=== PATIENT | male | born 1970 ===

== ENCOUNTER 2020-06-25 17:07 | Outpatient (REF) | payer MEDICAID, SELFPAY | END 2020-06-25 17:08 | disposition home or self-care (01) | LOC: HO.LAB 17:07 | PROVIDERS: Visit Provider Internal Medicine | DX: Z20.828 Contact with and (suspected) exposure to other viral communicable diseases (principal) | CPT/HCPCS: C9803; U0003 ==

== ENCOUNTER 2020-08-11 10:29 | Outpatient (REF) | payer MEDICAID, SELFPAY ==
--- NOTE | ~2020-08-11 | XR_ITS ---
EXAMINATION: XR HIP, RIGHT XR KNEE, RIGHT XR FOOT, RIGHT CLINICAL INFORMATION: Chronic right hip, knee, and foot pain. COMPARISON: None TECHNIQUE: AP and frog-leg lateral views of the right hip. AP, tunnel, lateral, and sunrise views of the right knee. AP, oblique, and lateral views of the right foot. FINDINGS: Right hip: No acute fracture or dislocation. Mild joint space narrowing with small marginal osteophytes. No osseous erosion. No abnormal soft tissue calcification. Right knee: Mild medial compartment joint space narrowing. No significant marginal osteophytes. No osseous erosion. No abnormal soft tissue calcification. No significant joint effusion. No fracture or dislocation. Right foot: No acute fracture or dislocation. Tiny marginal osteophytes at the 1st metatarsophalangeal joint. Small plantar and dorsal calcaneal enthesophytes. XR/XR foot RT min 3V IMPRESSION: Right hip: Mild degenerative arthritis. Right knee: Minimal medial compartment degenerative arthritis. Right foot: Mild degenerative arthritis at the 1st metatarsophalangeal joint. Small plantar and dorsal calcaneal spurs.
--- NOTE | ~2020-08-11 | XR_ITS ---
EXAMINATION: XR HIP, RIGHT XR KNEE, RIGHT XR FOOT, RIGHT CLINICAL INFORMATION: Chronic right hip, knee, and foot pain. COMPARISON: None TECHNIQUE: AP and frog-leg lateral views of the right hip. AP, tunnel, lateral, and sunrise views of the right knee. AP, oblique, and lateral views of the right foot. FINDINGS: Right hip: No acute fracture or dislocation. Mild joint space narrowing with small marginal osteophytes. No osseous erosion. No abnormal soft tissue calcification. Right knee: Mild medial compartment joint space narrowing. No significant marginal osteophytes. No osseous erosion. No abnormal soft tissue calcification. No significant joint effusion. No fracture or dislocation. Right foot: No acute fracture or dislocation. Tiny marginal osteophytes at the 1st metatarsophalangeal joint. Small plantar and dorsal calcaneal enthesophytes. XR/XR knee RT 4V IMPRESSION: Right hip: Mild degenerative arthritis. Right knee: Minimal medial compartment degenerative arthritis. Right foot: Mild degenerative arthritis at the 1st metatarsophalangeal joint. Small plantar and dorsal calcaneal spurs.
--- NOTE | ~2020-08-11 | XR_ITS ---
EXAMINATION: XR HIP, RIGHT XR KNEE, RIGHT XR FOOT, RIGHT CLINICAL INFORMATION: Chronic right hip, knee, and foot pain. COMPARISON: None TECHNIQUE: AP and frog-leg lateral views of the right hip. AP, tunnel, lateral, and sunrise views of the right knee. AP, oblique, and lateral views of the right foot. FINDINGS: Right hip: No acute fracture or dislocation. Mild joint space narrowing with small marginal osteophytes. No osseous erosion. No abnormal soft tissue calcification. Right knee: Mild medial compartment joint space narrowing. No significant marginal osteophytes. No osseous erosion. No abnormal soft tissue calcification. No significant joint effusion. No fracture or dislocation. Right foot: No acute fracture or dislocation. Tiny marginal osteophytes at the 1st metatarsophalangeal joint. Small plantar and dorsal calcaneal enthesophytes. XR/XR hip RT min 2V IMPRESSION: Right hip: Mild degenerative arthritis. Right knee: Minimal medial compartment degenerative arthritis. Right foot: Mild degenerative arthritis at the 1st metatarsophalangeal joint. Small plantar and dorsal calcaneal spurs.
== END 2020-08-11 10:30 | disposition home or self-care (01) ==
LOC: HO.XRAY 10:29
PROVIDERS: PCP Internal Medicine; Visit Provider Family Medicine
DX: G89.29 Other chronic pain (principal); M25.551 Pain in right hip; M79.671 Pain in right foot
CPT/HCPCS: 73502; 73564; 73630

== ENCOUNTER 2020-08-25 10:00 | Outpatient (RCR) | payer MEDICAID, SELFPAY | END 2021-01-01 01:00 | disposition home or self-care (01) | LOC: HO.PT 10:00 | PROVIDERS: PCP Family Medicine; Visit Provider Family Medicine | DX: M25.561 Pain in right knee (principal) | CPT/HCPCS: 97110; 97116; 97140; 97162; 97530 ==

== ENCOUNTER 2020-10-14 14:20 | Outpatient (REF) | payer MEDICAID, SELFPAY ==
--- NOTE | ~2020-10-14 | MR_ITS ---
EXAMINATION: MR KNEE WITHOUT CONTRAST, RIGHT CLINICAL INFORMATION: Chronic pain instability COMPARISON: X-ray the right knee August 2020 TECHNIQUE: MRI of the knee without contrast was performed using routine sequences on a high-field scanner. FINDINGS: MENISCI: Medial Meniscus: There is an avulsive type tear the posterior root insertion. There is mild outward extrusion of the meniscus likely related to this tear. Lateral Meniscus: Intact LIGAMENTS: Cruciate: Intact Collateral: Intact EXTENSOR MECHANISM: Intact ARTICULAR CARTILAGE/BONE: Patellofemoral Compartment: Minimal cartilage heterogeneity in the median ridge and lateral facet of the patella. Trochlear cartilage normal. Overall minimal patellofemoral arthrosis. Medial Compartment: Normal Lateral Compartment: Normal JOINT FLUID AND BURSAE: Normal MR/MR knee RT wo con IMPRESSION: Avulsive-type tear of the posterior root of the medial meniscus. Minimal patellofemoral arthrosis.
== END 2020-10-14 14:21 | disposition home or self-care (01) ==
LOC: HO.MRI 14:20
PROVIDERS: Visit Provider Internal Medicine
DX: M25.561 Pain in right knee (principal)
CPT/HCPCS: 73721

== ENCOUNTER → 2021-04-01 09:53 | Outpatient (BNVA) | payer MEDICAID, SELFPAY | PROVIDERS: PCP Internal Medicine; Referring Provider Internal Medicine; Visit Provider Nurse Practitioner Family ==

== ENCOUNTER 2021-05-04 09:03 | Day surgery (SDC) | payer MEDICAID, SELFPAY ==
--- NOTE | 2021-05-01 08:28 | P.CONAN_ITS ---
Documented by User: Jackie Oneal NP 05/01/21 08:29 HPI - Anesthesia Eval Consult details Narrative: 50yo M for Upper Endoscopy and Colonoscopy ?ETOH abuse [facility] Past Medical History Medical History (Updated 04/28/21 @ 10:21 by Trish Brito RN) Allergic rhinitis Anxiety and depression History of alcohol abuse History of MRSA infection History of snoring HTN (hypertension) Urinary (tract) obstruction Family History Family History (Updated 04/01/21 @ 10:11 by Ashley Estrada CMA) Mother Cancer Surgical History Surgical History (Updated 04/28/21 @ 10:21 by Trish Brito RN) History of cystoscopy Hx of cholecystectomy Social History Social History (Updated 04/01/21 @ 10:12 by Ashley Estrada CMA) Alcohol intake: current Patient Tobacco Use Status: Never used Tobacco Advance Directives: No Advance Directives Information Provided: Yes Meds Allergies Allergy/AdvReac Type Severity Reaction Status Date / Time No Known Allergies Allergy Verified 04/28/21 10:21 [No Known Allergies*] Home Medications Medication Instructions Recorded Confirmed Last Taken Type cetirizine 10 mg tablet 10 mg PO DAILY 04/01/21 04/28/21 Unknown History lisinopril 10 mg tablet 10 mg PO DAILY 04/01/21 04/28/21 Unknown History tamsulosin 0.4 mg capsule 0.4 mg PO DAILY 04/01/21 04/28/21 Unknown History fluticasone propionate 50 2 spray INTRANASAL DAILY 04/28/21 04/28/21 Unknown History mcg/actuation nasal spray,suspension Exam Exam Date and Time: May 01, 202128 Assessment and Plan Assessment Anesthesia Assessment: Chart Reviewed Documented by User: Fior Conley MD 05/04/21 09:33 [facility] Past Medical History Medical History (Updated 04/28/21 @ 10:21 by Trish Brito RN) Allergic rhinitis Anxiety and depression History of alcohol abuse History of MRSA infection History of snoring HTN (hypertension) Urinary (tract) obstruction Family History Family History (Updated 04/01/21 @ 10:11 by Ashley Estrada CMA) Mother Cancer Surgical History Surgical History (Updated 04/28/21 @ 10:21 by Trish Brito RN) History of cystoscopy Hx of cholecystectomy Social History Social History (Updated 04/01/21 @ 10:12 by Ashley Estrada CMA) Alcohol intake: current Patient Tobacco Use Status: Never used Tobacco Advance Directives: No Advance Directives Information Provided: Yes Meds Allergies Allergy/AdvReac Type Severity Reaction Status Date / Time No Known Allergies Allergy Verified 04/28/21 10:21 [No Known Allergies*] Home Medications Medication Instructions Recorded Confirmed Last Taken Type cetirizine 10 mg tablet 10 mg PO DAILY 04/01/21 04/28/21 Unknown History lisinopril 10 mg tablet 10 mg PO DAILY 04/01/21 04/28/21 Unknown History tamsulosin 0.4 mg capsule 0.4 mg PO DAILY 04/01/21 04/28/21 Unknown History fluticasone propionate 50 2 spray INTRANASAL DAILY 04/28/21 04/28/21 Unknown History mcg/actuation nasal spray,suspension Exam Airway Mallampati Class: III TM Dist: >3cm Neck ROM: Full
--- NOTE | 2021-05-04 09:36 | MHC.SHP ---
Pre-Procedural Eval Section A Date of Service: 05/04/21 Section B Chief Complaint: Screening, dysphagia Details of Present Illness: unknown FH as adopted Relevant Family History (Specify if Yes): No Relevant Social History: Alcohol Use Medical History: Significant History (Allergic rhinitis Anxiety and depression History of alcohol abuse History of MRSA infection History of snoring HTN (hypertension) Urinary (tract) obstruction) History of Previous Operations: Relevant previous surgery/procedure and date(s) (cholecystectomy) Allergies: Allergies Allergy/AdvReac Type Severity Reaction Status Date / Time No Known Allergies Allergy Verified 04/28/21 10:21 [No Known Allergies*] Review of Systems Sugical H&P ROS: Negative: Constitution, Cardiovascular, Respiratory, Neurological, Psychiatric, Hem-Onc, Allergic/Immunologic, Gastrointestinal, Genitourinary, Musculoskeletal, Integumentary, Endocrine and Eyes/Ears/Nose/Throat Exam Surgical H&P Exam: Normal: HEENT, Normal: Heart, Normal: Lungs, Normal: Extremities, Normal: Abdomen, Normal: Skin and Normal: Neurological Plan Diagnosis/Plan: Unchanged I have reviewed the history and physical and performed a pertinent physical examination on my patient. No changes have occurred unless specified.
[2021-05-04 09:42] VITALS: BMI 47.0
[2021-05-04 09:44] VITALS: BP 141/78; PULSE 63; RESP 20; TEMP 36.2; O2SAT 97
[2021-05-04] MEDS: Lactated Ringers 1,000 ML 100 ML IVCONT (10:10)
--- NOTE | 2021-05-04 10:28 | PM.OP ---
Brief Operative Note Date of Service: 05/04/21 Pre-op diagnosis: dysphagia, screening colonoscopy Post-op diagnosis: same Procedure: see op note Surgeon: Jass Crenshaw MD Anesthesia: MAC Was an [employer] Engineering Division used for this Procedure?: No Estimated blood loss (mL): 0 Condition: stable Disposition: PACU
--- NOTE | 2021-05-04 10:28 | W.PM.OPN ---
Operative Note Operative Note Date of Service: 05/04/21 Narrative: Operative Information Procedure Description: EGD, Colonoscopy FLEXIBLE TRANSORAL UPPER GASTROINTESTINAL ENDOSCOPY AND COLONOSCOPY PROCEDURE NOTE UPPER ENDOSCOPY Consent: Indications for the procedure and potential complications of bleeding, perforation, reaction to medications and missed diagnosis were discussed with the patient and informed consent was obtained. Instrument: Olympus GIF H 190 J mid size upper endoscope Monitoring: Vital signs and clinical assessment, continuous EKG monitoring, Pulse oximetry, Carbon Dioxide monitoring and blood pressure monitoring were done throughout the procedure. Procedure: The patient was placed in the left lateral decubitis position and pre-procedure medications were administered and a bite block was placed. The endoscope was inserted into the mouth and advanced under direct vision to the third part of duodenum. A careful inspection was made as the upper endoscope was withdrawn including a retroflexed examination of the proximal stomach; Findings and interventions are described below. Findings: Larynx:normal Esophagus: GE junction at 40 cm, diaphragm hiatus at 40 cm, erosive esophagitis LA grade b noted, bx taken from random esophagus and GEJ, balloon dilation to 19 mm distally and proximally-- no tears seen. Stomach: Patchy erythematous mucosa. Biopsies were obtained. Grade 2 flap valve on retroflexed examination of the cardia. Duodenum: bulbar duodenitis and peptic appearing injury, bx taken Intervention: Biopsies as noted above, balloon dilation COLONOSCOPY Instrument: Olympus variable stiffness pediatric scope 190L Colonoscopy Monitoring: Vital signs and clinical assessment, continuous EKG monitoring, Pulse oximetry, Carbon Dioxide monitoring and blood pressure monitoring were done throughout the procedure. Colon withdrawal time was 17 minutes. Procedure: The patient was placed in the left lateral decubitis position and pre-procedure medications were administered. After a digital rectal examination of the ano-rectum, the video colonoscope was inserted into the rectum and advanced through the colon to the cecum/TI. The colonoscope was slowly withdrawn in a retrograde panoramic fashion and the colon mucosa was carefully examined including a retroflexed view of the rectum. Findings and interventions are described below. Procedure Difficulty: easy Findings: Terminal Ileum-normal Cecum: x1 sessile polyp 8-9 mm removed with cold snare and another flat polyp lesion 6-8 mm over orifice removed with forceps Ascending Colon: normal Transverse Colon -normal Descending Colon:normal Sigmoid Colon: 10-12 mm semi pedunculated polyp removed with cold snare with x 1 clip applied for hemostasis Rectum: Retroflexion with moderate sized inflammed internal hemorrhoids, grade I Anorectum - normal Colon preparation: [place] Bowel Preparation Scale Right colon; 2 Transverse colon: 3 Left colon; 3 (0 = Unprepared colon segment with mucosa not seen due to solid stool that cannot be cleared. 1 = Portion of mucosa of the colon segment seen, but other areas of the colon segment not well seen due to staining, residual stool and/or opaque liquid. 2 = Minor amount of residual staining, small fragments of stool and/or opaque liquid, but mucosa of colon segment seen well. 3 = Entire mucosa of colon segment seen well with no residual staining, small fragments of stool or opaque liquid) Impression and Post Procedure Diagnosis: Endoscopy Findings: duodenitis gastritis erosive esophagitis Colonoscopy Findings: internal hemorrhoids polyps Plan: Await Pathology results Repeat Colonoscopy in 3-4 years due to polyps or earlier if clinically indicated High fiber diet leaflet avoid straining at stool, epsom salts and sitz bath, anusol supps or cream if not taking PPi would benefit from trial and see if helps sx Above findings were reviewed with the patient and relevant handouts were provided if indicated.
[2021-05-04 10:57] VITALS: BP 130/84; PULSE 70; RESP 16; TEMP 36.4; O2SAT 98
[2021-05-04 11:12] VITALS: BP 141/93; PULSE 62; RESP 18; TEMP 36.2; O2SAT 96
== END 2021-05-04 12:49 | disposition home or self-care (01) ==
PROVIDERS: PCP Internal Medicine; Visit Provider Internal Medicine Gastroenterology
PROC: (CPT 45385; principal; 2021-05-04 11:10)
DX: Z12.11 Encounter for screening for malignant neoplasm of colon (principal); D12.0 Benign neoplasm of cecum; D12.5 Benign neoplasm of sigmoid colon; K64.0 First degree hemorrhoids; K59.00 Constipation, unspecified; R13.19 Other dysphagia; K20.80 Other esophagitis without bleeding; K29.70 Gastritis, unspecified, without bleeding; K29.80 Duodenitis without bleeding; K44.9 Diaphragmatic hernia without obstruction or gangrene; I10 Essential (primary) hypertension; R06.83 Snoring; J30.9 Allergic rhinitis, unspecified; F32.9 Major depressive disorder, single episode, unspecified
CPT/HCPCS: 45385; 45380; 43249; 43239; 88305; 88342; C1726

== ENCOUNTER → 2021-05-20 11:14 | Outpatient (BNVA) | payer MEDICAID, SELFPAY | PROVIDERS: PCP Internal Medicine; Referring Provider Internal Medicine; Visit Provider Nurse Practitioner Family | DX: K59.04 Chronic idiopathic constipation (principal); K21.9 Gastro-esophageal reflux disease without esophagitis; D12.0 Benign neoplasm of cecum; D12.6 Benign neoplasm of colon, unspecified; K29.80 Duodenitis without bleeding; K29.70 Gastritis, unspecified, without bleeding; K22.10 Ulcer of esophagus without bleeding; I10 Essential (primary) hypertension; Z90.49 Acquired absence of other specified parts of digestive tract; Z98.890 Other specified postprocedural states; Z79.899 Other long term (current) drug therapy | CPT/HCPCS: 99212 ==

== ENCOUNTER → 2021-08-31 12:01 | Outpatient (BNVA) | payer MEDICAID, SELFPAY | PROVIDERS: PCP Internal Medicine; Visit Provider Nurse Practitioner Family | DX: K59.04 Chronic idiopathic constipation (principal); K21.9 Gastro-esophageal reflux disease without esophagitis; E55.9 Vitamin D deficiency, unspecified | CPT/HCPCS: 99212 ==

== ENCOUNTER 2021-09-07 09:38 | Outpatient (REF) | payer MEDICAID, SELFPAY ==
[2021-09-07 10:57] LABS: Alanine Aminotransferase 32 U/L (0-40); Albumin Level 4.3 g/dL (3.5-5.0); Alkaline Phosphatase 67 U/L (39-117); Aspartate Amino Transferase 21 U/L (5-37); Bilirubin Direct 0.2 mg/dL (0.0-0.5); Bilirubin Total 0.5 mg/dL (0.0-1.0)
[2021-09-07 11:53] LABS: Folate 14.7 ng/mL (> or = 4.0); Vitamin B12 394 pg/mL (200-900)
[2021-09-11 01:17] LABS: Vitamin D 25-OH, D2 <4 ng/mL; Vitamin D 25-OH, D3 27 ng/mL; Vitamin D 25-OH, Total 27 ng/mL (30-100)
== END 2021-09-07 09:39 | disposition home or self-care (01) ==
LOC: HO.LAB 09:38
PROVIDERS: PCP Internal Medicine; Visit Provider Nurse Practitioner Family
DX: Z00.00 Encounter for general adult medical examination without abnormal findings (principal); Z12.11 Encounter for screening for malignant neoplasm of colon; R19.7 Diarrhea, unspecified; E55.9 Vitamin D deficiency, unspecified
CPT/HCPCS: 36415; 80076; 82306; 82607; 82746

== ENCOUNTER → 2021-09-30 19:51 | Outpatient (REF) | payer MEDICAID, SELFPAY | LOC: HO.SL 19:51 | PROVIDERS: PCP Internal Medicine; Visit Provider Internal Medicine | DX: G47.33 Obstructive sleep apnea (adult) (pediatric) (principal); R06.83 Snoring | CPT/HCPCS: 95811 ==

== ENCOUNTER → 2021-12-07 09:53 | Outpatient (BNVA) | payer MEDICAID, SELFPAY | PROVIDERS: PCP Internal Medicine; Visit Provider Nurse Practitioner Family | DX: K59.04 Chronic idiopathic constipation (principal); K21.9 Gastro-esophageal reflux disease without esophagitis; K58.1 Irritable bowel syndrome with constipation; Z79.899 Other long term (current) drug therapy | CPT/HCPCS: 99212 ==

== ENCOUNTER 2023-04-04 16:16 | Outpatient (REF) | payer MEDICAID, SELFPAY ==
--- NOTE | ~2023-04-04 | XR_ITS ---
EXAMINATION: XR CHEST CLINICAL INFORMATION: Shortness of breath and cough COMPARISON: None available. TECHNIQUE: 2 views of the chest were obtained. FINDINGS: No significant abnormality is noted involving the heart, lungs, mediastinum, bony thorax or soft tissues. XR/XR chest 2V IMPRESSION: Unremarkable examination.
== END 2023-04-04 16:17 | disposition home or self-care (01) ==
LOC: HO.HHCX 16:16
PROVIDERS: Visit Provider Student in an Organized Health Care Education/Training Program
DX: R06.02 Shortness of breath (principal)
CPT/HCPCS: 71046

== ENCOUNTER 2023-05-06 13:47 | Outpatient (REF) | payer OTHER, SELFPAY ==
[2023-05-09 05:41] LABS: ~HepC Num1 0.04 S/CO (0.00-0.79); ~Hepatitis B Surface Antibody NONREACTIVE (Nonreactive); ~Hepatitis C Antibody Nonreactive (Nonreactive)
== END 2023-05-06 13:48 | disposition home or self-care (01) ==
LOC: HO.HHCL 13:47
PROVIDERS: Visit Provider Nurse Practitioner Family
DX: E78.00 Pure hypercholesterolemia, unspecified (principal); F10.10 Alcohol abuse, uncomplicated
CPT/HCPCS: 36415; 86706; 86803

== ENCOUNTER 2023-07-29 10:59 | Outpatient (AMB) | payer OTHER, SELFPAY ==
--- NOTE | 2023-07-29 11:04 | A.OFFVIS_ITS ---
Intake Vital Signs 07/29/23 11:05 Height 5 ft 7 in Weight 235 lb 14.314 oz BMI 36.9 BP 110/74 Blood Pressure Location Lt brachial Position Sitting Pulse 63 Intake Visit Reasons: STATISTICAL TYPIST/Dr. 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 He has a pleasant 52-year-old male who says he has had flip-flops for many years usually when he is resting at nighttime and trying to go to sleep after he wakes up. Symptoms are not very bothersome. However recently had an episode where he felt rapid heart rate that lasted for about 5 hours more often accentuated flip-flopping in his chest. He then eventually ended up going to [facility] but by the time he reached to the emergency room his symptoms had subsided and his EKGs not show any abnormalities. He has longstanding history of hypertension. 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 He has no exertional symptoms of chest pain or shortness of breath. In the last year or so he is lost about 60 lb with dietary modification. He is taking all his medications. He denies any exertional chest pain, shortness of breath, orthopnea, PND, leg edema. No lightheadedness, syncope. [facility] Medical History (Updated 07/29/23 @ 11:37 by Ronnie Tucker MD) Tubular adenoma History of snoring History of alcohol abuse Allergic rhinitis History of MRSA infection Anxiety and depression Urinary (tract) obstruction HTN (hypertension) Surgical History Hx of esophagogastroduodenoscopy Hx of colonoscopy History of cystoscopy Hx of cholecystectomy Family History Mother Cancer Social History Alcohol intake: current Patient Tobacco Use Status: Never used Tobacco Review of Systems Const Denies chills, Denies daytime sleepiness, Denies fatigue, Denies fever(s), Denies frequent falls, Denies poor appetite, Denies snoring, Denies stops breathing during sleep, Denies weakness, Denies weight gain and Denies weight loss Eyes Denies loss of vision ENT Denies dizziness and Denies hearing loss Card Denies chest pain, Denies claudication, Denies leg edema, Denies lightheadedness, Denies palpitations, Denies dyspnea, Denies dyspnea on exertion and Denies orthopnea Resp Denies cough, Denies excessive phlegm production, Denies dyspnea, Denies dyspnea on exertion, Denies snoring and Denies wheezing GI Denies abdominal pain, Denies hematochezia, Denies change in bowel habits, Denies nausea and Denies vomiting Denies dysuria and Denies urinary frequency Musc Denies arthralgias, Denies muscle weakness, Denies numbness and Denies other (frequent falls) Skin/Breast Denies nail changes and Denies rash Neuro Denies Abnormal speech present, Denies dizziness, Denies frequent falls, Denies loss of vision, Denies memory loss, Denies numbness and Denies weakness Psych Denies depression and Denies memory loss Endo Denies fatigue and Denies palpitations Fuentes/Lymph Reports easy bruising and Reports other (anemia) Aller/Immun Denies wheezing Physical Exam Vital Signs: Last Vital Signs Pulse 63 07/29/23 11:05 BP 110/74 07/29/23 11:05 BMI result Body Mass Index 36.9 Const General: cooperative, comfortable, no acute distress, alert and awake Nutritional Appearance: obese Orientation/consciousness: patient oriented x3 Limitations: no limitations HEENT Head: Yes normocephalic and Yes atraumatic Neck Neck: Yes trachea midline, Yes supple and Yes no JVD Resp Effort & Inspection: normal respiratory effort Auscultation: clear to auscultation bilaterally Cardio Jugular venous distension: no JVD Palpation: normal PMI Rate: regular rate Rhythm: regular rhythm Heart sounds: S1 normal heart sound present, S2 normal heart sound present, no click, no gallops, no murmurs and no rubs GI Auscultation: normal bowel sounds Skin General skin exam: no rashes or lesions noted Neuro General: patient oriented x3 and no focal motor deficits Speech: No Abnormal speech present Extrem General: Yes no clubbing, cyanosis or edema Psych Appearance: grossly normal Office Procedures EKG Details: EKG shows normal sinus rhythm with incomplete right bundle-branch block 26559-[id number], Complete Assessment & Plan Assessment & Plan (1) Palpitations: Code(s): R00.2 - Palpitations Plan: Patient with longstanding history of flip-flops which is most likely related to extra systoles such as PVCs and PACs. I discussed at length about pathophysiology of PVCs and PACs and impact on cardiovascular prognosis. Will order a 7 day Holter monitor to assess for frequency as well as presence of extra systoles that may establish diagnosis. However he had a symptom that lasted for 5 hours with fast heart rate which could represent atrial fibrillation. Will obtain a 7 day Holter monitor to see if he has any propensity for atrial fibrillation that may need to be treated differently. Overall benign nature of isolated PVCs was discussed with him especially if he has normal structure of the heart. This was discussed with him and would avoid pharmacotherapy. He understands agrees. Avoidance of stimulants such as caffeine and alcohol. Continue risk factor modification. Will obtain an echocardiogram to assess for cardiac structure and function. If no diagnosis is established I have advised him to invest in smart phone based EKG device (2) HTN (hypertension): Code(s): I10 - Essential (primary) hypertension Plan: Hypertension which is currently well optimized on lisinopril 10 mg daily. He is done very well with lifestyle modification has lost about 60 lb. Discussed with him to continue to pursue aggressive weight loss program participate in regular physical activity. Continue lisinopril therapy. Low-salt diet was discussed advised to monitor blood pressure at home maintain a log. Goal blood pressure less than 130/84. He should also have a lipid panel with target goal LDL less than at least 100 mg/dL. Will follow up in the clinic in 4-6 weeks time, sooner p.r.n.. Coding Level of Care Code New Pt Level 4 (33474) Diagnoses Palpitations R00.2 HTN (hypertension) I10 CPT Codes EKG - CPT: 92283-[id number], Complete ([id number])
[2023-07-29 11:05] VITALS: BP 110/74; PULSE 63; BMI 36.9
== END 2023-07-29 11:31 | disposition home or self-care (01) ==
PROVIDERS: PCP Student in an Organized Health Care Education/Training Program; Visit Provider Internal Medicine Cardiovascular Disease
DX: R00.2 Palpitations (principal); I10 Essential (primary) hypertension
CPT/HCPCS: 93010; 99204

== ENCOUNTER → 2023-07-29 10:59 | Outpatient (BNVA) | payer OTHER, SELFPAY | PROVIDERS: PCP Student in an Organized Health Care Education/Training Program; Visit Provider Internal Medicine Cardiovascular Disease | DX: R00.2 Palpitations (principal); I10 Essential (primary) hypertension; Z79.899 Other long term (current) drug therapy | CPT/HCPCS: 93005; 99202 ==

== ENCOUNTER → 2023-08-19 10:54 | Outpatient (REF) | payer OTHER, SELFPAY ==
--- NOTE | 2023-08-19 11:01 | HM_ITS ---
Conclusion: 1. Patient was monitored for total period of 6 days and 23 hours n 2. Baseline was normal sinus rhythm with average heart of 64 beats per minute 3. Frequent sinus bradycardia noted with 36% of time heart rate below 60 beats per minute with no significant pauses 4. Occasional PACs noted without significant tachyarrhythmias 5. No patient reported events MTDD
--- NOTE | 2023-08-19 11:01 | CA_ITS ---
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 There is mildly increased left ventricular wall thickness. The visually estimated ejection fraction is between 55-60%. - Diastolic function is normal for age. - Normal right ventricular cavity size and systolic function. - There is mild dilatation of the ascending aorta measuring 3.40 cm. Findings Left Ventricle Normal left ventricular size and systolic function. There is mildly increased left ventricular wall thickness. The visually estimated ejection fraction is between 55-60%. There is no evidence of regional wall motion abnormalities. Diastolic function is normal for age. Right Ventricle Normal right ventricular cavity size and systolic function. Atria The left atrium is normal in size. Aortic Valve Normal aortic valve structure and function. There is no aortic valve stenosis. There is no aortic valve regurgitation. Mitral Valve Normal mitral valve structure and function. There is no mitral valve regurgitation. There is no mitral valve stenosis. Pulmonic Valve The pulmonic valve is normal. There is trace pulmonic valve regurgitation. Tricuspid Valve Normal tricuspid valve structure. There is trace tricuspid valve regurgitation. Normal right atrial pressure. There is no evidence of pulmonary hypertension. Great Vessels There is mild dilatation of the ascending aorta measuring 3.40 cm. The visualized portions of the pulmonary artery and branches are normal. Venous The inferior vena cava is normal in size and collapses greater than 50% with inspiration. Pericardium/Pleural There is no evidence of pericardial effusion. Prior Study Comparison No prior study available for comparison. Measurements 2D Linear Measurements IVSd: 1.27 0.6-0.9/0.6-1.0 cm LVIDd: 4.74 3.9-5.3/4.2-5.9 cm LVIDd Index: 2.17 2.4-3.2/2.2-3.1 cm/m2 LVIDs: 2.22 2.0-3.6 cm LVPWd: 1.24 0.7-1.1 cm Ao Root: 3.70 2.1-3.5 cm LA Diam: 4.60 2.7-3.8/3.0-4.0 cm LAIDs Index: 2.11 1.5-2.3 cm/m2 LV Mass: 285.56 67-162/88-224 g LV Mass Index: 130.99 43-95/49-115 g/m2 LVOT Diam: 2.40 3.0+(-)1.3 cm 2D Systolic Function EF 4C: 66.00 >55% EF 2C: 46.70 >55% EF BiP: 59.00 >55% Mitral Valve MV Pk E: 1.13 MV PK A: 0.81 MV Decel Time: 246.00 E/A: 1.40 E'Lateral: 13.20 E'Medial: 7.83 E/E' Med: 14.40 E/E' Lat: 8.60 PHT: 72.00 MVA PHT: 3.[address] [place]: 4.57 Aortic Valve AoV Pk Chuy: 1.48 AoV Mn Chuy: 0.94 AoV VTI: 0.35 AoV Pk Grad: 9.00 Aov Mn Grad: 4.00 JAMES Cont.VTI: 3.13 LVOT LVOT Pk Chuy: 1.07 LVOT Mn Chuy: 0.61 LVOT VTI: 0.24 LVOT Pk Grad: 5.00 LVOT Mn Grad: 2.00 LVOT Diam: 2.40 LVOT Area: 4.52 Diastolic Function MV Pk E: 1.13 MV Pk A: 0.81 E/A: 1.40 E'Medial: 7.83 E/E' Med: 14.40 E' Laterial: 13.20 E/E' Lat: 8.60 Right Ventricle TAPSE (mm): 25.00 TVS' Chuy: 14.00 Tricuspid Valve TR Pk Chuy: 2.23 TR Pk Grad: 20.00 RA Press: 3.00 RVSP: 23.00 Great Vessels Aorta Ao Root-2D: 3.70 2.0-3.7 cm Ao Asc: 3.40 2.1-3.4 cm Pulmonary Valve PV Pk Chuy: 1.44 Peak PV Grad: 8.00 Updated in Other Vendor System with Status of Final Bakari Davis MD electronically signed on 08/21/2023 1:27:27 PM with status of Final
== END ==
LOC: HO.CARD 10:54
PROVIDERS: PCP Nurse Practitioner Family; Visit Provider Internal Medicine Cardiovascular Disease
DX: R00.2 Palpitations (principal)
CPT/HCPCS: 93242; 93306

== ENCOUNTER → 2023-08-19 11:01 | Outpatient (BNV) | payer OTHER, SELFPAY | PROVIDERS: PCP Nurse Practitioner Family; Visit Provider Internal Medicine Cardiovascular Disease | DX: R00.1 Bradycardia, unspecified (principal) | CPT/HCPCS: 93244; 93306 ==

== ENCOUNTER 2023-09-08 14:07 | Outpatient (AMB) | payer OTHER, SELFPAY ==
[2023-09-08 14:12] VITALS: BP 100/62; PULSE 58; BMI 37.1
--- NOTE | 2023-09-08 14:12 | MHC.OFFVIS ---
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 He recently underwent an echocardiogram and Holter monitor and now presents for follow-up. Today he reports that his palpitations have lessened some. He mostly notice this them when he is laying down. He can feel his heart doing flip-flops. He does not notice this sensation during the day. No chest discomfort at rest or with activity. No shortness of breath, presyncope, syncope, PND, orthopnea or edema. He does report issues with fatigue, lightheadedness and feeling somewhat confused at times. Believes his diet may be contributing and that he may be running a high magnesium. He has an appointment with his PCP tomorrow and will discuss further with her. [facility] Medical History Tubular adenoma History of snoring History of alcohol abuse Allergic rhinitis History of MRSA infection Anxiety and depression Urinary (tract) obstruction HTN (hypertension) Surgical History Hx of esophagogastroduodenoscopy Hx of colonoscopy History of cystoscopy Hx of cholecystectomy Family History Mother Cancer Social History Alcohol intake: current Patient Tobacco Use Status: Never used Tobacco Review of Systems Const Details: lightheaded, confused at times All systems reviewed & are unremarkable except as noted in HPI and below Reports fatigue ENT Reports dizziness Card Details: palpitations when laying down Denies chest pain, Denies chest pain at rest, Denies chest pain with activity, Denies rapid heart rate, Denies pedal edema, Denies edema, Denies leg edema, Denies lightheadedness, Denies palpitations, Denies dyspnea, Denies dyspnea on exertion and Denies orthopnea Resp Denies cough, Denies dyspnea and Denies dyspnea on exertion GI Denies hematochezia and Denies change in stool character Musc Denies abnormal gait, Denies limited range of motion, Denies muscle cramps, Denies muscle weakness, Denies numbness, Denies radiating pain into limb, Denies stiffness and Denies tingling Neuro Denies abnormal gait, Reports dizziness, Denies numbness and Denies tingling Endo Reports fatigue and Denies palpitations Physical Exam Vital Signs: Last Vital Signs Pulse 58 09/08/23 14:12 BP 100/62 09/08/23 14:12 BMI result Body Mass Index 37.1 Const General: cooperative, healthy appearing, comfortable and no acute distress Orientation/consciousness: patient oriented x3 Neck Neck: Yes normal visual inspection Resp Effort & Inspection: normal respiratory effort Auscultation: clear to auscultation bilaterally, no rales, no rhonchi and no wheezes Cardio Jugular venous distension: no JVD Rate: regular rate Rhythm: regular rhythm Heart sounds: S1 normal heart sound present, S2 normal heart sound present, no murmurs and no rubs Neuro General: patient oriented x3 Extrem General: Yes normal to inspection and No no pedal edema Psych Appearance: grossly normal Mental Status: mental status grossly normal Speech and movement: Normal speech and movement present Assessment & Plan Assessment & Plan (1) Palpitations: Code(s): R00.2 - Palpitations Plan: Report of heart palpitations like his heart is flip-flopping when he lays down in bed at times. No daytime palpitations noted. EKG done last visit showing normal sinus rhythm with incomplete right bundle branch block, rate 63. Echocardiogram done 08/19/2023 showing EF 55-60%, ascending aorta 3.4 cm. Holter monitor done 08/19/2023 for 7 days shows sinus rhythm with average heart rate 64, frequent sinus bradycardia, 36% of the time heart rate less than 60, occasional PACs. Today he reports less heart palpitations however still present when he is laying down in bed at times. His symptoms are most likely related to PACs. Diagnosis of PACs reviewed with him. No need for medical management at this time. Instructed on reduction in caffeinated beverages. Good hydration. Exercise as tolerated and weight loss as able. Cardiology follow-up as needed. (2) HTN (hypertension): Code(s): I10 - Essential (primary) hypertension Plan: History of hypertension. Blood pressure currently well controlled at 100/62. Continue lisinopril. (3) PAC (premature atrial contraction): Code(s): I49.1 - Atrial premature depolarization Plan: As above Plan Time spent on chart review, documentation, interview and assessment Coding Level of Care Code Est Pt Level 3 (87678) Diagnoses Palpitations R00.2 HTN (hypertension) I10 PAC (premature atrial contraction) I49.1 Time Spent (min) 24
== END 2023-09-08 14:39 | disposition home or self-care (01) ==
PROVIDERS: PCP Nurse Practitioner Family; Visit Provider Nurse Practitioner Family
DX: R00.2 Palpitations (principal); I10 Essential (primary) hypertension; I49.1 Atrial premature depolarization
CPT/HCPCS: 99213

== ENCOUNTER → 2023-09-08 14:07 | Outpatient (BNVA) | payer OTHER, SELFPAY | PROVIDERS: PCP Nurse Practitioner Family; Visit Provider Nurse Practitioner Family | DX: R00.2 Palpitations (principal); I10 Essential (primary) hypertension; I49.1 Atrial premature depolarization | CPT/HCPCS: 99212 ==

== ENCOUNTER 2023-09-09 11:44 | Outpatient (REF) | payer OTHER, SELFPAY ==
[2023-09-09 14:02] LABS: Anion Gap 10 (12-20); Carbon Dioxide 30 mmol/L (22-29); Chloride 107 mmol/L (96-108); Magnesium 2.3 mg/dL (1.6-2.6); Potassium 4.5 mmol/L (3.3-5.1); Sodium 142 mmol/L (135-145)
[2023-09-09 14:05] LABS: Estimated Average Glucose 97 mg/dL
== END 2023-09-09 11:45 | disposition home or self-care (01) ==
LOC: HO.HHCL 11:44
PROVIDERS: Visit Provider Nurse Practitioner Family
DX: R53.83 Other fatigue (principal)
CPT/HCPCS: 36415; 80051; 83036; 83735

== ENCOUNTER 2024-02-20 11:15 | Outpatient (AMB) | payer OTHER, SELFPAY ==
--- NOTE | 2024-02-20 11:16 | MHC.OFFVIS ---
Vital Signs 02/20/24 11:17 Height 5 ft 7 in Weight 246 lb BMI 38.5 Intake Visit Reasons: Hemorrhoids Intake Note: This patient presents for Hemorrhoids. Pt c/o; Onset December, reports pain, reports inflmmation, Accompanied by: Self / Same As Patient Allergies No Known Allergies [No Known Allergies*] Allergy (Verified 02/20/24 11:23) Medication List - Last Reconciled 02/20/24 by Abraham Yan MD cetirizine 10 mg PO BID docusate sodium 100 mg PO BID PRN famotidine 40 mg PO BEDTIME finasteride 1 mg PO DAILY fluticasone propionate 50 mcg/actuation 2 sprays intranasal DAILY hydrocortisone 2.5% (Proctozone-HC) MO BID hydrocortisone acetate 25 mg MO BID lisinopril 10 mg PO DAILY sennosides (Natural Senna Laxative) 8.6 mg PO BEDTIME tamsulosin 0.4 mg PO DAILY HPI HPI Hemorrhoids: Details: 53-year-old male referred for hemorrhoids. He says that he has had hemorrhoids for many years. He would occasionally sees some bleeding with his hemorrhoids. However for the past 3 months, he says that his bleeding has been more frequent and heavier. He says that he would bleed each time he has a bowel movement. He describes pain in his anus and feels that his hemorrhoids are swollen a lot now a days. He says he has a lot of irritation around his anus as well He denies being constipated. He admits to marijuana use. [facility] Medical History (Updated 02/20/24 @ 11:40 by Abraham Yan MD) Bleeding hemorrhoids Tubular adenoma History of snoring History of alcohol abuse Allergic rhinitis History of MRSA infection Anxiety and depression Urinary (tract) obstruction HTN (hypertension) Surgical History Hx of esophagogastroduodenoscopy Hx of colonoscopy History of cystoscopy Hx of cholecystectomy Family History Mother Cancer Social History Alcohol intake: current Patient Tobacco Use Status: Never used Tobacco Review of Systems Const Denies chills and Denies fever(s) Card Denies chest pain, Denies dyspnea and Denies dyspnea on exertion Resp Denies cough, Denies dyspnea and Denies dyspnea on exertion GI Reports hematochezia and Denies change in bowel habits Denies hematuria and Denies difficulty urinating Musc Denies back pain and Denies limited range of motion Neuro Denies focal weakness and Denies convulsions Psych Denies depression and Denies mood swings Physical Exam Vital Signs: BMI result Body Mass Index 38.5 Const General: comfortable and no acute distress Orientation/consciousness: patient oriented x3 Neck Neck: Yes no lymphadenopathy Resp Auscultation: clear to auscultation bilaterally Cardio Rhythm: regular rhythm GI Other: Rectal exam shows large external hemorrhoids on both the left and right side Palpation (GI): Soft to palpation, nontender and no guarding Neuro General: patient oriented x3 Office Procedures Anoscopy He was in kimber-knife position. The anoscope was gently inserted. A full examination of the anal canal was done. He had large mixed hemorrhoids internal external on the left and right side. There were no other lesions. There was no bleeding. There was no fissure. There was no induration on digital exam. [id number] Assessment & Plan Assessment & Plan (1) Bleeding hemorrhoids: Code(s): K64.9 - Unspecified hemorrhoids Category: Medical Plan: He understands the technique of hemorrhoidectomy for his bleeding hemorrhoids. I explained the risks including but not limited to bleeding, infections, injury to the sphincter, postop pain, as well as the benefits and alternatives. I reviewed with him what to expect postoperatively He says that he has had this problems for a long time and wants to proceed with exam under anesthesia, hemorrhoidectomy. Coding Level of Care Code New Pt Level 3 (41251) Diagnoses Bleeding hemorrhoids K64.9 CPT Codes Details - CPT: 88613-Rxcfnfda ([id number])
[2024-02-20 11:17] VITALS: BMI 38.5
== END 2024-02-20 11:42 | disposition home or self-care (01) ==
PROVIDERS: PCP Nurse Practitioner Family; Visit Provider Surgery
DX: K64.9 Unspecified hemorrhoids (principal)
CPT/HCPCS: 46600; 99203

== ENCOUNTER → 2024-02-20 11:15 | Outpatient (BNVA) | payer OTHER, SELFPAY | PROVIDERS: PCP Nurse Practitioner Family; Visit Provider Surgery | DX: K64.9 Unspecified hemorrhoids (principal) | CPT/HCPCS: 46600; 99202 ==

== ENCOUNTER 2024-03-09 06:55 | Day surgery (SDC) | payer OTHER, SELFPAY ==
[2024-03-07 11:42] VITALS: BMI 38.5
--- NOTE | 2024-03-08 10:49 | HO.ANESPROP2 ---
Documented by User: Jackie Oneal NP 03/08/24 10:51 HPI - Anesthesia Eval Consult details Narrative: 53yo M for EUA,Hemorrhoidectomy Cardiac w/u 2023 with [facility] cardiology for palps. Dx with PACs. Only PRN cardiac f/u. PMFSH Active Problems Active Problems: All Active Problems PAC (premature atrial contraction) (Acute) Palpitations (Acute) Bleeding hemorrhoids (Acute) HTN (hypertension) (Acute) Tubular adenoma (Acute) Past Medical History Medical History (Updated 03/09/24 @ 07:23 by Rocío May RN) Bradycardia Sleep apnea Bleeding hemorrhoids Tubular adenoma History of snoring History of alcohol abuse Allergic rhinitis History of MRSA infection Anxiety and depression Urinary (tract) obstruction HTN (hypertension) Family History Family History Mother Cancer Surgical History Surgical History Hx of esophagogastroduodenoscopy Hx of colonoscopy History of cystoscopy Hx of cholecystectomy Social History Social History Alcohol intake: current Patient Tobacco Use Status: Never used Tobacco Use of substances other than those prescribed or required for medical reasons: Yes Are you DNR?: No Advance Directives: No Advance Directives Information Provided: Yes Advance Directives on File: No Recently lost weight without trying: No Nutrition Risks: No Nutritional Risk Meds Allergies Allergy/AdvReac Type Severity Reaction Status Date / Time No Known Allergies Allergy Verified 02/20/24 11:23 [No Known Allergies*] Home Medications ?Medication ?Instructions ?Recorded ?Confirmed ?Last Taken ?Type lisinopril 10 mg tablet 10 mg PO DAILY 04/01/21 02/20/24 Unknown History tamsulosin 0.4 mg capsule 0.4 mg PO DAILY 04/01/21 02/20/24 Unknown History fluticasone propionate 50 2 spray intranasal DAILY 04/28/21 02/20/24 Unknown History mcg/actuation nasal spray,suspension cetirizine 10 mg tablet 10 mg PO BID 09/08/23 02/20/24 Unknown History hydrocortisone 2.5 % topical cream VT BID 09/08/23 02/20/24 Unknown History with perineal applicator (Proctozone-HC) docusate sodium 100 mg capsule 100 mg PO BID PRN constipation 02/20/24 02/20/24 Unknown History finasteride 1 mg tablet 1 mg PO DAILY 02/20/24 02/20/24 Unknown History hydrocortisone acetate 25 mg 25 mg VT BID 02/20/24 02/20/24 Unknown History rectal suppository Exam Height,Weight and Vital Signs: Height 5 ft 7 in Weight 111.584 kg Narrative Narrative: ECHO 2023 Conclusions: - Normal left ventricular size and systolic function. There is mildly increased left ventricular wall thickness. The visually estimated ejection fraction is between 55-60%. - Diastolic function is normal for age. - Normal right ventricular cavity size and systolic function. - There is mild dilatation of the ascending aorta measuring 3.40 cm. Holter 2023 1. Patient was monitored for total period of 6 days and 23 hours n 2. Baseline was normal sinus rhythm with average heart of 64 beats per minute 3. Frequent sinus bradycardia noted with 36% of time heart rate below 60 beats per minute with no significant pauses 4. Occasional PACs noted without significant tachyarrhythmias 5. No patient reported events EKG 07/2023 normal sinus rhythm with incomplete right bundle-branch block Assessment and Plan Assessment Anesthesia Assessment: Chart Reviewed Documented by User: Fior Conley MD 03/09/24 09:12 [facility] Past Medical History Medical History (Updated 03/09/24 @ 07:23 by Rocío May RN) Bradycardia Sleep apnea Bleeding hemorrhoids Tubular adenoma History of snoring History of alcohol abuse Allergic rhinitis History of MRSA infection Anxiety and depression Urinary (tract) obstruction HTN (hypertension) Family History Family History Mother Cancer Family history of problems with anesthesia: No Surgical History Surgical History Hx of esophagogastroduodenoscopy Hx of colonoscopy History of cystoscopy Hx of cholecystectomy History of Problems with Anesthesia: No Social History Social History Alcohol intake: current Patient Tobacco Use Status: Never used Tobacco Use of substances other than those prescribed or required for medical reasons: Yes Are you DNR?: No Advance Directives: No Advance Directives Information Provided: Yes Advance Directives on File: No Recently lost weight without trying: No Nutrition Risks: No Nutritional Risk Meds Allergies Allergy/AdvReac Type Severity Reaction Status Date / Time No Known Allergies Allergy Verified 02/20/24 11:23 [No Known Allergies*] Home Medications ?Medication ?Instructions ?Recorded ?Confirmed ?Last Taken ?Type lisinopril 10 mg tablet 10 mg PO DAILY 04/01/21 02/20/24 Unknown History tamsulosin 0.4 mg capsule 0.4 mg PO DAILY 04/01/21 02/20/24 Unknown History fluticasone propionate 50 2 spray intranasal DAILY 04/28/21 02/20/24 Unknown History mcg/actuation nasal spray,suspension cetirizine 10 mg tablet 10 mg PO BID 09/08/23 02/20/24 Unknown History hydrocortisone 2.5 % topical cream VT BID 09/08/23 02/20/24 Unknown History with perineal applicator (Proctozone-HC) docusate sodium 100 mg capsule 100 mg PO BID PRN constipation 02/20/24 02/20/24 Unknown History finasteride 1 mg tablet 1 mg PO DAILY 02/20/24 02/20/24 Unknown History hydrocortisone acetate 25 mg 25 mg VT BID 02/20/24 02/20/24 Unknown History rectal suppository Exam Airway Mallampati Class: III TM Dist: >3cm Neck ROM: Full Assessment and Plan Assessment Anesthesia Assessment: Anesthesia Plan Discussed Final Anesthetic Review Family History of Problems with Anesthesia: No History of Problems with Anesthesia: No NPO: Yes ASA Class: III Final Preanesthetic Review: No Changes in Pt Med Stat, Meds/Allgs Chart Reviewed, Consent Obtained/Reviewed and Anes Risks/Benef Reviewed Patient Risk: Intermediate Procedure Risk: Low Anesthetic Plan Anesthetic Plan: GA Disposition: Standard PACU
[2024-03-09] VITALS (13 sets, daily range): BP systolic 111–146; BP diastolic 60–84; PULSE 55–82; RESP 6–20; TEMP 36–36.9; O2SAT 95–100; BMI 39.3
--- NOTE | 2024-03-09 08:30 | MHC.SHP ---
Pre-Procedural Eval Section A - 24 Hr Update-Section A only Date of Service: 03/09/24 Section B - Complete if H&P > 30 days Chief Complaint: Unspecified hemorrhoids Details of Present Illness: has had bleeding hemorrhoids Relevant Family History (Specify if Yes): No Present Medications: see Short Stay Collaborative assessment Medical History: Significant History (HTN, PAC) Allergies: Allergies Allergy/AdvReac Type Severity Reaction Status Date / Time No Known Allergies Allergy Verified 02/20/24 11:23 [No Known Allergies*] Review of Systems Sugical H&P ROS: Negative: Constitution, Cardiovascular, Respiratory, Neurological, Psychiatric, Hem-Onc, Allergic/Immunologic, Genitourinary, Musculoskeletal, Integumentary, Endocrine and Eyes/Ears/Nose/Throat Exam Surgical H&P Exam: Normal: Heart, Normal: Lungs and Normal: Abdomen Exam Comment: inmternal and external hemorrhoids Plan Diagnosis/Plan: Unchanged I have reviewed the history and physical and performed a pertinent physical examination on my patient. No changes have occurred unless specified. Time Spent With Patient Time: Total time managing care of this patient today ____ minutes.
--- NOTE | 2024-03-09 09:33 | W.PM.OPN ---
Operative Note Operative Note Date of Service: 03/09/24 Narrative: Preop diagnosis: Bleeding hemorrhoids, internal external Postop diagnosis: Large internal and external hemorrhoids with bleeding Procedure: Exam under anesthesia hemorrhoidectomy x3 columns Surgeon: Abraham Yan MD The patient is a 53-year-old male was had chronic problems with bleeding hemorrhoids. He therefore wanted to proceed with hemorrhoidectomy. He understood the technique of the planned procedure as well as the risks, benefits, and alternatives. He was brought to the operating room. He was placed in prone kimber-knife position under general anesthesia via endotracheal tube. The buttocks were retracted with wide tape laterally. The perianal area was prepped and draped in the usual sterile fashion. A surgical time-out was done. The patient received Cefotan 2 g IV preoperatively Examination of the anal orifice revealed large external hemorrhoids, 2 of them on the right and 1 on the left . I infiltrated the perianal area with lidocaine 1%. I inserted the Steven Sim retractor and examined the anal canal circumferentially. Again this hemorrhoidal columns were seen and this were mix of internal external. These were large bulky hemorrhoidal columns. There were no other lesions seen in the anal canal. There was no fissure or ulceration. There was induration. I applied a Ibrahim grasper on the largest hemorrhoidal column in the right side laterally. This was retracted out into the field. I applied a kyeuex-gc-[id number] chromic 3-0 stitch at the pedicle past the dentate line. I made an incision around this hemorrhoidal column to the perianal skin with a blade 15. I excised this hemorrhoidal column above the plane of the sphincters along this incision. I closed the incision with full-thickness running 3-0 sutures. Additional hemostatic sutures were placed The same procedure was duplicated on the hemorrhoidal column on the left. Again this hemorrhoidal column was retracted out in the field with a Ibrahim grasper. I made a xuplhv-lm-viqlf stitch at the pedicle. I made an incision around this hemorrhoidal column to the perianal skin with a blade 15. I excised this hemorrhoidal column above the plane of the sphincters with scissors. I closed the incision with a running chromic 3-0 stitch with a history of hemostatic sutures placed There was another large hemorrhoidal column anteriorly a little towards the right side as well and this was excised in the same fashion. This was marked with a Ibrahim grasper and a [id number] incision was made at the pedicle. I made an incision around this hemorrhoidal column to the perianal skin with a blade 15. I excised this above the plane of the sphincters with scissors. I closed the incision with a running chromic 3-0 stitch. I observed for hemostasis. Additional [id number] sutures were placed for oozing areas and all incisions Once hemostasis was confirmed, I positioned a rolled Gelfoam into the anal canal for additional hemostasis. I infiltrated the perianal area generously with Marcaine 0.5% for postop analgesia. The procedure was then completed The patient tolerated the procedure well. There were no immediate complications. Initial and final counts of sponges and instruments were correct. Estimated blood loss was about 100 cc in view of the large hemorrhoids. The patient was extubated without difficulty and transferred to the recovery room with stable vital signs.
[2024-03-09] MEDS: fentaNYL citrate/PF 100 MCG/2 ML VIAL 50 MCG IVPUSH ×2 (10:33→10:41)
== END 2024-03-09 11:42 | disposition home or self-care (01) ==
PROVIDERS: Visit Provider Surgery
PROC: (CPT 46260; principal; 2024-03-09 08:30)
DX: K64.8 Other hemorrhoids (principal); K64.4 Residual hemorrhoidal skin tags; K62.89 Other specified diseases of anus and rectum; I10 Essential (primary) hypertension; N13.9 Obstructive and reflux uropathy, unspecified; F41.8 Other specified anxiety disorders; G47.33 Obstructive sleep apnea (adult) (pediatric); Z86.14 Personal history of Methicillin resistant Staphylococcus aureus infection; Z79.51 Long term (current) use of inhaled steroids; Z79.899 Other long term (current) drug therapy; Z98.890 Other specified postprocedural states
CPT/HCPCS: 46260; 88304; J0131; J1200; J1885; J2250; J2405; J2704; J2795; J3010

== ENCOUNTER → 2024-03-09 06:55 | Outpatient (BNV) | payer OTHER, SELFPAY | PROVIDERS: Visit Provider Surgery | DX: K64.8 Other hemorrhoids (principal) | CPT/HCPCS: 46260 ==

== ENCOUNTER 2024-03-22 09:00 | Outpatient (AMB) | payer OTHER, SELFPAY ==
--- NOTE | 2024-03-22 09:03 | MHC.OFFVIS ---
Intake Visit Reasons: S/P hemorrhoidectomy Intake Note: This patient presents for post-op assessment status post Exam under anesthesia hemorrhoidectomy x3 columns. Pt c/o; reports no complaints. Hand Inspector Required: No Accompanied by: Self / Same As Patient Allergies No Known Allergies [No Known Allergies*] Allergy (Verified 03/22/24 09:16) HPI HPI S/P hemorrhoidectomy: Details: He underwent hemorrhoidectomy 3 large columns of hemorrhoids last 03/09/2024. He tolerated the procedure well. He says he feels well. He admits to having pain for the 1st few days but now feels much better. [facility] Medical History Bradycardia Sleep apnea Bleeding hemorrhoids Tubular adenoma History of snoring History of alcohol abuse Allergic rhinitis History of MRSA infection Anxiety and depression Urinary (tract) obstruction HTN (hypertension) Surgical History History of hemorrhoidectomy (~03/09/24) Hx of esophagogastroduodenoscopy Hx of colonoscopy History of cystoscopy Hx of cholecystectomy Family History Mother Cancer Social History Alcohol intake: current Patient Tobacco Use Status: Never used Tobacco Review of Systems Const Denies chills and Denies fever(s) GI Denies hematochezia Physical Exam Const Other: Sitting down comfortably General: comfortable and no acute distress Resp Effort & Inspection: normal respiratory effort GI Other: Hemorrhoidectomy sites are well healing, not infected, some ecchymosis seen on the left, no induration Assessment & Plan Assessment & Plan (1) Bleeding hemorrhoids: Code(s): K64.9 - Unspecified hemorrhoids Category: Medical Plan: Status post hemorrhoidectomy for 3 large columns. He is doing well postoperatively. His incisions are well healing. He feels well and is happy with the outcome. His path report shows hemorrhoids. I advised him to continue doing hot Sitz baths or warm soaks to the area. He is to avoid straining and constipation. Coding Level of Care Code Global (76540) Diagnoses Bleeding hemorrhoids K64.9
== END 2024-03-22 09:31 | disposition home or self-care (01) ==
PROVIDERS: PCP Nurse Practitioner Family; Visit Provider Surgery
DX: K64.9 Unspecified hemorrhoids (principal)
CPT/HCPCS: 99024

== ENCOUNTER → 2024-03-22 09:00 | Outpatient (BNVA) | payer OTHER, SELFPAY | PROVIDERS: PCP Nurse Practitioner Family; Visit Provider Surgery | DX: K64.9 Unspecified hemorrhoids (principal) | CPT/HCPCS: 99212 ==

== ENCOUNTER 2024-04-23 09:26 | Outpatient (AMB) | payer MEDICAID, SELFPAY ==
--- NOTE | 2024-04-23 09:26 | A.OFFVIS_ITS ---
Vital Signs 04/23/24 09:35 Height 5 ft 7 in Weight 249 lb 1.957 oz BMI 39.0 BP 122/72 Blood Pressure Location Lt brachial Position Sitting Intake Visit Reasons: bleeding Intake Note: Patient is seen in office for post op assessment post, hemorrhoidectomy x3 columns. Pt c/o: admits to bleeding since one week post surgery, worse today, blood when cleaning, stop taking the senna & colace, sensation of having to go, straining, bright red blood Flame Annealing Machine Setter Required: No Accompanied by: Self / Same As Patient Allergies No Known Allergies [No Known Allergies*] Allergy (Verified 04/23/24 09:42) HPI HPI bleeding: Details: He had undergone hemorrhoidectomy of multiple columns because of bleeding hemorrhoids last 03/09/2024. I had seen him a for postop visit last month and he had been doing well However, for the past week and a half, he says he had been noticing bright red blood with bowel movements periodically. He says that this morning the seemed to be ?a lot?. He says that he has had frequent bowel movements lately which appeared to be causing him to have some bloody stools. He says he is up-to-date with his colonoscopy but he says that he may be do it in the next year. [facility] Medical History Bradycardia Sleep apnea Bleeding hemorrhoids Tubular adenoma History of snoring History of alcohol abuse Allergic rhinitis History of MRSA infection Anxiety and depression Urinary (tract) obstruction HTN (hypertension) Surgical History History of hemorrhoidectomy (~03/09/24) Hx of esophagogastroduodenoscopy Hx of colonoscopy History of cystoscopy Hx of cholecystectomy Family History Mother Cancer Social History Alcohol intake: current Patient Tobacco Use Status: Never used Tobacco Review of Systems Const Denies chills and Denies fever(s) Resp Denies cough GI Reports hematochezia Physical Exam Const General: comfortable and no acute distress Resp Effort & Inspection: normal respiratory effort GI Other: Rectal exam shows some residual swelling on the hemorrhoidectomy site on the right with some tenderness as well. Otherwise, no bleeding seen. There was no signs of any inflammation or infection Assessment & Plan Assessment & Plan (1) Bleeding hemorrhoids: Code(s): K64.9 - Unspecified hemorrhoids Category: Medical Plan: Status post hemorrhoidectomy. He had been doing well postoperatively. He h owever has been noticing some blood per rectum the last week and a half. Examination does not reveal any obvious source of bleeding but he still has some residual swelling of the hemorrhoidectomy sites. I advised him to continue to do hot Sitz baths. I advised him to avoid straining and constipation. He does state that his problem sometimes now is that he has to frequent of bowel movements so I told him to hold off on Colace if this is happening as frequent bowel movements can also irritate the hemorrhoidectomy sites He understands that he can come back to the office any time if he wants this re- evaluated. Coding Level of Care Code Global (74524) Diagnoses Bleeding hemorrhoids K64.9
[2024-04-23 09:35] VITALS: BP 122/72; BMI 39.0
== END 2024-04-23 09:51 | disposition home or self-care (01) ==
PROVIDERS: PCP Nurse Practitioner Family; Visit Provider Surgery
DX: K64.9 Unspecified hemorrhoids (principal)
CPT/HCPCS: 99024

== ENCOUNTER → 2024-04-23 09:26 | Outpatient (BNVA) | payer OTHER, SELFPAY | PROVIDERS: PCP Nurse Practitioner Family; Visit Provider Surgery | DX: N40.1 Benign prostatic hyperplasia with lower urinary tract symptoms (principal); K64.9 Unspecified hemorrhoids | CPT/HCPCS: 81003; 99202; 99212 ==

== ENCOUNTER 2024-04-23 09:53 | Outpatient (AMB) | payer MEDICAID, SELFPAY ==
--- NOTE | 2024-04-23 09:59 | MHC.OFFVIS ---
Intake Visit Reasons: BPH w/LUTS Intake Note: Patient is present for BPH/LUTS Urology Medication:TAMSULOSIN, FINASTERIDE Antibiotic Allergy:NONE Blood Thinner:NONE Electric Sign Assembler Required: No Allergies No Known Allergies [No Known Allergies*] Allergy (Verified 04/23/24 10:00) HPI Comments Details: 04/23/24--Cisco is a 53 year old male who is here for [facility] evaluation for BPH. He has been followed by urology in the past. He is on tamsulosin and proscar. He wants to follow with [facility]. He states the medication helps. He denies dysuria, denies hematuria. Recent hemrrhoidectomy. Will hold on prostate exam today. [facility] Medical History Bradycardia Sleep apnea Bleeding hemorrhoids Tubular adenoma History of snoring History of alcohol abuse Allergic rhinitis History of MRSA infection Anxiety and depression Urinary (tract) obstruction HTN (hypertension) Surgical History History of hemorrhoidectomy (~03/09/24) Hx of esophagogastroduodenoscopy Hx of colonoscopy History of cystoscopy Hx of cholecystectomy Family History Mother Cancer Social History Alcohol intake: current Patient Tobacco Use Status: Never used Tobacco Review of Systems Const All systems reviewed & are unremarkable except as noted in HPI and below Reports no additional complaints Eyes Reports no additional complaints ENT Reports no additional complaints Card Reports no additional complaints Resp Reports no additional complaints GI Reports no additional complaints Reports as per HPI Musc Reports no additional complaints Skin/Breast Reports system reviewed and no additional complaints, except as documented Neuro Reports no additional complaints Psych Reports no additional complaints Endo Reports no additional complaints Fuentes/Lymph Reports no additional complaints Aller/Immun Reports no additional complaints Physical Exam Const General: healthy appearing, no acute distress and well developed Orientation/consciousness: patient oriented x3 HEENT Head: Yes normocephalic and Yes atraumatic Eyes Conjunctivae: conjunctivae normal Neck Neck: Yes normal visual inspection Chest Chest palpation & inspection: normal inspection of the chest Resp Effort & Inspection: normal respiratory effort Cardio Rate: regular rate GI Inspection: Yes normal to inspection Neuro General: patient oriented x3 Extrem General: No pedal edema Psych Appearance: grossly normal Affect: normal affect Results AMB Urinalysis, Automated UA Leukoctes 0 Genia/uL Last Edit by CRISTI Nelson on 04/23/24 10:18 UA Nitrite Negative Last Edit by CRISTI Nelson on 04/23/24 10:18 UA Urobilinogen 0.2 mg/dL Last Edit by CRISTI Nelson on 04/23/24 10:18 UA Protein 0 mg/dL Last Edit by Rena Lopez [facility] on 04/23/24 10:18 UA pH 6.0 Last Edit by Rena Lopez [facility] on 04/23/24 10:18 UA Blood 0 Jewel/uL Last Edit by Rena Lopez [facility] on 04/23/24 10:18 UA Specific [place] 1.020 Last Edit by Rena Lopez [facility] on 04/23/24 10:18 UA Ketone Negative Last Edit by CRISTI Nelson on 04/23/24 10:18 UA Bilirubin 0 mg/dL Last Edit by Rena Lopez [facility] on 04/23/24 10:18 UA Glucose 0 mg/dL Last Edit by Rena Lopez [facility] on 04/23/24 10:18 Results Reviewed Results Reviewed: Laboratory Last Values Urine pH (Auto) 6.0 04/23/24 10:17 Specific [place] (Auto) 1.020 04/23/24 10:17 Urine Protein (Auto) 0 mg/dL 04/23/24 10:17 Glucose (UA)(Auto) 0 mg/dL 04/23/24 10:17 Urine Ketones (Auto) Negative 04/23/24 10:17 Urine Blood (Auto) 0 Jewel/uL 04/23/24 10:17 Urine Nitrite (Auto) Negative 04/23/24 10:17 Urine Bilirubin (Auto) 0 mg/dL 04/23/24 10:17 Urine Urobilinogen (Auto) 0.2 mg/dL 04/23/24 10:17 Leukocyte Esterase (Auto) 0 Genia/uL 04/23/24 10:17 Assessment & Plan Assessment & Plan (1) BPH loc w urin obs/LUTS: Code(s): N40.1 - Benign prostatic hyperplasia with lower urinary tract symptoms Category: Medical Plan Cont tamsulosin, proscar, PSA screening Orders: Orders AMB Urinalysis Automated 04/23/24 Z13.9 - Encounter for screening, unspecified Patient Instructions: The patient had an opportunity to ask questions regarding treatment plan. The patient expressed understanding and agreement with the above treatment plan. The patient is aware they should contact our office by phone for worsening of their current condition or the appearance of new symptoms. Compliance is encouraged with any medications and followup testing that is ordered. It is a privilege to be allowed the opportunity to participate in the urologic care of your patient. If you have any questions or concerns regarding treatment for the above conditions please do not hesitate to contact me. The office telephone contact is [phone]. This note is constructed in part using voice recognition software. While every effort has been made to ensure accuracy rat exterminator errors may have been included. Yours sincerely, Bong Campuzano MD Coding Level of Care Code New Pt Level 3 (34199) Diagnoses BPH loc w urin obs/LUTS N40.1
== END 2024-04-23 11:18 | disposition home or self-care (01) ==
PROVIDERS: Visit Provider Urology
DX: N40.1 Benign prostatic hyperplasia with lower urinary tract symptoms (principal)
CPT/HCPCS: 99203

== ENCOUNTER 2024-07-25 11:00 | Outpatient (REF) | payer MEDICAID, SELFPAY ==
--- OUTSIDE RECORDS SUMMARY | 2024-07-25 18:13 | XMS_ITS | Encounter Summary ---
Author Organization [employer] Address [address] [place] [address] Care Team Providers Care Lithographic Proofer Apprentice Name Role Phone Mervat Simental MD Primary Care Provider + Encounter Details Date Type Department Care Team (Latest Contact Info) Description 07/25/2024 Travel Social History Tobacco Use Types Packs/Day Years Used Date Smoking Tobacco: Never Passive Smoke Exposure: Never Smokeless Tobacco: Never Alcohol Use Standard Drinks/Week Comments Yes 15 (1 standard drink = 0.6 oz pu re alcohol) drinking beer Depression Answer Date Recorded Patient Health Questionnaire-9 Score 10 09/09/2023 Patient Health Questionnaire-9 Score 10 09/09/2023 Last PHQ-9: Questionnaire Data Not on file 0 09/09/2023 Housing Stability Answer Date Recorded What is your housing situation today? I have christen bender 05/05/[address] you li ve. Do you have problems with any of the following? None of the above 05/05/2023 Food Insecurity Answer Date Recorded Within the past 12 months, y ou worried that your food would run out before you got money to buy more: Never True 05/05/2023 Within the past 12 months,th e food you bought just didn't last and you didn't have enough money to get more: Never True 08/2022 Transportation Answer Date Recorded In the past 12 months, has l ack of transportation kept you from medical appts, meetings, work or from getting things needed for daily living? No 05/05/2023 Utilities Answer Date Recorded In the past 12 months, has t he electric, gas, oil or water company threatened to shut off services in your home? No 05/05/2023 Depression Answer Date Recorded Patient Health Questionnaire-2 Score 3 09/09/2023 Sex and Gender Information Value Date Recorded Sex Assigned at Male 05/03/2022 10:37 AM EDT Legal Sex Male 10:37 AM EDT Gender Identity Male 05/03/2022 10:37 AM EDT Sexual Orientation Straight 05/03/2022 10 :37 AM EDT documented as of this encounter Plan of Treatment Upcoming Encounters Date Type Department Care Team (Late st Contact Info) Description 07/27/2024 9:15 AM EST Office Visit [facility] MED[facility]INE [address] [place] [address] Mervat Simental MD [address] [place] [address] 07/27/2024 10:00 AM EST Office Visit [facility] ADULT DENTAL [address] [place] [address] Farhad Bernal DDS [address] [place] [address] 09/03/2024 1:00 PM EST Office Visit [facility] ADULT DENTAL [address] [place] [address] Alicia, Enriqueta [address] [place] [address] 11/05/2024 10:30 AM EDT Office Visit [facility] OPTOMETRY [address] [place] [address] Ever, Jessica, OD [address] [place] [address] documented as of this encounter Visit Diagnoses Not on filedocumented in this encounter Additional Health Concerns Assessment Noted Time PHQ-9 Depression Total Score: 10 024 11:48 AM EST documented as of this encounter Care Teams Lithographic Proofer Apprentice Relationship Specialty Start Date End Date Mervat Simental MD [address] [place] [address] PCP - General Internal Medicine 03/06/24 documented as of this encounter
--- OUTSIDE RECORDS SUMMARY | 2024-07-25 18:13 | XMS_ITS | Encounter Summary ---
Author Organization [employer] Address [address] [place] [address] Care Team Providers Care Police Service Technician Name Role Phone Mervat Simental MD Primary Care Provider + Encounter Details Date Type Department Care Team (Late st Contact Info) Description 07/25/2024 10:30 AM EST Office Visit [facility] [address] [place] [address] Chantell Aleman FNP [address] [place] [address] Acute non-recurrent frontal sinusitis (Primary Dx); Influenza A Social History Tobacco Use Types Packs/Day Years [...] AM EDT documented as of this encounter Last Filed Vital Signs Vital Sign Reading Time Taken Comments Blood Pressure 143/90 07/25/2024 11:03 AM EST Pulse 70 07/25/2024 11:03 AM EST Temperature 37.1 ??C (98.7 ??F) 07/25/2024 11:[address] Respiratory Rate 20 07/25/2024 11:03 AM EST Oxygen Saturation 95% 07/25/2024 11:03 AM EST Inhaled Oxygen Concentration - - Weight 122 kg (269 lb 8 oz) 07/25/2024 11:03 AM EST Height 170.2 cm (5' 7 ) 07/25/2024 11:03 AM EST Body Mass Index 42.21 07/25/2024 11:03 AM EST documented in this encounter Progress Notes * Chantell Aleman, [place] - 07/25/2024 10:30 AM EST Subjective: Cisco Ro is a 53 y.o. male w/ PMH BPH, palpitations, mixed anxiety and depression, who presents to the office for a sick visit. HPI He was seen for ASK visit on 07/21/24 for ongoing fatigue and URI symptoms. Rapid testing for COVID & Flu A&B was negative during the appt. Recommended supportive care. Re fatigue: Labs and upcoming sleep study pending. Today, Mr. Ro reports continued/worsening nasal congestion, sinus pressure, headaches x 2 to 3 days. Associated with fatigue and chills. One episode of vomiting, although believes may not be related. No diarrhea or nausea. 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 HENT: Positive for congestion, sinus pressure and sinus pain. Negative for sore throat. Respiratory: Negative for shortness of breath and wheezing. Cardiovascular: Negative for chest pain, palpitations and leg swelling. Gastrointestinal: Positive for vomiting. Negative for diarrhea and nausea. Neurological: Negative for dizziness. Visit Vitals BP (!) 143/90 (BP Location: Right arm, Patient Position: Sitting, BP Cuff Size: Large adult) Pulse 70 Temp 98.7 ??F (37.1 ??C) (Oral) Resp 20 Ht 5' 7 (1.702 m) Wt 269 lb 8 oz (122 kg) SpO2 95% BMI 42.21 kg/m?? Smoking Status Never BSA 2.4 m?? Physical Exam Constitutional: General: He is not in acute distress. HENT: Head: Normocephalic and atraumatic. Right Ear: Tympanic membrane, ear canal and external ear normal. Left Ear: Tympanic membrane, ear canal and external ear normal. Nose: Right Sinus: Maxillary sinus tenderness and frontal sinus tenderness present. Left Sinus: Maxillary sinus tenderness and frontal sinus tenderness present. Mouth/Throat: Comments: Mild erythema in oropharynx Eyes: Pupils: Pupils are equal, round, and reactive to light. Cardiovascular: Rate and Rhythm: Normal rate and regular rhythm. Heart sounds: Normal heart sounds. Pulmonary: Effort: Pulmonary effort is normal. Breath sounds: Normal breath sounds. Abdominal: Palpations: Abdomen is soft. Lymphadenopathy: Cervical: Cervical adenopathy (mild cervical tenderness) present. Skin: General: Skin is warm. Neurological: Mental Status: He is oriented to person, place, and time. Psychiatric: Mood and Affect: Mood normal. Behavior: Behavior normal. Problem List Items Addressed This Visit Visit Diagnoses Acute non-recurrent frontal sinusitis - Primary - Tenderness to bilateral frontal and maxillary sinuses - Start Augmentin BID x 5 days. Reviewed med use and SE - Cont symptomatic management - Follow up with any worsening or persistence of symptoms Relevant Medications amoxicillin-clavulanate (Augmentin) 875-125 MG tablet Other Relevant Orders Respiratory Viral Panel PCR POCT Rapid Covid-19 BinaxNOW (Completed) POCT Rapid Influenza A AMEZCUA ID NOW (Completed) POCT Rapid Influenza B AMEZCUA ID NOW (Completed) Influenza A - Rapid FluA POSITIVE - Rapid FluB, COVID negative in office. Resp viral panel sent to lab for further eval. - Outside of window for Tamiflu - Encouraged to continue with symptomatic management and good hydration - ED/urgent care precautions Follow up: routine care with PCP, sooner as needed documented in this encounter Plan of Treatment Upcoming Encounters Date Type Department Care Team (Late st Contact Info) Description 07/27/2024 9:15 AM EST Office Visit [facility] [address] [place] [address] Mervat Simental MD [address] [place] [address] 07/27/2024 10:00 AM EST Office Visit [facility] ADULT DENTAL [address] [place] [address] Farhad Bernal DDS [address] [place] [address] 09/03/2024 1:00 PM EST Office Visit [facility] ADULT DENTAL [address] [place] [address] Alicia, Enriqueta [address] [place] [address] 11/05/2024 10:30 AM EDT Office Visit [facility] OPTOMETRY [address] [place] [address] Jessica Curtis, OD [address] [place] [address] Scheduled Orders Name Type Priority Associated Diagnoses Orde r Schedule Respiratory Viral Panel PCR Lab Routine Acute non-recurrent frontal sinusitis Expected: 07/25/2024 (Approximate), Expires: 07/25/2025 documented as of this encounter Procedures Procedure Name Priority Date/Time Associated Diagnosis Comments POCT INFLUENZA B (ID NOW RAPID MOLECULAR) Routine 07/25/2024 11:23 AM EST Acute non-recurrent frontal sinusitis POCT INFLUENZA A (ID NOW RAPID MOLECULAR) Routine 07/25/2024 11:16 AM EST Acute non-recurrent frontal sinusitis POCT RAPID COVID ANTIGEN Routine 07/25/2024 11:13 AM EST Acute non-recurrent frontal sinusitis documented in this encounter Results * POCT Rapid Influenza B AMEZCUA ID NOW (07/25/2024 11:23 AM EST) Pathologist [facility] Influenza B Negative Negative, Indeterminate [facility] QC Media Lot # [id number] [facility] Lot# Expiration Date [facility] Swab 07/25/2024 11:2 3 AM EST Chantell Phalen PRESS OPERATOR HEAVY DUTY POINT OF CARE TEST ENTER/EDIT ORDERABLES Final Result Performing Organization Address [facility]/ZIP Co de Phone Number [facility] [address] [place] [phone] * (ABNORMAL) POCT Rapid Influenza A AMEZCUA ID NOW (07/25/2024 11:16 AM EST) [facility] Influenza A Positive( A) Negative, Indeterminate [facility] QC Media Lot # [id number] [facility] Lot# Expiration Date [facility] Swab 07/25/2024 11:1 6 AM EST us Chnatell Phalen PRESS OPERATOR HEAVY DUTY POINT OF CARE TEST ENTER/EDIT ORDERABLES Final Result Performing Organization Address City/[facility]/ZIP Co de Phone Number [facility] [address] [place] [phone] * POCT Rapid Covid-19 BinaxNOW (07/25/2024 11:13 AM EST) Pathologist [facility] Rapid COVID Ag Negative QC Media Lot # [id number] Lot# Expiration Date Swab 07/25/2024 11:1 3 AM EST Chantell Aleman PRESS OPERATOR HEAVY DUTY POINT OF CARE TEST ENTER/EDIT ORDERABLES Final Result documented in this encounter Visit Diagnoses Diagnosis Acute non-recurrent frontal sinusitis- Primary Influenza A Influenza with other respiratory manifestations documented in this encounter Additional Health Concerns Assessment Noted Time PHQ-9 Depression Total Score: 10 024 11:48 AM EST documented as of this encounter Care Teams Police Service Technician Relationship Specialty Start Date End Date Mervat Simental MD [address] [place] [address] PCP - General Internal Medicine 03/06/24 documented as of this encounter
--- OUTSIDE RECORDS SUMMARY | 2024-07-25 18:13 | XMS_ITS | Clinical Summary ---
Author Organization [employer] Address [address] [facility] [address] [place] [address] Care Team Providers Care Master In Chancery Name Role Phone Mervat Simental MD Primary Care Provider + Allergies Active Allergy Reactions Criticality Noted Date Comments Cat Dander 06/21/2022 Dog Epithelium 06/21/2022 Doxycycline Diarrhea Medium 02/24/2023 Medications Blood Pressure kit Active fluticasone (Flonase) 50 MCG/ACT nasal sprayIndications :Environmental allergies Administer 2 sprays into each nostril 2 times daily. 48 g 2 09/18/19 23 Active cetirizine (ZyrTEC) 10 MG tabletIndication s:Environmental allergies take 1 tablet by oral route twice daily 180 tablet 3 09/18/19 23 Active Additional Information Patient not taking.Reported on 09/13/2023 D3 Super Strength 50 MCG (1999 UT) capsule Take 50 mcg by mouth in the morning. 11/13/19 23 Active famotidine (Pepcid) 40 MG tablet Take 40 mg by mouth at bedtime. 11/13/19 23 Active hydrocortisone (Anusol-HC) 2.5 % rectal creamIndications :Hemorrhoids, unspecified hemorrhoid type Insert into the rectum 2 times daily. 28 g 1 09/12/19 24 Active docusate sodium (Colace) 100 MG capsule Take 1 tab po bid prn constipation 60 capsule 3 02/29/20 24 Active docusate sodium (Colace) 100 MG capsule Take 1 tab po bid prn constipation 60 capsule 3 01/26/20 24 Active finasteride (Propecia) 1 MG tablet Take 1 tablet (1 mg) by mouth Once per day. Do not crush, chew, or split. 30 tablet 2 01/26/20 24 025 Active hydrocortisone (Anusol-HC) 25 MG suppositoryIndic ations:Hemorrhoi ds, unspecified hemorrhoid type INSERT 1 SUPPOSITORY (25 MG) RECTALLY TWICE DAILY DIRECTED 12 suppository 02/01/20 24 Active senna (Senokot) 8.6 MG tabletIndication s:Constipation, unspecified TAKE 1 TABLET BY MOUTH DAILY AT BEDTIME FOR CONSTIPATION 90 tablet 3 02/24/20 24 Active lisinopril 10 MG tabletIndication s:Primary hypertension TAKE 1 TABLET BY MOUTH EVERY DAY IN THE MORNING 90 tablet 1 03/22/20 24 Active tamsulosin (Flomax) 0.4 MG 24 hr capsuleIndicatio ns:Benign prostatic hyperplasia, unspecified whether lower urinary tract symptoms present TAKE 1 CAPSULE BY MOUTH DAILY 30 MINUTES AFTER THE SAME MEAL EVERY DAY 90 capsule 1 03/22/20 24 Active hydrOXYzine pamoate (Vistaril) 50 MG capsule TAKE 1 CAPSULE BY MOUTH EVERY 8 HOURS IF NEEDED FOR ANXIETY 90 capsule 05/18/20 24 Active amoxicillin-clav ulanate (Augmentin) 875-125 MG tabletIndication s:Acute non-recurrent frontal sinusitis Take 1 tablet by mouth 2 times daily for 5 days. 10 tablet 07/25/19 25 025 Active Active Problems Problem Noted Date Diagnosed Date Decalcification, teeth 02/20/2024 Dental calculus 02/20/2024 Missing teeth, acquired 02/20/2024 Localized gingival recession 02/20/2024 Bleeding gums 02/20/2024 Dental caries 02/20/2024 Retained dental root 02/20/2024 BPH (benign prostatic hyperplasia) 01/26/2024 Assessment & Plan (01/26/2024 8:14 PM EDT): -Continue tamsulosin -start finasteride Tinea corporis 08/02/2023 Assessment & Plan (08/03/2023 12:47 PM EST): Maintain area dry and clean Fluconazole 150mg weekly for 4 weeks For skin opening neosporin BID Fatigue 04/05/2023 Assessment & Plan (01/26/2024 8:14 PM EDT): Pt w worsening chronic fatigue ,am sleepiness , eyal showing light sleep and hypoxemia for prolong periods ,also thinks in part is waking up more at night for ongoing nocturia that beside [place] for which is not currently on CPAP ,his nocturia is worsening symptoms ,as well taking benadryl at 3 am can make him feel more tired in am. 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 with mx testing per pt last year told to be normal Flu and covid neg today F w therapist for depression,denies worsening symptoms -check Cbc,chem,TSH -----call pt w results -advised pt to hold on benadryl -has apt w sleep med for 02/17/2024 per pt -advised to get nutriotnist reschedule today -refuse OBAT program offered today for alcohol abuse hx --Drinking couple times in a week up to 2 to 3 shoots of whisky Assessment & Plan (04/05/2023 8:08 PM EDT): Pt reports 1 week of likely viral symptoms w nasal congestion ,dry cough and on and off diarrhea for 2 days w normal VS Here more due to concern of fatigue Here today flu and COVID 19 test are negative -CXR today : No significant abnormality is noted involving the heart, lungs, mediastinum, bony thorax or soft tissues. Unremarkable examination. -advised hydration -supportive tx -alarm signs and symptoms -pt denies active sexual life for years -last HIV test was in 2019 neg -no suspicion for symptoms associated w any STI Palpitations 04/05/2023 Assessment & Plan (04/05/2023 8:11 PM EDT): Pt reports fatigue sensation in the setting likely of vital syndrome but also mentions on and off episodes of palpitations or extra beats -EKG today w sinus arrhythmia , normal QTC at 396, HR 56x'. ni ischemic findings Denies drug use ,except for on and off marijuana -alarm signs and symptoms discussed -referred today to cardiology need Holter,echocardiogram -pt reports that recently got his CPAP machine not using yet -advise to start Using machine Hemorrhoids 01/12/2023 Assessment & Plan (01/26/2024 8:14 PM EDT): -continue senna and start colace -GI colonscopy think planned for another 1 y -referred today to GI for worsening hematochezia Diarrhea 12/10/2022 Assessment & Plan (12/10/2022 6:19 AM EDT): Likely functional after eating/drinking to excess, but as repeat occurrence, will check CBC, lipase, CMP, TSH - bland diet when eating, fiber to bulk stool - recommend decreasing amount of alcohol to 1-2 drinks daily Alcohol abuse 02/25/2020 Allergic rhinitis 02/25/2020 Mixed anxiety and depressive disorder 02/25/2020 Retention of urine 02/25/2020 Encounters Date Type Department Care Team Description 07/25/2024 10:30 AM EST Office Visit [facility] MEDICINE [address] [place] [phone] Chantell Aleman FNP Acute non-recurrent frontal sinusitis (Primary Dx); Influenza A 07/25/2024 Travel 07/24/2024 Telephone [facility] MEDICINE [address] [place] [phone] Mervat Simental MD Nurse Triage 07/21/2024 11:00 AM EST Office Visit [facility] WALK[facility]IN [facility]ENTER [address] [place] [phone] Angelo Ley MD Other fatigue (Primary Dx); Viral URI 07/21/2024 Travel 07/17/2024 Patient Outreach [address] [phone] Mervat Simental MD Pre-visit Planning ((Unable to complete SDOH screening) 06/29/2024 10:00 AM EST Office Visit [facility] ADULT DENTAL [address] [place] [phone] Farhad Bernal DDS Retained dental root (Primary Dx) 05/16/2024 Refill [facility] MEDICINE [address] [place] [address] [phone] Mervat iSmental MD 05/15/[address] [phone] Mervat Simental MD July recall from Last 3 Months Immunizations Name Administration Dates Next Due Influenza Injectable Quadriv alant Preservative Free IIV4 MDCK 04/15/2021 Tdap 02/14/2020 Zoster, Recombinant 06/15/2021,04/15/2021 Social History Tobacco Use Types Packs/Day Years Used Date Smoking Tobacco: Never Passive Smoke Exposure: Never Smokeless Tobacco: Never Tobacco Cessation:Counseling Given: Not Answered Alcohol Use Standard Drinks/Week Comments Yes 15 [...] Orientation Straight 05/03/2022 10 :37 AM EDT Last Filed Vital Signs Vital Sign Reading [...] Mass Index 42.21 07/25/2024 11:03 AM EST Plan of Treatment Upcoming Encounters Date Type Department Care Team (Late st Contact Info) Description 07/27/2024 9:15 AM EST Office Visit [facility] MEDICINE [address] [place] [phone] Mervat Simental MD [address] [place] [address] 07/27/2024 10:00 AM EST Office Visit [facility] ADULT DENTAL [address] [place] [address] Farhad Bernal DDS [address] [place] [address] 09/03/2024 1:00 PM EST Office Visit [facility] ADULT DENTAL [address] [place] [address] Vinh Vargasaris [address] [place] [address] 11/05/2024 10:30 AM EDT Office Visit [facility] OPTOMETRY [address] [place] [address] Jessica Curtis, OD [address] [place] [address] Health Maintenance Due Date Last Done Comments CT Colonography 1970 FIT DNA/Cologuard 1970 FIT 1970 FOBT 1970 Sigmoidoscopy 1970 Alcohol/Substance Use Screening 1982 Hepatitis A Vaccines (1 of 2 - Risk 2-dose series) 1989 Hepatitis B Vaccines (1 of 3 - 19+ 3-dose series) 1989 COVID-19 Vaccine (2023-2 5 season) 2024 07/29/2021, 10/11/2020 Influenza Vaccine (#1) 2024 04/15/2021 Depression Monitoring (PHQ-9) 03/11/2024, 09/09/2023 Colonoscopy 05/20/2024 05/20/2021 Colorectal Cancer Screening 05/20/2024 Dental Oral Exam 08/23/2024 02/20/2024 Dental Prophylaxis 08/23/2024 02/20/2024 SDOH Screening 08/31/2024 09/01/2023 Depression Screening 09/08/2024 09/09/2023, 09/09/2023 Dental X-Ray: Bitewings 02/20/2025 02/20/2024 Tobacco Screening 07/25/2025 07/25/2024 Dental X-Ray: Full Mouth 02/20/2027 02/20/2024 Lipid Panel 11/20/2027 11/19/2022, 09/07/2021, 02/22/2020 DTaP/Tdap/Td Vaccines (2 - T d or Tdap) 02/13/2030 02/14/2020 RSV Patients and Patients Aged 60 years or older (1 - 1-dose 75+ series) 2045 HIV Screening Completed 02/22/2020 Zoster Vaccines Completed 06/15/2021, 04/15/2021 Hepatitis C Screening Completed 05/06/2023 , 02/22/2020 HIB Vaccines Aged Out No longer eligi ble based on patient's age to complete this topic HPV Vaccines Aged Out No longer eligi ble based on patient's age to complete this topic IPV Vaccines Aged Out No longer eligi ble based on patient's age to complete this topic Meningococcal Vaccine Aged Out No sirena ozzy eligible based on patient's age to complete this topic Pneumococcal Vaccine: Pediatrics (0 to 5 Years) and At-Risk Patients (6 to 64 Years) Aged Out No longer eligible b ased on patient's age to complete this topic RSV under 20 months Aged Out No longe r eligible based on patient's age to complete this topic Rotavirus Vaccines Aged Out No longer eligible based on patient's age to complete this topic Procedures Procedure Name Priority Date/Time Associated Diagnosis Comments POCT INFLUENZA B (ID NOW RAPID MOLECULAR) Routine 07/25/2024 11:23 AM EST Acute non-recurrent frontal sinusitis POCT INFLUENZA A (ID NOW RAPID MOLECULAR) Routine 07/25/2024 11:16 AM EST Acute non-recurrent frontal sinusitis POCT RAPID COVID ANTIGEN Routine 07/25/2024 11:13 AM EST Acute non-recurrent frontal sinusitis POCT INFLUENZA B (ID NOW RAPID MOLECULAR) Routine 07/21/2024 10:36 AM EST Viral URI POCT INFLUENZA A (ID NOW RAPID MOLECULAR) Routine 07/21/2024 10:36 AM EST Viral URI POCT RAPID COVID ANTIGEN Routine 07/21/2024 10:36 AM EST Viral URI ADJUNCTIVE GENERAL SERVICES - PROFESSIONAL VISITS - CASE PRESENTATION, SUBSEQUENT TO DETAILED AND EXTENSIVE TREATMENT PLANNING Routine 06/29/2024 10:00 AM EST 3 EXTRACTION, ERUPTED TOOTH REQUIRING REMOVAL OF BONE AND/OR SECTIONING OF TOOTH, AND INCLUDING ELEVATION OF MUCOPERIOSTEAL FLAP IF INDICATED Routine 06/29/2024 10:00 AM EST PROPHYLAXIS - ADULT Routine 02/20/2024 1 0:00 AM EDT Dental calculus Bleeding gums DIAGNOSTIC - DIAGNOSTIC IMAGING - INTRAORAL - COMPREHENSIVE SERIES OF RADIOGRAPHIC IMAGES Routine 02/20/2024 10:00 AM EDT Decalcification, teeth Dental calculus Missing teeth, acquired Localized gingival recession Bleeding gums Dental caries PERIODIC ORAL EVALUATION - ESTABLISHED PATIENT Routine 02/20/2024 10:00 AM EDT HEPATITIS C AB W/REFL TO HCV RNA, QN, PCR Routine 05/06/2023 1:52 PM EDT Elevated cholesterol Alcohol abuse LIPID PANEL, STANDARD Routine 11/19/2022 12:31 PM EDT HM COLONOSCOPY Routine 05/20/2021 1:52 PM EST HIV 1/2 ANTIGEN/ANTIBODY, FOURTH GENERATION W/RFL Routine 02/22/2020 9:11 AM EDT from Last 3 Months or Most Recently Relevant to Health Maintenance Results * POCT Rapid Influenza B AMEZCUA ID NOW (07/25/2024 11:23 AM EST) Only the most recent of2 resultswithin the time period is included. Influenza B Negative Negative, Indeterminate [facility] QC Media Lot # [id number] [facility] Lot# Expiration Date [facility] Swab 07/25/2024 11:2 3 AM EST Chantell Phalen [employer] POINT OF CARE TEST ENTER/EDIT ORDERABLES Final Result Performing Organization Address [facility] de Phone Number [facility] [address] [place] [phone] * (ABNORMAL) POCT Rapid Influenza A AMEZCUA ID NOW (07/25/2024 11:16 AM EST) Only the most recent of2 resultswithin the time period is included. Influenza A Positive( A) Negative, Indeterminate [facility] QC Media Lot # [id number] [facility] Lot# Expiration Date [facility] Swab 07/25/2024 11:1 6 AM EST us Chantell Phalen [employer] POINT OF CARE TEST ENTER/EDIT ORDERABLES Final Result Performing Organization Address [facility] Co de Phone Number [facility] [address] [place] [phone] * POCT Rapid Covid-19 BinaxNOW (07/25/2024 11:13 AM EST) Only the most recent of2 resultswithin the time period is included. Rapid COVID Ag Negative QC Media Lot # [id number] Lot# Expiration Date Swab 07/25/2024 11:1 3 AM EST Chantell Sanchezdanielle [employer] POINT OF CARE TEST ENTER/EDIT ORDERABLES Final Result * Hepatitis C Antibody with Reflex to HCV, RNA, Quantitative, Real-Time PCR (05/06/2023 1:52 PM EDT) Hepatitis C Antibody Nonreactive Nonreactive [facility] Comment:Antibodies to HCV no t detected; does not exclude early acuteHCV infection. Blood Venous blood specimen / Unknown 05/06/2023 1:52 PM EDT 05/06/2023 3:58 PM EDT Result [facility] Diane Gutierrez [facility] LAB BLOOD ORDERABLES Final Resu lt [facility] [address] [place] [address] [phone] * (ABNORMAL) Lipid Panel, Standard (11/19/2022 12:31 PM EDT) Cholesterol, Total 216(H) <200 mg/dL [facility] HDL Cholesterol 41 > OR = 40 mg/dL [facility] Triglycerides 117 <150 mg/dL [facility] LDL Cholesterol 152(H) mg/dL (calc) [facility] Comment: Reference range: <100 Desirable range <100 mg/dL for primary prevention; ?? <70 mg/dL for patients with CHD or diabetic patients with > or = 2 CHD risk factors. LDL-C is now calculated using the Meek-Barney calculation, which is a validated novel method providing better accuracy than the Friedewald equation in the estimation of LDL-C. Meek SS et al. PATRICK. 2013;310(19): 1795-9916 (http://education.[employer]/faq/IUP874) Chol/HDLC Ratio 5.3(H) <5.0 (calc) [facility] Non-HDL Cholesterol 175(H) <130 mg/dL (calc) [facility] Comment: For patients with diabetes plus 1 major ASCVD risk factor, treating to a non-HDL-C goal of <100 mg/dL (LDL-C of <70 mg/dL) is considered a therapeutic option. 11/19/2022 12:3 1 PM EDT 11/19/2022 12:32 PM EDT Narrative [facility] - 11/23/2022 12:34 PM EDT FASTING:NO FASTING: NO Diane Gutierrez [employer] LAB BLOOD ORDERABLES Final Resu lt [facility] [address] [facility], [place] [phone] [facility] [address] [place] [phone] * Hm Colonoscopy (05/20/2021 1:52 PM EST) Colonoscopy Normal Normal Narrative Lindsey Van - 05/20/2021 1:52 PM EST Recommended 3 year follow up Historical Provider HEALTH MAINTENANCE Edited Result - Final * HIV 1/2 ANTIGEN/ANTIBODY,FOURTH GENERATION W/RFL (02/22/2020 9:11 AM EDT) HIV-1/2 ANTIGEN AND ANTIBODIES, 4TH GENERATION W/ REFLEX NON-REACT CLIVE NON-REACT CLIVE [facility] Comment: HIV-1 antigen and HIV-1/HIV-2 antibodies were not detected. There is no laboratory evidence of HIV infection. ?? PLEASE NOTE: This information has been disclosed to you from records whose confidentiality may be protected by state law. ??If your state requires such protection, then the state law prohibits you from making any further disclosure of the information without the specific written consent of the person to whom it pertains, or as otherwise permitted by law. A general authorization for the release of medical or other information is NOT sufficient for this purpose. ? For additional information please refer to http://education.[employer]/faq/QIH437 (This link is being provided for informational/ educational purposes only.) ? The performance of this assay has not been clinically validated in patients less than 2 years old. ?? 02/22/2020 9:11 AM EDT Willie Parham MD LAB BLOOD ORDERABLES Final R esult [facility] [address] from Last 3 Months or Most Recently Relevant to Health Maintenance Insurance [facility] PARTIAL [facility] - HSN PARTIAL (MEDICAID) Care Teams Master In Chancery Relationship Specialty Start Date End Date Mervat Simental MD [address] [place] [phone] PCP - General Internal Medicine 03/06/24
--- OUTSIDE RECORDS SUMMARY | 2024-07-25 18:14 | XMS_ITS | Encounter Summary ---
Author Organization [employer] Address [address] [facility] 7t [place] [address] Care Team Providers Care Oracle Fusion Developer Name Role Phone Mervat Simental MD Primary Care Provider + Reason for Visit * Reason Comments Cough Encounter Details Date Type Department Care Team ([facility] Contact Info) Description 07/21/2024 11:00 AM EST Office Visit [facility] [address] [place], [place] [phone] Angelo Ley MD [address] [place] [address] [phone] Other fatigue (Primary Dx); Viral URI Social History Tobacco Use Types Packs/Day Years [...] Sign Reading Time Taken Comments Blood Pressure 138/75 07/21/2024 10:20 AM EST Pulse 62 07/21/2024 10:20 AM EST Temperature 36.3 ??C (97.4 ??F) 07/21/2024 10:[address] Respiratory Rate 16 07/21/2024 10:20 AM EST Oxygen Saturation 97% 07/21/2024 10:20 AM EST Inhaled Oxygen Concentration - - Weight 121 kg (267 lb 2 oz) 07/21/2024 10:20 AM EST Height 170.2 cm (5' 7 ) 07/21/2024 10:20 AM EST Body Mass Index 41.84 07/21/2024 10:20 AM EST documented in this encounter Progress Notes * Leah Hoskins MA - 07/21/2024 11:00 AM EST Subjective History was provided by the patient. Cisco Ro is a 53 y.o. male who presents for evaluation of ongoing fatigue and URI symptoms. Reports several days of congestion, cough, tactile fever/chills, and diarrhea. Undergoing a workup for chronic fatigue and sleep apnea symptoms. However, these symptoms have become more intensified in the past few days. No syncope. Underlying obesity (intentionally lost about 60 lbs.) and alcohol usedisorder. Quit drinking completely about 3 weeks ago. Previously evaluated for fatigue back in 01/2024. Was unaware he had pending labs from that visit. Denies F/C/N/V. Had two inconclusive PSG. Another PSG scheduled at the end of the month. 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 No known tick bites. No rash. Objective Vitals: 07/21/24 1020 BP: 138/75 BP Location: Left arm Patient Position: Sitting BP Cuff Size: Large adult Pulse: 62 Resp: 16 Temp: 97.4 ??F (36.3 ??C) TempSrc: Oral SpO2: 97% Weight: 267 lb 2 oz (121 kg) Height: 5' 7 (1.702 m) Physical Exam Vitals reviewed. Constitutional: Appearance: Normal appearance. HENT: Head: Normocephalic and atraumatic. Right Ear: Tympanic membrane, ear canal and external ear normal. Left Ear: Tympanic membrane, ear canal and external ear normal. Nose: Nose normal. Mouth/Throat: Mouth: Mucous membranes are dry. Pharynx: Oropharynx is clear. Eyes: Extraocular Movements: Extraocular movements intact. Conjunctiva/sclera: Conjunctivae normal. Pupils: Pupils are equal, round, and reactive to light. Cardiovascular: Rate and Rhythm: Normal rate and regular rhythm. Heart sounds: Normal heart sounds. Pulmonary: Effort: Pulmonary effort is normal. Breath sounds: Normal breath sounds. Musculoskeletal: Cervical back: Normal range of motion and neck supple. Skin: General: Skin is warm and dry. Neurological: Mental Status: He is alert and oriented to person, place, and time. Psychiatric: Mood and Affect: Mood normal. Behavior: Behavior normal. Thought Content: Thought content normal. Judgment: Judgment normal. Office Visit on 07/21/2024 Component Date Value Ref Range Status Rapid COVID Ag 07/21/2024 Negative Final QC Media Lot # 07/21/2024 [id number] Final Lot# Expiration Date 07/21/2024 62,226 Final Influenza A 07/21/2024 Negative Negative, Indeterminate Final QC Media Lot # 07/21/2024 [id number] Final Lot# Expiration Date 07/21/2024 8,626 Final Influenza B 07/21/2024 Negative Negative, Indeterminate Final QC Media Lot # 07/21/2024 [id number] Final Lot# Expiration Date 07/21/2024 8,626 Final Cisco was seen today for cough. Diagnoses and all orders for this visit: Other fatigue (Primary) - CBC auto differential; Future - TSH W/Reflex to FT4; Future - Comprehensive Metabolic Panel; Future - Vitamin B12/Folate, Serum Panel; Future - Vitamin D, 25-Hydroxy, Total, Immunoassay; Future - Tick-borne Disease, Acute Molecular Panel; Future Viral URI - POCT Rapid Covid-19 BinaxNOW - POCT Rapid Influenza A AMEZCUA ID NOW - POCT Rapid Influenza B AMEZCUA ID NOW Patient with a clinical presentation of viral URI and chronic fatigue with more intensified symptoms in the last few days Normal pulmonary exam and no respiratory distress O2 sat reassuring Rapid COVID-19 & Influenza A/B negative today Scheduled for PSG this month for [facility] diagnosis Check CBC, TSH, CMP, Vitamin B12/Folate, Vitamin D, and Tick-borne markers Discussed supportive care with ample hydration, sleep position and rest OTC supportive medications reviewed Droplet precautions discussed Advised to contact the clinic if no improvement of symptoms Indications for UC/ER use reviewed documented in this encounter Plan of Treatment Upcoming Encounters Date Type Department Care Team (Late st Contact Info) Description 07/27/2024 9:15 AM EST Office Visit [facility] [address] [place] [address] Mervat Simental MD [address] [place] [address] 07/27/2024 10:00 AM EST Office Visit [facility] [address] [place] [address] Farhad Bernal DDS [address] [place] [address] 09/03/2024 1:00 PM EST Office Visit [facility] [address] [place] [address] Enriqueta Vargas [address] [place] [address] 11/05/2024 10:30 AM EDT Office Visit [facility] [address] [place] [address] Jessica Curtis, OD [address] [place] [address] Scheduled Orders Name Type Priority Associated Diagnoses Orde r Schedule CBC auto differential Lab Routine Other fatigue Expected: 07/21/2024 (Approximate), Expires: 07/21/2025 TSH W/Reflex to FT4 Lab Routine Other fatigue Expected: 07/21/2024 (Approximate), Expires: 07/21/2025 Comprehensive Metabolic Panel Lab Routine Other fatigue Expected: 07/21/2024 (Approximate), Expires: 07/21/2025 Vitamin B12/Folate, Serum Panel Lab Routine Other fatigue Expected: 07/21/2024, Expires: 07/21/2025 Vitamin D, 25-Hydroxy, Total, Immunoassay Lab Routine Other fatigue Expected: 07/21/2024 (Approximate), Expires: 07/21/2025 Tick-borne Disease, Acute Molecular Panel Lab Routine Other fatigue Expected: 07/21/2024 (Approximate), Expires: 07/21/2025 documented as of this encounter Procedures Procedure Name Priority Date/Time Associated Diagnosis Comments POCT INFLUENZA B (ID NOW RAPID MOLECULAR) Routine 07/21/2024 10:36 AM EST Viral URI POCT INFLUENZA A (ID NOW RAPID MOLECULAR) Routine 07/21/2024 10:36 AM EST Viral URI POCT RAPID COVID ANTIGEN Routine 07/21/2024 10:36 AM EST Viral URI documented in this encounter Results * POCT Rapid Influenza B AMEZCUA ID NOW (07/21/2024 10:36 AM EST) Influenza B Negative Negative, Indeterminate [facility] QC Media Lot # [id number] [facility] Lot# Expiration Date 862 [facility] Swab 07/21/2024 10:3 6 AM EST Angelo Ley MD POINT OF CARE TEST ENTER/EDIT OR DERABLES Final Result [facility] [address] [place] [address] [phone] * POCT Rapid Influenza A AMEZCUA ID NOW (07/21/2024 10:36 AM EST) Influenza A Negative Negative, Indeterminate [facility] QC Media Lot # [id number] [facility] Lot# Expiration Date 8,626 [facility] Swab 07/21/2024 10:3 6 AM EST Angelo Ley MD POINT OF CARE TEST ENTER/EDIT OR DERABLES Final Result Performing Organization Address [facility] Co de Phone Number [facility] [address] [place] [address] [phone] * POCT Rapid Covid-19 BinaxNOW (07/21/2024 10:36 AM EST) Rapid COVID Ag Negative [facility] QC Media Lot # [id number] [facility] Lot# Expiration Date 62,226 [facility] Swab 07/21/2024 10:3 6 AM EST Angelo Ley MD POINT OF CARE TEST ENTER/EDIT OR DERABLES Final Result Performing Organization Address [facility] de Phone Number [facility] [address] [place] [phone] documented in this encounter Visit Diagnoses Diagnosis Other fatigue- Primary Viral URI Acute upper respiratory infections of unspecified site documented in this encounter Additional Health Concerns Assessment Noted Time PHQ-9 Depression Total Score: 10 024 11:48 AM EST documented as of this encounter Care Teams Oracle Fusion Developer Relationship Specialty Start Date End Date Mervat Simental MD [address] [place] [phone] PCP - General Internal Medicine 03/06/24 documented as of this encounter
--- OUTSIDE RECORDS SUMMARY | 2024-07-25 18:14 | XMS_ITS | Encounter Summary ---
Author Organization [employer] Address [address] [facility] 7t [place] [address] Care Team Providers Care Marketing Operations Analyst Name Role Phone Diane Gutierrez Primary Care Provider [phone] Diane Gutierrez Primary Care Provider [phone] Diane Gutierrez Primary Care Provider [phone] Diane Gutierrez Primary Care Provider [phone] Mervat Simental MD Primary Care Provider + Reason for Visit * Reason Onset Date Comments error 03/08/2023 Encounter Details Date Type Department Care Team (Late st Contact Info) Description 03/08/2023 Telephone [facility] [address] [place], [place] [phone] Diane Gutierrez FNP [address] [place], [place] [phone] error Social History Tobacco Use Types Packs/Day Years Used Date Smoking Tobacco: Never Smokeless Tobacco: Never Alcohol Use Standard Drinks/Week Comments Yes 25 (1 standard drink = 0.6 oz pure alcohol) drinks whiskey daily, now drinking beer Depression Answer Date Recorded Patient [...] Description 07/27/2024 9:15 AM EST Office Visit [facility] [address] [place] [address] Mervat Simental MD [address] [place] [address] 07/27/2024 10:00 AM EST Office Visit [facility] [address] [place] [address] Farhad Bernal DDS [address] [place] [address] 09/03/2024 1:00 PM EST Office Visit [facility] [address] [place] [address] Enriqueta Vargas [address] [place] [address] 11/05/2024 10:30 AM EDT Office Visit [facility] [address] [place] [address] Jessica Curtis, OD [address] [place] [address] documented as of this encounter Visit Diagnoses Not on filedocumented in this encounter Additional Health Concerns Assessment Noted Time PHQ-9 Depression Total Score: 7 11/20/19 23 11:08 AM EDT documented as of this encounter Care Teams Marketing Operations Analyst Relationship Specialty Start Date End Date Diane Gutierrez FNP [address] [place] [address] PCP - General Family Medicine 05/31/22 01/26/24 Diane Gutierrez FNP [address] [place] [address] PCP - General Family Medicine 01/27/24 01/29/24 Diane Gutierrez FNP [address] [place] [address] PCP - General Family Medicine 01/30/24 02/02/24 Diane Gutierrez FNP [address] [place] [address] PCP - General Family Medicine 02/03/24 03/05/24 Mervat Simental MD [address] [place] [address] PCP - General Internal Medicine 03/06/24 documented as of this encounter
--- OUTSIDE RECORDS SUMMARY | 2024-07-25 18:14 | XMS_ITS | Encounter Summary ---
Author Organization [employer] Address [address] [facility] 7t [place] [address] Care Team Providers Care Bundle Wrapper Name Role Phone Diane Gutierrez Primary Care Provider [phone] iDane Gutierrez Primary Care Provider [phone] Diane Gutierrez Primary Care Provider [phone] Diane Gutierrez Primary Care Provider [phone] Mervat Simental MD Primary Care Provider + Reason for Visit * Reason Onset Date Comments new pt visit 01/12/2024 Encounter Details Date Type Department Care Team (Late st Contact Info) Description 01/12/2024 Telephone [facility] [address] [place], [place] [phone] Saman Rodriguez, BRISSA [address] [place], [place] [phone] new pt visit Social History Tobacco Use Types Packs/Day Years [...] AM EDT documented as of this encounter Miscellaneous Notes * Telephone Encounter - Aislinn Lau - 01/12/2024 1:42 PM EDT PCP for patient here in [facility] sent an internal referral under referral tab for internal dentistry appt regular care. Patient inquiring on status of appt. Patient informed that there is a lengthy waiting list for new patients and that message would be sent to [facility] dental for follow up. Pls reach out topatient. He'd like to hear from dental office directly DR documented in this encounter Plan of Treatment Upcoming Encounters Date Type Department Care Team (Late st Contact Info) Description 07/27/2024 9:15 AM EST Office Visit [facility] [address] [place] [address] Mervat Simental MD [address] [place] [address] 07/27/2024 10:00 AM EST Office Visit [facility] [address] [place] [address] Farhad Bernal, DDS 230 [place] [address] 09/03/2024 1:00 PM EST Office Visit [facility] [address] [place] [address] Alicia, Enriqueta [address] [place] [address] 11/05/2024 10:30 AM EDT Office Visit [facility] [address] [facility] [place] [address] Ever, Jessica, OD [address] [place] [address] documented as of this encounter Visit Diagnoses Not on filedocumented in this encounter Additional Health Concerns Assessment Noted Time PHQ-9 Depression Total Score: 10 024 11:48 AM EST documented as of this encounter Care Teams Bundle Wrapper Relationship Specialty Start Date End Date Diane Gutierrez FNP [address] [place] [address] PCP - General Family Medicine 05/31/22 01/26/24 Diane Gutierrez FNP [address] [place] [address] PCP - General Family Medicine 01/27/24 01/29/24 Diane Gutierrez FNP [address] [place] [address] PCP - General Family Medicine 01/30/24 02/02/24 Diane Gutierrez FNP [address] [place] [address] PCP - General Family Medicine 02/03/24 03/05/24 Mervat Simental MD [address] [place] [address] PCP - General Internal Medicine 03/06/24 documented as of this encounter
--- OUTSIDE RECORDS SUMMARY | 2024-07-25 18:14 | XMS_ITS | Encounter Summary ---
Author Organization [employer] Address [address] [facility] 7t [place] [address] Care Team Providers Care Wire Setter Name Role Phone Diane Gutierrez Primary Care Provider [phone] Mervat Simental MD Primary Care Provider + Reason for Visit * Reason Onset Date Comments Appointment Request 02/21/2024 Encounter Details Date Type Department Care Team (Late st Contact Info) Description 02/21/2024 Telephone [facility] [address] [place] [address] Diane Gutierrez FNP [address] [place], [place] [phone] Appointment Request Social History Tobacco Use Types Packs/Day Years [...] is your housing situation today? I have christendonovan bender 05/05/[address] you [...] encounter Miscellaneous Notes * Telephone Encounter - Brian Lau RN - 02/21/2024 3:08 PM EDT T/C to [facility] general surgery on [phone] Obdulia for below message, as per Obdulia, pt's procedure date is not decided yet and will give call to [facility] to schedule Pre-op clearance. * Telephone Encounter - Yisel Aiken - 02/21/2024 10:19 AM EDT Tc from [facility] requesting a medical luis alfredo for pt for an upcoming procedure Hemmaroidectomy documented in this encounter Plan of Treatment Upcoming Encounters Date Type Department Care Team (Late st Contact Info) Description 07/27/2024 9:15 AM EST Office Visit [facility] [address] [place] [address] Mervat Simental MD [address] [place] [address] 07/27/2024 10:00 AM EST Office Visit [facility] ADULT DENT[facility] [address] [place] [address] Farhad Bernal, RYANS [address] [place] [address] 09/03/2024 1:00 PM EST Office Visit [facility] AD[facility] [address] [place] [address] Alicia, Enriqueta [address] [place] [address] 11/05/2024 10:30 AM EDT Office Visit [facility] [address] [place] [address] EverJessica faulkner, OD [address] [place] [address] documented as of this encounter Visit Diagnoses Not on filedocumented in this encounter Additional Health Concerns Assessment Noted Time PHQ-9 Depression Total Score: 10 024 11:48 AM EST documented as of this encounter Care Teams Wire Setter Relationship Specialty Start Date End Date Diane Gutierrez FNP [address] [place] [address] PCP - General Family Medicine 02/03/24 03/05/24 Mervat Simental MD [address] [place] [address] PCP - General Internal Medicine 03/06/24 documented as of this encounter
--- OUTSIDE RECORDS SUMMARY | 2024-07-25 18:14 | XMS_ITS | Encounter Summary ---
Author Organization [employer] Address [address] [facility] 7t [place] [address] Care Team Providers Care Cranberry Farm Supervisor Name Role Phone Diane Gutierrez Primary Care Provider [phone] Mervat Simental MD Primary Care Provider + Reason for Visit * Reason Comments Med Refill Encounter Details Date Type Department Care Team (Late st Contact Info) Description 03/02/2024 Refill [facility] [address] [place] [address] Diane Gutierrez FNP [address] [place] [address] Hemorrhoids, unspecified hemorrhoid type Social History Tobacco Use Types Packs/Day Years [...] Description 07/27/2024 9:15 AM EST Office Visit [facility] MED[facility]INE [address] [place] [address] Mervat Simental MD [address] [place] [address] 07/27/2024 10:00 AM EST Office Visit [facility] ADULT DENTAL [address] [place] [address] Farhad Bernal DDS [address] [place] [address] 09/03/2024 1:00 PM EST Office Visit [facility] ADULT [facility] [address] [place] [address] Alicia Enriqueta [address] [place] [address] 11/05/2024 10:30 AM EDT Office Visit [facility] OPT[facility] [address] [place] [address] Jessica Curtis, OD [address] [place] [address] documented as of this encounter Visit Diagnoses Diagnosis Hemorrhoids, unspecified hemorrhoid type documented in this encounter Additional Health Concerns Assessment Noted Time PHQ-9 Depression Total Score: 10 024 11:48 AM EST documented as of this encounter Care Teams Cranberry Farm Supervisor Relationship Specialty Start Date End Date Diane Gutierrez FNP [address] [place] [address] PCP - General Family Medicine 02/03/24 03/05/24 Mervat Simental MD [address] [place] [address] PCP - General Internal Medicine 03/06/24 documented as of this encounter
--- OUTSIDE RECORDS SUMMARY | 2024-07-25 18:14 | XMS_ITS | Encounter Summary ---
Author Organization [employer] Address [address] [facility] 7t [place] [address] Care Team Providers Care Chief Design Branch Name Role Phone Diane Gutierrez Primary Care Provider [phone] Diane Gutierrez Primary Care Provider [phone] Diane Gutierrez Primary Care Provider [phone] Diane Gutierrez Primary Care Provider [phone] Mervat Simental MD Primary Care Provider + Encounter Details Date Type Department Care Team (Late st Contact Info) Description 12/15/2022 Abstract [facility] MED[facility]INE [address] [place], [place] [phone] Diane Gutierrez FNP [address] [place], [place] [phone] Social History Tobacco Use Types Packs/Day Years Used Date Smoking Tobacco: Never Smokeless Tobacco: Never Alcohol Use Standard Drinks/Week Comments Never 0 (1 standard drink = 0.6 oz pur e alcohol) Depression Answer Date Recorded Patient Health Questionnaire-9 Score 7 11/19/2022 Depression Answer Date Recorded Patient Health Questionnaire-2 Score 2 11/19/2022 Sex and Gender Information Value Date Recorded Sex Assigned at Male 05/03/2022 10:37 AM EDT Legal Sex Male 10:37 AM EDT Gender Identity Male 05/03/2022 10:37 AM EDT Sexual Orientation Straight 05/03/2022 10 :37 AM EDT COVID-19 Exposure Response Date Recorded In the last 10 days, have yo u been in contact with someone who was confirmed or suspected to have Coronavirus/COVID-19? No / Unsure 12/08/2022 2:52 PM EDT documented as of this encounter Plan of Treatment Upcoming Encounters Date Type Department Care Team (Late st Contact Info) Description 07/27/2024 9:15 AM EST Office Visit [facility] MEDICINE [address] [place] [address] Mervat Simental MD [address] [place] [address] 07/27/2024 10:00 AM EST Office Visit [facility] ADULT DENTAL [address] [place] [address] Farhad Bernal DDS [address] [place] [address] 09/03/2024 1:00 PM EST Office Visit [facility] ADULT DENTAL [address] [place] [address] Alicia, Enriqueta [address] [place] [address] 11/05/2024 10:30 AM EDT Office Visit [facility] OPTOMETRY [address] [place] [address] EverJessica faulkner, OD [address] [place] [address] documented as of this encounter Procedures Procedure Name Priority Date/Time Associated Diagnosis Comments HM COLONOSCOPY Routine 05/20/2021 1:52 PM EST documented in this encounter Results * Hm Colonoscopy (05/20/2021 1:52 PM EST) Colonoscopy Normal Normal Narrative Lindsey Van - 05/20/2021 1:52 PM EST Recommended 3 year follow up us Historical Provider HEALTH MAINTENANCE Edited Result - Final documented in this encounter Visit Diagnoses Not on filedocumented in this encounter Additional Health Concerns Assessment Noted Time PHQ-9 Depression Total Score: 7 11/20/19 23 11:08 AM EDT documented as of this encounter Care Teams Chief Design Branch Relationship Specialty Start Date End Date Diane Gutierrez FNP [address] [place] [address] PCP - General Family Medicine 05/31/22 01/26/24 Diane Gutierrez FNP [address] [place] [address] PCP - General Family Medicine 01/27/24 01/29/24 Diane Gutierrez FNP [address] [place] [address] PCP - General Family Medicine 01/30/24 02/02/24 Diane Gutierrez FNP [address] [place] [address] PCP - General Family Medicine 02/03/24 03/05/24 Mervat Simental MD [address] [place] [address] PCP - General Internal Medicine 03/06/24 documented as of this encounter
--- OUTSIDE RECORDS SUMMARY | 2024-07-25 18:14 | XMS_ITS | Encounter Summary ---
Author Organization [employer] Address [address] [facility] 7t [place] [address] Care Team Providers Care Industrial Fabric Cutter Name Role Phone Mervat Simental MD Primary Care Provider + Reason for Visit * Reason Onset Date Comments Med Refill 03/26/2024 Encounter Details Date Type Department Care Team (Late st Contact Info) Description 03/26/[address] [facility] [address] [place] [address] Diane Gutierrez FNP [address] [place] [address] Primary hypertension; Benign prostatic hyperplasia, unspecified whether lower urinary tract symptoms present Social History Tobacco Use Types Packs/Day Years [...] Description 07/27/2024 9:15 AM EST Office Visit [facility] [address] [place] [address] Mervat Simental MD [address] [place] [address] 07/27/2024 10:00 AM EST Office Visit [facility] ADULT DENTAL [address] [place] [address] Farhad Bernal DDS [address] [place] [address] 09/03/2024 1:00 PM EST Office Visit [facility] [address] [place] [address] Alicia Enriqueta [address] [place] [address] 11/05/2024 10:30 AM EDT Office Visit [facility] [address] [place] [address] Jessica Curtis, OD [address] [place] [address] documented as of this encounter Visit Diagnoses Diagnosis Primary hypertension Unspecified essential hypertension Benign prostatic hyperplasia, unspecified whether lower urinary tract symptoms present documented in this encounter Additional Health Concerns Assessment Noted Time PHQ-9 Depression Total Score: 10 024 11:48 AM EST documented as of this encounter Care Teams Industrial Fabric Cutter Relationship Specialty Start Date End Date Mervat Simental MD [address] [place] [address] PCP - General Internal Medicine 03/06/24 documented as of this encounter
--- OUTSIDE RECORDS SUMMARY | 2024-07-25 18:14 | XMS_ITS | Encounter Summary ---
Author Organization [employer] Address [address] [facility] 7t [place] [address] Care Team Providers Care Cut Out Stitcher Name Role Phone Mervat Simental MD Primary Care Provider + Reason for Visit * Reason Comments Pre-visit Planning (Unable to complete SDOH screening Encounter Details Date Type Department Care Team ([facility] st Contact Info) Description 07/17/2024 Patient Outreach [facility] [address] [place] [address] Mervat Simental MD [address] [place] [address] Pre-visit Planning ((Unable to complete SDOH screening) Social History Tobacco Use Types Packs/Day Years [...] AM EDT documented as of this encounter Progress Notes * Edith Silver - 07/17/2024 1:23 PM EST CC Edith placed successful outbound call to patient for pre-visit planning. Patient name and confirmed. Patient confirms appt date and time, and has transportation. patient reports nothing has change with in the year with regards to SDOH screening. greeting card writer was unable to complete screening. Jean-Paul completed in office documented in this encounter Plan of Treatment Upcoming Encounters Date Type Department Care Team (Late st Contact Info) Description 07/27/2024 9:15 AM EST Office Visit [facility] [address] [place] [address] Mervat Simental MD [address] [place] [address] 07/27/2024 10:00 AM EST Office Visit [facility] ADULT DENTAL [address] [place] [address] Farhad Bernal DDS [address] [place] [address] 09/03/2024 1:00 PM EST Office Visit [facility] ADULT DENTAL [address] [place] [address] Enriqueta Vargas 230 [place] [address] 11/05/2024 10:30 AM EDT Office Visit [facility] OPTOMETRY [address] [place], [place] [phone] Jessica Curtis, OD [address] [place] [address] documented as of this encounter Visit Diagnoses Not on filedocumented in this encounter Additional Health Concerns Assessment Noted Time PHQ-9 Depression Total Score: 10 024 11:48 AM EST documented as of this encounter Care Teams Cut Out Stitcher Relationship Specialty Start Date End Date Mervat Simental MD [address] [place] [address] PCP - General Internal Medicine 03/06/24 documented as of this encounter
--- OUTSIDE RECORDS SUMMARY | 2024-07-25 18:14 | XMS_ITS | Encounter Summary ---
Author Organization [employer] Address [address] [facility] 7t [place] [address] Care Team Providers Care Steel Analyst Name Role Phone Mervat Simental MD Primary Care Provider + Reason for Visit * Reason Onset Date Comments Nurse Triage 07/24/2024 Encounter Details Date Type Department Care Team ([facility] st Contact Info) Description 07/24/2024 Telephone [facility] [address] [place], [place] [phone] Mervat Simental MD [address] [place], [place] [phone] Nurse Triage Social History Tobacco Use Types Packs/Day Years [...] encounter Miscellaneous Notes * Telephone Encounter - Samaria Dimas RN - 07/24/2024 4:49 PM EST Call returned to [facility] to triage below. Pt reports having sinus congestion, having swelling of upper cheek area bilateral. Pt reports having some nasal secretion. Pt denies any dark green color. Denies any fever. Reports having chills over weekend. Pt does have ear congestion and having some sore throat. Pt advised of disposition, agrees to sick on site tomorrow with team provider. Protocol Used: Sinus Pain or Congestion (Adult) Protocol-Based Disposition: Go to Office or Video Visit Now Override (Final) Disposition: See in Office or Video Visit Today or Tomorrow Override Reason: Other Override Notes: already seen at [facility], wants booked appt. Future Appointments Date Time Provider Department Center 07/25/2024 10:30 AM [facility] Mcdaniel MEDICINE [facility] 07/27/2024 9:15 AM Mervat Simental MD MEDICINE [facility] 07/27/2024 10:00 AM Farhad Bernal DDS [facility] 09/03/2024 1:00 PM Enriqueta Vargas [facility] 11/05/2024 10:30 AM Jessica Curtis, OD [facility] Insurance verified as active per Real Time Eligibility in [facility]. Positive Triage Question: * Redness or swelling on the cheek, forehead, or around the eye * All higher-acuity triage questions were negative Care Advice Discussed: * Nasal Washes for a Stuffy Nose * Hydration * Reasons To Call Back - Severe pain lasts over 2 hours after pain medicine - Fever lasts over 3 days - You become worse * Telephone Encounter - Enriqueta De Luna - 07/24/2024 3:41 PM EST Symptom: Sinus Symptoms Outcome: Schedule an urgent appointment (within 4 hours) or talk to a nurse or provider soon Reason: Red swelling on cheek or around eye The caller accepted this outcome. Pt was seen at [facility] on 07/21/24. Pt is requesting to speak to a nurse due to symptoms getting worse. Contact pt at [phone] documented in this encounter Plan of Treatment Upcoming Encounters Date Type Department Care Team (Late st Contact Info) Description 07/27/2024 9:15 AM EST Office Visit [facility] [address] [place] [address] Mervat Simental MD [address] [place] [address] 07/27/2024 10:00 AM EST Office Visit [facility] ADULT DENTAL [address] [place] [address] Farhad Bernal DDS [address] [place] [address] 09/03/2024 1:00 PM EST Office Visit [facility]ULT [facility]ENT[facility] [address] [place] [address] Enriqueta Vargas [address] [place] [address] 11/05/2024 10:30 AM EDT Office Visit [facility] OPTOMETRY [address] [place] [address] Jessica Curtis, OD [address] [place] [address] documented as of this encounter Visit Diagnoses Not on filedocumented in this encounter Additional Health Concerns Assessment Noted Time PHQ-9 Depression Total Score: 10 024 11:48 AM EST documented as of this encounter Care Teams Steel Analyst Relationship Specialty Start Date End Date Mervat Simental MD [address] [place] [address] PCP - General Internal Medicine 03/06/24 documented as of this encounter
--- OUTSIDE RECORDS SUMMARY | 2024-07-25 18:14 | XMS_ITS | Encounter Summary ---
Author Organization [employer] Address [address] [facility] 7t [place] [address] Care Team Providers Care Show Horse Driver Name Role Phone Diane Gutierrez Primary Care Provider +[phone] Diane Gutierrez Primary Care Provider +[phone] Diane Gutierrez Primary Care Provider +[phone] Diane Gutierrez Primary Care Provider +[phone] Mervat Simental MD Primary Care Provider + Reason for Visit * Reason Onset Date Comments Medication Question 01/12/2024 Referral 01/12/2024 Encounter Details Date Type Department Care Team ([facility] st Contact Info) Description 01/12/[address] [facility] [address] [place], [place] [phone] Diane Gutierrez FNP [address] [place], [place] [phone] Medication Question; Referral Social History Tobacco Use Types Packs/Day Years [...] Telephone Encounter - Brian Lau RN - 03/06/2024 12:12 PM EDT T/C to patient for below message, no answer. LVM to call back on [phone]. * Telephone Encounter - Brian Lau RN - 01/25/2024 3:55 PM EDT Please review below message from pt. * Telephone Encounter - Yisel Aiken - 01/25/2024 11:31 AM EDT Tc from pt requesting status on Colace and GI referral * Telephone Encounter - Abigail Shi RN - 01/12/2024 3:46 PM EDT T/C placed to pt who reports that pcp was going to rx colace and placed GI referral at last appointment. Pt reports that he is scheduled with dentist and with sleep medicine. Pt states he is willing to trial increased dose of tamsulosin if pcp would like to increase as current dose is not lasting as long as it used to. Advised request for colace rx and GI referral will be sent to pcp. * Telephone Encounter - Jamie Ware - 01/12/2024 1:48 PM EDT Tc from patient calling to request the states of the stool softener medication as well as GI referral that was discussed in last appt documented in this encounter Plan of Treatment Upcoming Encounters Date Type Department Care Team (Late st Contact Info) Description 07/27/2024 9:15 AM EST Office Visit [facility] [address] [place] [address] Mervat Simental MD 230 [place] [address] 07/27/2024 10:00 AM EST Office Visit [facility] ADULT DENTAL [address] [place] [address] Farhad Bernal DDS [address] [place] [address] 09/03/2024 1:00 PM EST Office Visit [facility] ADULT DENTAL [address] [place] [address] Enriqueta Vargas [address] [place] [address] 11/05/2024 10:30 AM EDT Office Visit [facility] OPTOMETRY [address] [place] [address] Jessica Curtis, OD 230 [place] [address] documented as of this encounter Visit Diagnoses Not on filedocumented in this encounter Additional Health Concerns Assessment Noted Time PHQ-9 Depression Total Score: 10 09/08/ 024 11:48 AM EST documented as of this encounter Care Teams Show Horse Driver Relationship Specialty Start Date End Date Diane Gutierrez FNP [address] [place] [address] PCP - General Family Medicine 05/31/22 01/26/24 Diane Gutierrez FNP [address] [place] [address] PCP - General Family Medicine 01/27/24 01/29/24 Diane Gutierrez FNP [address] [place] [address] PCP - General Family Medicine 01/30/24 02/02/24 Diane Gutierrez FNP [address] [place] [address] PCP - General Family Medicine 02/03/24 03/05/24 Mervat Simental MD [address] [place] [address] PCP - General Internal Medicine 03/06/24 documented as of this encounter
--- OUTSIDE RECORDS SUMMARY | 2024-07-25 18:14 | XMS_ITS | Encounter Summary ---
Author Organization [employer] Address [address] [facility] 7t [place] [address] Care Team Providers Care Geospatial Extractor Analysis Name Role Phone Mervat Simental MD Primary Care Provider + Reason for Visit * Reason Comments Extraction Encounter Details Date Type Department Care Team ([facility] Contact Info) Description 06/29/2024 10:00 AM EST Office Visit [facility] ADULT DENTAL [address] [place], [place] [phone] Farhad Bernal, DDS [address] [place] [address] Retained dental root (Primary Dx) Social History Tobacco Use Types Packs/Day Years [...] enough money to get more: Never True 11/ 08/2022 Transportation Answer Date Recorded In the [...] Sign Reading Time Taken Comments Blood Pressure 120/70 06/29/2024 9:56 AM EST Pulse - - Temperature - - Respiratory Rate - - Oxygen Saturation - - Inhaled Oxygen Concentration - - Weight - - Height - - Body Mass Index - - documented in this encounter Progress Notes * Farhad Bernal DDS - 06/29/2024 10:00 AM EST Patient ID: Cisco Ro is a 53 y.o. male. Time Out: Timeout Date: 06/29/24 (ext on tooth #3), Timeout Time: 09 Location: [facility] Tooth: Maxilla and #3 Procedure: Extraction Verified the above with patient, greenhouse assistant, and provider. Confirmed via patient's chart, intraorally and by radiographs. Barrow Worker Helper: not applicable Chief Complaint Patient presents with Extraction Medical Hx: Vitals: Blood pressure 120/70. Past Medical History: Diagnosis Date BPH (benign prostatic hyperplasia) Class 3 obesity Hypertension Medications: Outpatient Encounter Medications as of 06/29/2024 Medication Sig Dispense Refill Blood Pressure kit cetirizine (ZyrTEC) 10 MG tablet take 1 tablet by oral route twice daily (Patient not taking: Reported on 09/13/2023) 180 tablet 3 D3 Super Strength 50 MCG (1999 UT) capsule Take 50 mcg by mouth in the morning. docusate sodium (Colace) 100 MG capsule Take 1 tab po bid prn constipation 60 capsule 3 docusate sodium (Colace) 100 MG capsule Take 1 tab po bid prn constipation 60 capsule 3 famotidine (Pepcid) 40 MG tablet Take 40 mg by mouth at bedtime. finasteride (Propecia) 1 MG tablet Take 1 tablet (1 mg) by mouth Once per day. Do not crush, chew, or split. 30 tablet 2 fluticasone (Flonase) 50 MCG/ACT nasal spray Administer 2 sprays into each nostril 2 times daily. 48 g 2 hydrocortisone (Anusol-HC) 2.5 % rectal cream Insert into the rectum 2 times daily. 28 g 1 hydrocortisone (Anusol-HC) 25 MG suppository INSERT 1 SUPPOSITORY (25 MG) RECTALLY TWICE DAILY DIRECTED 12 suppository 0 hydrOXYzine pamoate (Vistaril) 50 MG capsule TAKE 1 CAPSULE BY MOUTH EVERY 8 HOURS IF NEEDED FOR ANXIETY 90 capsule 0 lisinopril 10 MG tablet TAKE 1 TABLET BY MOUTH EVERY DAY IN THE MORNING 90 tablet 1 senna (Senokot) 8.6 MG tablet TAKE 1 TABLET BY MOUTH DAILY AT BEDTIME FOR CONSTIPATION 90 tablet 3 tamsulosin (Flomax) 0.4 MG 24 hr capsule TAKE 1 CAPSULE BY MOUTH DAILY 30 MINUTES AFTER THE SAME MEAL EVERY DAY 90 capsule 1 No facility-administered encounter medications on file as of 06/29/2024. Consent Obtained: The risks, benefits, indications, potential complications, and alternatives were explained to the patient and informed consent was obtained with good understanding. Treatment Provided: Dental procedures in this visit D7210 - EXTRACTION, ERUPTED TOOTH REQUIRING REMOVAL OF BONE AND/OR SECTIONING OF TOOTH, AND INCLUDING ELEVATION OF MUCOPERIOSTEAL FLAP IF INDICATED 3 Diagnosis: Retained roots Topical: 20% Benzocaine Anesthesia: 2% Lidocaine (Xylocaine) w/ 1:100,000 epinephrine Number of Cartridges: 1 Injection Type: Buccal infiltration and Intrapapillary injection Confirmed profound anesthesia. Pharyngeal curtain and bite block placed. Removed tooth with elevators and forceps. Apices intact. Surgical Extraction: Yes, #3 Socket curetted & irrigated with sterile water. Compressed alveolar bone. Sutures: None Needed All adjacent teeth intact. Hemostasis achieved. Complications: None. Pt tolerated procedure well. Cisco stated having analgesics at home. Written and verbal post-op instructions given. Patient discharged in stable condition; ambulatory, alert, and oriented. NV: F/U as needed / yanet. V. Imp Entry Processor: Karolina Briggs Dentist: Farhad Bernal DDS documented in this encounter Plan of Treatment Upcoming Encounters Date Type Department Care Team (Late st Contact Info) Description 07/27/2024 9:15 AM EST Office Visit [facility] [address] [place] [address] Mervat Simental MD [address] [place] [address] 07/27/2024 10:00 AM EST Office Visit [facility] ADULT DENTAL [address] [place] [address] Farhad Bernal DDS [address] [place] [address] 09/03/2024 1:00 PM EST Office Visit [facility] ADULT DENTAL [address] [place] [address] Alicia, Enriqueta [address] [place] [address] 11/05/2024 10:30 AM EDT Office Visit [facility] OPTOMETRY [address] [place] [address] Ever, Jessica, OD [address] [place] [address] documented as of this encounter Procedures Procedure Name Priority Date/Time Associated Diagnosis Comments 3 EXTRACTION, ERUPTED TOOTH REQUIRING REMOVAL OF BONE AND/OR SECTIONING OF TOOTH, AND INCLUDING ELEVATION OF MUCOPERIOSTEAL FLAP IF INDICATED Routine 06/29/2024 10:00 AM EST [employer] - PROFESSIONAL VISITS - CASE PRESENTATION, SUBSEQUENT TO DETAILED AND EXTENSIVE TREATMENT PLANNING Routine 06/29/2024 10:00 AM EST documented in this encounter Visit Diagnoses Diagnosis Retained dental root- Primary documented in this encounter Additional Health Concerns Assessment Noted Time PHQ-9 Depression Total Score: 10 024 11:48 AM EST documented as of this encounter Care Teams Geospatial Extractor Analysis Relationship Specialty Start Date End Date Mervat Simental MD [address] [place] [address] PCP - General Internal Medicine 03/06/24 documented as of this encounter
--- OUTSIDE RECORDS SUMMARY | 2024-07-25 18:14 | XMS_ITS | Encounter Summary ---
Author Organization [employer] Address [address] [facility] [address] [facility] [address] [place] [address] Care Team Providers Care Agricultural Equipment Operator Name Role Phone Mervat Simental MD Primary Care Provider + Encounter Details Date Type Department Care Team (Latest Contact Info) Description 07/21/2024 Travel Social History Tobacco Use Types Packs/Day [...] Description 07/27/2024 9:15 AM EST Office Visit [facility] [address] [place] [address] Mervat Simental MD [address] [place] [address] 07/27/2024 10:00 AM EST Office Visit [facility] ADULT DENTAL [address] [place] [address] Farhad Bernal DDS [address] [place] [address] 09/03/2024 1:00 PM EST Office Visit [facility] ADULT DENTAL [address] [place] [address] Alicia, Enriqueta [address] [place] [address] 11/05/2024 10:30 AM EDT Office Visit [facility] OPTOMETRY [address] [place] [address] Ever, Jessica, OD [address] [place] [address] documented as of this encounter Visit Diagnoses Not on filedocumented in this encounter Additional Health Concerns Assessment Noted Time PHQ-9 Depression Total Score: 10 024 11:48 AM EST documented as of this encounter Care Teams Agricultural Equipment Operator Relationship Specialty Start Date End Date Mervat Simental MD [address] [place] [address] PCP - General Internal Medicine 03/06/24 documented as of this encounter
--- OUTSIDE RECORDS SUMMARY | 2024-07-25 18:14 | XMS_ITS | Encounter Summary ---
Author Organization [employer] Address [address] [facility] 7t [place] [address] Care Team Providers Care Journeyman Pipefitter Name Role Phone Diane Gutierrez Primary Care Provider [phone] Diane Gutierrez Primary Care Provider [phone] Diane Gutierrez Primary Care Provider +[phone] Diane Gutierrez Primary Care Provider [phone] Mervat Simental MD Primary Care Provider + Reason for Visit * Reason Onset Date Comments status on sleep apnea 11/04/2022 Encounter Details Date Type Department Care Team (Late st Contact Info) Description 11/04/2022 Telephone [facility] [address] [place] [address] Diane Gutierrez FNP [address] [place], [place] [phone] status on sleep apnea Social History Tobacco Use Types Packs/Day Years Used Date Smoking Tobacco: Never Smokeless Tobacco: Never Sex and Gender Information Value Date Recorded Sex Assigned at Male 05/03/2022 10:37 AM EDT Legal Sex Male 10:37 AM EDT Gender Identity Male 05/03/2022 10:37 AM EDT Sexual Orientation Straight 05/03/2022 10 :37 AM EDT documented as of this encounter Miscellaneous Notes * Telephone Encounter - Asha Colon - 11/05/2022 9:51 AM EDT Good morning Diane, please revise message below. A new script for CPAP has to be sent with recent notes. Patient has an appointment scheduled on 11/19 with you, if you could please address [place] on this day to fax along with script. Thank you. * Telephone Encounter - Lilly Silver - 11/04/2022 3:40 PM EDT Tc from pt requesting status on sleep apnea machine that was going to be sent couple months ago ? documented in this encounter Plan of Treatment Upcoming Encounters Date Type Department Care Team (Late st Contact Info) Description 07/27/2024 9:15 AM EST Office Visit [facility] [address] [place] [address] Mervat Simental MD [address] [place] [address] 07/27/2024 10:00 AM EST Office Visit [facility] ADULT DENTAL [address] [place] [address] Farhad Bernal DDS [address] [place] [address] 09/03/2024 1:00 PM EST Office Visit [facility] ADULT DENTAL [address] [place] [address] Enriqueta Vargas [address] [place] [address] 11/05/2024 10:30 AM EDT Office Visit [facility] OPTOMETRY [address] [place] [address] Jessica Curtis, OD [address] [place] [address] documented as of this encounter Visit Diagnoses Not on filedocumented in this encounter Care Teams Journeyman Pipefitter Relationship Specialty Start Date End Date Diane Gutierrez FNP [address] [place] [address] PCP - General Family Medicine 05/31/22 01/26/24 Diane Gutierrez FNP [address] [place] [address] PCP - General Family Medicine 01/27/24 01/29/24 Diane Gutierrez FNP [address] [place] [address] PCP - General Family Medicine 01/30/24 02/02/24 Diane Gutierrez FNP [address] [place] [address] PCP - General Family Medicine 02/03/24 03/05/24 Mervat Simental MD [address] [place] [address] PCP - General Internal Medicine 03/06/24 documented as of this encounter
--- OUTSIDE RECORDS SUMMARY | 2024-07-25 18:14 | XMS_ITS | Encounter Summary ---
Author Organization [employer] Address [address] [facility] 7t [place] [address] Care Team Providers Care Grid Trimmer Name Role Phone Diane Gutierrez Primary Care Provider [phone] Diane Gutierrez Primary Care Provider [phone] Diane Gutierrez Primary Care Provider [phone] Diane Gutierrez Primary Care Provider [phone] Mervat Simental MD Primary Care Provider + Reason for Visit * Reason Onset Date Comments Nurse Triage 09/12/2023 Encounter Details Date Type Department Care Team (Late st Contact Info) Description 09/12/2023 Telephone [facility] MEDICINE [address] [place], [place] [phone] Diane Gutierrez FNP [address] [place], [place] [phone] Nurse Triage Social History Tobacco Use Types [...] encounter Miscellaneous Notes * Telephone Encounter - Clare Prakash RN - 09/12/2023 9:48 AM EDT called pt to triage, spoke to pt. pt seen by cardiology on , and cleared from them. pt has been having episodes of palpitations for a while now and also had an echo which was normal. pt states this has caused him some anxiety and panic attacks mostly at night. pt reports feelings of claustrophobia and stomach discomfort since the onset of palpitations. pt states discussed the results from cardiology with his PCP on Tuesday but he has attributed his anxiety to the palpitations. pt states has discomfort and feelings of bloating after eating. given appt tomorrow with blue team provider for the anxiety concerns at 9:15. pt understands and agrees with plan. advised home care: rest, fluids, good sleep habits, relaxation activities, and call back if worsening or new concerns. Protocol Used: Anxiety and Panic Attack (Adult) Protocol-Based Disposition: See in Office or Video Visit within 3 Days Video visit offer not recorded Positive Triage Question: * Patient wants to be seen * All higher-acuity triage questions were negative Care Advice Discussed: * Note to Triager - Anxiety Symptoms * Reassurance and Education - Anxiety * Anxiety - Healthy Lifestyle Tips * Avoid Caffeine * Avoid Triggers of Anxiety * Stress Reduction * Reasons To Call Back - Anxiety or panic attacks continue - You feel like harming yourself - You become worse * Telephone Encounter - Clare Prakash RN - 09/12/2023 9:48 AM EDT called pt to triage, spoke to pt. pt seen by cardiology on , and cleared from them. pt has been having episodes of palpitations for a while now and also had an echo which was normal. pt states this has caused him some anxiety and panic attacks mostly at night. pt reports feelings of claustrophobia and stomach discomfort since the onset of palpitations. pt states discussed the results from cardiology with his PCP on Tuesday but he has attributed his anxiety to the palpitations. pt states has discomfort and feelings of bloating after eating. given appt tomorrow with blue team provider for the anxiety concerns at 9:15. pt understands and agrees with plan. advised home care: rest, fluids, good sleep habits, relaxation activities, and call back if worsening or new concerns. Protocol Used: Anxiety and Panic Attack (Adult) Protocol-Based Disposition: See in Office or Video Visit within 3 Days Video visit offer not recorded Positive Triage Question: * Patient wants to be seen * All higher-acuity triage questions were negative Care Advice Discussed: * Note to Triager - Anxiety Symptoms * Reassurance and Education - Anxiety * Anxiety - Healthy Lifestyle Tips * Avoid Caffeine * Avoid Triggers of Anxiety * Stress Reduction * Reasons To Call Back - Anxiety or panic attacks continue - You feel like harming yourself - You become worse * Telephone Encounter - Clare Prakash RN - 09/12/2023 9:48 AM EDT called pt to triage, spoke to pt. pt seen by cardiology on , and cleared from them. pt has been having episodes of palpitations for a while now and also had an echo which was normal. pt states this has caused him some anxiety and panic attacks mostly at night. pt reports feelings of claustrophobia and stomach discomfort since the onset of palpitations. pt states discussed the results from cardiology with his PCP on Tuesday but he has attributed his anxiety to the palpitations. pt states has discomfort and feelings of bloating after eating. given appt tomorrow with blue team provider for the anxiety concerns at 9:15. pt understands and agrees with plan. advised home care: rest, fluids, good sleep habits, relaxation activities, and call back if worsening or new concerns. Protocol Used: Anxiety and Panic Attack (Adult) Protocol-Based Disposition: See in Office or Video Visit within 3 Days Video visit offer not recorded Positive Triage Question: * Patient wants to be seen * All higher-acuity triage questions were negative Care Advice Discussed: * Note to Triager - Anxiety Symptoms * Reassurance and Education - Anxiety * Anxiety - Healthy Lifestyle Tips * Avoid Caffeine * Avoid Triggers of Anxiety * Stress Reduction * Reasons To Call Back - Anxiety or panic attacks continue - You feel like harming yourself - You become worse * Telephone Encounter - Clare Prakash RN - 09/12/2023 9:47 AM EDT called pt to triage, spoke to pt. pt seen by cardiology on , and cleared from them. pt has been having episodes of palpitations for a while now and also had an echo which was normal. pt states this has caused him some anxiety and panic attacks mostly at night. pt reports feelings of claustrophobia and stomach discomfort since the onset of palpitations. pt states discussed the results from cardiology with his PCP on Tuesday but he has attributed his anxiety to the palpitations. pt states has discomfort and feelings of bloating after eating. given appt tomorrow with blue team provider for the anxiety concerns at 9:15. pt understands and agrees with plan. advised home care: rest, fluids, good sleep habits, relaxation activities, and call back if worsening or new concerns. Protocol Used: Anxiety and Panic Attack (Adult) Protocol-Based Disposition: See in Office or Video Visit within 3 Days Video visit offer not recorded Positive Triage Question: * Patient wants to be seen * All higher-acuity triage questions were negative Care Advice Discussed: * Note to Triager - Anxiety Symptoms * Reassurance and Education - Anxiety * Anxiety - Healthy Lifestyle Tips * Avoid Caffeine * Avoid Triggers of Anxiety * Stress Reduction * Reasons To Call Back - Anxiety or panic attacks continue - You feel like harming yourself - You become worse * Telephone Encounter - Clare Prakash RN - 09/12/2023 9:47 AM EDT called pt to triage, spoke to pt. pt seen by cardiology on , and cleared from them. pt has been having episodes of palpitations for a while now and also had an echo which was normal. pt states this has caused him some anxiety and panic attacks mostly at night. pt reports feelings of claustrophobia and stomach discomfort since the onset of palpitations. pt states discussed the results from cardiology with his PCP on Tuesday but he has attributed his anxiety to the palpitations. pt states has discomfort and feelings of bloating after eating. given appt tomorrow with blue team provider for the anxiety concerns at 9:15. pt understands and agrees with plan. advised home care: rest, fluids, good sleep habits, relaxation activities, and call back if worsening or new concerns. Protocol Used: Anxiety and Panic Attack (Adult) Protocol-Based Disposition: See in Office or Video Visit within 3 Days Video visit offer not recorded Positive Triage Question: * Patient wants to be seen * All higher-acuity triage questions were negative Care Advice Discussed: * Note to Triager - Anxiety Symptoms * Reassurance and Education - Anxiety * Anxiety - Healthy Lifestyle Tips * Avoid Caffeine * Avoid Triggers of Anxiety * Stress Reduction * Reasons To Call Back - Anxiety or panic attacks continue - You feel like harming yourself - You become worse * Telephone Encounter - Clare Prakash RN - 09/12/2023 9:30 AM EDT called pt to triage, spoke to pt. pt seen by cardiology on , and cleared from them. pt has been having episodes of palpitations for a while now and also had an echo which was normal. pt states this has caused him some anxiety and panic attacks mostly at night. pt reports feelings of claustrophobia and stomach discomfort since the onset of palpitations. pt states discussed the results from cardiology with his PCP on Tuesday but he has attributed his anxiety to the palpitations. pt states has discomfort and feelings of bloating after eating. given appt tomorrow with waverly team provider for the anxiety concerns at 9:15. pt understands and agrees with plan. advised home care: rest, fluids, good sleep habits, relaxation activities, and call back if worsening or new concerns. Protocol Used: Anxiety and Panic Attack (Adult) Protocol-Based Disposition: See in Office or Video Visit within 3 Days Video visit offer not recorded Positive Triage Question: * Patient wants to be seen * All higher-acuity triage questions were negative Care Advice Discussed: * Note to Triager - Anxiety Symptoms * Reassurance and Education - Anxiety * Anxiety - Healthy Lifestyle Tips * Avoid Caffeine * Avoid Triggers of Anxiety * Stress Reduction * Reasons To Call Back - Anxiety or panic attacks continue - You feel like harming yourself - You become worse * Telephone Encounter - Barron Powers - 09/12/2023 9:01 AM EDT Tc from pt returning call. * Telephone Encounter - Barron Powers - 09/12/2023 8:18 AM EDT Symptom: Anxiety or Panic Attack Outcome: Schedule an urgent appointment (within 4 hours) or talk to a nurse or provider soon Reason: Anxiety keeps from normal daily activities (such as school or work) The caller accepted this outcome Please contact at [phone] documented in this encounter Plan of Treatment Upcoming Encounters Date Type Department Care Team ([facility] st Contact Info) Description 07/27/2024 9:15 AM EST Office Visit [facility] MEDICINE [address] [place] [phone] Mervat Simental MD [address] [facility] [place] [address] 07/27/2024 10:00 AM EST Office Visit [facility] ADULT DENTAL [address] [place] [address] Farhad Bernal, DDS [address] [place] [address] 09/03/2024 1:00 PM EST Office Visit [facility] ADULT DENTAL [address] [place] [address] Alicia, Enriqueta [address] [place] [address] 11/05/2024 10:30 AM EDT Office Visit [facility] OPTOMETRY [address] [facility] [place] [address] Jessica Curtis, OD [address] [place] [address] documented as of this encounter Visit Diagnoses Not on filedocumented in this encounter Additional Health Concerns Assessment Noted Time PHQ-9 Depression Total Score: 10 024 11:48 AM EST documented as of this encounter Care Teams Grid Trimmer Relationship Specialty Start Date End Date Diane Gutierrez FNP [address] [place] [address] PCP - General Family Medicine 05/31/22 01/26/24 Diane Gutierrez FNP [address] [place] [address] PCP - General Family Medicine 01/27/24 01/29/24 Diane Gutierrez FNP [address] [place] [address] PCP - General Family Medicine 01/30/24 02/02/24 Diane Gutierrez FNP [address] [place] [address] PCP - General Family Medicine 02/03/24 03/05/24 Mervat Simental MD [address] [place] [address] PCP - General Internal Medicine 03/06/24 documented as of this encounter
--- OUTSIDE RECORDS SUMMARY | 2024-07-25 18:14 | XMS_ITS | Encounter Summary ---
Author Organization [employer] Address [address] [facility] 7t [place] [address] Care Team Providers Care Crochet Beader Name Role Phone Diane Gutierrez Primary Care Provider [phone] Diane Gutierrez Primary Care Provider [phone] Diane Gutierrez Primary Care Provider [phone] Diane Gutierrez Primary Care Provider [phone] Mervat Simental MD Primary Care Provider + Reason for Visit * Reason Onset Date Comments triage 11/04/2022 Encounter Details Date Type Department Care Team (Late st Contact Info) Description 11/04/2022 Telephone [facility] MEDICINE [address] [place] [address] Diane Gutierrez FNP [address] [place], [place] [phone] triage Social History Tobacco Use Types Packs/Day Years Used Date Smoking Tobacco: Never Smokeless Tobacco: Never Sex and Gender Information Value Date Recorded Sex Assigned at Male 05/03/2022 10:37 AM EDT Legal Sex Male 10:37 AM EDT Gender Identity Male 05/03/2022 10:37 AM EDT Sexual Orientation Straight 05/03/2022 10 :37 AM EDT documented as of this encounter Miscellaneous Notes * Telephone Encounter - Lyla Glass RN - 11/04/2022 4:09 PM EDT Triage call Pt reports round shaped brown areas on skin that are spreading. Pt reports has had thisbefore long time ago . Pt reports several spots right arm pit that are dime sized. Now these spots are spreading up toward neck and under chin. Areas are nickel size and one is size of two half dollars which is right under chin where neck meets. Pt denies itchiness, discolored areas are smooth not bumpy. No discomfort reported. Apt with PCP Matt 11/19 @ 1115AM. Insurance is verified as active at time of booking. Protocol Used: Skin Lesion - Moles or Growths (Adult) Protocol-Based Disposition: See in Office or Video Visit within 2 Weeks Video visit not offered Positive Triage Question: * Caller is uncertain what lesion is * All higher-acuity triage questions were negative Care Advice Discussed: * Freckles * Monthly Skin Self-Exam * Skin Health * Reasons To Call Back - Fever or pain occurs - Any change in the mole or growth - You become worse * Telephone Encounter - Lilly Silver - 11/04/2022 3:36 PM EDT Symptom: Eczema , weakness and trouble sleeping - Caller Reports Outcome: Schedule an appointment to be seen within 3 days Reason: Caller denied all higher acuity questions The caller accepted this outcome documented in this encounter Plan of Treatment Upcoming Encounters Date Type Department Care Team (Late st Contact Info) Description 07/27/2024 9:15 AM EST Office Visit [facility] MEDICINE [address] [place] [address] Mervat Simental MD [address] [place] [address] 07/27/2024 10:00 AM EST Office Visit [facility] ADULT DENTAL [address] [place] [address] Farhad Bernal DDS [address] [place] [address] 09/03/2024 1:00 PM EST Office Visit [facility] ADULT DENTAL [address] [place] [address] Alicia, Enriqueta [address] [place] [address] 11/05/2024 10:30 AM EDT Office Visit [facility] OPTOMETRY [address] [place] [address] Ever, Jessica, OD [address] [place] [address] documented as of this encounter Visit Diagnoses Not on filedocumented in this encounter Care Teams Crochet Beader Relationship Specialty Start Date End Date Diane Gutierrez FNP [address] [place] [address] PCP - General Family Medicine 05/31/22 01/26/24 Diane Gutierrez FNP [address] [place] [address] PCP - General Family Medicine 01/27/24 01/29/24 Diaen Gutierrez FNP [address] [place] [address] PCP - General Family Medicine 01/30/24 02/02/24 Diane Gutierrez FNP [address] [place] [address] PCP - General Family Medicine 02/03/24 03/05/24 Mervat Simental MD [address] [place] [address] PCP - General Internal Medicine 03/06/24 documented as of this encounter
--- OUTSIDE RECORDS SUMMARY | 2024-07-25 18:14 | XMS_ITS | Encounter Summary ---
Author Organization [employer] Address [address] [facility] 7t [place] [address] Care Team Providers Care Railroad Maintenance Clerk Name Role Phone Mervat Simental MD Primary Care Provider + Reason for Visit * Reason Onset Date Comments calling back 03/14/2024 Encounter Details Date Type Department Care Team (Late st Contact Info) Description 03/14/2024 Telephone [facility] ADULT DENTAL [address] [place], [place] [phone] Alicia, Enriqueta [address] [place] [address] calling back Social History Tobacco Use Types Packs/Day Years [...] encounter Miscellaneous Notes * Telephone Encounter - Doug Floerz - 03/14/2024 12:05 PM EDT Patient is returning a call he had missed. [facility] is on a meeting break till 12;30. Please call him once again to schedule that appt. Thank you CS documented in this encounter Plan of Treatment Upcoming Encounters Date Type Department Care Team (Late st Contact Info) Description 07/27/2024 9:15 AM EST Office Visit [facility] MEDICINE [address] [place] [address] Mervat Simental MD [address] [place] [address] 07/27/2024 10:00 AM EST Office Visit [facility] ADULT DENTAL [address] [place] [address] Farhad Bernal DDS [address] [place] [address] 09/03/2024 1:00 PM EST Office Visit [facility] ADULT DENTAL [address] [place] [address] Enriqueta Vargas [address] [place] [address] 11/05/2024 10:30 AM EDT Office Visit [facility] OPTOMETRY [address] [place] [address] Jessica Curtis, OD [address] [place] [address] documented as of this encounter Visit Diagnoses Not on filedocumented in this encounter Additional Health Concerns Assessment Noted Time PHQ-9 Depression Total Score: 10 024 11:48 AM EST documented as of this encounter Care Teams Railroad Maintenance Clerk Relationship Specialty Start Date End Date Mervat Simental MD [address] [place] [address] PCP - General Internal Medicine 03/06/24 documented as of this encounter
[2024-07-26 09:53] LABS: Adenovirus PCR Not Detected (Not Detect.); Bordetella parapertussis PCR Not Detected (Not Detect.); Bordetella pertussis PCR Not Detected (Not Detect.); Chlamydia pneumoniae PCR Not Detected (Not Detect.); Coronavirus 229E PCR Not Detected (Not Detect.); Coronavirus HKU1 PCR Not Detected (Not Detect.); Coronavirus NL63 PCR Not Detected (Not Detect.); Coronavirus OC43 PCR Not Detected (Not Detect.); Human metapneumovirus PCR Not Detected (Not Detect.); Influenza B PCR Not Detected (Not Detect.); Mycoplasma pneumoniae PCR Not Detected (Not Detect.); Parainfluenza 1 PCR Not Detected (Not Detect.); Parainfluenza 2 PCR Not Detected (Not Detect.); Parainfluenza 3 PCR Not Detected (Not Detect.); Parainfluenza 4 PCR Not Detected (Not Detect.); RSV PCR Not Detected (Not Detect.); Rhino/Enterovirus PCR Not Detected (Not Detect.)
[2024-07-26 12:16] LABS: Influenza A PCR Detected (Not Detect.); SARS-CoV-2 PCR Not Detected (Not Detect.)
== END 2024-07-25 11:01 | disposition home or self-care (01) ==
LOC: HO.LNP 11:00
PROVIDERS: Visit Provider Registered Nurse
DX: J34.89 Other specified disorders of nose and nasal sinuses (principal); Z11.52 Encounter for screening for COVID-19; Z13.83 Encounter for screening for respiratory disorder NEC
CPT/HCPCS: 87633

== ENCOUNTER 2024-09-12 08:30 | Outpatient (REF) | payer MEDICAID, SELFPAY ==
--- OUTSIDE RECORDS SUMMARY | 2024-09-12 08:59 | XMS_ITS | Encounter Summary ---
Author Organization [employer] Address [address] [facility] 7t [place] [address] Care Team Providers Care Fixture Relamper Name Role Phone Diane Gutierrez Primary Care Provider [phone] Diane Gutierrez Primary Care Provider [phone] Diane Gutierrez Primary Care Provider [phone] Diane Gutierrez Primary Care Provider [phone] Mervat Simental MD Primary Care Provider + Reason for Visit * Reason Onset Date Comments triage 11/04/2022 Encounter Details Date Type Department Care Team (Late st Contact Info) Description 11/04/2022 Telephone [facility] MEDICINE [address] [place] [address] Diane Gutierrez FNP [address] [place], [place] [phone] triage Social History Tobacco Use Types Packs/Day [...] Care Team (Late st Contact Info) Description 09/17/2024 2:30 PM EDT Office Visit [facility] ADULT DENTAL [address] [place] [address] Saman Rodriguez, BRISSA [address] [place] [address] 09/24/2024 1:30 PM EDT Office Visit [facility] ADULT DENTAL [address] [place] [address] Saman Rodriguez, BRISSA [address] [place] [address] 11/02/2024 9:45 AM EDT Office Visit [facility] MEDICINE [address] [place] [address] Mervat Simental MD 230 [facility] [place] [address] 11/05/2024 10:30 AM EDT Office Visit [facility] OPTOMETRY [address] [place] [address] Ever, Jessica, OD [address] [place] [address] 03/07/2025 10:00 AM EDT Office Visit [facility] ADULT DENTAL [address] [place] [address] Larisa Antunez documented as of this encounter Visit Diagnoses Not on filedocumented in this encounter Care Teams Fixture Relamper Relationship Specialty Start Date End Date Diane Gutierrez FNP [address] [place] [address] PCP - General Family Medicine 05/31/22 01/26/24 Diane Gutierrez FNP [address] [place] [address] PCP - General Family Medicine 01/27/24 01/29/24 Diane Gutierrez FNP [address] [place] [address] PCP - General Family Medicine 01/30/24 02/02/24 Diane Gutierrez FNP [address] [place] [address] PCP - General Family Medicine 02/03/24 03/05/24 Mervat Simental MD 230 [facility] [place] [address] PCP - General Internal Medicine 03/06/24 documented as of this encounter
--- OUTSIDE RECORDS SUMMARY | 2024-09-12 08:59 | XMS_ITS | Encounter Summary ---
Author Organization [employer] Address [address] [facility] 7t [place] [address] Care Team Providers Care Passenger Car Conductor Name Role Phone Diane Gutierrez Primary Care Provider [phone] Diane Gutierrez Primary Care Provider [phone] Diane Gutierrez Primary Care Provider [phone] Diane Gutierrez Primary Care Provider [phone] Mervat Simental MD Primary Care Provider + Reason for Visit * Reason Onset Date Comments status on sleep apnea 11/04/2022 Encounter Details Date Type Department Care Team (Late st Contact Info) Description 11/04/2022 Telephone [facility] MEDICINE [address] [place] [address] Diane Gutierrez FNP [address] [place], [place] [phone] status on sleep apnea Social History Tobacco [...] Description 09/17/2024 2:30 PM EDT Office Visit [facility] ADULT DENTAL [address] [place] [address] Saman Rodriguez, DMD [address] [place] [address] 09/24/2024 1:30 PM EDT Office Visit [facility] ADULT DENTAL [address] [place] [address] Saman Rodriguez, DMD [address] [place] [address] 11/02/2024 9:45 AM EDT Office Visit [facility] MEDICINE [address] [place] [address] Mervat Simental MD [address] [place] [address] 11/05/2024 10:30 AM EDT Office Visit [facility] OPTOMETRY [address] [place] [address] Jessica Curtis OD [address] [place] [address] 03/07/2025 10:00 AM EDT Office Visit [facility] ADULT DENTAL [address] [place] [address] Larisa Antunez documented as of this encounter Visit Diagnoses Not on filedocumented in this encounter Care Teams Passenger Car Conductor Relationship Specialty Start Date End Date Diane Gutierrez FNP [address] [place] [address] PCP - General Family Medicine 05/31/22 01/26/24 Diane Gutierrez FNP [address] [place] [address] PCP - General Family Medicine 01/27/24 01/29/24 Diane Gutierrez FNP [address] [place] [address] PCP - General Family Medicine 01/30/24 02/02/24 Diane Gutierrez FNP [address] [place] [address] PCP - General Family Medicine 02/03/24 03/05/24 Mervat Simental MD [address] [place] [address] PCP - General Internal Medicine 03/06/24 documented as of this encounter
--- OUTSIDE RECORDS SUMMARY | 2024-09-12 09:00 | XMS_ITS | Clinical Summary ---
Author Organization [employer] Address [address] [facility] 7t [place] [address] Care Team Providers Care [employer] Name Role Phone Mervat Simental MD Primary Care Provider + Allergies Active Allergy Reactions Criticality Noted Date Comments Cat Dander 06/21/2022 Dog Epithelium 06/21/2022 Doxycycline Diarrhea Medium 02/24/2023 Medications Blood Pressure kit Active D3 Super Strength 50 MCG (1999 UT) capsule Take 50 mcg by mouth in the morning. 023 Active docusate sodium (Colace) 100 MG capsule Take 1 tab po bid prn constipation 60 capsule 3 024 Active Additional Information Patient not taking.Reported on 09/03/2024 hydrocortisone (Anusol-HC) 25 MG suppositoryIndi cations:Hemorrh oids, unspecified hemorrhoid type INSERT 1 SUPPOSITORY (25 MG) RECTALLY TWICE DAILY DIRECTED 12 suppository 024 Active Additional Information Patient not taking.Reported on 09/03/2024 senna (Senokot) 8.6 MG tabletIndicatio ns:Constipation , unspecified TAKE 1 TABLET BY MOUTH DAILY AT BEDTIME FOR CONSTIPATION 90 tablet 3 024 Active hydrOXYzine pamoate (Vistaril) 50 MG capsule TAKE 1 CAPSULE BY MOUTH EVERY 8 HOURS IF NEEDED FOR ANXIETY 90 capsule 024 Active albuterol 108 (90 Base) MCG/ACT inhaler Inhale 2 puffs every 6 (six) hours if needed for wheezing. 18 g 025 2025 Active famotidine (Pepcid) 40 MG tablet Take 1 tablet (40 mg) by mouth at bedtime. 30 tablet 025 Active fluticasone (Flonase) 50 MCG/ACT nasal sprayIndication s:Subacute pansinusitis Administer 2 sprays into each nostril 2 times daily. 48 g 2 025 2024 Active lisinopril 10 MG tabletIndicatio ns:Primary hypertension TAKE 1 TABLET BY MOUTH EVERY MORNING 90 tablet 1 025 Active tamsulosin (Flomax) 0.4 MG 24 hr capsuleIndicati ons:Benign prostatic hyperplasia, unspecified whether lower urinary tract symptoms present TAKE 1 CAPSULE BY MOUTH DAILY 30 MINUTES AFTER same MEAL EVERY DAY 90 capsule 1 025 Active lisinopril 10 MG tabletIndicatio ns:Primary hypertension TAKE 1 TABLET BY MOUTH EVERY DAY IN THE MORNING 90 tablet 1 024 2024 Discontinued tamsulosin (Flomax) 0.4 MG 24 hr capsuleIndicati ons:Benign prostatic hyperplasia, unspecified whether lower urinary tract symptoms present TAKE 1 CAPSULE BY MOUTH DAILY 30 MINUTES AFTER THE SAME MEAL EVERY DAY 90 capsule 1 024 2024 Discontinued Active Problems Problem Noted Date Diagnosed Date Ingrown left greater toenail 07/27/2024 Assessment & Plan (08/30/2024 3:26 PM EST): Advised pt to do epsom salt soaks at least once daily Advised softening the toenail and the skin around by applying antibiotic ointment after soaks Advised pt to avoid cutting toenail on his own d/t risk of infection Will refer to podiatry to have ingrown removal Assessment & Plan (07/27/2024 10:10 AM EST): I did toenail wedge trimming and advised pt to avoid poking on toenail. Advised to do soaks with warm water and epsom salt. Tubular adenoma of colon 07/27/2024 Assessment & Plan (07/27/2024 10:10 AM EST): In 2020, will refer to GI for follow up colonoscopy. Subacute pansinusitis 07/27/2024 Assessment & Plan (07/27/2024 10:11 AM EST): Advised to start Augmentin already prescribed. Rest (sleep at least 8 hours a night). Hydrate with plenty of water (avoid caffeine and alcohol). Use saline nose drops to loosen mucus, + Flonase. Take Acetaminophen (Tylenol??)/Ibuprofen as needed to reduce fever, headache, body aches or discomfort Gargle with salt water and use throat sprays/lozenges for throat pain. Use heated, humidified air. If you do not have a humidifier, take hot showers. Cover coughs and sneezes using the crook of your elbow. If you have a fever, stay home and away from others (self isolation) until fever-free for 72 hours (temperature should be less than 100??F without medication). Out of work until Tuesday next week, back on Tuesday. Bronchial spasm 07/27/2024 Assessment & Plan (07/27/2024 10:06 AM EST): Most likely secondary to flu, start albuterol TID x 7 days, then prn. Class 3 severe obesity due t o excess calories with serious comorbidity and body mass index (BMI) of 40.0 to 44.9 in adult 07/27/2024 Assessment & Plan (07/31/2024 12:42 PM EST): Discussed re weight reduction options including exercise, life style modifications, diet. Recommended to decrease soda and sugary beverage consumption, increase protein intake with meals (at least 1 portion of protein with each meal) to assist with satiety, increase dietary fiber Recommended at least 150 min/week of moderate intensity exercise. Decalcification, teeth 02/20/2024 Dental calculus 02/20/2024 Missing teeth, acquired 02/20/2024 Localized gingival recession 02/20/2024 Bleeding gums 02/20/2024 Dental caries 02/20/2024 Retained dental root 02/20/2024 BPH (benign prostatic hyperplasia) 01/26/2024 Assessment & Plan (07/27/2024 10:10 AM EST): Doing well on Flomax. Assessment & Plan (01/26/2024 8:14 PM EDT): [...] more tired in am. 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 Compliant w/meds Continue lisinopril. Counseled re low salt diet/increase moderate physical activity. Check home BP BIW and prn CP/BROWN/MARIE Non smoking patient. Follow up in 3 months. Resolved Problems Problem Noted Date Diagnosed Date Resolved Date Retention of urine 02/25/2020 5 Encounters Date Type Department Care Team Description 09/11/2024 Telephone [facility] [address] [place], [place] [phone] Mervat Simental MD FYI 09/11/2024 Refill [facility] [address] [place], [place] [phone] Mervat Simental MD Primary hypertension; Benign prostatic hyperplasia, unspecified whether lower urinary tract symptoms present 09/03/2024 2:00 PM EST Office Visit [facility] [address] [place], [place] [phone] Larisa Antunez Dental calculus (Primary Dx); Dental plaque 08/29/2024 3:45 PM EST Office Visit [address] [phone] Saul Kennedy CNP Ingrown left greater toenail (Primary Dx) 08/29/2024 Travel 08/28/[address] [address] Mervat Simental MD Chart Prep 08/27/[address] [address] Mervat Simental MD Nurse Triage 08/23/[address] [phone] Mervat Simental MD May recall 07/31/[address] [phone] Mervat Simental MD return to work note 07/27/2024 9:15 AM EST Office Visit [address] [address] Mervat Simental MD Primary hypertension (Primary Dx); Benign prostatic hyperplasia with urinary hesitancy; Ingrown left greater toenail; Tubular adenoma of colon; Subacute pansinusitis; Bronchial spasm; Class 3 severe obesity due to excess calories with serious comorbidity and body mass index (BMI) of 40.0 to 44.9 in adult ([facility]); Dietary counseling; Exercise counseling 07/27/[address] [address] Mervat Simental MD telephone call 07/27/2024 Travel 07/25/2024 10:30 AM EST Office Visit [address] [phone] Chantell Aleman FNP Acute non-recurrent frontal sinusitis (Primary Dx); Influenza A 07/25/2024 Orders Only [facility] [address] [place] [address] Chantell Aleman FNP 07/25/2024 Travel 07/24/[address] [phone] Mervat Simental MD Nurse Triage 07/21/2024 11:00 AM EST Office Visit [facility] [address] [place], [place] [phone] Angelo Ley MD Other fatigue (Primary Dx); Viral URI 07/21/2024 Travel 07/17/2024 Patient Outreach [facility] [address] [place], [place] [phone] Mervat Simental MD Pre-visit Planning ((Unable to complete SDOH screening) 06/29/2024 10:00 AM EST Office Visit [facility] [address] [place], [place] [phone] Farhad Bernal DDS Retained dental root (Primary Dx) from Last 3 Months Immunizations Name Administration [...] Answer Date Recorded Patient Health Questionnaire-2 Score 1 07/27/2024 Sex and Gender Information Value Date Recorded Sex Assigned at Male 05/03/2022 10:37 AM EDT Legal Sex Male 10:37 AM EDT Gender Identity Male 05/03/2022 10:37 AM EDT Sexual Orientation Straight 05/03/2022 10 :37 AM EDT Last Filed Vital Signs Vital Sign Reading Time Taken Comments Blood Pressure 142/86 09/03/2024 2:25 PM EST Pulse 58 08/29/2024 3:56 PM EST Temperature 36.8 ??C (98.2 ??F) 08/29/2024 3:56 PM ES T Respiratory Rate 18 08/29/2024 3:56 PM EST Oxygen Saturation 98% 08/29/2024 3:56 PM EST Inhaled Oxygen Concentration - - Weight 116 kg (255 lb) 08/29/2024 3:56 PM EST Height 170.2 cm (5' 7 ) 07/27/2024 9:27 AM EST Body Mass Index 39.94 07/27/2024 9:27 AM EST Plan of Treatment Upcoming Encounters Date Type Department Care Team (Late st Contact Info) Description 09/17/2024 2:30 PM EDT Office Visit [facility] [address] [place] [phone] Saman Rodriguez, BRISSA [address] [place] [address] 09/24/2024 1:30 PM EDT Office Visit [facility] [address] [place] [address] Saman Rodriguez, BRISSA [address] [place] [address] 11/02/2024 9:45 AM EDT Office Visit [facility] [address] [place] [phone] Mervat Simental MD [address] [place] [address] 11/05/2024 10:30 AM EDT Office Visit [facility] [address] [place] [address] Jessica Curtis, OD [address] [place] [address] 03/07/2025 10:00 AM EDT Office Visit [facility] [address] [place] [address] Larisa Antunez Health Maintenance Due Date Last Done Comments CT Colonography 1970 FIT DNA/Cologuard 1970 FIT 1970 FOBT 1970 Sigmoidoscopy 1970 Alcohol/Substance Use Screening 1982 Hepatitis B Vaccines (1 of 3 - 19+ 3-dose series) 1989 Pneumococcal Vaccine: 50+ Years (1 of 1 - PCV) 2020 COVID-19 Vaccine ( - 2023-2 5 season) 2024 07/29/2021, 10/11/2020 Influenza Vaccine (#1) 2024 04/15/2021 Colonoscopy 05/20/2024 05/20/2021 Colorectal Cancer Screening 05/20/2024 SDOH Screening 08/31/2024 09/01/2023 Depression Monitoring (PHQ-9) 01/24/2025, 09/09/2023 Dental X-Ray: Bitewings 02/20/2025 02/20/2024 Dental Oral Exam 03/07/2025 09/03/2024, 02/20/2024 Dental Prophylaxis 03/07/2025 09/03/2024, 02/20/2024 Depression Screening 07/27/2025 07/27/2024, 09/09/2023 Tobacco Screening 09/03/2025 09/03/2024 Dental X-Ray: Full Mouth 02/20/2027 02/20/2024 Lipid [...] on patient's age to complete this topic Hepatitis A Vaccines Aged Out No long er eligible based on patient's age to complete [...] Procedure Name Priority Date/Time Associated Diagnosis Comments CASE PRESENTATION, DETAILED AND EXTENSIVE TREATMENT PLANNING Routine 09/03/2024 2:00 PM EST PERIODIC ORAL EVALUATION - ESTABLISHED PATIENT Routine 09/03/2024 2:00 PM EST ORAL HYGIENE INSTRUCTIONS Routine 09/03/2024 2:00 PM EST Dental calculus Dental plaque PROPHYLAXIS - ADULT Routine 09/03/2024 2 :00 PM EST Dental calculus Dental plaque POCT INFLUENZA B (ID NOW RAPID MOLECULAR) Routine 07/25/2024 11:23 AM EST Acute non-recurrent frontal sinusitis POCT INFLUENZA A (ID NOW RAPID MOLECULAR) Routine 07/25/2024 11:16 AM EST Acute non-recurrent frontal sinusitis POCT RAPID COVID ANTIGEN Routine 07/25/2024 11:13 AM EST Acute non-recurrent frontal sinusitis RESPIRATORY VIRAL PANEL PCR Routine 07/25/2024 11:00 AM EST POCT INFLUENZA B (ID NOW RAPID MOLECULAR) Routine 07/21/2024 10:36 AM EST Viral URI POCT INFLUENZA A (ID NOW RAPID MOLECULAR) Routine 07/21/2024 10:36 AM EST Viral URI POCT RAPID COVID ANTIGEN Routine 07/21/2024 10:36 AM EST Viral URI CASE PRESENTATION, DETAILED AND EXTENSIVE TREATMENT PLANNING Routine 06/29/2024 10:00 AM EST 3 EXTRACTION, ERUPTED TOOTH REQ REMOVAL OF BONE AND/OR SECTIONING OF TOOTH Routine 06/29/2024 10:00 AM EST INTRAORAL - COMPLETE SERIES OF RADIOGRAPHIC IMAGES Routine 02/20/2024 10:00 AM EDT Decalcification, teeth Dental calculus Missing teeth, acquired Localized gingival recession Bleeding gums Dental caries HEPATITIS C AB W/REFL TO HCV RNA, [...] is included. Influenza B Negative Negative, Indeterminate [facility] QC Media Lot # [id number] [facility] Lot# Expiration Date [phone] [facility] Swab 07/25/2024 11:2 3 AM EST Chantell CHRISTINA POINT OF CARE TEST ENTER/EDIT ORDERABLES Final Result [facility] [address] [place] [phone] * (ABNORMAL) POCT Rapid Influenza A AMEZCUA ID NOW (07/25/2024 11:16 AM EST) Only the most recent of2 resultswithin the time period is included. [facility] Influenza A Positive( A) Negative, Indeterminate [facility] QC Media Lot # [id number] [facility] Lot# Expiration Date [facility] Swab 07/25/2024 11:1 6 AM EST Chantell Borean [employer] FORMER SUPERVISOR POINT OF CARE TEST ENTER/EDIT ORDERABLES Final Result [facility] [address] [place] [phone] * POCT Rapid Covid-19 BinaxNOW (07/25/2024 11:13 AM EST) Only the most recent of2 resultswithin the time period is included. [facility] Rapid COVID Ag Negative QC Media Lot # [id number] Lot# Expiration Date Swab 07/25/2024 11:1 3 AM EST Chantell Borean [employer]MER SUPERVISOR POINT OF CARE TEST ENTER/EDIT ORDERABLES Final Result * (ABNORMAL) Respiratory Viral Panel PCR (07/25/2024 11:00 AM EST) [facility] Adenovirus PCR Not Detected Not Detect. [facility] Bordetella pertussis PCR Not Detected Not Detect. [facility] Comment:Interpret results wi th caution. If B. pertussis isspecifically suspected, additional testing using analternate method is recommended. Bordetella parapertussis PCR Not Detected Not Detect. [facility] Chlamydia pneumoniae PCR Not Detected Not Detect. [facility] Coronavirus 229E PCR Not Detected Not Detect. [facility] Coronavirus HKU1 PCR Not Detected Not Detect. [facility] Coronavirus NL63 PCR Not Detected Not Detect. [facility] Coronavirus OC43 PCR Not Detected Not Detect. [facility] SARS-CoV-2 PCR Not Detected Not Detect. [facility] Comment:SARS-CoV-2 not detec cheryl by real-time RT-PCR.Note: If clinical suspicion for Sars-CoV-2 is high, continueto maintain precautions and consider repeat testing.Test results should be interpreted in the context ofclinical findings and other laboratory data.Rare polymorphisms exist that could lead to false-negativeor false-positive results. If results do not match theclinical findings, additional testing should be considered.Results reported to DAVID [facility]UCEDA.This test has been authorized by the FDA under the EmergencyUse Authorization (EUA) for use by authorized laboratories. Influenza A PCR Detected(A) Not Detect. [facility] Influenza B PCR Not Detected Not Detect. [facility] Human metapneumovirus PCR Not Detected Not Detect. [facility] Rhino/Enterovirus PCR Not Detected Not Detect. [facility] Mycoplasma pneumoniae PCR Not Detected Not Detect. [facility] Parainfluenza 1 PCR Not Detected Not Detect. [facility] Parainfluenza 2 PCR Not Detected Not Detect. [facility] Parainfluenza 3 PCR Not Detected Not Detect. [facility] Parainfluenza 4 PCR Not Detected Not Detect. [facility] RSV PCR Not Detected Not Detect. [facility] Resp Panel NA Note See Note H [facility] Comment:All results must be correlated with clinical findings.Negative results should not be used as the sole basis fordiagnosis, treatment, or other management decisions.A negative result does not exclude the possibility of viralor bacterial infection. Negative results may occur from thepresence of sequence variants in the region targeted by theassay, the presence of inhibitors, an infection caused by anorganism not detected by the panel, or lower respiratorytract infections that are not detected by a nasopharyngealswab specimen. Test results may also be affected byconcurrent antiviral/antibacterial therapy or levels oforganism in the specimen that are below the limit ofdetection for this test.This assay is performed by Multiplexed PCR, utilizing [employer] Film Array. 07/25/2024 11:0 0 AM EST 07/25/2024 4:12 PM EST Chantell Aleman [employer] FORMER SUPERVISOR LAB BLOOD ORDERABLES Final Res ult Performing Organization Address City/[facility]/ZIP Co de Phone Number [facility] [address] [place] [phone] * Hepatitis C Antibody with Reflex to HCV, RNA, Quantitative, Real-Time PCR (05/06/2023 1:52 PM EDT) Hepatitis C Antibody Nonreactive Nonreactive [facility] Comment:Antibodies to HCV no t detected; does not exclude early acuteHCV infection. Blood Venous blood specimen / Unknown 05/06/2023 1:52 PM EDT 05/06/2023 3:58 PM EDT Diane Gutierrez [facility] LAB BLOOD ORDERABLES Final Resu lt Performing Organization Address [facility]/ZIP Co de Phone Number [facility] [address] [place] [phone] * (ABNORMAL) Lipid Panel, Standard (11/19/2022 12:31 PM EDT) Cholesterol, Total 216(H) <200 mg/dL [facility] HDL Cholesterol 41 > OR = 40 mg/dL [facility] Triglycerides 117 <150 mg/dL [facility] LDL Cholesterol 152(H) mg/dL (calc) [facility] Comment: Reference range: <100 Desirable range <100 mg/dL for primary prevention; ?? <70 mg/dL for patients with CHD or diabetic patients with > or = 2 CHD risk factors. LDL-C is now calculated using the Meek-Barney calculation, which is a validated novel method providing better accuracy than the Friedewald equation in the estimation of LDL-C. Meek ALVARADO et al. PATRICK. 2013;310(19): 8261-4845 (http://education.[employer]/faq/IBG668) Chol/HDLC Ratio 5.3(H) <5.0 (calc) [facility] Non-HDL Cholesterol 175(H) <130 mg/dL (calc) [facility] Comment: For patients with diabetes plus 1 major ASCVD risk factor, treating to a non-HDL-C goal of <100 mg/dL (LDL-C of <70 mg/dL) is considered a therapeutic option. 11/19/2022 12:3 1 PM EDT 11/19/2022 12:32 PM EDT Narrative [facility] - 11/23/2022 12:34 PM EDT FASTING:NO FASTING: NO Diane Gutierrez [employer] FORMER SUPERVISOR LAB BLOOD ORDERABLES Final Resu lt [facility] [address], [place] [phone] [facility] [address] [place] [phone] * Hm Colonoscopy (05/20/2021 1:52 PM EST) Colonoscopy Normal Normal Narrative Lindsey Van - 05/20/2021 1:52 PM EST Recommended 3 year follow up Historical Provider HEALTH MAINTENANCE Edited Result - Final * HIV 1/2 ANTIGEN/ANTIBODY,FOURTH GENERATION W/RFL (02/22/2020 9:11 AM EDT) HIV-1/2 ANTIGEN AND ANTIBODIES, 4TH GENERATION W/ REFLEX NON-REACT CLIVE NON-REACT CLIVE [facility] Comment: HIV-1 antigen and HIV-1/HIV-2 [...] ? For additional information please refer to http://education.[employer]/faq/HMU261 (This link is being provided for informational/ educational purposes only.) ? The performance of this assay has not been clinically validated in patients less than 2 years old. ?? 02/22/2020 9:11 AM EDT us Willie Parham MD LAB BLOOD ORDERABLES Final R esult [facility] [address] from Last 3 Months or Most Recently Relevant to Health Maintenance Insurance [employer] PARTIAL [facility] [place]ICA[place] STAND [address]ULT [address] [place], [place] Care Teams [employer] Teacher Relationship Specialty Start Date End Date Mervat Simental MD [address] [place] [phone] PCP - General Internal Medicine 03/06/24
--- OUTSIDE RECORDS SUMMARY | 2024-09-12 09:00 | XMS_ITS | Encounter Summary ---
Author Organization [employer] Address [address] [facility] 7t [place] [address] Care Team Providers Care Senior Credit Officer Name Role Phone Mervat Simental MD Primary Care Provider + Reason for Visit * Reason Onset Date Comments May recall 08/23/2024 Encounter Details Date Type Department Care Team ([facility] st Contact Info) Description 08/23/2024 Telephone [facility] [address] [place], [place] [phone] Mervat Simental MD [address] [place], [place] [phone] May recall Social History Tobacco Use Types Packs/Day Years [...] encounter Miscellaneous Notes * Telephone Encounter - Leah Hoskins MA - 08/23/2024 10:54 AM EST Telephone call to patient to schedule the following recall: Visit type: Office visit Appointment notes: fu labs/ Patient agree to appointment on 11/02/24 at 9:45 AM with Hola. documented in this encounter Plan of Treatment Upcoming Encounters Date Type Department Care Team (Late st Contact Info) Description 09/17/2024 2:30 PM EDT Office Visit [facility] [address] [place] [phone] Saman Rodriguez, BRISSA [address] [place] [address] 09/24/2024 1:30 PM EDT Office Visit [facility] [address] [place] [address] Saman Rodriguez, BRISSA [address] [place], [place] 11/02/2024 9:45 AM EDT Office Visit [facility] [address] [place] [phone] Mervat Simental MD [address] [place] [address] 11/05/2024 10:30 AM EDT Office Visit [facility] [address] [place], [place] [phone] Jessica Curtis, OD [address] [place] [address] 03/07/2025 10:00 AM EDT Office Visit [facility] [address] [place] [address] Larisa Antunez documented as of this encounter Visit Diagnoses Not on filedocumented in this encounter Additional Health Concerns Assessment Noted Time PHQ-9 Depression Total Score: 10 024 11:48 AM EST documented as of this encounter Care Teams Senior Credit Officer Relationship Specialty Start Date End Date Mervat Simental MD [address] [place] [address] PCP - General Internal Medicine 03/06/24 documented as of this encounter
--- OUTSIDE RECORDS SUMMARY | 2024-09-12 09:00 | XMS_ITS | Encounter Summary ---
Author Organization [employer] Address 75 [facility] 7t [place] [address] Care Team Providers Care Mannequin Maker Name Role Phone Diane Gutierrez Primary Care Provider +[phone] Diane Gutierrez Primary Care Provider +[phone] Diane Gutierrez Primary Care Provider +[phone] Diane Gutierrez Primary Care Provider +[phone] Mervat Simental MD Primary Care Provider + Reason for Visit * Reason Onset Date Comments Medication Question 01/12/2024 Referral 01/12/2024 Encounter Details Date Type Department Care Team ([facility] st Contact Info) Description 01/12/2024 Telephone [facility] [address] [place], [place] [phone] Diane Gutierrez FNP [address] [place], [place] [phone] Medication Question; Referral Social History Tobacco Use [...] no answer. LVM to call back on [phone]. * Telephone Encounter - Brian Lau RN [...] Description 09/17/2024 2:30 PM EDT Office Visit [facility] ADULT DENTAL [address] [place] [address] Saman Rodriguez DMD [address] [place] [address] 09/24/2024 1:30 PM EDT Office Visit [facility] ADULT DENTAL [address] [place] [address] Saman Rodriguez DMD [address] [place] [address] 11/02/2024 9:45 AM EDT Office Visit [facility] [address] [place] [address] Mervat Simental MD 230 [place] [address] 11/05/2024 10:30 AM EDT Office Visit [facility] OPTOMETRY [address] [place] [address] Jessica Curtis, OD 230 [facility] [place] [address] 03/07/2025 10:00 AM EDT Office Visit [facility]ULT [facility] [place] [address] Larisa Antunez documented as of this encounter Visit Diagnoses Not on filedocumented in this encounter Additional Health Concerns Assessment Noted Time PHQ-9 Depression Total Score: 10 024 11:48 AM EST documented as of this encounter Care Teams Mannequin Maker Relationship Specialty Start Date End Date Diane Gutierrez FNP [address] [place] [address] PCP - General Family Medicine 05/31/22 01/26/24 Diane Gutierrez FNP 230 [facility] [place] [address] PCP - General Family Medicine 01/27/24 01/29/24 Diane Gutierrez FNP [address] [place] [address] PCP - General Family Medicine 01/30/24 02/02/24 Diane Gutierrez FNP 230 [facility] [place] [address] PCP - General Family Medicine 02/03/24 03/05/24 Mervat Simental MD 230 [facility] [place] [address] PCP - General Internal Medicine 03/06/24 documented as of this encounter
--- OUTSIDE RECORDS SUMMARY | 2024-09-12 09:00 | XMS_ITS | Encounter Summary ---
Author Organization [employer] Address 75 [facility] 7t [place] [address] Care Team Providers Care Protector Plate Attacher Name Role Phone Diane Gutierrez Primary Care Provider +[phone] Diane Gutierrez Primary Care Provider +[phone] Diane Gutierrez Primary Care Provider +[phone] Diane Gutierrez Primary Care Provider +[phone] Mervat Simental MD Primary Care Provider + Encounter Details Date Type Department Care Team (Late st Contact Info) Description 12/15/2022 Abstract [facility] MEDICINE [address] [place], [place] [phone] Diane Gutierrez FNP [address] [place], [place] [phone] Social History Tobacco Use Types Packs/Day Years [...] Description 09/17/2024 2:30 PM EDT Office Visit [facility] ADULT DENTAL [address] [place] [address] Saman Rodriguez, DMD [address] [place] [address] 09/24/2024 1:30 PM EDT Office Visit [facility] ADULT DENTAL [address] [place] [address] Saman Rodriguez, DMD [address] [place] [address] 11/02/2024 9:45 AM EDT Office Visit [facility] MEDICINE [address] [place] [address] Mervat Simental MD 230 [place] [address] 11/05/2024 10:30 AM EDT Office Visit [facility] OPTOMETRY [address] [place] [address] Ever, Jessica, OD [address] [place] [address] 03/07/2025 10:00 AM EDT Office Visit [facility] ADULT DENTAL [address] [place] [address] Larisa Antunez documented as of this encounter Procedures Procedure Name Priority Date/Time Associated Diagnosis Comments COLONOSCOPY Routine 05/20/2021 1:52 PM EST documented in this encounter Results * Colonoscopy (05/20/2021 1:52 PM EST) Colonoscopy Normal [...] documented as of this encounter Care Teams Protector Plate Attacher Relationship Specialty Start Date End Date Diane Gutierrez FNP [address] [place] [address] PCP - General Family Medicine 05/31/22 01/26/24 Diane Gutierrez FNP [address] [place] [address] PCP - General Family Medicine 01/27/24 01/29/24 Diane Gutierrez FNP [address] [place] [address] PCP - General Family Medicine 01/30/24 02/02/24 Diane Gutierrez FNP [address] [place] [address] PCP - General Family Medicine 02/03/24 03/05/24 Mervat Simental MD 230 [place] [address] PCP - General Internal Medicine 03/06/24 documented as of this encounter
--- OUTSIDE RECORDS SUMMARY | 2024-09-12 09:00 | XMS_ITS | Encounter Summary ---
Author Organization [employer] Address 75 [facility] 7t [place] [address] Care Team Providers Care Entry Table Operator Name Role Phone Mervat Simental MD Primary Care Provider + Reason for Visit * Reason Comments Routine Cleaning Dental Exam Encounter Details Date Type Department Care Team (Late st Contact Info) Description 09/03/2024 2:00 PM EST Office Visit [facility] ADULT DENTAL [address] [place] [address] Larisa Antunez Dental calculus (Primary Dx); Dental plaque Social History Tobacco Use Types Packs/Day Years [...] Pressure 142/86 09/03/2024 2:25 PM EST Pulse - - Temperature - - Respiratory Rate - - Oxygen Saturation - - Inhaled Oxygen Concentration - - Weight - - Height - - Body Mass Index - - documented in this encounter Progress Notes * Saman Rodriguez DMD - 09/03/2024 2:00 PM EST C/C: dental exam I.O.E: erythematous and edematous gingiva, gen plaque accumulation, missing teeth E.O.E: wnl OCS: wnl Head and neck: wnl Radiographic: gen moderate periodontal bone loss Dx: gen chronic moderate periodontitis, missing teeth Tx: prophy, recall exam, P/P Jasmyn * Larisa Antunez - 09/03/2024 2:00 PM EST Patient ID: Cisco Ro is a 53 y.o. male. Time Out: Timeout Date: 09/03/24, Timeout Time: 1421 (Dental Prophy Adult) Location: [facility] Tooth: Maxilla and Mandible Procedure: Exam, Prophy Verified the above with patient, assistant terminal manager, and provider. Confirmed via patient's chart, intraorally and by radiographs. Supervisor Files: not applicable Medical Hx: Vitals: Blood pressure (!) 142/86. Medications, Med Hx reviewed with patient and updated in chart. Treatment Provided Dental procedures in this visit D1110 - PROPHYLAXIS - ADULT (Completed) Service provider: Larisa Antunez Billing provider: Saman Rodriguez DMD D9450 - CASE PRESENTATION, DETAILED AND EXTENSIVE TREATMENT PLANNING (Completed) Service provider: Larisa Antunez Billing provider: Saman Rodriguez DMD D1330 - ORAL HYGIENE INSTRUCTIONS (Completed) Service provider: Larisa Antunez Billing provider: Saman Rodriguez DMD D0120 - PERIODIC ORAL EVALUATION - ESTABLISHED PATIENT (Completed) Service provider: Saman Rordiguez DMD Billing provider: Saman Rodriguez DMD Instruments Used: Ultrasonic Scalers, Prophy angle, and floss Fluoride: N/A Oral Cancer Screening: No lesions Head/Neck Exam: No Lesions Calculus: Moderate, Generalized, and Subgingival Plaque: Moderate and Generalized Stain: Light and Generalized Bleeding: Moderate and Generalized Gingiva: Recession- generalized OH: Poor Perio Chart: Not due Oral hygiene instructions provided to patient including brushing technique and flossing. Recommendations: Brewster two times daily, modified hilton technique, Floss daily, Electric toothbrush, Soft bristle toothbrush, Brewster Tongue, Anti-sensitivity toothpaste Recall Frequency: 6 mo NV: 6mrc Hygienist: Larisa Antunez RDH Cosigned by Saman Rodriguez DMD at 09/06/2024 8:19 AM EST * Enriqueta Vargas - 09/03/2024 1:00 PM EST Appoint at 1pm. Pt no dung. IGOR Aragon. documented in this encounter Plan of Treatment Upcoming Encounters Date Type Department Care Team (Late st Contact Info) Description 09/17/2024 2:30 PM EDT Office Visit [facility] ADULT DENTAL [address] [place] [address] Saman Rodriguez DMD [address] [place] [address] 09/24/2024 1:30 PM EDT Office Visit [facility] ADULT DENTAL [address] [place] [address] Saman Rodriguez DMD [address] [place] [address] 11/02/2024 9:45 AM EDT Office Visit [facility] MEDICINE [address] [place] [address] Mervat Simental MD 230 [place] [address] 11/05/2024 10:30 AM EDT Office Visit [facility] OPTOMETRY [address] [place] [address] Ever, Jessica, OD [address] [place] [address] 03/07/2025 10:00 AM EDT Office Visit [facility] ADULT DENTAL [address] [place] [address] Larisa Antunez Scheduled Orders Name Type Priority Associated Diagnoses Orde r Schedule PROPHYLAXIS - ADULT Dental Routine 1 Occ urrences starting 09/03/2024 documented as of this encounter Procedures Procedure Name Priority Date/Time Associated Diagnosis Comments PROPHYLAXIS - ADULT Routine 09/03/2024 2 :00 PM EST Dental calculus Dental plaque PERIODIC ORAL EVALUATION - ESTABLISHED PATIENT Routine 09/03/2024 2:00 PM EST ORAL HYGIENE INSTRUCTIONS Routine 09/03/2024 2:00 PM EST Dental calculus Dental plaque CASE PRESENTATION, DETAILED AND EXTENSIVE TREATMENT PLANNING Routine 09/03/2024 2:00 PM EST documented in this encounter Visit Diagnoses Diagnosis Dental calculus- Primary Accretions on teeth Dental plaque Accretions on teeth documented in this encounter Additional Health Concerns Assessment Noted Time PHQ-9 Depression Total Score: 10 024 11:48 AM EST documented as of this encounter Care Teams Entry Table Operator Relationship Specialty Start Date End Date Mervat Simental MD [address] [place] [address] PCP - General Internal Medicine 03/06/24 documented as of this encounter
--- OUTSIDE RECORDS SUMMARY | 2024-09-12 09:00 | XMS_ITS | Encounter Summary ---
Author Organization [employer] Address 75 [facility] 7t [place] [address] Care Team Providers Care Restaurant Operations Manager Name Role Phone Mervat Simental MD Primary Care Provider + Reason for Visit * Reason Onset Date Comments calling back 03/14/2024 Encounter Details Date Type Department Care Team (Late st Contact Info) Description 03/14/2024 Telephone [facility] ADULT DENTAL [address] [place], [place] [phone] Alicia, Enriqueta [address] [place] [address] calling back Social History Tobacco Use Types [...] Miscellaneous Notes * Telephone Encounter - Doug Florez - 03/14/2024 12:05 PM EDT Patient is returning a call he had missed. [facility] is on a meeting break till 12;30. Please call him once again to schedule that appt. Thank you CS documented in this encounter Plan of Treatment Upcoming Encounters Date Type Department Care Team (Late st Contact Info) Description 09/17/2024 2:30 PM EDT Office Visit [facility] ADULT DENTAL [address] [place] [address] Saman Rodriguez, BRISSA [address] [place] [address] 09/24/2024 1:30 PM EDT Office Visit [facility] ADULT DENTAL [address] [place] [address] Saman Rodriguez, DMD [address] [place] [address] 11/02/2024 9:45 AM EDT Office Visit [facility] MEDICINE [address] [place] [address] Mervat Simental MD [address] [place] [address] 11/05/2024 10:30 AM EDT Office Visit [facility] OPTOMETRY [address] [place] [address] Ever, Jessica, OD [address] [place] [address] 03/07/2025 10:00 AM EDT Office Visit [facility] ADULT DENTAL [address] [place] [address] Larisa Antunez documented as of this encounter Visit Diagnoses Not on filedocumented in this encounter Additional Health Concerns Assessment Noted Time PHQ-9 Depression Total Score: 10 024 11:48 AM EST documented as of this encounter Care Teams Restaurant Operations Manager Relationship Specialty Start Date End Date Mervat Simental MD [address] [place] [address] PCP - General Internal Medicine 03/06/24 documented as of this encounter
--- OUTSIDE RECORDS SUMMARY | 2024-09-12 09:00 | XMS_ITS | Encounter Summary ---
Author Organization [employer] Address 75 [facility] 7t [place] [address] Care Team Providers Care Baggage Handling Supervisor Name Role Phone Mervat Simental MD Primary Care Provider + Reason for Visit * Reason Onset Date Comments Chart Prep 08/28/2024 Encounter Details Date Type Department Care Team ([facility] st Contact Info) Description 08/28/2024 Telephone [facility] MEDICINE [address] [place], [place] [phone] Mervat Simental MD [address] [place] [address] Chart Prep Social History Tobacco Use Types Packs/Day Years [...] encounter Miscellaneous Notes * Telephone Encounter - Shimon Casper [place] - 08/28/2024 9:26 AM EST Chart Prep Labs: done Images: not done Vaccines due: yes Hep B Hep A PCV Flu Covid Referrals: pending appt Screenings: colonoscopy Overdue care gaps: SDOH documented in this encounter Plan of Treatment Upcoming Encounters Date Type Department Care Team (Late st Contact Info) Description 09/17/2024 2:30 PM EDT Office Visit [facility] ADULT DENTAL [address] [place] [address] Saman Rodriguez, DMD [address] [place] [address] 09/24/2024 1:30 PM EDT Office Visit [facility] ADULT DENTAL [address] [place] [address] Saman Rodriguez, DMD [address] [place] [address] 11/02/2024 9:45 AM EDT Office Visit [facility] MEDICINE [address] [place] [address] Mervat Simental MD [address] [place] [address] 11/05/2024 10:30 AM EDT Office Visit [facility] OPTOMETRY [address] [place] [address] Jessica Curtis, OD [address] [place] [address] 03/07/2025 10:00 AM EDT Office Visit [facility] ADULT DENTAL [address] [place], [place] [phone] Larisa Antunez documented as of this encounter Visit Diagnoses Not on filedocumented in this encounter Additional Health Concerns Assessment Noted Time PHQ-9 Depression Total Score: 10 024 11:48 AM EST documented as of this encounter Care Teams Baggage Handling Supervisor Relationship Specialty Start Date End Date Mervat Simental MD [address] [place], [place] [phone] PCP - General Internal Medicine 03/06/24 documented as of this encounter
--- OUTSIDE RECORDS SUMMARY | 2024-09-12 09:00 | XMS_ITS | Encounter Summary ---
Author Organization [employer] Address 75 [facility] 7t [place] [address] Care Team Providers Care Movement Assembly Final Inspector Name Role Phone Mervat Simental MD Primary Care Provider + Reason for Visit * Reason Comments Med Refill Encounter Details Date Type Department Care Team ([facility] st Contact Info) Description 09/11/2024 Refill [facility] MEDICINE [address] [place], [place] [phone] Mervat Simental MD [address] [place], [place] [phone] Primary hypertension; Benign prostatic hyperplasia, unspecified whether [...] Description 09/17/2024 2:30 PM EDT Office Visit [facility] ADULT DENTAL [address] [place] [address] Saman Rodriguez, DMD [address] [place] [address] 09/24/2024 1:30 PM EDT Office Visit [facility] ADULT DENTAL [address] [place] [address] Saman Rodriguez, BRISSA [address] [place] [address] 11/02/2024 9:45 AM EDT Office Visit [facility] MEDICINE [address] [place] [address] Mervat Simental MD [address] [place] [address] 11/05/2024 10:30 AM EDT Office Visit [facility] OPTOMETRY [address] [place] [address] Jessica Curtis OD [address] [place] [address] 03/07/2025 10:00 AM EDT Office Visit [facility] ADULT DENTAL [address] [place] [address] Larisa Antunez documented as of this encounter Visit Diagnoses Diagnosis Primary hypertension Unspecified essential hypertension Benign prostatic hyperplasia, unspecified whether lower urinary tract symptoms present documented in this encounter Additional Health Concerns Assessment Noted Time PHQ-9 Depression Total Score: 10 024 11:48 AM EST documented as of this encounter Care Teams Movement Assembly Final Inspector Relationship Specialty Start Date End Date Mervat Simental MD [address] [place] [address] PCP - General Internal Medicine 03/06/24 documented as of this encounter
--- OUTSIDE RECORDS SUMMARY | 2024-09-12 09:00 | XMS_ITS | Encounter Summary ---
Author Organization [employer] Address 75 [facility] 7t [place] [address] Care Team Providers Care Flight Readiness Technician Name Role Phone Diane Gutierrez Primary Care Provider [phone] Diane Gutierrez Primary Care Provider [phone] Diane Gutierrez Primary Care Provider [phone] Diane Gutierrez Primary Care Provider [phone] Mervat Simental MD Primary Care Provider + Reason for Visit * Reason Onset Date Comments new pt visit 01/12/2024 Encounter Details Date Type Department Care Team (Late st Contact Info) Description 01/12/2024 Telephone [facility] ADULT DENTAL [address] [place], [place] [phone] Saman Rodriguez, BRISSA [address] [place], [place] [phone] new pt visit Social History Tobacco Use [...] PM EDT PCP for patient here in [facility] sent an internal referral under referral tab for internal dentistry appt regular care. Patient inquiring on status of appt. Patient informed that there is a lengthy waiting list for new patients and that message would be sent to [facility] dental for follow up. Pls reach out topatient. He'd like to hear from dental office directly DR documented in this encounter Plan of Treatment Upcoming Encounters Date Type Department Care Team (Late st Contact Info) Description 09/17/2024 2:30 PM EDT Office Visit [facility] ADULT DENTAL [address] [place] [address] Saman Rodriguez, DMD [address] [place] [address] 09/24/2024 1:30 PM EDT Office Visit [facility] ADULT DENTAL [address] [place] [address] Saman Rodriguez, DMD [address] [place] [address] 11/02/2024 9:45 AM EDT Office Visit [facility] MEDICINE [address] [place] [address] Meravt Simental MD [address] [place] [address] 11/05/2024 10:30 AM EDT Office Visit [facility] OPTOMETRY [address] [place] [address] Jessica Curtis, OD [address] [place] [address] 03/07/2025 10:00 AM EDT Office Visit [facility] ADULT DENTAL [address] [place] [address] Larisa Antunez documented as of this encounter Visit Diagnoses Not on filedocumented in this encounter Additional Health Concerns Assessment Noted Time PHQ-9 Depression Total Score: 10 024 11:48 AM EST documented as of this encounter Care Teams Flight Readiness Technician Relationship Specialty Start Date End Date iDane Gutierrez FNP [address] [place] [address] PCP - General Family Medicine 05/31/22 01/26/24 Diane Gutierrez FNP [address] [place] [address] PCP - General Family Medicine 01/27/24 01/29/24 Diane Gutierrez FNP [address] [place] [address] PCP - General Family Medicine 01/30/24 02/02/24 Diane Gutierrez FNP [address] [place] [address] PCP - General Family Medicine 02/03/24 03/05/24 Mervat Simental MD [facility] [place][note 2] [place] [address] PCP - General Internal Medicine 03/06/24 documented as of this encounter
--- OUTSIDE RECORDS SUMMARY | 2024-09-12 09:00 | XMS_ITS | Encounter Summary ---
Author Organization [employer] Address [address] [facility] 7t [place] [address] Care Team Providers Care Financial Institution Branch Manager Name Role Phone Mervat Simental MD Primary Care Provider + Reason for Referral * Consultation (Routine) - Authorized Specialty Diagnoses / Procedures Referred By Tiffany duarte Referred To Contact Podiatry Diagnoses Ingrown left greater toenail Saul Kennedy CNP [address] [place] [address] Phone: tel: fax: Jeancarlos Spear DPM [address] [facility] [address] [place] [address] Phone: tel: fax: Referral ID Status Reason Start Date Expiration Date Visits Requested Visits Authorized [id number] Authorized Specialty Services Required 08/29/2024 08/29/2025 1 1 Reason for Visit * Reason Comments Toe Pain Encounter Details Date Type Department Care Team (Late st Contact Info) Description 08/29/2024 3:45 PM EST Office Visit [facility] [address] [place], [place] [phone] Saul Kennedy CNP [address] [place] [address] Ingrown left greater toenail (Primary Dx) Social History Tobacco Use Types [...] Sign Reading Time Taken Comments Blood Pressure 126/81 08/29/2024 3:56 PM EST Pulse 58 08/29/2024 3:56 PM EST Temperature 36.8 ??C (98.2 ??F) 08/29/2024 3:56 PM ES T Respiratory Rate 18 08/29/2024 3:56 PM EST Oxygen Saturation 98% 08/29/2024 3:56 PM EST Inhaled Oxygen Concentration - - Weight 116 kg (255 lb) 08/29/2024 3:56 PM EST Height - - Body Mass Index 39.94 07/27/2024 9:27 AM EST documented in this encounter Progress Notes * Saul Kennedy CNP - 08/29/2024 3:45 PM EST Subjective Patient ID: Cisco Ro is a 53 y.o. male who presents for Toe Pain. Toe Pain Pt presents for painful ingrown toenail on left big toe. Reports that this has been an ongoing issue. Pt was last seen by his PCP in July where she did some toenail wedge trimming and advised pt to do soaks with warm water and epsom salts. Pt reports he has been doing soaks intermittently like 2-3x weekly. He says he has tried trimming the toenail himself but sx have been persistent. He denies drainage from the toe, denies skin rednessor excessive heat. 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 Review of Systems See HPI Objective Vitals: 08/29/24 1556 BP: 126/81 Pulse: 58 Resp: 18 Temp: 98.2 ??F (36.8 ??C) SpO2: 98% Physical Exam Feet: Left foot: Skin integrity: No ulcer, skin breakdown, erythema, warmth or callus. Toenail Condition: Left toenails are ingrown. Assessment/Plan Problem List Items Addressed This Visit Ingrown left greater toenail - Primary Advised pt to do epsom salt soaks at least once daily Advised softening the toenail and the skin around by applying antibiotic ointment after soaks Advised pt to avoid cutting toenail on his own d/t risk of infection Will refer to podiatry to have ingrown removal Relevant Orders Referral to Podiatry documented in this encounter Miscellaneous Notes * Assessment & Plan Note - Saul Kennedy CNP - 08/30/2024 3:26 PM EST Associated Problem(s): Ingrown left greater toenail Advised pt to do epsom salt soaks at least once daily Advised softening the toenail and the skin around by applying antibiotic ointment after soaks Advised pt to avoid cutting toenail on his own d/t risk of infection Will refer to podiatry to have ingrown removal documented in this encounter Plan of Treatment Upcoming Encounters Date Type Department Care Team (Late st Contact Info) Description 09/17/2024 2:30 PM EDT Office Visit [facility] [address] [place] [address] Saman Rodriguez, DMD [address] [place] [address] 09/24/2024 1:30 PM EDT Office Visit [facility] [address] [place] [address] Saman Rodriguez, DMD [address] [place] [address] 11/02/2024 9:45 AM EDT Office Visit [facility] [address] [place] [address] Mervat Simental MD 230 [place] [address] 11/05/2024 10:30 AM EDT Office Visit [facility] [address] [place] [address] Jessica Curtis, OD 230 [place] [address] 03/07/2025 10:00 AM EDT Office Visit [facility] [address] [place] [address] Larisa Antunez Scheduled Referrals Name Type Priority Associated Diagnoses Orde r Schedule Referral to Podiatry Outpatient Referral Routine Ingrown left greater toenail Expected: 08/29/2024 (Approximate), Expires: 08/29/2025 documented as of this encounter Visit Diagnoses Diagnosis Ingrown left greater toenail- Primary documented in this encounter Additional Health Concerns Assessment Noted Time PHQ-9 Depression Total Score: 10 024 11:48 AM EST documented as of this encounter Care Teams Financial Institution Branch Manager Relationship Specialty Start Date End Date Mervat Simental MD [address] [place] [address] [place] [address] PCP - General Internal Medicine 03/06/24 documented as of this encounter
--- OUTSIDE RECORDS SUMMARY | 2024-09-12 09:00 | XMS_ITS | Encounter Summary ---
Author Organization [employer] Address [address] [facility] 7t [place] [address] Care Team Providers Care Candy Cooker Helper Name Role Phone Mervat Simental MD Primary Care Provider + Reason for Visit * Reason Onset Date Comments FYI 09/11/2024 Encounter Details Date Type Department Care Team ([facility] st Contact Info) Description 09/11/2024 Telephone [facility] MEDICINE [address] [place], [place] [phone] Mervat Simental MD [address] [place], [place] [phone] FYI Social History Tobacco Use Types Packs/Day Years [...] encounter Miscellaneous Notes * Telephone Encounter - Socorro Lopez - 09/11/2024 2:15 PM EDT Tc from pt to report has the results for Sleep Medicine and has no apnea, pt requesting a call backto see next steps. [phone] documented in this encounter Plan of Treatment Upcoming Encounters Date Type Department Care Team (Late st Contact Info) Description 09/17/2024 2:30 PM EDT Office Visit [facility] ADULT DENTAL [address] [place] [address] Saman Rodriguez, DMD [address] [place] [address] 09/24/2024 1:30 PM EDT Office Visit [facility] ADULT DENTAL [address] [place] [address] Saman Rodriguez, BRISSA 230 [place] [address] 11/02/2024 9:45 AM EDT Office Visit [facility] MEDICINE [address] [place] [address] Mervat Simental MD [address] [place] [address] 11/05/2024 10:30 AM EDT Office Visit [facility] OPTOMETRY [address] [place], [place] [phone] Ever, Megan, OD [address] [place] [address] 03/07/2025 10:00 AM EDT Office Visit [facility] ADULT DENTAL 230 [place], [place] [phone] Larisa Antunez documented as of this encounter Visit Diagnoses Not on filedocumented in this encounter Additional Health Concerns Assessment Noted Time PHQ-9 Depression Total Score: 10 024 11:48 AM EST documented as of this encounter Care Teams Candy Cooker Helper Relationship Specialty Start Date End Date Mervat Simental MD [address] [place], [place] [phone] PCP - General Internal Medicine 03/06/24 documented as of this encounter
--- OUTSIDE RECORDS SUMMARY | 2024-09-12 09:00 | XMS_ITS | Encounter Summary ---
Author Organization [employer] Address [address] [facility] 7t [place] [address] Care Team Providers Care Arch Support Technician Name Role Phone Mervat Simental MD Primary Care Provider + Reason for Visit * Reason Onset Date Comments Nurse Triage 08/27/2024 Encounter Details Date Type Department Care Team (Late st Contact Info) Description 08/27/2024 Telephone [facility] MEDICINE [address] [place], [place] [phone] Mervat Simental MD [address] [place], [place] [phone] Nurse Triage Social History Tobacco Use Types [...] encounter Miscellaneous Notes * Telephone Encounter - Teressa Smalls LPN - 08/27/2024 9:03 AM EST Triage call returned to patient who reports ongoing issue with left great toe with ingrown nail. Patient reports addressed at time of visit with PCP and now has returned. No pus or discharge toe is red but no swelling. Has difficulty with wearing a shoe is tolerating a slipper at present. No fever or spreading redness. No PCP appts at time of call. ASK/Imani WASH BARREL LEADER Tuesday08/29/24 345pm. Reviewed with patient home care recommendations and reasons to call back. Pt verbalized understanding and agrees. Protocol Used: Toenail - Ingrown (Adult) Protocol-Based Disposition: See in Office or Video Visit within 3 Days Positive Triage Questions: * Using Care Advice for ingrown toenail > 7 days and not improved * Patient wants to be seen * All higher-acuity triage questions were negative Care Advice Discussed: * Pain Medicines * Reasons To Call Back - Spreading redness, pus, or fever occur - Not improved over 7 days - You become worse * Telephone Encounter - Veronica Casper - 08/27/2024 8:37 AM EST Symptom: Foot or Ankle Swelling Outcome: Schedule an urgent appointment (within 1 hour) or talk to a nurse or provider soon Reason: Trouble walking The caller accepted this outcome. documented in this encounter Plan of Treatment Upcoming Encounters Date Type Department Care Team (Late st Contact Info) Description 09/17/2024 2:30 PM EDT Office Visit [facility] ADULT DENTAL [address] [place] [address] Saman Rodriguez, DMD [address] [place] [address] 09/24/2024 1:30 PM EDT Office Visit [facility] ADULT DENTAL [address] [place] [address] Saman Rodriguez, DMD [address] [place] [address] 11/02/2024 9:45 AM EDT Office Visit [facility] MEDICINE [address] [place] [address] Mervat Simental MD [address] [place] [address] 11/05/2024 10:30 AM EDT Office Visit [facility] OPTOMETRY [address] [place] [address] Jessica Curtis, OD 230 [place] [address] 03/07/2025 10:00 AM EDT Office Visit [facility] ADULT DENTAL [address] [place] [address] Larisa Antunez documented as of this encounter Visit Diagnoses Not on filedocumented in this encounter Additional Health Concerns Assessment Noted Time PHQ-9 Depression Total Score: 10 024 11:48 AM EST documented as of this encounter Care Teams Arch Support Technician Relationship Specialty Start Date End Date Mervat Simental MD [address] [place] [address] PCP - General Internal Medicine 03/06/24 documented as of this encounter
--- OUTSIDE RECORDS SUMMARY | 2024-09-12 09:00 | XMS_ITS | Encounter Summary ---
Author Organization [employer] Address [address] [facility] 7t [place] [address] Care Team Providers Care Air Crew Member Name Role Phone Mervat Simental MD Primary Care Provider + Reason for Visit * Reason Onset Date Comments Med Refill 03/26/2024 Encounter Details Date Type Department Care Team (Late st Contact Info) Description 03/26/2024 Refill [facility] MED[facility]INE [address] [place] [address] Diane Gutierrez FNP [address] [place] [address] Primary hypertension; Benign prostatic hyperplasia, unspecified whether [...] Description 09/17/2024 2:30 PM EDT Office Visit [facility] ADULT DENTAL [address] [place] [address] Saman Rodriguez, DMD [address] [place] [address] 09/24/2024 1:30 PM EDT Office Visit [facility] ADULT DENTAL [address] [place] [address] Saman Rodriguez, DMD [address] [place] [address] 11/02/2024 9:45 AM EDT Office Visit [facility] [address] [place] [address] Mervat Simental MD 230 [place] [address] 11/05/2024 10:30 AM EDT Office Visit [facility] OPTOMETRY [address] [place] [address] Jessica Curtis, OD [address] [place] [address] 03/07/2025 10:00 AM EDT Office Visit [facility] ADULT DENTAL [address] [place] [address] Larisa Antunez documented as of this encounter Visit Diagnoses Diagnosis Primary hypertension Unspecified essential hypertension Benign prostatic hyperplasia, unspecified whether lower urinary tract symptoms present documented in this encounter Additional Health Concerns Assessment Noted Time PHQ-9 Depression Total Score: 10 024 11:48 AM EST documented as of this encounter Care Teams Air Crew Member Relationship Specialty Start Date End Date Mervat Simental MD [address] [place] [address] PCP - General Internal Medicine 03/06/24 documented as of this encounter
--- OUTSIDE RECORDS SUMMARY | 2024-09-12 09:00 | XMS_ITS | Encounter Summary ---
Author Organization [employer] Address [address] [facility] 7t [place] [address] Care Team Providers Care Tip Bander Name Role Phone Diane Gutierrez Primary Care Provider [phone] Mervat Simental MD Primary Care Provider + Reason for Visit * Reason Comments Med Refill Encounter Details Date Type Department Care Team (Late st Contact Info) Description 03/02/2024 Refill [facility] [address] [place] [address] Diane Gutierrez FNP [address] [place] [address] Hemorrhoids, unspecified hemorrhoid type Social History Tobacco [...] Description 09/17/2024 2:30 PM EDT Office Visit [facility] ADULT DENTAL [address] [place] [address] Saman Rodriguez, DMD [address] [place] [address] 09/24/2024 1:30 PM EDT Office Visit [facility] ADULT DENTAL [address] [place] [address] Saman Rodriguez, DMD [address] [place] [address] 11/02/2024 9:45 AM EDT Office Visit [facility] MEDICINE [address] [place] [address] Mervat Simental MD [address] [place] [address] 11/05/2024 10:30 AM EDT Office Visit [facility] OPTOMETRY [address] [place] [address] Jessica Curtis, OD 230 [place] [address] 03/07/2025 10:00 AM EDT Office Visit [facility] ADULT DENTAL [address] [place] [address] Larisa Antunez documented as of this encounter Visit Diagnoses Diagnosis Hemorrhoids, unspecified hemorrhoid type documented in this encounter Additional Health Concerns Assessment Noted Time PHQ-9 Depression Total Score: 10 024 11:48 AM EST documented as of this encounter Care Teams Tip Bander Relationship Specialty Start Date End Date Diane Gutierrez FNP [address] [place] [address] PCP - General Family Medicine 02/03/24 03/05/24 Mervat Simental MD [address] [place] [address] PCP - General Internal Medicine 03/06/24 documented as of this encounter
--- OUTSIDE RECORDS SUMMARY | 2024-09-12 09:00 | XMS_ITS | Encounter Summary ---
Author Organization [employer] Address [address] [facility] [address] 7t [place] [address] Care Team Providers Care Director Outcomes Name Role Phone Mervat Simental MD Primary Care Provider + Encounter Details Date Type Department Care Team (Latest Contact Info) Description 08/29/2024 Travel Social History Tobacco Use Types Packs/Day [...] Description 09/17/2024 2:30 PM EDT Office Visit [facility] ADULT DENTAL [address] [place] [address] Saman Rodriguez, DMD [address] [place] [address] 09/24/2024 1:30 PM EDT Office Visit [facility] ADULT DENTAL [address] [place] [address] Saman Rodriguez, DMD [address] [place] [address] 11/02/2024 9:45 AM EDT Office Visit [facility] MEDICINE [address] [place] [address] Mervat Simental MD 230 [place] [address] 11/05/2024 10:30 AM EDT Office Visit [facility] OPTOMETRY [address] [place] [address] Jessica Curtis, OD [address] [place] [address] 03/07/2025 10:00 AM EDT Office Visit [facility] ADULT DENTAL [address] [place] [address] Larisa Antunez documented as of this encounter Visit Diagnoses Not on filedocumented in this encounter Additional Health Concerns Assessment Noted Time PHQ-9 Depression Total Score: 10 024 11:48 AM EST documented as of this encounter Care Teams Director Outcomes Relationship Specialty Start Date End Date Mervat Simental MD [address] [place] [address] PCP - General Internal Medicine 03/06/24 documented as of this encounter
--- OUTSIDE RECORDS SUMMARY | 2024-09-12 09:00 | XMS_ITS | Encounter Summary ---
Author Organization [employer] Address [address] [facility] 7t [place] [address] Care Team Providers Care Community Health Specialist Name Role Phone Diane Gutierrez Primary Care Provider [phone] Mervat Simental MD Primary Care Provider + Reason for Visit * Reason Onset Date Comments Appointment Request 02/21/2024 Encounter Details Date Type Department Care Team (Late st Contact Info) Description 02/21/2024 Telephone [facility] MEDICINE [address] [place] [address] Diane Gutierrez FNP [address] [place], [place] [phone] Appointment Request Social History Tobacco Use Types [...] - 02/21/2024 3:08 PM EDT T/C to [facility] general surgery on [phone] Obdulia for below message, as per Obdulia, pt's procedure date is not decided yet and will give call to [facility] to schedule Pre-op clearance. * Telephone Encounter - Yisel Aiken - 02/21/2024 10:19 AM EDT Tc from [facility] requesting a medical luis alfredo for pt for an upcoming procedure Hemmaroidectomy documented in this encounter Plan of Treatment Upcoming Encounters Date Type Department Care Team (Late st Contact Info) Description 09/17/2024 2:30 PM EDT Office Visit [facility] ADULT DENTAL [address] [place] [address] Saman Rodriguez, BRISSA [address] [place] [address] 09/24/2024 1:30 PM EDT Office Visit [facility] ADULT DENTAL [address] [place] [address] Saman Rodriguez, DMD [address] [place] [address] 11/02/2024 9:45 AM EDT Office Visit [facility] MEDICINE [address] [place] [address] Mervat Simental MD [address] [place] [address] 11/05/2024 10:30 AM EDT Office Visit [facility] OPTOMETRY [address] [place] [address] Jessica Curtis, OD [address] [place] [address] 03/07/2025 10:00 AM EDT Office Visit [facility] ADULT DENTAL [address] [place] [address] Larisa Antunez documented as of this encounter Visit Diagnoses Not on filedocumented in this encounter Additional Health Concerns Assessment Noted Time PHQ-9 Depression Total Score: 10 024 11:48 AM EST documented as of this encounter Care Teams Community Health Specialist Relationship Specialty Start Date End Date Diane Gutierrez FNP [address] [place] [address] PCP - General Family Medicine 02/03/24 03/05/24 Mervat Simental MD [address] [place] [address] PCP - General Internal Medicine 03/06/24 documented as of this encounter
[2024-09-12 11:51] LABS: MANUAL DIFF FLAG NO
[2024-09-12 12:01] LABS: Basophils Percent Auto 0.3 % (0-2); Eosinophils Absolute Auto 0.1 X10*3/uL (0.0-0.4); Eosinophils Percent Auto 1.3 % (0-4); Hematocrit 42.4 % (42.0-52.0); Hemoglobin 14.4 g/dl (14.0-18.0); Imm Gran Abs Auto 0.02 X10*3/uL (0.00-0.03); Imm Gran Pct Auto 0.3 % (0.0-0.4); Lymphocytes Absolute Auto 2.2 X10*3/uL (1.2-4.9); Lymphocytes Percent Auto 29.2 % (20-40); Mean Corpuscular Volume 85.5 fL (80.0-98.0); Mean Platelet Volume 9.7 fL (9.4-12.4); Monocytes Absolute Auto 0.5 X10*3/uL (0.1-1.2); Neutrophils Absolute Auto 4.7 x10*3/uL (2.0-8.3); Neutrophils Percent Auto 61.9 % (45-73); Platelet Count 230 X10*3/uL (160-400); Red Blood Count 4.96 X10*6/uL (4.60-5.80); Red Cell Distribution Width 12.4 % (11.0-16.0); White Blood Count 7.6 X10*3/uL (4.8-10.8)
[2024-09-12 12:50] LABS: Albumin Level 4.2 g/dL (3.5-5.0); Alkaline Phosphatase 65 U/L (39-117); Anion Gap 11 (12-20); Aspartate Amino Transferase 25 U/L (5-37); Bilirubin Total 0.4 mg/dL (0.0-1.0); Blood Urea Nitrogen 13 mg/dL (9-16); Calcium 9.5 mg/dL (8.4-10.2); Carbon Dioxide 27 mmol/L (22-29); Chloride 109 mmol/L (96-108); Cholesterol 195 mg/dL (<200); Estimated Glomerular Filt Rate > 60; Glucose Random 107 mg/dL (60-115); HDL Cholesterol 34 mg/dL (>40); LDL Cholesterol Calculated 136 mg/dL (<100); Potassium 4.6 mmol/L (3.3-5.1); Sodium 142 mmol/L (135-145); TSH reflex Free T4 0.64 uIU/mL (0.32-4.0); Total Protein 7.5 g/dL (6.5-8.0); Triglycerides 128 mg/dL (<150); Vitamin D 25-OH Total 37.1 ng/mL (>30)
[2024-09-12 12:56] LABS: Folate 10.6 ng/mL (> or = 4.0); Vitamin B12 313 pg/mL (200-900)
[2024-09-12 13:01] LABS: Alanine Aminotransferase 37 U/L (0-40)
[2024-09-12 14:04] LABS: Reflex LDLD? No
[2024-09-14 02:39] LABS: A. Phagocytphilium DNA,RT-PCR NOT DETECTED (NOT DETECTED); Babesia Microti DNA, RT-PCR NOT DETECTED (NOT DETECTED); Borrelia Miyamotoi,DNA RT-PCR NOT DETECTED (NOT DETECTED); E.Chaffeensis DNA RT-PCR NOT DETECTED (NOT DETECTED); Lyme(Borrelia ssp)DNA RT-PCR NOT DETECTED (NOT DETECTED)
== END 2024-09-12 08:31 | disposition home or self-care (01) ==
LOC: HO.HHCL 08:30
PROVIDERS: Family Medicine; Visit Provider Internal Medicine
DX: R53.83 Other fatigue (principal); L60.0 Ingrowing nail; I10 Essential (primary) hypertension
CPT/HCPCS: 36415; 80053; 80061; 82306; 82607; 82746; 84443; 85025; 87468; 87469; 87478; 87484; 87798

== ENCOUNTER 2024-10-10 08:58 | Outpatient (REF) | payer MEDICAID, SELFPAY ==
--- OUTSIDE RECORDS SUMMARY | 2024-10-10 09:25 | XMS_ITS | Encounter Summary ---
Author Organization [employer] Address [address] [facility] 7t [place] [address] Care Team Providers Care Fashion Director Party Plan Sales Name Role Phone Mervat Simental MD Primary Care Provider + Reason for Visit * Reason Onset Date Comments Appointment Request 10/08/2024 Encounter Details Date Type Department Care Team ([facility] st Contact Info) Description 10/08/2024 Telephone [facility] MEDICINE [address] [place], [place] [phone] Mervat Simental MD [address] [place] [address] Appointment Request Social History Tobacco Use Types [...] encounter Miscellaneous Notes * Telephone Encounter - Concha Cortez RN - 10/08/2024 2:32 PM EDT TC placed to pt., pt. Agrees to r/s to tomorrow 10/09/24 at 1:15pm with Dr. Ayala * Telephone Encounter - Veronica Casper - 10/08/2024 1:19 PM EDT Tc from pt requesting to r/s appointment Appointment type - Sick on site Provider - Lillie Del Valle notes - headache,diarrhea x1,nasal mike, tiredness documented in this encounter Plan of Treatment Upcoming Encounters Date Type Department Care Team (Late st Contact Info) Description 10/12/2024 9:00 AM EDT Office Visit [facility] ADULT DENTAL [address] [place] [address] Saman Rodriguez, BRISSA [address] [place] [address] 11/02/2024 9:45 AM EDT Office Visit [facility] MEDICINE [address] [place] [address] Mervat Simental MD [address] [place] [address] 11/05/2024 10:30 AM EDT Office Visit [facility] OPTOMETRY [address] [place] [address] Ever, Jessica, OD [address] [place] [address] 11/12/2024 2:00 PM EDT Office Visit [facility] ADULT DENTAL [address] [place] [address] Hutchison-Aaron, Farnaz, DDS [address] [place] [address] 03/07/2025 10:00 AM EDT Office Visit [facility] ADULT DENTAL [address] [place] [address] Larisa Antunez documented as of this encounter Visit Diagnoses Not on filedocumented in this encounter Additional Health Concerns Assessment Noted Time PHQ-9 Depression Total Score: 10 024 11:48 AM EST documented as of this encounter Care Teams Fashion Director Party Plan Sales Relationship Specialty Start Date End Date Mervat Simental MD [address] [place] [address] PCP - General Internal Medicine 03/06/24 documented as of this encounter
--- OUTSIDE RECORDS SUMMARY | 2024-10-10 09:25 | XMS_ITS | Encounter Summary ---
Author Organization [email or web address] Address [address] [facility] 7t [place] [address] Care Team Providers Care Manager Ems Name Role Phone Mervat Simental MD Primary Care Provider + Reason for Visit * Reason Onset Date Comments Nurse Triage 10/03/2024 Encounter Details Date Type Department Care Team (Late st Contact Info) Description 10/03/2024 Telephone [facility] MEDICINE [address] [place], [place] [phone] Mervat Simental MD [address] [place], [place] [phone] Nurse Triage Social History Tobacco Use Types [...] Telephone Encounter - Lyla Glass RN - 10/03/2024 1:06 PM EDT Triage call Pt reports was in [facility] and was given 200pm apt in [facility] and was upset and walked out. Pt is calling for triage at this time. Pt reports generalized symptoms of headache which is mainly over worship areas across forehead more on right side, nasal congestion, diarrhea x1 today with slight abdominal upset. Bilateral eyes feel dry, with occasional twitching. BP was 126/82 this AM but, BP taken at time of call was 144/96 result due to being upset. Pt is taking lisinopril 10mg daily. Pt also reports exhaustion is felt regularly with a foggy brain. Pt expressed being upset with lack of follow through in the [facility]. Pt reports stopped marijuana use last 48hours. Pt denies consumption of any other drug. Pt does have a cough occasionally. Pt is concerned that Pt could have Covid. Neg for fever, cough is occasional since stopping daily marijuana use, headache is described more like tightness than pain. Pt also reports had felt normal for 4 days and then all these symptoms began again. ASK apt with Dr. Shook 10/08/24 330pm. Pt is advised to keep a diary of BP results and how Pt feels each day and Pt agreed to bring to apt. . Pt agreed with disposition . Insurance is verified for medicaid as active. Pt no longer has job which had [employer] insurance. Protocol Used: Weakness (Generalized) and Fatigue (Adult) Protocol-Based Disposition: See in Office or Video Visit within 2 Weeks Positive Triage Question: * Fatigue is a chronic symptom (recurrent or ongoing AND present > 4 weeks) * All higher-acuity triage questions were negative Care Advice Discussed: * Reasons To Call Back - Unable to stand or walk - Passes out - Breathing difficulty occurs - You become worse * Telephone Encounter - Enriqueta De Luna - 10/03/2024 12:11 PM EDT Symptoms: Headache, Diarrhea Outcome: Schedule an urgent appointment (within 4 hours) or talk to a nurse or provider soon Reason: Started within the past 3 days The caller accepted this outcome. Pt reported brain fog Contact pt at [phone] documented in this encounter Plan of Treatment Upcoming Encounters Date Type Department Care Team (Late st Contact Info) Description 10/12/2024 9:00 AM EDT Office Visit [facility] ADULT DENTAL [address] [place] [address] Saman Rodriguez, BRISSA [address] [place] [address] 11/02/2024 9:45 AM EDT Office Visit [facility] MEDICINE [address] [place] [address] Mervat Simental MD [address] [place] [address] 11/05/2024 10:30 AM EDT Office Visit [facility] OPTOMETRY [address] [place] [address] Jessica Curtis, KAMAR [address] [place] [address] 11/12/2024 2:00 PM EDT Office Visit [facility] ADULT DENTAL [address] [place] [address] Farnaz Hernández DDS [address] [place] [address] 03/07/2025 10:00 AM EDT Office Visit [facility] ADULT DENTAL [address] [place] [address] Larisa Antunez documented as of this encounter Visit Diagnoses Not on filedocumented in this encounter Additional Health Concerns Assessment Noted Time PHQ-9 Depression Total Score: 10 024 11:48 AM EST documented as of this encounter Care Teams Manager Ems Relationship Specialty Start Date End Date Mervat Simental MD [address] [facility] [place] [address] PCP - General Internal Medicine 03/06/24 documented as of this encounter
--- OUTSIDE RECORDS SUMMARY | 2024-10-10 09:25 | XMS_ITS | Encounter Summary ---
Author Organization [employer] Address [address] [facility] 7t [place] [address] Care Team Providers Care Paper Cup Machine Tender Name Role Phone Diane Gutierrez Primary Care Provider [phone] Diane Gutierrez Primary Care Provider [phone] Diane Gutierrez Primary Care Provider [phone] Diane Gutierrez Primary Care Provider [phone] Mervat Simental MD Primary Care Provider + Reason for Visit * Reason Onset Date Comments status on sleep apnea 11/04/2022 Encounter Details Date Type Department Care Team (Late st Contact Info) Description 11/04/2022 Telephone [facility] MEDICINE [address] [place] [address] Diane Gutierrez FNP [address] [place], [place] [phone] status on sleep apnea Social History Tobacco [...] Description 10/12/2024 9:00 AM EDT Office Visit [facility] ADULT DENTAL [address] [place] [address] Saman Rodriguez DMD [address] [place] [address] 11/02/2024 9:45 AM EDT Office Visit [facility] MEDICINE [address] [place] [address] Mervat Simental MD [address] [place] [address] 11/05/2024 10:30 AM EDT Office Visit [facility] OPTOMETRY [address] [place] [address] Jessica Curtis, OD 230 [place] [address] 11/12/2024 2:00 PM EDT Office Visit [facility] ADULT DENTAL [address] [place] [address] Farnaz Hernández, DDS [address] [place] [address] 03/07/2025 10:00 AM EDT Office Visit [facility] ADULT DENTAL [address] [place] [address] Larisa Zamora documented as of this encounter Visit Diagnoses Not on filedocumented in this encounter Care Teams Paper Cup Machine Tender Relationship Specialty Start Date End Date Diane Gutierrez FNP [address] [place] [address] PCP - General Family Medicine 05/31/22 01/26/24 Diane Gutierrez FNP [address] [place] [address] PCP - General Family Medicine 01/27/24 01/29/24 Diane Gutierrez FNP [address] [place] [address] PCP - General Family Medicine 01/30/24 02/02/24 Diane Gutierrez FNP [address] [place] [address] PCP - General Family Medicine 02/03/24 03/05/24 Mervat Simental MD [address] [place] [address] PCP - General Internal Medicine 03/06/24 documented as of this encounter
--- OUTSIDE RECORDS SUMMARY | 2024-10-10 09:25 | XMS_ITS | Encounter Summary ---
Author Organization [employer] Address [address] [facility] 7t [place] [address] Care Team Providers Care Roller Machine Operator Name Role Phone Mervat Simental MD Primary Care Provider + Encounter Details Date Type Department Care Team (Late st Contact Info) Description 10/09/2024 1:15 PM EDT Office Visit [facility] MEDICINE [address] [place], [place] [phone] Isa Ferrer MD [address] [place] [address] Other fatigue (Primary Dx); Cough, unspecified type; Other headache syndrome Social History Tobacco Use Types Packs/Day Years [...] Sign Reading Time Taken Comments Blood Pressure 123/72 10/09/2024 1:38 PM EDT Pulse 64 10/09/2024 1:38 PM EDT Temperature 36.7 ??C (98 ??F) 10/09/2024 1:38 PM EDT Respiratory Rate 20 10/09/2024 1:38 PM EDT Oxygen Saturation 98% 10/09/2024 1:38 PM EDT Inhaled Oxygen Concentration - - Weight 118 kg (260 lb) 10/09/2024 1:38 PM EDT Height 170.2 cm (5' 7 ) 10/09/2024 1:38 PM EDT Body Mass Index 40.72 10/09/2024 1:38 PM EDT documented in this encounter Progress Notes * Isa Paula MD - 10/09/2024 1:15 PM EDT Subjective Patient ID: Cisco Ro is a 53 y.o. male who presents for sick visit HPI 53 y o M w PMX of Obesity,depression/anxiety, hx of alcohol abuse-stopped Comes today for sick visit apt Sates feeling chronically tired at least for the past 2 years as if has not sleep despite able to sleep fine, reports lack of concentration and lack of energy,states this is affecting his work. Denies chronic GI symptoms ,denies CP nor SOB Does reports that last week had 1 episode of lose stool but then normalize ,denies blood on it. Denies LDN , does reports having lately night sweats ,denies weight loss nor fever .Also states having some new BROWN also for last week described as sometimes unilateral ,throbbing not associated w N/v, Nor positional nor awakes from sleep,does describe some episode of BROWN w temporal tenderness but not consistently, pain is 7/10 when having BROWN BP goes up to 140s but otherwise rest of time BP is wnl. States had respiratory symptoms in past days but thinks associated to stop smoking weed Pt is adopted so does not know family hx . He had colonoscopy in 2020 w polyps and thinks has already apt to repeat test. 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 Negative for fever and unexpected weight change. Night sweats HENT: Positive for rhinorrhea. Cardiovascular: Negative. Gastrointestinal: Positive for diarrhea (one episode). Musculoskeletal: Negative for arthralgias and joint swelling. Hematological: Negative for adenopathy. Objective BP 123/72 (BP Location: Left arm, Patient Position: Sitting, BP Cuff Size: Large adult) Pulse 64 Temp 98 ??F (36.7 ??C) (Temporal) Resp 20 Ht 5' 7 (1.702 m) Wt 260 lb (118 kg) SpO2 98% BMI 40.72 kg/m?? Physical Exam Constitutional: General: He is not in acute distress. Appearance: He is obese. HENT: Right Ear: Tympanic membrane normal. Left Ear: Tympanic membrane normal. Mouth/Throat: Mouth: Mucous membranes are moist. Pharynx: Oropharynx is clear. No oropharyngeal exudate or posterior oropharyngeal erythema. Eyes: Extraocular Movements: Extraocular movements intact. Pupils: Pupils are equal, round, and reactive to light. Cardiovascular: Rate and Rhythm: Normal rate. Pulmonary: Effort: Pulmonary effort is normal. Breath sounds: Normal breath sounds. No wheezing or rhonchi. Abdominal: Palpations: Abdomen is soft. Tenderness: There is no abdominal tenderness. There is no guarding or rebound. Musculoskeletal: Cervical back: Normal range of motion and neck supple. No rigidity or tenderness. Skin: Findings: Rash present. 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 Mental Status: He is alert. Cranial Nerves: No cranial nerve deficit. Sensory: No sensory deficit. Motor: No weakness. 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 Pt has alcohol abuse hx and marijuana-stopped this year -09/2024 CBC and Chem wnl, Vit B12 and folic acid wnl ,LDL 136 ,TSH wnl ,vit D wnl ,Tick-borne Disease, Acute Molecular Panel neg ,last hb1AC 1 y ago was wnl -CXR 04/2023 normal -BR[place] studies 08/2024 neg -will check testosterone level w hx of alcohol abuse as a possible cause of chronic fatigue and weakness sensation ,will r/o also STIs but seems less likely w no current active sexual life, w noted livedo reticularis will check MERVAT ,CRP,ESR -rest of ordered labs as below -colonosocpy had 2020 w polyps to repeat in 3-4 y--pt thinks has upcoming apt - advised to confirm whis GI -has f up apt w PCP on 11/02/2024 Relevant Orders Testosterone, Free (Dialysis) And Total, MS Iron And Total Iron Binding Capacity Ferritin Cortisol Random C-reactive Protein Sed Rate by Modified Westergren Hepatitis B surface antigen, EIA Hepatitis C Antibody with Reflex to HCV, RNA, Quantitative, Real-Time PCR HIV-1/2 Antigen and Antibodies, Fourth Generation, with Reflexes Syphilis Screen MERVAT Screen,IFA, with Reflex to Titer and Pattern PSA,Total Lactate Dehydrogenase (LD) Prothrombin Time-INR Partial Thromboplastin Time, Activated (APTT) Urinalysis, Complete, with Reflex to Culture T-SPOT??.TB Hemoglobin A1c Other headache syndrome -flu and covid neg today -hold on brain image for now w no alarming symptoms ,tylenol prn -start PO Magnesium Other Visit Diagnoses Cough, unspecified type Relevant Orders POCT Rapid Covid-19 AMEZCUA ID NOW (Completed) POCT Rapid Influenza A AMEZCUA ID NOW (Completed) POCT Rapid Influenza B AMEZCUA ID NOW (Completed) documented in this encounter Miscellaneous Notes * Assessment & Plan Note - Isa Paula MD - 10/10/2024 4:29 AM EDTAssociated Problem(s): Other headache syndrome -flu and covid neg today -hold on brain image for now w no alarming symptoms ,tylenol prn -start PO Magnesium * Assessment & Plan Note - Isa Paula MD - 10/10/2024 4:29 AM EDTAssociated Problem(s): Fatigue Pt w mx complaints but currently main one is associated to chronic fatigue and most recently BROWN From exam noted obesity , 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 Pt has alcohol abuse hx and marijuana-stopped this year -09/2024 CBC and Chem wnl, Vit B12 and folic acid wnl ,LDL 136 ,TSH wnl ,vit D wnl ,Tick-borne Disease, Acute Molecular Panel neg ,last hb1AC 1 y ago was wnl -CXR 04/2023 normal -[place] studies 08/2024 neg -will check testosterone level w hx of alcohol abuse as a possible cause of chronic fatigue and weakness sensation ,will r/o also STIs but seems less likely w no current active sexual life, w noted livedo reticularis will check MERVAT ,CRP,ESR -rest of ordered labs as below -colonosocpy had 2020 w polyps to repeat in 3-4 y--pt thinks has upcoming apt - advised to confirm whis GI -has f up apt w PCP on 11/02/2024 documented in this encounter Plan of Treatment Upcoming Encounters Date Type Department Care Team (Late st Contact Info) Description 10/12/2024 9:00 AM EDT Office Visit [facility] ADULT DENTAL [address] [place] [address] Saman Rodriguez, DMD [address] [place] [address] 11/02/2024 9:45 AM EDT Office Visit [facility] MEDICINE [address] [place] [address] Mervat Simental MD [address] [place] [address] 11/05/2024 10:30 AM EDT Office Visit [facility] OPTOMETRY [address] [place] [address] Ever, Jessica, OD [address] [place] [address] 11/12/2024 2:00 PM EDT Office Visit [facility] ADULT DENTAL [address] [place] [address] Hutchison-Aaron, Farnaz, DDS [address] [place] [address] 03/07/2025 10:00 AM EDT Office Visit [facility] ADULT DENTAL [address] [place] [address] Larisa Antunez Scheduled Orders Name Type Priority Associated Diagnoses Orde r Schedule Testosterone, Free (Dialysis) And Total, MS Lab Routine Other fatigue Expected: 10/09/2024 (Approximate), Expires: 10/09/2025 Iron And Total Iron Binding Capacity Lab Routine Other fatigue Expected: 10/09/2024 (Approximate), Expires: 10/09/2025 Ferritin Lab Routine Other fatigue Expected: 10/09/2024 (Approximate), Expires: 10/09/2025 Cortisol Random Lab Routine Other fatigue Expected: 10/09/2024 (Approximate), Expires: 10/09/2025 C-reactive Protein Lab Routine Other fatigue Expected: 10/09/2024 (Approximate), Expires: 10/09/2025 Sed Rate by Modified Westergren Lab Routine Other fatigue Expected: 10/09/2024 (Approximate), Expires: 10/09/2025 Hepatitis B surface antigen, EIA Lab Routine Other fatigue Expected: 10/09/2024 (Approximate), Expires: 10/09/2025 Hepatitis C Antibody with Reflex to HCV, RNA, Quantitative, Real-Time PCR Lab Routine Other fatigue Expected: 10/09/2024 (Approximate), Expires: 10/09/2025 HIV-1/2 Antigen and Antibodies, Fourth Generation, with Reflexes Lab Routine Other fatigue Expected: 10/09/2024 (Approximate), Expires: 10/09/2025 Syphilis Screen Lab Routine Other fatigue Expected: 10/09/2024 (Approximate), Expires: 10/09/2025 MERVAT Screen,IFA, with Reflex to Titer and Pattern Lab Routine Other fatigue Expected: 10/09/2024 (Approximate), Expires: 10/09/2025 PSA,Total Lab Routine Other fatigue Expected: 10/09/2024, Expires: 10/09/2025 Lactate Dehydrogenase (LD) Lab Routine Other fatigue Expected: 10/09/2024 (Approximate), Expires: 10/09/2025 Prothrombin Time-INR Lab Routine Other fatigue Expected: 10/09/2024, Expires: 10/09/2025 Partial Thromboplastin Time, Activated (APTT) Lab Routine Other fatigue Expected: 10/09/2024, Expires: 10/09/2025 Urinalysis, Complete, with Reflex to Culture Lab Routine Other fatigue Expected: 10/09/2024 (Approximate), Expires: 10/09/2025 T-SPOT??.TB Lab Routine Other fatigue Expected: 10/10/2024 (Approximate), Expires: 10/10/2025 Hemoglobin A1c Lab Routine Other fatigue Expected: 10/10/2024 (Approximate), Expires: 10/10/2025 documented as of this encounter Procedures Procedure Name Priority Date/Time Associated Diagnosis Comments POCT INFLUENZA B (ID NOW RAPID MOLECULAR) Routine 10/09/2024 2:05 PM EDT Cough, unspecified type POCT INFLUENZA A (ID NOW RAPID MOLECULAR) Routine 10/09/2024 2:05 PM EDT Cough, unspecified type POCT COVID-19 AG AMEZCUA ID NOW Routine 10/09/2024 2:04 PM EDT Cough, unspecified type documented in this encounter Results * POCT Rapid Influenza B AMEZCUA ID NOW (10/09/2024 2:05 PM EDT) [facility] Influenza B Negative Negative, Indeterminate [facility] QC Media Lot # [id number] [facility] Lot# Expiration Date [facility] Swab 10/09/2024 2:05 PM EDT Isa Paula MD POINT OF CARE MONA T ENTER/EDIT ORDERABLES Final Result Performing Organization Address [facility]/ZIP Co de Phone Number [facility] [address] [place] [phone] * POCT Rapid Influenza A AMEZCUA ID NOW (10/09/2024 2:05 PM EDT) Pathologist [facility] Influenza A Negative Negative, Indeterminate [facility] QC Media Lot # [id number] [facility] Lot# Expiration Date [facility] Swab 10/09/2024 2:05 PM EDT Isa Paula MD POINT OF CARE MONA T ENTER/EDIT ORDERABLES Final Result Performing Organization Address [facility] de Phone Number [facility] [address] [place] [phone] * POCT Rapid Covid-19 AMEZCUA ID NOW (10/09/2024 2:04 PM EDT) Pathologist [facility] Coronavirus Antigen PCR Negative Negative, Indeterminate, None Detected, Invalid, Specimen unsatisfactory for evaluation, Weakly Positive QC Media Lot # [id number] Lot# Expiration Date Swab 10/09/2024 2:04 PM EDT Isa Paula MD POINT OF CARE MONA T ENTER/EDIT ORDERABLES Final Result documented in this encounter Visit Diagnoses Diagnosis Other fatigue- Primary Cough, unspecified type Other headache syndrome documented in this encounter Additional Health Concerns Assessment Noted Time PHQ-9 Depression Total Score: 10 024 11:48 AM EST documented as of this encounter Care Teams Roller Machine Operator Relationship Specialty Start Date End Date Mervat Simental MD [address] [place] [address] PCP - General Internal Medicine 03/06/24 documented as of this encounter
--- OUTSIDE RECORDS SUMMARY | 2024-10-10 09:25 | XMS_ITS | Encounter Summary ---
Author Organization [employer] Address [address] [facility] 7t [place] [address] Care Team Providers Care Supervisor Mold Construction Name Role Phone Mervat Simental MD Primary Care Provider + Reason for Visit * Reason Onset Date Comments INSURANCE CALL 10/05/2024 Encounter Details Date Type Department Care Team ([facility] st Contact Info) Description 10/05/2024 Telephone [facility] MEDICINE [address] [place], [place] [phone] Mervat Simental MD [address] [place], [place] [phone] INSURANCE CALL Social History Tobacco Use Types Packs/Day Years [...] encounter Miscellaneous Notes * Telephone Encounter - Crista Anaya - 10/05/2024 1:25 PM EDT PT advised of new insurance documented in this encounter Plan of Treatment Upcoming Encounters Date Type Department Care Team (Late st Contact Info) Description 10/12/2024 9:00 AM EDT Office Visit [facility] ADULT DENTAL [address] [place] [address] Saman Rodriguez DMD [address] [place] [address] 11/02/2024 9:45 AM EDT Office Visit [facility] MEDICINE [address] [place] [address] Mervat Simental MD [address] [place] [address] 11/05/2024 10:30 AM EDT Office Visit [facility] OPTOMETRY [address] [place] [address] Jessica Curtis, KAMAR [address] [place] [address] 11/12/2024 2:00 PM EDT Office Visit [facility] ADULT DENTAL [address] [place], [place] [phone] Farnaz Hernández, DDS [address] [place] [address] 03/07/2025 10:00 AM EDT Office Visit [facility] ADULT DENTAL [address] [place] [address] Larisa Antunez documented as of this encounter Visit Diagnoses Not on filedocumented in this encounter Additional Health Concerns Assessment Noted Time PHQ-9 Depression Total Score: 10 024 11:48 AM EST documented as of this encounter Care Teams Supervisor Mold Construction Relationship Specialty Start Date End Date Mervat Simental MD [address] [place], [place] [phone] PCP - General Internal Medicine 03/06/24 documented as of this encounter
--- OUTSIDE RECORDS SUMMARY | 2024-10-10 09:25 | XMS_ITS | Encounter Summary ---
Author Organization [employer] Address [address] [facility] 7t [place] [address] Care Team Providers Care Graduate Student Name Role Phone Diane Gutierrez Primary Care Provider [phone] Mervat Simental MD Primary Care Provider + Reason for Visit * Reason Onset Date Comments Appointment Request 02/21/2024 Encounter Details Date Type Department Care Team (Late st Contact Info) Description 02/21/2024 Telephone [facility] MEDICINE [address] [place] [address] Diane Gutierrez FNP [address] [place], [place] [phone] Appointment Request Social History Tobacco Use Types [...] 02/21/2024 3:08 PM EDT T/C to [facility] general surgery on [phone] Obdulia for below message, as per Obdulia, pt's procedure date is not decided yet and will give call to [facility] to schedule Pre-op clearance. * Telephone Encounter - Yisel Aiken - 02/21/2024 10:19 AM EDT Tc from [facility] requesting a medical luis alfredo for pt for an upcoming procedure Hemmaroidectomy documented in this encounter Plan of Treatment Upcoming Encounters Date Type Department Care Team (Late st Contact Info) Description 10/12/2024 9:00 AM EDT Office Visit [facility] ADULT DENTAL [address] [place] [address] Saman Rodriguez, DMD [address] [place] [address] 11/02/2024 9:45 AM EDT Office Visit [facility] MEDICINE [address] [place] [address] Mervat Simental MD [address] [place] [address] 11/05/2024 10:30 AM EDT Office Visit [facility] OPTOMETRY [address] [place] [address] Ever, Jessica, OD [address] [place] [address] 11/12/2024 2:00 PM EDT Office Visit [facility] ADULT DENTAL [address] [place] [address] Hutchison-Aaron, Farnaz, DDS [address] [place] [address] 03/07/2025 10:00 AM EDT Office Visit [facility] ADULT DENTAL [address] [place] [address] Larisa Antunez documented as of this encounter Visit Diagnoses Not on filedocumented in this encounter Additional Health Concerns Assessment Noted Time PHQ-9 Depression Total Score: 10 024 11:48 AM EST documented as of this encounter Care Teams Graduate Student Relationship Specialty Start Date End Date Diane Gutierrez FNP [address] [place] [phone] PCP - General Family Medicine 02/03/24 03/05/24 Mervat Simental MD [address] [place] [phone] PCP - General Internal Medicine 03/06/24 documented as of this encounter
--- OUTSIDE RECORDS SUMMARY | 2024-10-10 09:25 | XMS_ITS | Encounter Summary ---
Author Organization [employer] Address 75 [facility] 7t [place] [address] Care Team Providers Care Carrier Washer Name Role Phone Diane Gutierrez Primary Care Provider [phone] Diane Gutierrez Primary Care Provider +[phone] Diane Gutierrez Primary Care Provider +[phone] Diane Gutierrez Primary Care Provider +[phone] Mervat Simental MD Primary Care Provider + Reason for Visit * Reason Onset Date Comments Medication Question 01/12/2024 Referral 01/12/2024 Encounter Details Date Type Department Care Team ([facility] st Contact Info) Description 01/12/2024 Telephone [facility] MEDICINE [address] [place], [place] [phone] Diane Gutierrez FNP [address] [place], [place] [phone] Medication Question; Referral Social History Tobacco Use [...] no answer. LVM to call back on [phone]. * Telephone Encounter - Brian Lau RN [...] Description 10/12/2024 9:00 AM EDT Office Visit [facility] ADULT DENTAL [address] [place] [address] Saman Rodriguez DMD [address] [place] [address] 11/02/2024 9:45 AM EDT Office Visit [facility] MEDICINE [address] [place] [address] Mervat Simental MD [address] [place] [address] 11/05/2024 10:30 AM EDT Office Visit [facility] OPTOMETRY [address] [place] [address] Jessica Curtis, KAMAR [address] [place] [address] 11/12/2024 2:00 PM EDT Office Visit [facility] ADULT DENTAL [address] [place] [address] Kianna-Mihai Aaronmia, DDS [address] [place] [address] 03/07/2025 10:00 AM EDT Office Visit [facility] ADULT DENTAL [address] [place] [address] Larisa Antunez documented as of this encounter Visit Diagnoses Not on filedocumented in this encounter Additional Health Concerns Assessment Noted Time PHQ-9 Depression Total Score: 10 024 11:48 AM EST documented as of this encounter Care Teams Carrier Washer Relationship Specialty Start Date End Date Diane Gutierrez FNP [address] [place] [address] PCP - General Family Medicine 05/31/22 01/26/24 Diane [place] [address] PCP - General Family Medicine 01/27/24 01/29/24 Diane Gutierrez FNP [address] [place] [address] PCP - General Family Medicine 01/30/24 02/02/24 Diane Gutierrez FNP [place] [place] [address] PCP - General Family Medicine 02/03/24 03/05/24 Mervat Simental MD [address] [place] [address] PCP - General Internal Medicine 03/06/24 documented as of this encounter
--- OUTSIDE RECORDS SUMMARY | 2024-10-10 09:25 | XMS_ITS | Encounter Summary ---
Author Organization [employer] Address 75 [facility] 7t [place] [address] Care Team Providers Care Manager Of Human Resources Name Role Phone Diane Gutierrez Primary Care Provider [phone] Mervat Simental MD Primary Care Provider + Reason for Visit * Reason Comments Med Refill Encounter Details Date Type Department Care Team (Late st Contact Info) Description 03/02/2024 Refill [facility] [address] [place] [address] Diane Gutierrez FNP [address] [place] [address] Hemorrhoids, unspecified hemorrhoid type Social History Tobacco [...] Description 10/12/2024 9:00 AM EDT Office Visit [facility] ADULT DENTAL [address] [place] [address] Saman Rodriguez, BRISSA [address] [place] [address] 11/02/2024 9:45 AM EDT Office Visit [facility] MEDICINE [address] [place] [address] Mervat Simental MD [address] [place] [address] 11/05/2024 10:30 AM EDT Office Visit [facility] OPTOMETRY [address] [place] [address] Jessica Curtis, OD [address] [place] [address] 11/12/2024 2:00 PM EDT Office Visit [facility] ADULT DENTAL [address] [place] [address] Farnaz Hernández, DDS [address] [place] [address] 03/07/2025 10:00 AM EDT Office Visit [facility] ADULT DENTAL [address] [place] [address] Larisa Antunez documented as of this encounter Visit Diagnoses Diagnosis Hemorrhoids, unspecified hemorrhoid type documented in this encounter Additional Health Concerns Assessment Noted Time PHQ-9 Depression Total Score: 10 024 11:48 AM EST documented as of this encounter Care Teams Manager Of Human Resources Relationship Specialty Start Date End Date Diane Gutierrez FNP [address] [place] [address] PCP - General Family Medicine 02/03/24 03/05/24 Mervat Simental MD [address] [place] [address] PCP - General Internal Medicine 03/06/24 documented as of this encounter
--- OUTSIDE RECORDS SUMMARY | 2024-10-10 09:25 | XMS_ITS | Encounter Summary ---
Author Organization [employer] Address [address] [facility] [address] 7[address] [place] [address] Care Team Providers Care Diesel Engine Assembler Name Role Phone Mervat Simental MD Primary Care Provider + Encounter Details Date Type Department Care Team (Latest Contact Info) Description 10/09/2024 Travel Social History Tobacco Use Types Packs/Day [...] 9:00 AM EDT Office Visit [facility] ADULT DENTAL [address] [place] [address] Saman Rodriguez, DMD [address] [place] [address] 11/02/2024 9:45 AM EDT Office Visit [facility] MEDICINE [address] [place] [address] Mervat Simental MD 230 [place] [address] 11/05/2024 10:30 AM EDT Office Visit [facility] OPTOMETRY [address] [place] [address] Ever, Jessica, OD [address] [place] [address] 11/12/2024 2:00 PM EDT Office Visit [facility] ADULT DENTAL [address] [place] [address] Hutchison-Aaron, Farnaz, DDS [address] [place] [address] 03/07/2025 10:00 AM EDT Office Visit [facility] ADULT DENTAL [address] [place] [address] Larisa Antunez documented as of this encounter Visit Diagnoses Not on filedocumented in this encounter Additional Health Concerns Assessment Noted Time PHQ-9 Depression Total Score: 10 024 11:48 AM EST documented as of this encounter Care Teams Diesel Engine Assembler Relationship Specialty Start Date End Date Mervat Simental MD [address] [place] [address] PCP - General Internal Medicine 03/06/24 documented as of this encounter
--- OUTSIDE RECORDS SUMMARY | 2024-10-10 09:25 | XMS_ITS | Encounter Summary ---
Author Organization [employer] Address 75 [facility] 7t [place] [address] Care Team Providers Care Urban Design Consultant Name Role Phone Diane Gutierrez Primary Care Provider [phone] Diane Gutierrez Primary Care Provider [phone] Diane Gutierrez Primary Care Provider [phone] Diane Gutierrez Primary Care Provider [phone] Mervat Simental MD Primary Care Provider + Reason for Visit * Reason Onset Date Comments triage 11/04/2022 Encounter Details Date Type Department Care Team (Late st Contact Info) Description 11/04/2022 Telephone [facility] MEDICINE [address] [place] [address] Diane Gutiererz FNP [address] [place], [place] [phone] triage Social History Tobacco Use Types Packs/Day [...] Description 10/12/2024 9:00 AM EDT Office Visit [facility] ADULT DENTAL [address] [place] [address] Saman Rodriguez, BRISSA [address] [place] [address] 11/02/2024 9:45 AM EDT Office Visit [facility] MEDICINE [address] [place] [address] Mervat Simental MD [address] [place] [address] 11/05/2024 10:30 AM EDT Office Visit [facility] OPTOMETRY [address] [place] [address] Ever, Jessica, OD [address] [place] [address] 11/12/2024 2:00 PM EDT Office Visit [facility] ADULT DENTAL [address] [place] [address] Hutchison-Aaron, Farnaz, DDS [address] [place] [address] 03/07/2025 10:00 AM EDT Office Visit [facility] ADULT DENTAL [address] [place] [address] Larisa Antunez documented as of this encounter Visit Diagnoses Not on filedocumented in this encounter Care Teams Urban Design Consultant Relationship Specialty Start Date End Date Diane Gutierrez FNP [address] [place] [address] PCP - General Family Medicine 05/31/22 01/26/24 Diane Gutirerez FNP [address] [place] [address] PCP - General Family Medicine 01/27/24 01/29/24 Diane Gutierrez FNP [address] [place] [address] PCP - General Family Medicine 01/30/24 02/02/24 Diane Gutierrez FNP [address] [place] [address] PCP - General Family Medicine 02/03/24 03/05/24 Mervat Simental MD [address] [place] [address] PCP - General Internal Medicine 03/06/24 documented as of this encounter
--- OUTSIDE RECORDS SUMMARY | 2024-10-10 09:25 | XMS_ITS | Encounter Summary ---
Author Organization [employer] Address 75 [facility] 7t [place] [address] Care Team Providers Care Provider Network Manager Name Role Phone Mervat Simental MD Primary Care Provider + Reason for Visit * Reason Onset Date Comments Med Refill 03/26/2024 Encounter Details Date Type Department Care Team (Late st Contact Info) Description 03/26/2024 Refill [facility] MEDICINE [address] [place] [address] Diane Gutierrez FNP [address] [place] [address] Primary hypertension; Benign prostatic hyperplasia, unspecified whether [...] Description 10/12/2024 9:00 AM EDT Office Visit [facility] ADULT DENTAL [address] [place] [address] Saman Rodriguez, BRISSA [address] [place] [address] 11/02/2024 9:45 AM EDT Office Visit [facility] MEDICINE [address] [place] [address] Mervat Simental MD [address] [place] [address] 11/05/2024 10:30 AM EDT Office Visit [facility] OPTOMETRY [address] [place] [address] Jessica Curtis, OD [address] [place] [address] 11/12/2024 2:00 PM EDT Office Visit [facility] ADULT DENTAL [address] [place] [address] Farnaz Hernández, DDS [address] [place] [address] 03/07/2025 10:00 AM EDT Office Visit [facility] ADULT DENTAL [address] [place] [address] Larisa Antunez documented as of this encounter Visit Diagnoses Diagnosis Primary hypertension Unspecified essential hypertension Benign prostatic hyperplasia, unspecified whether lower urinary tract symptoms present documented in this encounter Additional Health Concerns Assessment Noted Time PHQ-9 Depression Total Score: 10 024 11:48 AM EST documented as of this encounter Care Teams Provider Network Manager Relationship Specialty Start Date End Date Mervat Simental MD [address] [place] [address] PCP - General Internal Medicine 03/06/24 documented as of this encounter
--- OUTSIDE RECORDS SUMMARY | 2024-10-10 09:25 | XMS_ITS | Encounter Summary ---
Author Organization [employer] Address 75 [facility] 7t [place] [address] Care Team Providers Care Acid Changer Name Role Phone Diane Gutierrez Primary Care Provider [phone] Diane Gutierrez Primary Care Provider [phone] Diane Gutierrez Primary Care Provider [phone] Diane Gutierrez Primary Care Provider [phone] Mervat Simental MD Primary Care Provider + Encounter Details Date Type Department Care Team (Late st Contact Info) Description 12/15/2022 Abstract [facility] MEDICINE [address] [place], [place] [phone] Diane Gutierrez FNP [address] [place], [place] [phone] Social History Tobacco Use Types Packs/Day Years [...] Description 10/12/2024 9:00 AM EDT Office Visit [facility] ADULT DENTAL [address] [place] [address] Saman Rodriguez, BRISSA [address] [place] [address] 11/02/2024 9:45 AM EDT Office Visit [facility] MEDICINE [address] [place] [address] Mervat Simental MD [address] [place] [address] 11/05/2024 10:30 AM EDT Office Visit [facility] OPTOMETRY [address] [place] [address] Ever, Jessica, OD [address] [place] [address] 11/12/2024 2:00 PM EDT Office Visit [facility] ADULT DENTAL [address] [place] [address] Hutchison-Aaron, Farnaz, DDS [address] [place] [address] 03/07/2025 10:00 AM EDT Office Visit [facility] ADULT DENTAL [address] [place] [address] Larisa Antunez documented as of this encounter [...] documented as of this encounter Care Teams Acid Changer Relationship Specialty Start Date End Date Diane Gutierrez FNP [address] [place] [address] PCP - General Family Medicine 05/31/22 01/26/24 Diane Gutierrez FNP [address] [place] [address] PCP - General Family Medicine 01/27/24 01/29/24 Diane Gutierrez FNP [address] [place] [address] PCP - General Family Medicine 01/30/24 02/02/24 Diane Gutierrez FNP [address] [place] [address] PCP - General Family Medicine 02/03/24 03/05/24 Mervat Simental MD [address] [place] [address] PCP - General Internal Medicine 03/06/24 documented as of this encounter
--- OUTSIDE RECORDS SUMMARY | 2024-10-10 09:25 | XMS_ITS | Encounter Summary ---
Author Organization [employer] Address 75 [facility] 7t [place] [address] Care Team Providers Care Environmental Professional Name Role Phone Diane Gutierrez Primary Care Provider [phone] Diane Gutierrez Primary Care Provider +[phone] Diane Gutierrez Primary Care Provider +[phone] Diane Gutierrez Primary Care Provider +[phone] Mervat Simental MD Primary Care Provider + Reason for Visit * Reason Onset Date Comments new pt visit 01/12/2024 Encounter Details Date Type Department Care Team (Late st Contact Info) Description 01/12/2024 Telephone [facility] ADULT DENTAL [address] [place], [place] [phone] Saman Rodriguez, BRISSA [address] [place], [place] [phone] new pt visit Social History Tobacco Use [...] PM EDT PCP for patient here in [facility] sent an internal referral under referral tab for internal dentistry appt regular care. Patient inquiring on status of appt. Patient informed that there is a lengthy waiting list for new patients and that message would be sent to [facility] dental for follow up. Pls reach out topatient. He'd like to hear from dental office directly DR documented in this encounter Plan of Treatment Upcoming Encounters Date Type Department Care Team (Late st Contact Info) Description 10/12/2024 9:00 AM EDT Office Visit [facility] ADULT DENTAL [address] [place] [address] Saman Rodriguez, DMD [address] [place] [address] 11/02/2024 9:45 AM EDT Office Visit [facility] MEDICINE [address] [place] [address] Mervat Simental MD [address] [place] [address] 11/05/2024 10:30 AM EDT Office Visit [facility] OPTOMETRY [address] [facility] [place] [address] Ever, Jessica, OD [address] [place] [address] 11/12/2024 2:00 PM EDT Office Visit [facility] ADULT DENTAL [address] [place] [address] Farnaz Hernández, DDS [address] [place] [address] 03/07/2025 10:00 AM EDT Office Visit [facility] ADULT DENTAL [address] [place] [address] Larisa Antunez documented as of this encounter Visit Diagnoses Not on filedocumented in this encounter Additional Health Concerns Assessment Noted Time PHQ-9 Depression Total Score: 10 024 11:48 AM EST documented as of this encounter Care Teams Environmental Professional Relationship Specialty Start Date End Date Diane Gutierrez FNP [address] [place] [address] PCP - General Family Medicine 05/31/22 01/26/24 Diane Gutierrez FNP [address] [place] [address] PCP - General Family Medicine 01/27/24 01/29/24 Diane Gutierrez FNP [address] [place] [address] PCP - General Family Medicine 01/30/24 02/02/24 Diane Gutierrez FNP [address] [place] [address] PCP - General Family Medicine 02/03/24 03/05/24 Mervat Simental MD [address] [place] [address] PCP - General Internal Medicine 03/06/24 documented as of this encounter
--- OUTSIDE RECORDS SUMMARY | 2024-10-10 09:26 | XMS_ITS | Clinical Summary ---
Author Organization [employer] Address [address] [facility] [address] [place] [address] Care Team Providers Care Brick Mason Name Role Phone Lit Simental MD Primary Care Provider + Allergies [...] mouth at bedtime. 30 tablet 025 Active Additional Information Patient not taking.Reported on 10/09/2024 fluticasone (Flonase) 50 MCG/ACT nasal sprayIndication s:Subacute [...] EVERY DAY 90 capsule 1 025 Active Magnesium 400 MG capsule Take 1 tablet by mouth Once per day. 30 capsule 1 025 Active hydrocortisone (Anusol-HC) 25 MG suppositoryIndi cations:Hemorrh oids, unspecified hemorrhoid type INSERT 1 SUPPOSITORY (25 MG) RECTALLY TWICE DAILY DIRECTED 12 suppository 024 2024 Discontinued(O ther) lisinopril 10 MG tabletIndicatio ns:Primary hypertension TAKE [...] Active Problems Problem Noted Date Diagnosed Date Other headache syndrome 10/10/2024 Assessment & Plan (10/10/2024 4:29 AM EDT): -flu and covid neg today -hold on brain image for now w no alarming symptoms ,tylenol prn -start PO Magnesium Bradycardia 09/12/2024 Ingrown left greater toenail 07/27/2024 Assessment & [...] neosporin BID Fatigue 04/05/2023 Assessment & Plan (10/10/2024 4:29 AM EDT): Pt w mx complaints but currently main [...] life, w noted livedo reticularis will check LIT ,CRP,ESR -rest of ordered labs as below -colonosocpy had 2020 w polyps to repeat in 3-4 y--pt thinks has upcoming apt -advised to confirm w his GI -has f up apt w PCP on 11/02/2024 Assessment & Plan (01/26/2024 8:14 PM EDT): [...] more tired in am. 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 per pt last year [...] Encounters Date Type Department Care Team Description 10/09/2024 1:15 PM EDT Office Visit [facility] [address] [place] [phone] Isa Ferrer MD Other fatigue (Primary Dx); Cough, unspecified type; Other headache syndrome 10/09/2024 Travel 10/08/2024 Telephone [facility] [address] [place] [phone] Lit Simental MD Appointment Request 10/05/2024 Telephone [facility] [address] [place] [phone] Lit Simental MD INSURANCE CALL 10/04/2024 11:00 AM EDT Office Visit [facility] [address] [place] [address] Saman Rodriguez, BRISSA 10/03/2024 Telephone [facility] [address] [place] [address] Lit Simental MD Nurse Triage 09/26/2024 Population Health Risk Score [facility] ([facility] Department [address] [place] [phone] Provider, Population Health Generic 09/24/2024 1:30 PM EDT Office Visit [facility] [address] [place] [address] JenniferSaman, DMD 09/17/2024 2:30 PM EDT Office Visit [facility] [address] [place] [address] JenniferSaman, DMD 09/14/[address] [place] [address] Lit Simental MD Med Refill 09/11/[address] [address] Lit Simental MD FYI 09/11/[address] [address] Lit Simental MD Primary hypertension; Benign prostatic hyperplasia, unspecified whether lower urinary tract symptoms present 09/03/2024 2:00 PM EST Office Visit [facility] [address] [place] [address] Larisa Antunez Dental calculus (Primary Dx); Dental plaque 08/29/2024 3:45 PM EST Office Visit [address] [address] Saul Kenndey, BARRELHEAD INSPECTOR Ingrown left greater toenail (Primary Dx) 08/29/2024 Travel 08/28/[address] [address] Lit Simental MD Chart Prep 08/27/[address] [address] Lit Simental MD Nurse Triage 08/23/[address] [address] Lit Simental MD May recall 07/31/[address] [address] Lit Simental MD return to work note 07/27/2024 9:15 AM EST Office Visit [address] [address] Lit Simental MD Primary hypertension (Primary Dx); Benign prostatic hyperplasia with urinary hesitancy; Ingrown left greater toenail; Tubular adenoma of colon; Subacute pansinusitis; Bronchial spasm; Class 3 severe obesity due to excess calories with serious comorbidity and body mass index (BMI) of 40.0 to 44.9 in adult ([facility]); Dietary counseling; Exercise counseling 07/27/[address] [address] Lit Simental MD telephone call 07/27/2024 Travel 07/25/2024 10:30 AM EST Office Visit [address] [address] Chantell Aleman FNP Acute non-recurrent frontal sinusitis (Primary Dx); Influenza A 07/25/2024 Orders Only [facility] [address] [place], [place] [phone] Chantell Aleman FNP 07/25/2024 Travel 07/24/[address] [address] Lit Simental MD Nurse Triage 07/21/2024 11:00 AM EST Office Visit [facility] [address] [place] [address] [phone] Angelo Ley MD Other fatigue (Primary Dx); Viral URI 07/21/2024 Travel 07/17/2024 Patient Outreach [address] [address] Lit Simental MD Pre-visit Planning ((Unable to complete SDOH screening) from Last 3 Months Immunizations Name Administration [...] Mass Index 40.72 10/09/2024 1:38 PM EDT Plan of Treatment Upcoming Encounters Date Type Department Care Team (Late st Contact Info) Description 10/12/2024 9:00 AM EDT Office Visit [facility] [address] [place] [address] Saman Rodriguez, DMD [address] [place] [address] 11/02/2024 9:45 AM EDT Office Visit [facility] [address] [place] [address] Lit Simental MD [address] [place] [address] 11/05/2024 10:30 AM EDT Office Visit [facility] [address] [place] [address] EverJessica faulkner, OD [address] [place] [address] 11/12/2024 2:00 PM EDT Office Visit [facility] [address] [place] [address] Hutchison-Aaron, Farnaz, DDS [address] [place] [address] 03/07/2025 10:00 AM EDT Office Visit [facility] [address] [place] [address] Larisa Antunze Health Maintenance Due Date Last Done Comments CT Colonography 1970 FIT DNA/Cologuard 1970 FIT 1970 FOBT 1970 Sigmoidoscopy 1970 Alcohol/Substance Use Screening 1982 Hepatitis B Vaccines (1 of 3 - 19+ 3-dose series) 1989 Pneumococcal Vaccine: 50+ Years (1 of 1 - PCV) 2020 COVID-19 Vaccine (3 - 2023- season) 2024 07/29/2021, 10/11/2020 Influenza Vaccine (#1) 2024 04/15/2021 Colonoscopy 05/20/2024 05/20/2021 Colorectal Cancer Screening 05/20/2024 SDOH Screening 08/31/2024 09/01/2023 Depression Monitoring (PHQ-9) 01/24/2025 07/27/2024, 09/09/2023 Dental X-Ray: Bitewings 02/20/2025 02/20/2024 Dental Oral Exam 03/07/2025 09/03/2024, 02/20/2024 Dental Prophylaxis 03/07/2025 09/03/2024, 02/20/2024 Depression Screening 07/27/2025 07/27/2024, 09/09/19 Tobacco Screening 10/09/2025 10/09/2024 Dental X-Ray: Full Mouth 02/20/2027 02/20/2024 Lipid Panel 09/12/2029 09/12/2024, 11/01, 09/07/2021, Additional history exists DTaP/Tdap/Td Vaccines (2 - Td or Tdap) 02/13/2030 02/14/2020 RSV Patients and Patients Aged 60 years or older (1 - 1-dose 75+ series) 2045 HIV Screening Completed 02/22/2020 Zoster Vaccines Completed 06/15/2021, 04/15/2021 Hepatitis C Screening Completed 05/06/2023, 020 HIB Vaccines Aged Out No longer eligi [...] 10/09/2024 2:04 PM EDT Cough, unspecified type CASE PRESENTATION, DETAILED AND EXTENSIVE TREATMENT PLANNING Routine 10/04/2024 11:00 AM EDT INTRAORAL - PERIAPICAL FIRST RADIOGRAPHIC IMAGE Routine 10/04/2024 11:00 AM EDT LIMITED ORAL EVALUATION - PROBLEM FOCUSED Routine 10/04/2024 11:00 AM EDT BITE REGISTRATION Routine 10/04/2024 11: 00 AM EDT CASE PRESENTATION, DETAILED AND EXTENSIVE TREATMENT PLANNING Routine 09/24/2024 1:30 PM EDT 22 F(V) RESIN-BASED COMPOSITE - 1 SURF, ANTERIOR Routine 09/24/2024 1:30 PM EDT 6 F(V) RESIN-BASED COMPOSITE - 1 SURF, ANTERIOR Routine 09/24/2024 1:30 PM EDT DENTURE IMPRESSION Routine 09/17/2024 2: 30 PM EDT TICK BORNE DISEASE BY PCR Routine 09/12/2024 9:34 AM EDT Other fatigue VITAMIN D,25-OH,TOTAL,IA Routine 09/12/2024 8:34 AM EDT Ingrown left greater toenail TSH W/REFLEX TO FT4 Routine 09/12/2024 8 :34 AM EDT Primary hypertension LIPID PANEL WITH REFLEX TO DIRECT LDL Routine 09/12/2024 8:34 AM EDT Primary hypertension VITAMIN B12/FOLATE, SERUM PANEL Routine 09/12/2024 8:34 AM EDT Other fatigue COMPREHENSIVE METABOLIC PANEL Routine 09/12/2024 8:34 AM EDT Other fatigue CBC WITH AUTO DIFFERENTIAL Routine 09/12/2024 8:34 AM EDT Other fatigue CASE PRESENTATION, DETAILED AND EXTENSIVE TREATMENT PLANNING [...] Routine 07/21/2024 10:36 AM EST Viral URI INTRAORAL - COMPLETE SERIES OF RADIOGRAPHIC IMAGES Routine 02/20/2024 10:00 AM EDT Decalcification, teeth Dental calculus Missing teeth, acquired Localized gingival recession Bleeding gums Dental caries HEPATITIS C AB W/REFL TO HCV RNA, QN, PCR Routine 05/06/2023 1:52 PM EDT Elevated cholesterol Alcohol abuse HM COLONOSCOPY Routine 05/20/2021 1:52 PM EST HIV 1/2 ANTIGEN/ANTIBODY, FOURTH GENERATION W/RFL Routine 02/22/2020 9:11 AM EDT from Last 3 Months or Most Recently Relevant to Health Maintenance Results * POCT Rapid Influenza B AMEZCUA ID NOW (10/09/2024 2:05 PM EDT) Only the most recent of3 resultswithin the time period is included. [facility] Influenza B Negative Negative, Indeterminate [facility] QC Media Lot # [id number] [facility] Lot# Expiration Date [facility] Swab 10/09/2024 2:05 PM EDT Isa Paula MD POINT OF CARE MONA T ENTER/EDIT ORDERABLES Final Result Performing Organization Address [facility]/ZIP Co de Phone Number [facility] [address] [place] [phone] * POCT Rapid Influenza A AMEZCUA ID NOW (10/09/2024 2:05 PM EDT) Only the most recent of3 resultswithin the time period is included. Pathologist [facility] Influenza A Negative Negative, Indeterminate [facility] QC Media Lot # [id number] [facility] Lot# Expiration Date [facility] Swab 10/09/2024 2:05 PM EDT Isa Paula MD POINT OF CARE MONA T ENTER/EDIT ORDERABLES Final Result Performing Organization Address [facility] de Phone Number [facility] [address] [place] [phone] * POCT Rapid Covid-19 AMEZCUA ID NOW (10/09/2024 2:04 PM EDT) Pathologist [facility] Coronavirus Antigen PCR Negative Negative, Indeterminate, None Detected, Invalid, Specimen unsatisfactory for evaluation, Weakly Positive QC Media Lot # [id number] Lot# Expiration Date Swab 10/09/2024 2:04 PM EDT Isa Paula MD POINT OF CARE MONA T ENTER/EDIT ORDERABLES Final Result * Tick-borne Disease, Acute Molecular Panel (09/12/2024 9:34 AM EDT) Pathologist [facility] Babesia microti DNA, Real Time PCR NOT DETECTED NOT DETECTED [facility] Comment:This test was develo ped and its analytical performancecharacteristics have been determined by [employer]. It has not been cleared or approved by theFDA. This assay has been validated pursuant to the CLIAregulations and is used for clinical purposes.THIS TEST WAS PERFORMED AT:[employer] [address] [phone] GLASGOW MD Ehrlichia chaffensis DNA Real Time PCR NOT DETECTED NOT DETECTED [facility] Comment:This test was develo ped and its analytical performancecharacteristics have been determined by [employer]. It has not been cleared or approved by theFDA. This assay has been validated pursuant to the CLIAregulations and is used for clinical purposes.THIS TEST WAS PERFORMED AT:[facility] [address] [phone] GLASGOW MD Anaplasma phagocytophilum DNA, QL Real Time PCR NOT DETECTED NOT DETECTED [facility] Comment:This test was develo ped and its analytical performancecharacteristics have been determined by [employer]. It has not been cleared or approved by theFDA. This assay has been validated pursuant to the CLIAregulations and is used for clinical purposes. Borrelia Species DNA, Ql Real Time PCR NOT DETECTED NOT DETECTED [facility] Comment:This test was develo ped and its analytical performancecharacteristics have been determined by [employer]. It has not been cleared or approved by theFDA. This assay has been validated pursuant to the CLIAregulations and is used for clinical purposes.For additional information, please refer [email or web address]/[email or web address](This link is being provided for informational/educational purposes only.)THIS TEST WAS PERFORMED AT:[facility] [address] [phone] GLASGOW MD Borrelia Miyamotoi DNA, Ql Real Time PCR NOT DETECTED NOT DETECTED [facility] Comment:This test was develo ped and its analytical performancecharacteristics have been determined by [employer]. It has not been cleared or approved by theA. This assay has been validated pursuant to the CLIAregulations and is used for clinical purposes.THIS TEST WAS PERFORMED AT:[facility] [address] [phone] GLASGOW MD Comment SEE NOTE [facility] Comment:A negative result do es not exclude Borrelia infectionas the concentration of the organism in blood may be lowor non-existent in patients with Lyme disease, and maydepend on timing of specimen collection from onset ofsymptoms. Clinical correlation is recommended andadditional studies such as serologic testing may beindicated.THIS TEST WAS PERFORMED AT:[facility] [address] [phone] GLASGOW MD 09/12/2024 9:34 AM EDT 09/12/2024 11:45 AM EDT us Angelo Ley MD LAB BLOOD ORDERABLES Final Resul t [facility] [address] [place] [address] [phone] * Vitamin D, 25-Hydroxy, Total, Immunoassay (09/12/2024 8:34 AM EDT) Vitamin D 25-OH Total 37.1 >30 ng/mL [facility] Comment: Health Based Reference Values*< 20 ??ng/mL ??Qdclaubdp72-36 ng/mL ??Insufficient> 30 ??ng/mL ??Sufficient*Bo MORRISON. N Engl J Med. 2007;357:266-280There is no well-established upper level of normal vitamin Dlevels. Some laboratories use 50 ng/mL as an upper limit ofnormal. However, toxicity is patient-dependent and may occurat any level. Careful correlation with the patient'spresentation is necessary and, if there is concern forvitamin D toxicity, treatment should be consideredirrespective of the serum level.Care must be taken in interpreting Vitamin D results fromdifferent laboratories and methodologies. ??Published datademonstrated that results from patients undergoinghemodialysis may show a negative bias when tested withvarious automated 25-OH vitamin D assays when compared toLC- MS/MS.When testing samples from patients whose predominant form ofVitamin D is Vitamin D2, such as patients receiving VitaminD2 supplementation, results that are subtherapeutic shouldbe confirmed with another method such as LC-MS/MS. Blood 09/12/2024 8:34 AM EDT 09/12/2024 11:45 AM EDT us Lit Simental MD LAB BLOOD ORDERABLES Fin al Result Performing Organization Address [facility]/ZIP Co de Phone Number [facility] [address] [place] [address] [phone] * Vitamin B12/Folate, Serum Panel (09/12/2024 8:34 AM EDT) Vitamin B12 313 200 - 900 pg/mL [facility] Comment:NORMAL 200-900 PG/ML INDETERMINATE 160-199 PG/ML DEFICIENT < 160 PG/ML Folate 10.6 > or = 4.0 ng/mL [facility] Comment:Reference Values:> o r = 4.0 ng/mL< 4.0 ng/mL suggests folate deficiency Methotrexate, aminopterin and folinic acid(leucovorin) are chemotherapeutic agents whose molecularstructures are similar to folate; therefore, the Architectfolate assay cannot be used for patients using these drugs. Blood Venous blood specimen / Unknown 09/12/2024 8:34 AM EDT 09/12/2024 11:45 AM EDT us Angelo Ley MD LAB BLOOD ORDERABLES Final Resul t Performing Organization Address [facility]/ZIP Co de Phone Number [facility] [address] [place] [address] [phone] * TSH with Reflex to Free T4 (09/12/2024 8:34 AM EDT) TSH reflex Free T4 0.64 0.32 - 4.0 uIU/mL [facility] Blood 09/12/2024 8:34 AM EDT 09/12/2024 11:45 AM EDT Lit Simental MD LAB BLOOD ORDERABLES Fin al Result Performing Organization Address [facility] Co de Phone Number [facility] [address] [place] [address] [phone] * (ABNORMAL) Lipid Panel with Reflex to Direct LDL (09/12/2024 8:34 AM EDT) Triglycerides 128 <150 mg/dL [facility] Comment:Desirable Triglyceri de: less than 150 mg/dLBorderline High Triglyceride 150-199 mg/dLHigh Triglyceride: 200-499 mg/dLVery High Triglyceride: greater than or equal to 5OO mg/dL Cholesterol 195 <200 mg/dL [facility] Comment:Desirable Cholestero l: less than 200 mg/dLBorderline High Cholesterol: 200-239 mg/dLHigh Cholesterol: greater than 239 mg/dL LDL Cholesterol Calculated 136(H) <100 mg/dL [facility] Comment:Desirable LDL: less than 100 mg/dLNear Optimal/Above Optimal LDL: 110- 129 mg/dLBorderline High LDL: 130-159 mg/dLHigh LDL: 160-189 mg/dLVery High LDL: greater than or equal to 190 mg/dL HDL Cholesterol 34(L) >40 mg/dL [facility] Comment:Desirable HDL: great er than 40 mg/dL Note: This HDL assay may give artificially low results in patients with liver disease. Blood 09/12/2024 8:34 AM EDT 09/12/2024 11:45 AM EDT Lit Simental MD LAB BLOOD ORDERABLES Fin al Result Performing Organization Address [facility]/ZIP Co de Phone Number [facility] [address] [place] [phone] * CBC auto differential (09/12/2024 8:34 AM EDT) White Blood Count 7.6 4.8 - 10.8 X10*3/uL [facility] Red Blood Count 4.96 4.60 - 5.80 X10*6/uL [facility] Hemoglobin 14.4 14.0 - 18.0 g/dl [facility] Hematocrit 42.4 42.0 - 52.0 % [facility] Mean Corpuscular Volume 85.5 80.0 - 98.0 fL [facility] Mean Corpuscular Hemoglobin 29.0 27.0 - 33.0 pg [facility] Mean Corpuscular HGB Conc 34.0 31.0 - 36.0 g/dl [facility] Red Cell Distribution Width 12.4 11.0 - 16.0 % [facility] Platelet Count 230 160 - 400 X10*3/uL [facility] Mean Platelet Volume 9.7 9.4 - 12.4 fL [facility] Neutrophils Percent Auto 61.9 45 - 73 % [facility] Imm Gran Pct Auto 0.3 0.0 - 0.4 % [facility] Lymphocytes Percent Auto 29.2 20 - 40 % [facility] Monocytes Percent Auto 7.0 2 - 11 % [facility] Eosinophils Percent Auto 1.3 0 - 4 % [facility] Basophils Percent Auto 0.3 0 - 2 % [facility] NRBC Pct Auto 0.0 0.0 - 0.2 /100WBC [facility] Neutrophils Absolute Auto 4.7 2.0 - 8.3 x10*3/uL [facility] Imm Gran Abs Auto 0.02 0.00 - 0.03 X10*3/uL [facility] Lymphocytes Absolute Auto 2.2 1.2 - 4.9 X10*3/uL [facility] Monocytes Absolute Auto 0.5 0.1 - 1.2 X10*3/uL [facility] Eosinophils Absolute Auto 0.1 0.0 - 0.4 X10*3/uL [facility] Basophils Absolute Auto 0.0 0.0 - 0.2 X10*3/uL [facility] NRBC Abs Auto 0.000 0.0 - 0.012 X10*3/uL [facility] Blood Venous blood specimen / Unknown 09/12/2024 8:34 AM EDT 09/12/2024 11:45 AM EDT us Angelo Ley MD LAB BLOOD ORDERABLES Final Resul t [facility] [address] [place] [phone] * (ABNORMAL) Comprehensive Metabolic Panel (09/12/2024 8:34 AM EDT) Sodium 142 135 - 145 mmol/L [facility] Potassium 4.6 3.3 - 5.1 mmol/L [facility] Chloride 109(H) 96 - 108 mmol/L [facility] Carbon Dioxide 27 22 - 29 mmol/L [facility] Anion Gap 11(L) 12 - 20 [facility] Urea Nitrogen (BUN) 13 9 - 16 mg/dL [facility] Creatinine, Serum 0.80 0.5 - 1.4 mg/dL [facility] Estimated Glomerular Filt Rate >60 [facility] Comment:Chronic Kidney Disea se: Estimated GFR < 60 mL/min/1.81v1Mcruop Kidney Disease: Estimated GFR < 15 mL/min/1.73m2 Glucose 107 60 - 115 mg/dL [facility] Calcium 9.5 8.4 - 10.2 mg/dL [facility] Bilirubin, Total 0.4 0.0 - 1.0 mg/dL [facility] Aspartate Amino Transferase 25 5 - 37 U/L [facility] Alanine Aminotransferase 37 0 - 40 U/L [facility] Total Protein 7.5 6.5 - 8.0 g/dL [facility] Albumin Level 4.2 3.5 - 5.0 g/dL [facility] Alkaline Phosphatase 65 39 - 117 U/L [facility] Blood Venous blood specimen / Unknown 09/12/2024 8:34 AM EDT 09/12/2024 11:45 AM EDT Angelo Ley MD LAB BLOOD ORDERABLES Final Resul t [facility] [address] [place] [phone] * POCT Rapid Covid-19 BinaxNOW (07/25/2024 11:13 AM EST) Only the most recent of2 resultswithin the time period is included. [facility] Rapid COVID Ag Negative QC Media Lot # [id number] Lot# Expiration Date [id number] Swab 07/25/2024 11:1 3 AM EST Chantell Sanchezdanielle ADDICTION PSYCHIATRIST POINT OF CARE TEST ENTER/EDIT ORDERABLES Final Result * (ABNORMAL) Respiratory Viral Panel PCR (07/25/2024 11:00 AM EST) [facility] Adenovirus PCR Not Detected Not Detect. [facility] Bordetella pertussis PCR Not Detected Not Detect. [facility] Comment:Interpret results wi th caution. If B. pertussis isspecifically suspected, additional testing using analternate method is recommended. Bordetella parapertussis PCR Not Detected Not Detect. [facility] Chlamydia pneumoniae PCR Not Detected Not Detect. [facility] Coronavirus 229E PCR Not Detected Not Detect. [facility] Coronavirus HKU1 PCR Not Detected Not Detect. [facility] Coronavirus NL63 PCR Not Detected Not Detect. [facility] Coronavirus OC43 PCR Not Detected Not Detect. [facility] SARS-CoV-2 PCR Not Detected Not Detect. [facility] Comment:SARS-CoV-2 not detec hceryl by real-time RT-PCR.Note: If clinical suspicion for [...] laboratories. Influenza A PCR Detected(A) Not Detect. [facility] Influenza B PCR Not Detected Not Detect. [facility] Human metapneumovirus PCR Not Detected Not Detect. [facility] Rhino/Enterovirus PCR Not Detected Not Detect. [facility] Mycoplasma pneumoniae PCR Not Detected Not Detect. [facility] Parainfluenza 1 PCR Not Detected Not Detect. [facility] Parainfluenza 2 PCR Not Detected Not Detect. [facility] Parainfluenza 3 PCR Not Detected Not Detect. [facility] Parainfluenza 4 PCR Not Detected Not Detect. [facility] RSV PCR Not Detected Not Detect. [facility] Resp Panel NA Note See Note H [facility] Comment:All results must be correlated with [...] assay is performed by Multiplexed PCR, utilizing [employer] Film Array. 07/25/2024 11:0 0 AM EST 07/25/2024 4:12 PM EST us Chantell Aleman [facility] LAB BLOOD ORDERABLES Final Res ult [facility] [address] [place] [phone] * Hepatitis C Antibody with Reflex to HCV, RNA, Quantitative, Real-Time PCR (05/06/2023 1:52 PM EDT) Hepatitis C Antibody Nonreactive Nonreactive [facility] Comment:Antibodies to HCV no t detected; does not exclude early acuteHCV infection. Blood Venous blood specimen / Unknown 05/06/2023 1:52 PM EDT 05/06/2023 3:58 PM EDT Diane Gutierrez ADDICTION PSYCHIATRIST LAB BLOOD ORDERABLES Final Resu lt [facility] [address] [place] [phone] * Hm Colonoscopy (05/20/2021 1:52 PM EST) Colonoscopy Normal Normal Narrative Lindsey Van - 05/20/2021 1:52 PM EST Recommended 3 year follow up Historical Provider HEALTH MAINTENANCE Edited Result - Final * HIV 1/2 ANTIGEN/ANTIBODY,FOURTH GENERATION W/RFL (02/22/2020 9:11 AM EDT) HIV-1/2 ANTIGEN AND ANTIBODIES, 4TH GENERATION W/ REFLEX NON-REACT CLIVE NON-REACT CLIVE [facility] Comment: HIV-1 antigen and HIV-1/HIV-2 [...] ? For additional information please refer to [email or web address].[employer]/faq/HTJ524 (This link is being provided for informational/ educational purposes only.) ? The performance of this assay has not been clinically validated in patients less than 2 years old. ?? 02/22/2020 9:11 AM EDT us Willie Parham MD LAB BLOOD ORDERABLES Final R esult [facility] [address] [place] [address], from Last 3 Months or Most Recently Relevant to Health Maintenance Insurance [facility] C3 HSN PARTIAL DENTAL-[facility] MEDICAID STAND ADULT Care Teams Brick Mason Relationship Specialty Start Date End Date Lit Simental MD [address] [place] [id number] PCP - General Internal Medicine 03/06/24
--- OUTSIDE RECORDS SUMMARY | 2024-10-10 09:26 | XMS_ITS | Clinical Summary ---
Author Organization 175 [facility] Address 175 [place] [address] Phone Care Team Providers Care Music Education Adjunct Professor Name Role Phone Brent Markoquekristi HANH Primary Care Provider [phone] Social History Tobacco Use Types Packs/Day Years Used Date Smoking Tobacco: Never Assessed Sex and Gender Information Value Date Recorded Sex Assigned at Not on file Legal Sex Male 7:16 AM EDT Gender Identity Not on file Sexual Orientation Not on file Plan of Treatment Upcoming Encounters Date Type Department Care Team ([facility] Contact Info) Description 11/22/2024 10:30 AM EDT Consult Orthopedic Surgery - [place] [address] [id number] Jeancarlos Spear, DPM [address] [address] Health Maintenance Due Date Last Done Comments DTaP,Tdap,and Td Vaccines (1 - Tdap) 1989 Hepatitis B Vaccines (1 of 3 - 19+ 3-dose series) 1989 Pneumococcal Vaccine: 50+ Ye ars (1 of 1 - PCV) 2020 Zoster Vaccines (1 of 2) 2020 COVID-19 Vaccine ( - 2023-2 5 season) 2024 Cholesterol Screening (Lipid Panel) 09/18/2024 Colorectal Cancer Screening: Colonoscopy 09/18/2024 Depression Screening 09/18/2024 HIV Screening 09/18/2024 Hepatitis C Screening 09/18/2024 Social Influencers of Health Screening 09/18/2024 Influenza Vaccine (Season Ended) 2025 HIB Vaccines Aged Out No longer eligi [...] on patient's age to complete this topic MMR Vaccines Aged Out No longer eligi ble based on patient's age to complete this topic Meningococcal ACWY Vaccine Aged Out N o longer eligible based on patient's age to complete this topic Meningococcal B Vaccine Aged Out No l onger eligible based on patient's age to complete this topic Pneumococcal Vaccine: Pediat rics (0 to 5 Years) and At-Risk Patients (6 to 64 Years) Aged Out No longer eligible b ased on patient's age to complete this topic RSV Immunization Patients Un alisha 20 months Aged Out No longer eligible b ased on patient's age to complete this topic Varicella Vaccines Aged Out No longer eligible based on patient's age to complete this topic Insurance MEDICAID - [place] Care Teams Music Education Adjunct Professor Relationship Specialty Start Date End Date Saul Kennedy NP [address] [place] [address] PCP - General Family Medicine 09/18/24
--- OUTSIDE RECORDS SUMMARY | 2024-10-10 09:26 | XMS_ITS | Encounter Summary ---
Author Organization [employer] Address 75 [facility] 7t [place] [address] Care Team Providers Care Cooler Room Worker Name Role Phone Mervat Simental MD Primary Care Provider + Reason for Visit * Reason Onset Date Comments calling back 03/14/2024 Encounter Details Date Type Department Care Team (Late st Contact Info) Description 03/14/2024 Telephone [facility] ADULT DENTAL [address] [place], [place] [phone] Alicia, Enriqueta [address] [place] [address] calling back Social History Tobacco Use Types [...] is returning a call he had missed. [facility] is on a meeting break till 12;30. Please call him once again to schedule that appt. Thank you CS documented in this encounter Plan of Treatment Upcoming Encounters Date Type Department Care Team (Late st Contact Info) Description 10/12/2024 9:00 AM EDT Office Visit [facility] ADULT DENTAL [address] [place] [address] Saman Rodriguez, BRISSA [address] [place] [address] 11/02/2024 9:45 AM EDT Office Visit [facility] MEDICINE [address] [place] [address] Mervat Simental MD [address] [place] [address] 11/05/2024 10:30 AM EDT Office Visit [facility] OPTOMETRY [address] [place] [address] Jessica Curtis, OD [address] [place] [address] 11/12/2024 2:00 PM EDT Office Visit [facility] ADULT DENTAL [address] [place] [address] Farnaz Hernández, DDS 230 [place] [address] 03/07/2025 10:00 AM EDT Office Visit [facility] ADULT DENTAL [address] [place] [address] Larisa Antunez documented as of this encounter Visit Diagnoses Not on filedocumented in this encounter Additional Health Concerns Assessment Noted Time PHQ-9 Depression Total Score: 10 024 11:48 AM EST documented as of this encounter Care Teams Cooler Room Worker Relationship Specialty Start Date End Date Mervat Simental MD [address] [place] [address] PCP - General Internal Medicine 03/06/24 documented as of this encounter
[2024-10-10 12:06] LABS: Prothrombin Time 11.9 SEC (10.9-12.4)
[2024-10-10 12:07] LABS: Estimated Average Glucose 103 mg/dL; Hemoglobin A1C 130.7636 umol/L; Hemoglobin A1c % 5.2 % (<6.0); Total Hemoglobin (HGBA1C) 3908.8964 umol/L
[2024-10-10 12:09] LABS: Partial Thromboplastin Time 32.4 SEC (26.0-36.8)
[2024-10-10 12:20] LABS: Anion Gap 8 (12-20)
[2024-10-10 12:26] LABS: HBsAGNum1 0.32 S/CO (0.00-0.99); HIV AB/AG Nonreactive (Nonreactive); HIV Num 1 0.05 S/CO (0.00-0.99); Hepatitis B Surface Antigen Negative (Negative); ~Hepatitis C Antibody Nonreactive (Nonreactive)
[2024-10-10 12:29] LABS: Alanine Aminotransferase 39 U/L (0-40); Albumin Level 4.3 g/dL (3.5-5.0); Alkaline Phosphatase 67 U/L (39-117); Aspartate Amino Transferase 29 U/L (5-37); Bilirubin Total 0.5 mg/dL (0.0-1.0); Blood Urea Nitrogen 14 mg/dL (9-16); Calcium 9.5 mg/dL (8.4-10.2); Carbon Dioxide 26 mmol/L (22-29); Chloride 111 mmol/L (96-108); Cortisol Random 8.4 ug/dL; Estimated Glomerular Filt Rate > 60; Glucose Random 101 mg/dL (60-115); Iron 83 mcg/dL (45-160); Percent Iron Saturation 37 % (15-50); Potassium 4.1 mmol/L (3.3-5.1); Sodium 141 mmol/L (135-145); Total Iron Binding Capacity 223 mcg/dL (228-428); Total Protein 7.3 g/dL (6.5-8.0); Unsaturated Iron Binding 140 ug/dL
[2024-10-10 12:31] LABS: Syphilis Screen Nonreactive (Nonreactive)
[2024-10-10 12:32] LABS: Appearance Urine Cloudy; Color Urine Yellow; Glucose Urine UA Negative (Negative); Leukocyte Esterase Urine Trace (Negative); Nitrite Urine Negative (Negative); PH 5.5 (5.0-9.0); UMIC TRIGGER UACC YES; Urine Blood Negative (Negative); Urine Ketones Negative (Negative); Urine Protein Negative (Neg-Trace)
[2024-10-10 12:38] LABS: Ferritin 508 ng/mL (20-250); Lactate Dehydrogenase 206 U/L (118-273); TSH reflex Free T4 0.43 uIU/mL (0.32-4.0)
[2024-10-10 12:40] LABS: Bacteria Urine None Seen (None Seen); Hyaline Casts Urine 0-2 /LPF (0-2); RBC Urine 0-2 /HPF (0-2); Squamous Epithelial Cell Urine 0-2 /HPF (0-2); WBC Urine 0-5 /HPF (0-5)
[2024-10-10 12:46] LABS: Prostate Specific Antigen 1.17 ng/mL (<0.05-4.0)
[2024-10-10 13:02] LABS: Erythrocyte Sedimentation Rate 7 MM/HR (0-15)
[2024-10-13 10:10] LABS: TS Negative Control Passed; TS Panel A 0; TS Panel B 0; TS Positive Control Passed; TSpotTB Negative (Negative)
[2024-10-16 15:03] LABS: ANA Pattern 2 Nuclear, Homogeneous; ANA Titer 2 1:40 titer; Anti Nuclear Antibody Pattern Nuclear, Speckled; Anti Nuclear Antibody Screen POSITIVE (NEGATIVE)
[2024-10-18 10:32] LABS: Testosterone, Free 34.9 pg/mL (35.0-155.0); Testosterone, Total 286 ng/dL (250-1100)
== END 2024-10-10 08:59 | disposition home or self-care (01) ==
LOC: HO.HHCL 08:58
PROVIDERS: Visit Provider Student in an Organized Health Care Education/Training Program
DX: R53.83 Other fatigue (principal)
CPT/HCPCS: 36415; 80053; 81001; 82533; 82728; 83036; 83540; 83615; 84153; 84402; 84403; 84443; 85610; 85652; 85730; 86038; 86039; 86140; 86481; 86780; 86803; 87340; 87389

== ENCOUNTER 2024-11-02 10:24 | Outpatient (REF) | payer MEDICAID, SELFPAY ==
--- OUTSIDE RECORDS SUMMARY | 2024-11-02 11:28 | XMS_ITS | Encounter Summary ---
Author Organization [employer] Address 75 [facility] 7 [place] [address] Care Team Providers Care Ticket Agent Name Role Phone Diane Gutierrez Primary Care Provider [phone] Diane Gutierrez Primary Care Provider [phone] Diane Gutierrez Primary Care Provider [phone] Diane Gutierrez Primary Care Provider [phone] Mervat Simental MD Primary Care Provider + Reason for Visit * Reason Onset Date Comments status on sleep apnea 11/04/2022 Encounter Details Date Type Department Care Team (Late st Contact Info) Description 11/04/2022 Telephone [facility] MEDICINE [address] [place], [place] [phone] Dinae Gutierrez FNP [address] [place], [place] [phone] status on sleep apnea Social History Tobacco [...] Care Team (Late st Contact Info) Description 11/05/2024 10:30 AM EDT Office Visit [facility] OPTOMETRY [address] [place] [address] EverJessica faulkner, OD [address] [place] [address] 11/05/2024 2:30 PM EDT Office Visit [facility] ADULT DENTAL [address] [place] [address] Saman Rodriguez, DMD [address] [place] [address] 11/12/2024 2:00 PM EDT Office Visit [facility] ADULT DENTAL [address] [place] [address] Hutchison-Aaron, Farnaz, DDS [address] [place] [address] 03/07/2025 10:00 AM EDT Office Visit [facility] ADULT DENTAL [address] [place] [address] Larisa Antunez documented as of this encounter Visit Diagnoses Not on filedocumented in this encounter Care Teams Ticket Agent Relationship Specialty Start Date End Date Diane Gutierrez FNP [address] [place] [address] PCP - General Family Medicine 05/31/22 01/26/24 Diane Gutierrez FNP [address] [place] [address] PCP - General Family Medicine 01/27/24 01/29/24 Diane Gutierrez FNP [address] [place] [address] PCP - General Family Medicine 01/30/24 02/02/24 Diane Gutierrez FNP [address] [place] [address] PCP - General Family Medicine 02/03/24 03/05/24 Mervat Simental MD 230 [place] [address] PCP - General Internal Medicine 03/06/24 documented as of this encounter
--- OUTSIDE RECORDS SUMMARY | 2024-11-02 11:29 | XMS_ITS | Encounter Summary ---
Author Organization [employer] Address 75 [facility] 7t [place] [address] Care Team Providers Care Construction Ironworker Name Role Phone Diane Gutierrez Primary Care Provider [phone] Mervat Simental MD Primary Care Provider + Reason for Visit * Reason Comments Med Refill Encounter Details Date Type Department Care Team (Late st Contact Info) Description 03/02/2024 Refill [facility] CHC MED & PEDS [address] [place] [address] Diane Gutierrez FNP [address] [place] [address] Hemorrhoids, unspecified hemorrhoid type Social History Tobacco [...] Description 11/05/2024 10:30 AM EDT Office Visit [facility] OPTOMETRY [address] [place] [address] Ever, Jessica, OD [address] [place] [address] 11/05/2024 2:30 PM EDT Office Visit [facility] ADULT DENTAL [address] [place] [address] Saman Rodriguez, DMD [address] [place] [address] 11/12/2024 2:00 PM EDT Office Visit [facility] ADULT DENTAL [address] [place] [address] Hutchison-Aaron, Farnaz, DDS [address] [place] [address] 03/07/2025 10:00 AM EDT Office Visit [facility] ADULT DENTAL [address] [place] [address] Larisa Antunez documented as of this encounter Visit Diagnoses Diagnosis Hemorrhoids, unspecified hemorrhoid type documented in this encounter Additional Health Concerns Assessment Noted Time PHQ-9 Depression Total Score: 10 024 11:48 AM EST documented as of this encounter Care Teams Construction Ironworker Relationship Specialty Start Date End Date Diane Gutierrez FNP [address] [place] [address] PCP - General Family Medicine 02/03/24 03/05/24 Mervat iSmental MD [address] [place] [address] PCP - General Internal Medicine 03/06/24 documented as of this encounter
--- OUTSIDE RECORDS SUMMARY | 2024-11-02 11:29 | XMS_ITS | Encounter Summary ---
Author Organization [employer] Address 75 [facility] 7t [place] [address] Care Team Providers Care Brick Layer Name Role Phone Mervat Simental MD Primary Care Provider + Encounter Details Date Type Department Care Team (Latest Contact Info) Description 11/02/2024 Travel Social History Tobacco Use Types Packs/Day [...] housing situation today? I have christen bender 10/26/[address] you li ve. Do you have problems with any of the following? None of the above 10/26/2024 Food Insecurity Answer Date Recorded Within the past 12 months, y ou worried that your food would run out before you got money to buy more: Never True 10/26/2024 Within the past 12 months,th e food you bought just didn't last and you didn't have enough money to get more: Never True Transportation Answer Date Recorded In the past 12 months, has l ack of transportation kept you from medical appts, meetings, work or from getting things needed for daily living? No 10/26/2024 Utilities Answer Date Recorded In the past 12 months, has t he electric, gas, oil or water company threatened to shut off services in your home? No 10/26/2024 Depression Answer Date Recorded Patient Health Questionnaire-2 Score 1 07/27/2024 Internet Access Answer Date Recorded Internet Access Q1 Yes 10/26/2024 Internet Access Q2 Not on file 10/26/2024 Sex and Gender Information Value Date Recorded [...] 10:30 AM EDT Office Visit [facility] OPTOMETRY [address] [place] [address] EverJessica faulkner, OD [address] [place] [address] 11/05/2024 2:30 PM EDT Office Visit [facility] ADULT DENTAL [address] [place] [address] Saman Rodriguez, DMD [address] [place] [address] 11/12/2024 2:00 PM EDT Office Visit [facility] ADULT DENTAL [address] [place] [address] Hutchison-Aaron, Farnaz, DDS [address] [place] [address] 03/07/2025 10:00 AM EDT Office Visit [facility] ADULT DENTAL [address] [place] [address] Larisa Antunez documented as of this encounter Visit Diagnoses Not on filedocumented in this encounter Additional Health Concerns Assessment Noted Time PHQ-9 Depression Total Score: 10 024 11:48 AM EST documented as of this encounter Care Teams Brick Layer Relationship Specialty Start Date End Date Mervat Simental MD [address] [place] [address] PCP - General Internal Medicine 03/06/24 documented as of this encounter
--- OUTSIDE RECORDS SUMMARY | 2024-11-02 11:29 | XMS_ITS | Encounter Summary ---
Author Organization [employer] Address 75 [facility] 7t [place] [address] Care Team Providers Care Senior Shipping Clerk Name Role Phone Diane Gutierrez Primary Care Provider [phone] Diane Gutierrez Primary Care Provider [phone] Diane Gutierrez Primary Care Provider [phone] Diane Gutierrez Primary Care Provider [phone] Mervat Simental MD Primary Care Provider + Reason for Visit * Reason Onset Date Comments Medication Question 01/12/2024 Referral 01/12/2024 Encounter Details Date Type Department Care Team ([facility] Contact Info) Description 01/12/2024 Telephone [facility] MEDICINE [address] [place], [place] [phone] Diane Gutierrez FNP [address] [place], [place] [phone] Medication Question; Referral Social History Tobacco Use [...] no answer. LVM to call back on [phone]. * Telephone Encounter - Brian Lau RN [...] Description 11/05/2024 10:30 AM EDT Office Visit [facility] OPTOMETRY [address] [place] [address] Jessica Curtis, OD [address] [place] [address] 11/05/2024 2:30 PM EDT Office Visit [facility] ADULT DENTAL [address] [place] [address] Saman Rodriguez, DMD [address] [place] [address] 11/12/2024 2:00 PM EDT Office Visit [facility] ADULT DENTAL [address] [place] [address] Farnaz Hernández, DDS [address] [place] [address] 03/07/2025 10:00 AM EDT Office Visit [facility] ADULT [facility] [address] [place] [address] Larisa Antunez documented as of this encounter Visit Diagnoses Not on filedocumented in this encounter Additional Health Concerns Assessment Noted Time PHQ-9 Depression Total Score: 10 024 11:48 AM EST documented as of this encounter Care Teams Senior Shipping Clerk Relationship Specialty Start Date End Date Diane Gutierrez FNP [address] [facility] [place] [address] PCP - General Family Medicine 05/31/22 01/26/24 Diane Gutierrez FNP [address] [place] [address] PCP - General Family Medicine 01/27/24 01/29/24 Diane Gutierrez FNP [address] [place] [address] PCP - General Family Medicine 01/30/24 02/02/24 Diane Gutierrez FNP [address] [place] [address] PCP - General Family Medicine 02/03/24 03/05/24 Mervat Simental MD [address] [place] [address] PCP - General Internal Medicine 03/06/24 documented as of this encounter
--- OUTSIDE RECORDS SUMMARY | 2024-11-02 11:29 | XMS_ITS | Encounter Summary ---
Author Organization [employer] Address 75 [facility] 7t [place] [address] Care Team Providers Care Foot Piece Assembler Name Role Phone Mervat Simental MD Primary Care Provider + Reason for Visit * Reason Onset Date Comments Record Request 11/02/2024 Encounter Details Date Type Department Care Team ([facility] st Contact Info) Description 11/02/2024 Telephone [facility] MEDICINE [address] [place], [place] [phone] Mervat Simental MD [address] [place], [place] [phone] Record Request Social History Tobacco Use Types Packs/Day [...] Telephone Encounter - Leah Hoskins MA - 11/02/2024 10:13 AM EDT Tc to ENT ([phone]) to request OV notes. Multiple attempts to reach office with no didn't answer. Left voice message with call back number. documented in this encounter Plan of Treatment Upcoming Encounters Date Type Department Care Team (Late st Contact Info) Description 11/05/2024 10:30 AM EDT Office Visit [facility] OPTOMETRY [address] [place] [address] Jessica Curtis, OD 230 [place] [address] 11/05/2024 2:30 PM EDT Office Visit [facility] ADULT DENTAL [address] [place] [address] Saman Rodriguez, DMD [address] [place] [address] 11/12/2024 2:00 PM EDT Office Visit [facility] ADULT DENTAL [address] [place], [place] [phone] Farnaz Hernández, DDS [address] [place] [address] 03/07/2025 10:00 AM EDT Office Visit [facility] ADULT DENTAL [address] [place] [address] Larisa Antunez documented as of this encounter Visit Diagnoses Not on filedocumented in this encounter Additional Health Concerns Assessment Noted Time PHQ-9 Depression Total Score: 10 024 11:48 AM EST documented as of this encounter Care Teams Foot Piece Assembler Relationship Specialty Start Date End Date Mervat Simental MD [address] [place], [place] [phone] PCP - General Internal Medicine 03/06/24 documented as of this encounter
--- OUTSIDE RECORDS SUMMARY | 2024-11-02 11:29 | XMS_ITS | Encounter Summary ---
Author Organization [employer] Address 75 [facility] 7t [place] [address] Care Team Providers Care Seo Strategist Name Role Phone Mervat Simental MD Primary Care Provider + Encounter Details Date Type Department Care Team (Latest Contact Info) Description 11/01/2024 Travel Social History Tobacco Use Types Packs/Day [...] Office Visit [facility] OPTOMETRY [address] [place] [address] EverJessica faulkner, OD [address] [place] [address] 11/05/2024 2:30 PM EDT Office Visit [facility] ADULT DENTAL [address] [place] [address] Saman Rodriguez, DMD [address] [place] [address] 11/12/2024 2:00 PM EDT Office Visit [facility] ADULT DENTAL [address] [place] [address] Hutchison-Aaron, Farnaz, DDS [address] [place] [address] 03/07/2025 10:00 AM EDT Office Visit [facility] ADULT DENTAL [address] [place] [address] Larisa Antunez documented as of this encounter Visit Diagnoses Not on filedocumented in this encounter Additional Health Concerns Assessment Noted Time PHQ-9 Depression Total Score: 10 024 11:48 AM EST documented as of this encounter Care Teams Seo Strategist Relationship Specialty Start Date End Date Mervat Simental MD [address] [place] [address] PCP - General Internal Medicine 03/06/24 documented as of this encounter
--- OUTSIDE RECORDS SUMMARY | 2024-11-02 11:29 | XMS_ITS | Encounter Summary ---
Author Organization [employer] Address 75 [facility] 7 [place] [address] Care Team Providers Care Industrial Pharmacist Name Role Phone Diane Gutierrez Primary Care Provider [phone] Diane Gutierrez Primary Care Provider [phone] Diane Gutierrez Primary Care Provider [phone] Diane Gutierrez Primary Care Provider [phone] Mervat Simental MD Primary Care Provider + Reason for Visit * Reason Onset Date Comments new pt visit 01/12/2024 Encounter Details Date Type Department Care Team (Late st Contact Info) Description 01/12/[address] [facility] ADULT DENTAL [address] [place], [place] [phone] Saman Rodriguez, BRISSA [address] [place], [place] [phone] new pt visit Social History Tobacco Use [...] PM EDT PCP for patient here in [facility] sent an internal referral under referral tab for internal dentistry appt regular care. Patient inquiring on status of appt. Patient informed that there is a lengthy waiting list for new patients and that message would be sent to [facility] dental for follow up. Pls reach out topatient. He'd like to hear from dental office directly DR documented in this encounter Plan of Treatment Upcoming Encounters Date Type Department Care Team (Late st Contact Info) Description 11/05/2024 10:30 AM EDT Office Visit [facility] OPTOMETRY [address] [place], [place] [phone] Ever, Jessica, OD [address] [place] [address] 11/05/2024 2:30 PM EDT Office Visit [facility] ADULT DENTAL [address] [place] [address] Jennifer Saman, DMD 230 [facility] [place] [address] 11/12/2024 2:00 PM EDT Office Visit [facility] ADULT DENTAL 230 [facility] [place] [address] Farnaz Hernández, DDS 230 [facility] [place] [address] 03/07/2025 10:00 AM EDT Office Visit [facility] ADULT DENTAL 230 [facility] [place] [address] Larisa Antunez documented as of this encounter Visit Diagnoses Not on filedocumented in this encounter Additional Health Concerns Assessment Noted Time PHQ-9 Depression Total Score: 10 024 11:48 AM EST documented as of this encounter Care Teams Industrial Pharmacist Relationship Specialty Start Date End Date Diane [place] [address] [place] [address] PCP - General Family Medicine 05/31/22 01/26/24 Diane Gutierrez [place] [place] [address] PCP - General Family Medicine 01/27/24 01/29/24 Diane [place] [address] [place] [address] PCP - General Family Medicine 01/30/24 02/02/24 [place] [address] [place] [address] PCP - General Family Medicine 02/03/24 03/05/24 Mervat Simental MD Noé [facility] [place] [address] PCP - General Internal Medicine 03/06/24 documented as of this encounter
--- OUTSIDE RECORDS SUMMARY | 2024-11-02 11:29 | XMS_ITS | Encounter Summary ---
Author Organization [employer] Address 75 [facility] 7t [place] [address] Care Team Providers Care Loss Prevention Operations Manager Name Role Phone Mervat Simental MD Primary Care Provider + Reason for Visit * Reason Onset Date Comments calling back 03/14/2024 Encounter Details Date Type Department Care Team ([facility] st Contact Info) Description 03/14/2024 Telephone [facility] ADULT DENTAL [address] [place] [address] Alicia, Enriqueta [address] [place] [address] calling back Social History Tobacco Use Types [...] returning a call he had missed. [facility] is on a meeting break till 12;30. Please call him once again to schedule that appt. Thank you CS documented in this encounter Plan of Treatment Upcoming Encounters Date Type Department Care Team (Late st Contact Info) Description 11/05/2024 10:30 AM EDT Office Visit [facility] OPTOMETRY [address] [place] [address] Ever, Jessica, OD 230 [place] [address] 11/05/2024 2:30 PM EDT Office Visit [facility] ADULT DENTAL [address] [place] [address] Saman Rodriguez, DMD [address] [place] [address] 11/12/2024 2:00 PM EDT Office Visit [facility] ADULT DENTAL [address] [place] [address] Farnaz Hernández, DDS [address] [place] [address] 03/07/2025 10:00 AM EDT Office Visit [facility] ADULT DENTAL [address] [place] [address] Larisa Antunez documented as of this encounter Visit Diagnoses Not on filedocumented in this encounter Additional Health Concerns Assessment Noted Time PHQ-9 Depression Total Score: 10 024 11:48 AM EST documented as of this encounter Care Teams Loss Prevention Operations Manager Relationship Specialty Start Date End Date Mervat Simental MD [address] [place] [address] PCP - General Internal Medicine 03/06/24 documented as of this encounter
--- OUTSIDE RECORDS SUMMARY | 2024-11-02 11:29 | XMS_ITS | Clinical Summary ---
Author Organization [employer] Address [address] [facility] [address] [place] [address] Care Team Providers Care Train Inspector Name Role Phone Lit Simental MD Primary Care Provider + Allergies Active Allergy Reactions Criticality Noted Date Comments Cat Dander 06/21/2022 Dog Epithelium 06/21/2022 Doxycycline Diarrhea Medium 02/24/2023 Medications Blood Pressure kit Active senna (Senokot) 8.6 MG tabletIndicatio ns:Constipation , unspecified TAKE 1 TABLET BY MOUTH DAILY AT BEDTIME FOR CONSTIPATION 90 tablet 3 02/24/20 24 Active hydrOXYzine pamoate (Vistaril) 50 MG capsule TAKE 1 CAPSULE BY MOUTH EVERY 8 HOURS IF NEEDED FOR ANXIETY 90 capsule 05/18/20 24 Active albuterol 108 (90 Base) MCG/ACT inhaler Inhale 2 puffs every 6 (six) hours if needed for wheezing. 18 g 07/27/19 25 026 Active famotidine (Pepcid) 40 MG tablet Take 1 tablet (40 mg) by mouth at bedtime. 30 tablet 07/27/19 25 Active Additional Information Patient not taking.Reported on 10/09/2024 fluticasone (Flonase) 50 MCG/ACT nasal sprayIndication s:Subacute pansinusitis Administer 2 sprays into each nostril 2 times daily. 48 g 2 07/27/19 25 Active lisinopril 10 MG tabletIndicatio ns:Primary hypertension TAKE 1 TABLET BY MOUTH EVERY MORNING 90 tablet 1 09/12/19 25 Active tamsulosin (Flomax) 0.4 MG 24 hr capsuleIndicati ons:Benign prostatic hyperplasia, unspecified whether lower urinary tract symptoms present TAKE 1 CAPSULE BY MOUTH DAILY 30 MINUTES AFTER same MEAL EVERY DAY 90 capsule 1 09/12/19 25 Active Magnesium 400 MG capsule Take 1 tablet by mouth Once per day. 30 capsule 1 10/10/19 25 Active Magnesium Oxide -Mg Supplement 400 MG capsule Take 1 capsule by mouth Once per day. 10/10/19 25 Active D3 Super Strength 50 MCG (1999 UT) capsule Take 50 mcg by mouth in the morning. 11/13/19 23 025 Discontin ued(Thera py completed ) docusate sodium (Colace) 100 MG capsule Take 1 tab po bid prn constipation 60 capsule 3 02/29/20 24 025 Discontin ued(Thera py completed ) hydrocortisone (Anusol-HC) 25 MG suppositoryIndi cations:Hemorrh oids, unspecified hemorrhoid type INSERT 1 SUPPOSITORY (25 MG) RECTALLY TWICE DAILY DIRECTED 12 suppository 02/01/20 24 025 Discontin ued(Other ) Active Problems Problem Noted Date Diagnosed Date High serum ferritin 10/16/2024 Assessment & Plan (10/16/2024 3:27 PM EDT): See fatigue above Repeat labs and follow-up with me as scheduled Memory impairment of gradual onset 10/16/2024 Assessment & Plan (10/16/2024 3:32 PM EDT): 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 Other headache syndrome 10/10/2024 Assessment & Plan (10/10/2024 4:29 AM EDT): -flu and covid neg today -hold on brain image for now w no alarming symptoms ,tylenol prn -start PO Magnesium Ingrown left greater toenail 07/27/2024 Assessment & [...] adenoma of colon 07/27/2024 Assessment & Plan (10/16/2024 3:31 PM EDT): Information regarding GI referral was provided to patient so that he can reschedule appointment Assessment & Plan (07/27/2024 10:10 AM EST): [...] neosporin BID Fatigue 04/05/2023 Assessment & Plan (10/16/2024 3:27 PM EDT): Labs so far show a significantly elevated ferritin which can be suspicious for either inflammation (?autoimmune/malignancy? Less likely as it's been for many years) vs iron overload I will order transferrin, repeat iron studies including transferrin saturation profile, LDH and hemochromatosis gene analysis Referred to neurology to rule out some other degenerative diseases due to difficulty with some cognitive functions Aggregate alert here for quitting alcohol and recreational substances Advised him to follow-up closely with sleep specialist to rule out other sleep related disorders including narcolepsy or hypersomnia Obtain echocardiogram from cardiology and patient to follow-up with them regarding palpitations and bradycardia Follow-up with me next month as scheduled He is due for repeat colonoscopy, I gave him information to call GI to schedule follow-up appointment Assessment & Plan (10/10/2024 4:29 AM EDT): [...] w worsening chronic fatigue ,am sleepiness , eyla showing light sleep and hypoxemia for prolong periods ,also thinks in part is waking up more at night for ongoing nocturia that beside BRENTON for which is not currently on CPAP ,his nocturia is worsening symptoms ,as well taking benadryl at 3 am can make him feel more tired in am. Reports he saw remedial reading teacher with mx testing per pt last year [...] suspicion for symptoms associated w any STI Bradycardia 04/05/2023 Assessment & Plan (10/16/2024 12:10 PM EDT): >>ASSESSMENT AND PLAN FOR PALPITATIONS WRITTEN ON 04/05/2023 8:11 PM BY HARRISON PAULA MD Pt reports fatigue sensation in the setting [...] Date Resolved Date Retention of urine 02/25/2020 Encounters Date Type Department Care Team Description 11/02/2024 9:45 AM EDT Office Visit [address] [id number] Lit Simental MD Other headache syndrome (Primary Dx); Memory impairment of gradual onset; Mixed anxiety and depressive disorder 11/02/[address] [address] Lit Simental MD Record Request 11/02/2024 Travel 11/01/[address] [address] Concha Cortez RN Results 11/01/2024 Travel 10/30/2024 Orders Only [facility] [address] [place] [id number] Lit Simental MD Memory impairment of gradual onset (Primary Dx) 10/26/[address] [address] Lit Simental MD Chart prep 10/26/2024 Patient Outreach [facility] [address] [place], [place] [phone] Lit Simental MD Pre-visit Planning (SDOH negative. Tobacco screening negative) 10/23/[address] [address] Lit Simental MD 10/17/[address] [address] Lit Simental MD Results 10/16/2024 11:30 AM EDT Office Visit [address] [address] Lit Simental MD Other fatigue (Primary Dx); High serum ferritin; Memory impairment of gradual onset; Tubular adenoma of colon 10/16/[address] [address] Lit Simental MD Results 10/16/2024 Orders Only [facility] [address] [place] [address], [place] [address] Harrison Ferrer MD LIT positive (Primary Dx); Livedo reticularis; Other fatigue 10/16/2024 Travel 10/12/2024 9:00 AM EDT Office Visit [facility] [address] [place] [address] Saman Rodriguez, BRISSA 10/12/[address] [address] Lit Simental MD Chart prep 10/11/[address] [address] Lit Simental MD Medication Question 10/09/2024 1:15 PM EDT Office Visit [address] [address] Harrison Ferrer MD Other fatigue (Primary Dx); Cough, unspecified type; Other headache syndrome 10/09/2024 Travel 10/08/2024 Telephone [facility] [address] [place] [address] Lit Simental MD Appointment Request 10/05/[address] [address] Lit Simental MD INSURANCE CALL 10/04/2024 11:00 AM EDT Office Visit [facility] [address] [place] [address] Saman Rodriguez DMD 10/03/[address] [address] Lit Simental MD Nurse Triage 09/26/2024 Population Health Risk Score [facility] [address] [place] [phone] Provider, Population Health Generic 09/24/2024 1:30 PM EDT Office Visit [facility] [address] [place] [address] Saman Rodriguez DMD 09/17/2024 2:30 PM EDT Office Visit [facility] [address] [place] [phone] Saman Rodriguez, DMD 09/14/[address] [address] Lit Simental MD Med Refill 09/11/[address] [address] Lit Simental MD FYI 09/11/[address] [address] Lit Simental MD Primary hypertension; Benign prostatic hyperplasia, unspecified whether lower urinary tract symptoms present 09/03/2024 2:00 PM EST Office Visit [facility] [address] [place] [phone] Larisa Antunez Dental calculus (Primary Dx); Dental plaque 08/29/2024 3:45 PM EST Office Visit [address] [address] Guy Kennedys, PUBLIC INFORMATION DIRECTOR Ingrown left greater toenail (Primary Dx) 08/29/2024 Travel 08/28/[address] [address] Lit Simental MD Chart Prep 08/27/[address] [phone] Lit Simental MD Nurse Triage 08/23/[address] [address] Lit Simental MD May recall from Last 3 Months Immunizations Name [...] Sign Reading Time Taken Comments Blood Pressure 116/68 11/02/2024 9:37 AM EDT Pulse 58 11/02/2024 9:37 AM EDT Temperature 36.1 ??C (97 ??F) 11/02/2024 9:37 AM EDT Respiratory Rate 21 11/02/2024 9:37 AM EDT Oxygen Saturation 94% 10/16/2024 11:31 AM EDT Inhaled Oxygen Concentration - - Weight 121 kg (266 lb 8 oz) 11/02/2024 9:37 AM E DT Height 170.2 cm (5' 7 ) 11/02/2024 9:37 AM EDT Body Mass Index 41.74 11/02/2024 9:37 AM EDT Plan of Treatment Upcoming Encounters Date Type Department Care Team (Late st Contact Info) Description 11/05/2024 10:30 AM EDT Office Visit [facility] [address] [place] [address] EverGreyson faulknern, OD [address] [place] [address] 11/05/2024 2:30 PM EDT Office Visit [facility] [address] [place] [address] Saman Rodriguez, DMD [address] [place] [address] 11/12/2024 2:00 PM EDT Office Visit [facility] [address] [place] [address] Farnaz Hernández, DDS [address] [place] [address] 03/07/2025 10:00 AM EDT Office Visit [facility] [address] [place] [address] Larisa Antunez Health Maintenance Due Date Last Done Comments CT Colonography 1970 FIT DNA/Cologuard 1970 FIT 1970 FOBT 1970 Sigmoidoscopy 1970 Hepatitis B Vaccines (1 of 3 - 19+ 3-dose series) 1989 Pneumococcal Vaccine: 50+ Years (1 of 1 - PCV) 2020 COVID-19 Vaccine (3 - 2023- season) 2024 07/29/2021, 10/11/2020 Influenza Vaccine (#1) 2024 04/15/2021 Colonoscopy 05/20/2024 05/20/2021 Colorectal Cancer Screening 05/20/2024 Dental X-Ray: Bitewings 02/20/2025 02/20/2024 Dental Oral Exam 03/07/2025 09/03/2024, 02/20/2024 Dental Prophylaxis 03/07/2025 09/03/2024, 02/20/2024 Depression Screening 07/27/2025 07/27/2024, 09/09/19 Tobacco Screening 10/16/2025 10/16/2024 SDOH Screening 10/26/2025 10/26/2024 Alcohol/Substance Use Screening 11/02/2025 11/02/2024 Dental X-Ray: Full Mouth 02/20/2027 02/20/2024 Lipid Panel 09/12/2029 09/12/2024, 11/01, 09/07/2021, Additional history exists DTaP/Tdap/Td Vaccines (2 - Td or Tdap) 02/13/2030 02/14/2020 RSV Patients and Patients Aged 60 years or older (1 - 1-dose 75+ series) 2045 Zoster Vaccines Completed 06/15/2021, 04/15/2021 HIV Screening Completed 10/10/2024, 02/22/2020 Hepatitis C Screening Completed 10/10/2024 , 05/06/2023, 02/22/2020 HIB Vaccines Aged Out No longer [...] Procedure Name Priority Date/Time Associated Diagnosis Comments AMB REFERRAL TO SLEEP MEDICINE Routine 10/18/2024 Other fatigue MR BRAIN WO CONTRAST Routine 10/18/2024 Memory impairment of gradual onset WAX TRY IN Routine 10/12/2024 9:00 AM EDT NO CHARGE PROCEDURE Routine 10/12/2024 9 :00 AM EDT TSH W/REFLEX TO FT4 Routine 10/10/2024 9 :04 AM EDT COMPREHENSIVE METABOLIC PANEL Routine 10/10/2024 9:04 AM EDT HEMOGLOBIN A1C Routine 10/10/2024 9:04 AM EDT Other fatigue T-SPOT(R).TB Routine 10/10/2024 9:04 AM EDT Other fatigue URINALYSIS, COMPLETE, WITH REFLEX TO CULTURE Routine 10/10/2024 9:04 AM EDT Other fatigue APTT Routine 10/10/2024 9:04 AM EDT Other fatigue PROTHROMBIN TIME-INR Routine 10/10/2024 9:04 AM EDT Other fatigue LD Routine 10/10/2024 9:04 AM EDT Other fatigue PSA, TOTAL Routine 10/10/2024 9:04 AM EDT Other fatigue LIT SCREEN, IFA, W/REFL TITER AND PATTERN Routine 10/10/2024 9:04 AM EDT Other fatigue SYPHILIS SCREEN Routine 10/10/2024 9:04 AM EDT Other fatigue HIV 1/2 ANTIGEN/ANTIBODY, FOURTH GENERATION W/RFL Routine 10/10/2024 9:04 AM EDT Other fatigue HEPATITIS C AB W/REFL TO HCV RNA, QN, PCR Routine 10/10/2024 9:04 AM EDT Other fatigue HEPATITIS B SURFACE ANTIGEN, EIA Routine 10/10/2024 9:04 AM EDT Other fatigue SED RATE BY MODIFIED WESTERGREN Routine 10/10/2024 9:04 AM EDT Other fatigue C-REACTIVE PROTEIN Routine 10/10/2024 9: 04 AM EDT Other fatigue CORTISOL RANDOM Routine 10/10/2024 9:04 AM EDT Other fatigue FERRITIN Routine 10/10/2024 9:04 AM EDT Other fatigue IRON AND TOTAL IRON BINDING CAPACITY Routine 10/10/2024 9:04 AM EDT Other fatigue TESTOSTERONE, FREE (DIALYSIS) AND TOTAL,MS Routine 10/10/2024 9:04 AM EDT Other fatigue POCT INFLUENZA B (ID NOW RAPID MOLECULAR) [...] :00 PM EST Dental calculus Dental plaque INTRAORAL - COMPLETE SERIES OF RADIOGRAPHIC IMAGES Routine 02/20/2024 10:00 AM EDT Decalcification, teeth Dental calculus Missing teeth, acquired Localized gingival recession Bleeding gums Dental caries HM COLONOSCOPY Routine 05/20/2021 1:52 PM EST from Last 3 Months or Most Recently Relevant to Health Maintenance Results * MR Brain w/o Contrast (10/18/2024) Anatomical Region Laterality Modality Brain Magnetic Resonan ce us Lit Simental MD IMG MRI PROCEDURES Final Result * Referral to Sleep Medicine (10/18/2024) us Diane Gutierrez [employer] OUTPATIENT REFERRAL ORDERABLES Final Result * Cortisol Random (10/10/2024 9:04 AM EDT) Cortisol Random 8.4 ug/dL [facility] Comment:Reference Range*: Be fore 10 am 6.2-19.4 ug/dL After 5 pm 2.3-11.9 ug/dL*Please interpret above results accordingly.This test was performed using the [employer] chemiluminescentmethod. Values obtained from different assay methods cannotbe used interchangeably.Patients receiving fludrocortisone, prednisolone orprednisone may show artificially elevated cortisol valuesdue to cross-reactivity. 10/10/2024 9:04 AM EDT 10/10/2024 11:40 AM EDT Harrison Paula MD LAB BLOOD ORDERAB LES Final Result Performing Organization Address [facility]/ZIP Co de Phone Number [facility] [address] [place] [phone] * Syphilis Screen (10/10/2024 9:04 AM EDT) Syphilis Screen Nonreactive Nonreactive [facility] Blood 10/10/2024 9:04 AM EDT 10/10/2024 11:40 AM EDT us Harrison Paula MD LAB BLOOD ORDERAB LES Final Result Performing Organization Address [facility] Co de Phone Number [facility] [address] [place] [phone] * (ABNORMAL) Urinalysis, Complete, with Reflex to Culture (10/10/2024 9:04 AM EDT) Color Urine Yellow [facility] Appearance Urine Cloudy [facility] PH 5.5 5.0 - 9.0 [facility] Glucose Urine UA Negative Negative mg/dL [facility] Urine Blood Negative Negative [facility] Specific [place] - Urine 1.020 1.005 - 1.025 [facility] Urine Protein Negative Neg-Trace mg/dL [facility] Urine Ketones Negative Negative mg/dL [facility] Nitrite Urine Negative Negative [facility] Leukocyte Esterase Urine Trace(A) Negative [facility] RBC Urine 0-2 0 - 2 /HPF [facility] Urine WBC 0-5 0 - 5 /HPF [facility] Urine Squamous Epithelial Cell 0-2 0 - 2 /HPF [facility] Urine Bacteria None Seen None Seen [facility] Hyaline Casts, Urine 0-2 0 - 2 /LPF [facility] Urine 10/10/2024 9:04 AM EDT 10/10/2024 11:46 AM EDT Narrative [facility] - 10/10/2024 12:40 PM EDT Urine, Clean Catch Harrison Paula MD LAB URINE ORDERAB LES Final Result [facility] [address] [place] [phone] * T-SPOT??.TB (10/10/2024 9:04 AM EDT) [facility] T Spot TB Negative Negative [facility] Comment:A negative test resu lt does not exclude the possibilityof exposure to or infection with Mycobacteriumtuberculosis (M. tuberculosis). Patients with recentexposure to TB infected individuals exhibiting anegative T-SPOT.TB result should be considered forretesting within 6 weeks or if other relevant clinicalsymptoms indicate. Results from T-SPOT.TB testing mustbe used in conjunction with each individual'sepidemiological history, current medical status,and results of other diagnostic evaluations.The T-SPOT.TB test is qualitative and results arereported as positive, borderline, or negative, giventhat the test controls perform as expected. In linewith the Centers for Disease Control and Prevention's2010 recommendation to report quantitative measurementsalongside the qualitative result, the laboratoryprovides spot counts for informational purposes only.The T-SPOT.TB test should not be interpreted as aquantitative test. TS PANEL A 0 [facility] TS PANEL B 0 [facility] Negative Control Passed [facility] Positive Control Passed [facility] Comment:For additional infor oskar, please refer tohttp://education.[employer].com/faq/NJY241(This link is being provided for informational/educational purposes only.)REPORT COMMENT:REC'D IN CHYTHIS TEST WAS PERFORMED AT:[facility] [id number] [place] [address]BAOAMNKCHERISE FLYNN MD,PHD 10/10/2024 9:04 AM EDT 10/10/2024 11:45 AM EDT Harrison Paula MD LAB BLOOD ORDERAB LES Final Result Performing Organization Address [facility]/ZIP Co de Phone Number [facility] [address] [place] [phone] * TSH with Reflex to Free T4 (10/10/2024 9:04 AM EDT) Only the most recent of2 resultswithin the time period is included. TSH reflex Free T4 0.43 0.32 - 4.0 uIU/mL [facility] 10/10/2024 9:04 AM EDT 10/10/2024 11:40 AM EDT Harrison Paula MD LAB BLOOD ORDERAB LES Final Result Performing Organization Address [facility] de Phone [facility] [address] [place] [phone] * Hepatitis C Antibody with Reflex to HCV, RNA, Quantitative, Real-Time PCR (10/10/2024 9:04 AM EDT) Hepatitis C Antibody Nonreactive Nonreactive [facility] Comment:Antibodies to HCV no t detected; does not exclude early acuteHCV infection. Blood Venous blood specimen / Unknown 10/10/2024 9:04 AM EDT 10/10/2024 11:40 AM EDT Harrison Paula MD LAB BLOOD ORDERAB LES Final Result Performing Organization Address [facility]/ZIP Co de Phone Number [facility] [address] [place] [phone] * (ABNORMAL) Iron And Total Iron Binding Capacity (10/10/2024 9:04 AM EDT) Pathologist [facility] Iron 83 45 - 160 mcg/dL [facility] Total Iron Binding Capacity 223(L) 228 - 428 mcg/dL [facility] Percent Iron Saturation 37 15 - 50 % [facility] Unsaturated Iron Binding 140 ug/dL [facility] Blood Venous blood specimen / Unknown 10/10/2024 9:04 AM EDT 10/10/2024 11:40 AM EDT Harrison Paula MD LAB BLOOD ORDERAB LES Final Result Performing Organization Address City/[facility]/ZIP Co de Phone Number [facility] [address] [place] [phone] * Hepatitis B surface antigen, EIA (10/10/2024 9:04 AM EDT) [facility] Hepatitis B Surface Ag Negative Negative [facility] Blood Venous blood specimen / Unknown 10/10/2024 9:04 AM EDT 10/10/2024 11:40 AM EDT Harrison Paula MD LAB BLOOD ORDERAB LES Final Result Performing Organization Address City/[facility]/ZIP Co de Phone Number [facility] [address] [place] [phone] * HIV-1/2 Antigen and Antibodies, Fourth Generation, with Reflexes (10/10/2024 9:04 AM EDT) [facility] HIV AB/AG Nonreactive Nonreactive [facility] Comment:HIV-1 p24 Ag and/or HIV-1/HIV-2 Ab not detected.A test result that is nonreactive does not exclude thepossibility of exposure to or infection with HIV-1 and/orHIV-2. Nonreactive results in this assay for individualswith prior exposure to HIV-1 and/or HIV-2 may be due toantigen and antibody levels that are below the limit ofdetection of this assay.The [employer] HIV Ag/Ab Combo assay result andsupplemental assay results should be interpreted inconjunction with the patient's clinical presentation,history and other laboratory results. If the results areinconsistent with clinical evidence, additional testing issuggested to confirm the result. Blood Venous blood specimen / Unknown 10/10/2024 9:04 AM EDT 10/10/2024 11:40 AM EDT Harrison Paula MD LAB BLOOD ORDERAB LES Final Result Performing Organization Address [facility]/ZIP Co de Phone Number [facility] [address] [place] [phone] * Partial Thromboplastin Time, Activated (APTT) (10/10/2024 9:04 AM EDT) Partial Thromboplastin Time 32.4 26.0 - 36.8 SEC [facility] Comment:For information rega rding the monitoring of direct thrombininhibitors, please refer to Pharmacy. Blood Venous blood specimen / Unknown 10/10/2024 9:04 AM EDT 10/10/2024 11:45 AM EDT Harrison Paula MD LAB BLOOD ORDERAB LES Final Result Performing Organization Address [facility]/ZIP Co de Phone Number [facility] [address] [place] [phone] * Sed Rate by Modified Westergren (10/10/2024 9:04 AM EDT) Erythrocyte Sedimentation Rate 7 0 - 15 MM/HR [facility] Comment:Patients with polycy themia and many hemoglobin abnormalitiesmay have depressed sed rates whereas patients with anemiamay have elevated sed rates. Blood Venous blood specimen / Unknown 10/10/2024 9:04 AM EDT 10/10/2024 11:45 AM EDT Harrison Paula MD LAB BLOOD ORDERAB LES Final Result Performing Organization Address City/[facility]/ZIP Co de Phone Number [facility] [address] [place] [phone] * Prothrombin Time-INR (10/10/2024 9:04 AM EDT) Prothrombin Time 11.9 10.9 - 12.4 SEC [facility] INTERNATIONAL NORM RATIO 1.0 0.9 - 1.1 [facility] Comment:INTERNATIONAL NORMAL IZED RATIO (INR) REFERENCE RANGES Reference RangeFor patients not on anticoagulant therapy: 0.9 - 1.1INR ranges for oral anticoagulanttherapy:For prevention and treatment of venous thrombosis and pulmonary embolism: 2.0 - 3.0For acute myocardial infarction with aspirin therapy: 2.0 - 3.0For acute myocardial infarction without aspirin therapy: 3.0 - 4.0For patients with mechanical prosthetic heart valves: 2.5 - 3.5 Blood Venous blood specimen / Unknown 10/10/2024 9:04 AM EDT 10/10/2024 11:45 AM EDT Harrison Paula MD LAB BLOOD ORDERAB LES Final Result Performing Organization Address [facility] Co de Phone Number [facility] [address] [place] [phone] * (ABNORMAL) Testosterone, Free (Dialysis) And Total, MS (10/10/2024 9:04 AM EDT) Testosterone, Total 286 250 - 1100 ng/dL [facility] Comment:Men with clinically significant hypogonadal symptoms and testosterone valuesrepeatedly in the range of the 200-300 ng/dL or less, may benefit fromtestosterone treatment after adequate risk and benefits counseling.For additional information, please refer tohttps://education.Honestly.com/faq/SBD934(This link is being provided for informational/educational purposes only.)(Note)This test was developed and its analytical performancecharacteristics have been determined by [employer]. It hasnot been cleared or approved by the FDA. This assay hasbeen validated pursuant to the CLIA regulations and isused for clinical purposes. Testosterone, Free 34.9(A) 35.0 - 155.0 pg/mL [facility] Comment:(Note)This test was developed and its analytical performancecharacteristics have been determined by [employer]. It hasnot been cleared or approved by the FDA. This assay hasbeen validated pursuant to the CLIA regulations and isused for clinical purposes.MDed [address] [place] [address],[address] [place] [address] [phone] Moo Moreno MD, PhDTHIS TEST WAS PERFORMED AT:[id number] [place] [address] [place] [address] [phone] MORENO MD,PHD Blood Venous blood specimen / Unknown 10/10/2024 9:04 AM EDT 10/10/2024 11:45 AM EDT us Harrison Paula MD LAB BLOOD ORDERAB LES Final Result Performing Organization Address City/[facility]/ZIP Co de Phone Number [facility] [address] [place] [phone] * C-reactive Protein (10/10/2024 9:04 AM EDT) C Reactive Protein 0.30 < or = 0.50 mg/dL [facility] Blood Venous blood specimen / Unknown 10/10/2024 9:04 AM EDT 10/10/2024 11:40 AM EDT us Harrison Paula MD LAB BLOOD ORDERAB LES Final Result Performing Organization Address City/[facility]/ZIP Co de Phone Number [facility] [address] [place] [phone] * (ABNORMAL) LIT Screen,IFA, with Reflex to Titer and Pattern (10/10/2024 9:04 AM EDT) Anti Nuclear Antibody Screen POSITIV E(A) NEGATIVE [facility] Comment:LIT IFA is a first l ine screen for detecting thepresence of up to approximately 150 autoantibodies invarious autoimmune diseases. A positive LIT IFA resultis suggestive of autoimmune disease and reflexes totiter and pattern. Further laboratory testing may beconsidered if clinically indicated.For additional information, please refer tohttp://education.Voxel.pl/faq/ULO753(This link is being provided for informational/educational purposes only.) LIT Titer 1:80(A) titer [facility] Comment:A low level LIT tite r may be present in pre-clinicalautoimmune diseases and normal individuals. Reference Range <1:40 Negative 1:40-1:80 Low Antibody Level >1:80 Elevated Antibody Level LIT Pattern Nuclear , Speckle d(A) [facility] Comment:Speckled pattern is associated with mixed connectivetissue disease (MCTD), systemic lupus erythematosus(SLE), Sjogren's syndrome, dermatomyositis, andsystemic sclerosis/polymyositis overlap.AC-2,4,5,29: SpeckledInternational Consensus on LIT Patterns(https://doi.org/10.1515/dawb-6228-4688) LIT TITER 2 (REF LAB) 1:40(A) titer [facility] Comment:A low level LIT tite r may be present in pre-clinicalautoimmune diseases and normal individuals. Reference Range <1:40 Negative 1:40-1:80 Low Antibody Level >1:80 Elevated Antibody Level LIT Pattern 2 Nuclear , Homogen eous(A) [facility] Comment:Homogeneous pattern is associated with systemic lupuserythematosus (SLE), drug-induced lupus and juvenileidiopathic arthritis.AC-1: HomogeneousInternational Consensus on LIT Patterns(https://doi.org/10.1515/rqzq-1989-6092)THIS TEST WAS PERFORMED AT:[facility] [place] [address] [phone] GLASGOW MD LIT TITER 3 TNP [facility] LIT PATTERN 3 TNP [facility] Blood Venous blood specimen / Unknown 10/10/2024 9:04 AM EDT 10/10/2024 11:40 AM EDT us Harrison Paula MD LAB BLOOD ORDERAB LES Final Result Performing Organization Address [facility]/ZIP Co de Phone Number [facility] [address] [place] [phone] * PSA,Total (10/10/2024 9:04 AM EDT) Prostate Specific Antigen 1.17 <0.05 - 4.0 ng/mL [facility] Comment:PSA methodology: Johnny nowak Alimassimo i ChemiluminescentMicroparticle Immunoassay (CMIA) Blood Venous blood specimen / Unknown 10/10/2024 9:04 AM EDT 10/10/2024 11:40 AM EDT us Harrison Paula MD LAB BLOOD ORDERAB LES Final Result Performing Organization Address [facility] Co de Phone Number [facility] [address] [place] [address] [phone] * Lactate Dehydrogenase (LD) (10/10/2024 9:04 AM EDT) [facility] Lactate Dehydrogenase 206 118 - 273 U/L [facility] Blood Venous blood specimen / Unknown 10/10/2024 9:04 AM EDT 10/10/2024 11:40 AM EDT us Harrison Paula MD LAB BLOOD ORDERAB LES Final Result Performing Organization Address [facility]/ZIP Co de Phone Number [facility] [address] [place] [phone] * Hemoglobin A1c (10/10/2024 9:04 AM EDT) Hemoglobin A1c 5.2 <6.0 % [facility] Comment:Hemoglobin A1C Refer ence Range Adults: 4.8 - 6.0 % Non diabetic: < 6.0 % Goal: < 7.0 %Additional Action Suggested: > 8.0 %Note: Hemoglobin A1c results are invalid for patients with abnormal amounts of HbF. Blood transfusions may impact the HbA1c concentration in the patient sample. Estimated Average Glucose 103 mg/dL [facility] Comment:eAG = Estimated ave rage glucose which is %A1C expressed asaverage glucose, using the formula of the G6M-GhgkmniZteooas Glucose study (ADAG), Diabetes Care, Vol.31,#8,Feb. 2007 Blood Venous blood specimen / Unknown 10/10/2024 9:04 AM EDT 10/10/2024 11:45 AM EDT Harrison Paula MD LAB BLOOD ORDERAB LES Final Result Performing Organization Address City/[facility]/ZIP Co de Phone Number [facility] [address] [place] [address] [phone] * (ABNORMAL) Ferritin (10/10/2024 9:04 AM EDT) Ferritin 508(H) 20 - 250 ng/mL [facility] Blood Venous blood specimen / Unknown 10/10/2024 9:04 AM EDT 10/10/2024 11:40 AM EDT us Harrison Paula MD LAB BLOOD ORDERAB LES Final Result Performing Organization Address [facility]/ZIP Co de Phone Number [facility] [address] [place] [address] [phone] * (ABNORMAL) Comprehensive Metabolic Panel (10/10/2024 9:04 AM EDT) Only the most recent of2 resultswithin the time period is included. Sodium 141 135 - 145 mmol/L [facility] Potassium 4.1 3.3 - 5.1 mmol/L [facility] Chloride 111(H) 96 - 108 mmol/L [facility] Carbon Dioxide 26 22 - 29 mmol/L [facility] Anion Gap 8(L) 12 - 20 [facility] Urea Nitrogen (BUN) 14 9 - 16 mg/dL [facility] Creatinine, Serum 0.69 0.5 - 1.4 mg/dL [facility] Estimated Glomerular Filt Rate >60 [facility] Comment:Chronic Kidney Disea se: Estimated GFR < 60 mL/min/1.34o0Vcrtwp Kidney Disease: Estimated GFR < 15 mL/min/1.73m2 Glucose 101 60 - 115 mg/dL [facility] Calcium 9.5 8.4 - 10.2 mg/dL [facility] Bilirubin, Total 0.5 0.0 - 1.0 mg/dL [facility] Aspartate Amino Transferase 29 5 - 37 U/L [facility] Alanine Aminotransferase 39 0 - 40 U/L [facility] Total Protein 7.3 6.5 - 8.0 g/dL [facility] Albumin Level 4.3 3.5 - 5.0 g/dL [facility] Alkaline Phosphatase 67 39 - 117 U/L [facility] 10/10/2024 9:04 AM EDT 10/10/2024 11:40 AM EDT us Harrison Paula MD LAB BLOOD ORDERAB LES Final Result Performing Organization Address City/[facility]/ZIP Co de Phone Number [facility] [address] [place] [address] [phone] * POCT Rapid Influenza B AMEZCUA ID NOW (10/09/2024 2:05 PM EDT) Influenza B Negative Negative, Indeterminate [facility] QC Media Lot # [id number] [facility] Lot# Expiration Date 32, [facility] Swab 10/09/2024 2:05 PM EDT us Harrison Paula MD POINT OF CARE MONA T ENTER/EDIT ORDERABLES Final Result [facility] [address] [place] [address] [phone] * POCT Rapid Influenza A AMEZCUA ID NOW (10/09/2024 2:05 PM EDT) Pathologist [facility] Influenza A Negative Negative, Indeterminate [facility] QC Media Lot # [id number] [facility] Lot# Expiration Date 02,652 [facility] Swab 10/09/2024 2:05 PM EDT Harrison Paula MD POINT OF CARE MONA T ENTER/EDIT ORDERABLES Final Result [facility] [address] [place] [phone] * POCT Rapid Covid-19 AMEZCUA ID NOW (10/09/2024 2:04 PM EDT) [facility] Coronavirus Antigen PCR Negative Negative, Indeterminate, None Detected, Invalid, Specimen unsatisfactory for evaluation, Weakly Positive QC Media Lot # [id number] Lot# Expiration Date ,026 Swab 10/09/2024 2:04 PM EDT Result [facility] Harrison Paula MD POINT OF CARE MONA T ENTER/EDIT ORDERABLES Final Result * Tick-borne Disease, Acute Molecular Panel (09/12/2024 9:34 AM EDT) [facility] Babesia microti DNA, Real Time PCR NOT DETECTED NOT DETECTED [facility] Comment:This test was develo ped and its analytical performancecharacteristics have been determined by [employer]. It has not been cleared or approved by theA. This assay has been validated pursuant to the CLIAregulations and is used for clinical purposes.THIS TEST WAS PERFORMED AT:[facility] [place] [phone] GLASGOW MD Ehrlichia chaffensis DNA Real Time PCR NOT DETECTED NOT DETECTED [facility] Comment:This test was develo ped and its analytical performancecharacteristics have been determined by [employer]. It has not been cleared or approved by theFDA. This assay has been validated pursuant to the CLIAregulations and is used for clinical purposes.THIS TEST WAS PERFORMED AT:[facility] [address] [phone] GLASGOW MD Anaplasma phagocytophilum DNA, QL Real Time PCR NOT DETECTED NOT DETECTED [facility] Comment:This test was develo ped and its analytical performancecharacteristics have been determined by [employer]. It has not been cleared or approved by theFDA. This assay has been validated pursuant to the CLIAregulations and is used for clinical purposes. Borrelia Species DNA, Ql Real Time PCR NOT DETECTED NOT DETECTED [facility] Comment:This test was develo ped and its analytical performancecharacteristics have been determined by [employer]. It has not been cleared or approved by theFDA. This assay has been validated pursuant to the CLIAregulations and is used for clinical purposes.For additional information, please refer tohttps://education.Ecoviate.Restore Water/faq/klq642(This link is being provided for informational/educational purposes only.)THIS TEST WAS PERFORMED AT:[facility] [address] [phone] GLASGOW MD Borrelia Miyamotoi DNA, Ql Real Time PCR NOT DETECTED NOT DETECTED [facility] Comment:This test was develo ped and its analytical performancecharacteristics have been determined by [employer]. It has not been cleared or approved by theFDA. This assay has been validated pursuant to the CLIAregulations and is used for clinical purposes.THIS TEST WAS PERFORMED AT:[facility] [address] [phone] GLASGOW MD Comment SEE NOTE [facility] Comment:A negative result do es not exclude Borrelia infectionas the concentration of the organism in blood may be lowor non-existent in patients with Lyme disease, and maydepend on timing of specimen collection from onset ofsymptoms. Clinical correlation is recommended andadditional studies such as serologic testing may beindicated.THIS TEST WAS PERFORMED AT:[facility] [place] [phone] GLASGOW MD 09/12/2024 9:34 AM EDT 09/12/2024 11:45 AM EDT Angelo Ley MD LAB BLOOD ORDERABLES Final Resul t [facility] [address] [place] [phone] [phone] * Vitamin D, 25-Hydroxy, Total, Immunoassay (09/12/2024 8:34 AM EDT) Vitamin D 25-OH Total 37.1 >30 ng/mL [facility] Comment: Health Based Reference Values*< 20 ??ng/mL ??Pdjnwamwq58-65 ng/mL ??Insufficient> 30 ??ng/mL ??Sufficient*Bo MORRISON. N [...] ORDERABLES Fin al Result Performing Organization Address [facility] Co de Phone Number [facility] [address] [place] [phone] * Vitamin B12/Folate, Serum Panel (09/12/2024 8:34 AM EDT) Vitamin B12 313 200 - 900 pg/mL [facility] Comment:NORMAL 200-900 PG/ML INDETERMINATE 160-199 PG/ML DEFICIENT < 160 PG/ML Folate 10.6 > or = 4.0 ng/mL [facility] Comment:Reference Values:> o r = [...] ORDERABLES Final Resul t Performing Organization Address [facility] Co de Phone Number [facility] [address] [place] [address] [phone] * (ABNORMAL) Lipid Panel with Reflex to Direct LDL (09/12/2024 8:34 AM EDT) Triglycerides 128 <150 mg/dL [facility] Comment:Desirable Triglyceri de: less than 150 mg/dLBorderline High Triglyceride 150-199 mg/dLHigh Triglyceride: 200-499 mg/dLVery High Triglyceride: greater than or equal to 5OO mg/dL Cholesterol 195 <200 mg/dL [facility] Comment:Desirable Cholestero l: less than 200 mg/dLBorderline High Cholesterol: 200-239 mg/dLHigh Cholesterol: greater than 239 mg/dL LDL Cholesterol Calculated 136(H) <100 mg/dL [facility] Comment:Desirable LDL: less than 100 mg/dLNear Optimal/Above Optimal LDL: 110- 129 mg/dLBorderline High LDL: 130-159 mg/dLHigh LDL: 160-189 mg/dLVery High LDL: greater than or equal to 190 mg/dL HDL Cholesterol 34(L) >40 mg/dL [facility] Comment:Desirable HDL: great er than 40 mg/dL Note: This HDL assay may give artificially low results in patients with liver disease. Blood 09/12/2024 8:34 AM EDT 09/12/2024 11:45 AM EDT us Lit Simental MD LAB BLOOD ORDERABLES Fin al Result [facility] [address] [place] [phone] * CBC auto differential (09/12/2024 8:34 AM EDT) White Blood Count 7.6 4.8 - 10.8 X10*3/uL [facility] Red Blood Count 4.96 4.60 - 5.80 X10*6/uL [facility] Hemoglobin 14.4 14.0 - 18.0 g/dl [facility] Hematocrit 42.4 42.0 - 52.0 % [facility] Mean Corpuscular Volume 85.5 80.0 - 98.0 fL [facility] Mean Corpuscular Hemoglobin 29.0 27.0 - 33.0 pg [facility] Mean Corpuscular HGB Conc 34.0 31.0 - 36.0 g/dl [facility] Red Cell Distribution Width 12.4 11.0 - 16.0 % [facility] Platelet Count 230 160 - 400 X10*3/uL [facility] Mean Platelet Volume 9.7 9.4 - 12.4 fL [facility] Neutrophils Percent Auto 61.9 45 - 73 % [facility] Imm Gran Pct Auto 0.3 0.0 - 0.4 % [facility] Lymphocytes Percent Auto 29.2 20 - 40 % [facility] Monocytes Percent Auto 7.0 2 - 11 % [facility] Eosinophils Percent Auto 1.3 0 - 4 % [facility] Basophils Percent Auto 0.3 0 - 2 % [facility] NRBC Pct Auto 0.0 0.0 - 0.2 /100WBC [facility] Neutrophils Absolute Auto 4.7 2.0 - 8.3 x10*3/uL [facility] Imm Gran Abs Auto 0.02 0.00 - 0.03 X10*3/uL [facility] Lymphocytes Absolute Auto 2.2 1.2 - 4.9 X10*3/uL [facility] Monocytes Absolute Auto 0.5 0.1 - 1.2 X10*3/uL [facility] Eosinophils Absolute Auto 0.1 0.0 - 0.4 X10*3/uL [facility] Basophils Absolute Auto 0.0 0.0 - 0.2 X10*3/uL [facility] NRBC Abs Auto 0.000 0.0 - 0.012 X10*3/uL [facility] Blood Venous blood specimen / Unknown 09/12/2024 8:34 AM EDT 09/12/2024 11:45 AM EDT Angelo Ley MD LAB BLOOD ORDERABLES Final Resul t [facility] [address] [place] [phone] * Hm Colonoscopy (05/20/2021 1:52 PM EST) Colonoscopy Normal Normal Narrative CarlotaLindsey meyer - 05/20/2021 1:52 PM EST Recommended 3 year follow up Historical Provider HEALTH MAINTENANCE Edited Result - Final from Last 3 Months or Most Recently Relevant to Health Maintenance Insurance [facility] C3 HSN PARTIAL DENTAL-[facility] MEDICAID STAND ADULT Care Teams Train Inspector Relationship Specialty Start Date End Date Lit Simental MD [address] [place] [phone] PCP - General Internal Medicine 03/06/24
--- OUTSIDE RECORDS SUMMARY | 2024-11-02 11:29 | XMS_ITS | Encounter Summary ---
Author Organization [employer] Address [address] [facility] 7t [place] [address] Care Team Providers Care Stretch Machine Operator Name Role Phone Mervat Simental MD Primary Care Provider + Reason for Visit * Reason Onset Date Comments Results 11/01/2024 Encounter Details Date Type Department Care Team ([facility] st Contact Info) Description 11/01/2024 Telephone [facility] [address] [place] [address] Concha Cortez RN [address] [place] [address] Results Social History Tobacco Use Types Packs/Day Years [...] Telephone Encounter - Concha Cortez RN - 11/01/2024 2:33 PM EDT TC placed to pt. Informed pt. Brain MRI from 10/18/14 came back showing mild cerebral atrophy which can occur with aging but would not be expected at pt.'s age and may have been precipitated by smoking and drinking alcohol. Pt. Reports he has completely stopped drinking and smoking marijuana. Advised pt. PCP would like pt. To see neurologist and appt. Has already been scheduled with Dr. Cespedes for11/14/24 and this information was sent in the mail to him yesterday. Pt. States this appt. Date/ time will work well for him. Pt. Will also be seeing pt. Tomorrow 11/02/24. documented in this encounter Plan of Treatment Upcoming Encounters Date Type Department Care Team (Late st Contact Info) Description 11/05/2024 10:30 AM EDT Office Visit [facility] OPTOMETRY [address] [place] [address] Jessica Curtis, OD [address] [place] [address] 11/05/2024 2:30 PM EDT Office Visit [facility] ADULT DENTAL [address] [place] [address] Saman Rodriguez, DMD [address] [place] [address] 11/12/2024 2:00 PM EDT Office Visit [facility] DENT[facility] [address] [place], [place] [phone] Farnaz Hernández, DDS [address] [place] [address] 03/07/2025 10:00 AM EDT Office Visit [facility] [address] [place] [address] Larisa Antunez documented as of this encounter Visit Diagnoses Not on filedocumented in this encounter Additional Health Concerns Assessment Noted Time PHQ-9 Depression Total Score: 10 024 11:48 AM EST documented as of this encounter Care Teams Stretch Machine Operator Relationship Specialty Start Date End Date Mervat Simental MD [address] [place] [address] PCP - General Internal Medicine 03/06/24 documented as of this encounter
--- OUTSIDE RECORDS SUMMARY | 2024-11-02 11:29 | XMS_ITS | Encounter Summary ---
Author Organization [employer] Address [address] [facility] [address] [place] [address] Care Team Providers Care Test Baker Name Role Phone Mervat Simental MD Primary Care Provider + Reason for Referral * Consultation (Routine) - Authorized Specialty Diagnoses / Procedures Referred By Contmatt t Referred To Contact Neurology Diagnoses Memory impairment of gradual onset Mervat Simental MD [address] [place] [phone] Phone: tel: fax: Luisito Cespedes MD [address] [place] [address] [place] [address] Phone: tel: fax: Referral ID Status Reason Start Date Expiration Date Visits Requested Visits Authorized [id number] Authorized Specialty Services Required 10/30/2024 10/30/2025 6 6 Encounter Details Date Type Department Care Team (Late st Contact Info) Description 10/30/2024 Orders Only [facility] [address] [place] [address] [phone] Mervat Simental MD [address] [place], [place] [phone] Memory impairment of gradual onset (Primary Dx) Social History Tobacco Use Types [...] Description 11/05/2024 10:30 AM EDT Office Visit [facility] [address] [place] [address] Ever, Jessica, OD [address] [place] [address] 11/05/2024 2:30 PM EDT Office Visit [facility] [address] [place], [place] [phone] Saman Rodriguez, DMD [address] [place] [address] 11/12/2024 2:00 PM EDT Office Visit [facility] [address] [place], [place] [phone] Hutchison-Aaron, Farnaz, DDS [address] [place], [place] [phone] 03/07/2025 10:00 AM EDT Office Visit [facility] [address] [place], [place] [phone] Larisa Antunez Scheduled Referrals Name Type Priority Associated Diagnoses Orde r Schedule Referral to Neurology Outpatient Referral Routine Memory impairment of gradual onset Expected: 10/30/2024 (Approximate), Expires: 10/30/2025 documented as of this encounter Visit Diagnoses Diagnosis Memory impairment of gradual onset- Primary documented in this encounter Additional Health Concerns Assessment Noted Time PHQ-9 Depression Total Score: 10 024 11:48 AM EST documented as of this encounter Care Teams Test Baker Relationship Specialty Start Date End Date Mervat Simental MD [address] [place], [place] [phone] PCP - General Internal Medicine 03/06/24 documented as of this encounter
--- OUTSIDE RECORDS SUMMARY | 2024-11-02 11:29 | XMS_ITS | Encounter Summary ---
Author Organization [employer] Address [address] [place] [address] [address] [place] [address] Care Team Providers Care Supervisor Farm Equipment Maintenance Name Role Phone Diane Gutierrez Primary Care Provider [phone] Diane Gutierrez Primary Care Provider [phone] Diane Gutierrez Primary Care Provider [phone] Diane Gutierrez Primary Care Provider [phone] Mervat Simental MD Primary Care Provider + Encounter Details Date Type Department Care Team (Late st Contact Info) Description 12/15/2022 Abstract [facility] [address] [place], [place] [phone] Diane Gutierrez FNP [address] [place], [place] [phone] Social History Tobacco Use Types Packs/Day Years [...] Recorded In the last 10 days, have joyce u been in contact with someone who was confirmed or suspected to have Coronavirus/COVID-19? No / Unsure 12/08/2022 2:52 PM EDT documented as of this encounter Plan of Treatment Upcoming Encounters Date Type Department Care Team (Late st Contact Info) Description 11/05/2024 10:30 AM EDT Office Visit [facility] OPTOMETRY [address] [place] [address] Jessica Curtis, OD [address] [place] [address] 11/05/2024 2:30 PM EDT Office Visit [facility] ADULT DENTAL [address] [place] [address] Saman Rodriguez, DMD [address] [place] [address] 11/12/2024 2:00 PM EDT Office Visit [facility] ADULT DENTAL [address] [place] [address] Hutchison-AraonRajendraFarnaz, DDS [address] [place] [address] 03/07/2025 10:00 AM EDT Office Visit [facility] ADULT DENTAL [address] [place] [address] Larisa Antunez documented as of this encounter [...] as of this encounter Care Teams Supervisor Farm Equipment Maintenance Relationship Specialty Start Date End Date Diane Gutierrez FNP [address] [place] [address] PCP - General Family Medicine 05/31/22 01/26/24 Diane Gutierrez FNP [address] [place] [address] PCP - General Family Medicine 01/27/24 01/29/24 Diane Gutierrez FNP [address] [place] [address] PCP - General Family Medicine 01/30/24 02/02/24 Diane Gutierrez FNP [address] [place] [address] PCP - General Family Medicine 02/03/24 03/05/24 Mervat Simental MD [address] [place] [address] PCP - General Internal Medicine 03/06/24 documented as of this encounter
--- OUTSIDE RECORDS SUMMARY | 2024-11-02 11:29 | XMS_ITS | Encounter Summary ---
Author Organization [employer] Address [address] [facility] 7t [place] [address] Care Team Providers Care Retail Associate Manager Bilingual Name Role Phone Diane Gutierrez Primary Care Provider [phone] Mervat Simental MD Primary Care Provider + Reason for Visit * Reason Onset Date Comments Appointment Request 02/21/2024 Encounter Details Date Type Department Care Team ([facility] st Contact Info) Description 02/21/2024 Telephone [facility] MEDICINE [address] [place] [address] Diane Gutierrez FNP [address] [place], [place] [phone] Appointment Request Social History Tobacco Use Types [...] - 02/21/2024 3:08 PM EDT T/C to [facility] general surgery on [phone] Obdulia for below message, as per Obdulia, pt's procedure date is not decided yet and will give call to [facility] to schedule Pre-op clearance. * Telephone Encounter - Yisel Aiken - 02/21/2024 10:19 AM EDT Tc from [facility] requesting a medical luis alfredo for pt for an upcoming procedure Hemmaroidectomy documented in this encounter Plan of Treatment Upcoming Encounters Date Type Department Care Team (Late st Contact Info) Description 11/05/2024 10:30 AM EDT Office Visit [facility] OPTOMETRY [address] [place] [address] Jessica Curtis, OD [address] [place] [address] 11/05/2024 2:30 PM EDT Office Visit [facility] ADULT DENTAL 230 [place] [address] Saman Rodriguez, DMD [address] [place] [address] 11/12/2024 2:00 PM EDT Office Visit [facility] ADULT DENTAL [address] [place] [address] Farnaz Hernández, DDS [address] [place] [address] 03/07/2025 10:00 AM EDT Office Visit [facility] ADULT DENTAL [address] [place] [address] Larisa Antunez documented as of this encounter Visit Diagnoses Not on filedocumented in this encounter Additional Health Concerns Assessment Noted Time PHQ-9 Depression Total Score: 10 024 11:48 AM EST documented as of this encounter Care Teams Retail Associate Manager Bilingual Relationship Specialty Start Date End Date Diane Gutierrez FNP [address] [place] [address] PCP - General Family Medicine 02/03/24 03/05/24 Mervat Simental MD [address] [place] [address] PCP - General Internal Medicine 03/06/24 documented as of this encounter
--- OUTSIDE RECORDS SUMMARY | 2024-11-02 11:29 | XMS_ITS | Encounter Summary ---
Author Organization [employer] Address 75 [facility] 7t [place] [address] Care Team Providers Care Canvas Repairer Name Role Phone Mervat Simental MD Primary Care Provider + Encounter Details Date Type Department Care Team ([facility] st Contact Info) Description 11/02/2024 9:45 AM EDT Office Visit [facility] MEDICINE [address] [place], [place] [phone] Mervat Simental MD [address] [place] [address] Other headache syndrome (Primary Dx); Memory impairment of gradual onset; Mixed anxiety and depressive disorder Social History Tobacco Use Types Packs/Day Years [...] 21 11/02/2024 9:37 AM EDT Oxygen Saturation - - Inhaled Oxygen Concentration - - Weight 121 kg (266 lb 8 oz) 11/02/2024 9:37 AM E DT Height 170.2 cm (5' 7 ) 11/02/2024 9:37 AM EDT Body Mass Index 41.74 11/02/2024 9:37 AM EDT documented in this encounter Plan of Treatment Upcoming Encounters Date Type Department Care Team (Late st Contact Info) Description 11/05/2024 10:30 AM EDT Office Visit [facility] OPTOMETRY [address] [place] [address] Jessica Curtis, OD [address] [place] [address] 11/05/2024 2:30 PM EDT Office Visit [facility] ADULT DENTAL [address] [place] [address] Saman Rodriguez, BRISSA [address] [place] [address] 11/12/2024 2:00 PM EDT Office Visit [facility] ADULT DENTAL [address] [place] [address] Hutchison-Aaron, Farnaz, DDS [address] [place] [address] 03/07/2025 10:00 AM EDT Office Visit [facility] ADULT DENTAL [address] [place] [address] Larisa Antunez documented as of this encounter Visit Diagnoses Diagnosis Other headache syndrome- Primary Memory impairment of gradual onset Mixed anxiety and depressive disorder Dysthymic disorder documented in this encounter Additional Health Concerns Assessment Noted Time PHQ-9 Depression Total Score: 10 024 11:48 AM EST documented as of this encounter Care Teams Canvas Repairer Relationship Specialty Start Date End Date Mervat Simental MD [address] [place] [address] PCP - General Internal Medicine 03/06/24 documented as of this encounter
--- OUTSIDE RECORDS SUMMARY | 2024-11-02 11:29 | XMS_ITS | Encounter Summary ---
Author Organization [employer] Address 75 [facility] 7t [place] [address] Care Team Providers Care Cement Block Maker Name Role Phone Diane Gutierrez Primary Care Provider [phone] Diane Gutierrez Primary Care Provider [phone] Diane Gutierrez Primary Care Provider [phone] Diane Gutierrez Primary Care Provider [phone] Mervat Simental MD Primary Care Provider + Reason for Visit * Reason Onset Date Comments triage 11/04/2022 Encounter Details Date Type Department Care Team (Late st Contact Info) Description 11/04/2022 Telephone [facility] MEDICINE [address] [place] [address] Diane Gutierrez FNP [address] [place] [address] triage Social History Tobacco Use Types Packs/Day [...] 10:30 AM EDT Office Visit [facility] OPTOMETRY [address] [place] [address] EverJessica faulkner, OD [address] [place] [address] 11/05/2024 2:30 PM EDT Office Visit [facility] ADULT DENTAL [address] [place] [address] Saman Rodriguez, BRISSA [address] [place] [address] 11/12/2024 2:00 PM EDT Office Visit [facility]ULT [facility]AL [address] [facility] [place] [address] Hutchison-Aaron, Farnaz, DDS [address] [facility] [place] [address] 03/07/2025 10:00 AM EDT Office Visit [facility] ADULT DENTAL [address] [place] [address] Larisa Antunez documented as of this encounter Visit Diagnoses Not on filedocumented in this encounter Care Teams Cement Block Maker Relationship Specialty Start Date End Date Diane Gutierrez FNP [address] [facility] [place] [address] PCP - General Family Medicine 05/31/22 01/26/24 Diane Gutierrez FNP [address] [place] [address] PCP - General Family Medicine 01/27/24 01/29/24 Diane Gutierrez FNP [address] [facility] [place] [address] PCP - General Family Medicine 01/30/24 02/02/24 Diane Gutierrez FNP [address] [place] [address] PCP - General Family Medicine 02/03/24 03/05/24 Mervat Simental MD [address] [facility] [place] [address] PCP - General Internal Medicine 03/06/24 documented as of this encounter
--- OUTSIDE RECORDS SUMMARY | 2024-11-02 11:29 | XMS_ITS | Encounter Summary ---
Author Organization [employer] Address 75 [facility] 7t [place] [address] Care Team Providers Care Production Solderer Name Role Phone Mervat Simental MD Primary Care Provider + Reason for Visit * Reason Onset Date Comments Nurse Triage 10/03/2024 Encounter Details Date Type Department Care Team ([facility] st Contact Info) Description 10/03/2024 Telephone [facility] MEDICINE [address] [place], [place] [phone] Mervat Simental MD [address] [place], [place] [phone] Nurse Triage Social History Tobacco Use Types [...] EDT Triage call Pt reports was in [facility] and was given 200pm apt in [facility] and was upset and walked out. Pt is calling for triage at this time. Pt reports generalized symptoms of headache which is mainly over congregational areas across forehead more on right side, [...] with lack of follow through in the [facility]. Pt reports stopped marijuana use last [...] Pt no longer has job which had [employer] insurance. Protocol Used: Weakness (Generalized) and Fatigue [...] Pt reported brain fog Contact pt at [phone] documented in this encounter Plan of Treatment Upcoming Encounters Date Type Department Care Team (Late st Contact Info) Description 11/05/2024 10:30 AM EDT Office Visit [facility] OPTOMETRY [address] [place] [address] EverJessica faulkner, OD [address] [place] [address] 11/05/2024 2:30 PM EDT Office Visit [facility] ADULT DENTAL [address] [place] [address] Saman Rodriguez, DMD [address] [place] [address] 11/12/2024 2:00 PM EDT Office Visit [facility] ADULT DENTAL [address] [place] [address] Farnaz Hernández, DDS [address] [place] [address] 03/07/2025 10:00 AM EDT Office Visit [facility] ADULT DENTAL [address] [place] [address] Larisa Antunez documented as of this encounter Visit Diagnoses Not on filedocumented in this encounter Additional Health Concerns Assessment Noted Time PHQ-9 Depression Total Score: 10 024 11:48 AM EST documented as of this encounter Care Teams Production Solderer Relationship Specialty Start Date End Date Mervat Simental MD [address] [place] [address] PCP - General Internal Medicine 03/06/24 documented as of this encounter
--- OUTSIDE RECORDS SUMMARY | 2024-11-02 11:29 | XMS_ITS | Clinical Summary ---
Author Organization [address] [facility] Address [address] [place] [address] Phone Care Team Providers Care Financial Systems Administrator Name Role Phone Brent Saul HANH Primary Care Provider [phone] Social History Tobacco Use Types Packs/Day Years Used Date Smoking Tobacco: Never Assessed Sex and Gender Information Value Date Recorded Sex Assigned at Not on file Legal Sex Male 7:16 AM EDT Gender Identity Not on file Sexual Orientation Not on file Plan of Treatment Upcoming Encounters Date Type Department Care Team ([facility] Contact Info) Description 11/22/2024 10:30 AM EDT Consult Orthopedic Surgery - [place] [address] [phone] Jeancarlos Spear, DPM [address] [address] Health Maintenance Due Date Last Done Comments [...] topic Insurance MEDICAID - [place] Care Teams Financial Systems Administrator Relationship Specialty Start Date End Date Saul Kennedy NP [address] [place] [address] PCP - General Family Medicine 09/18/24
--- OUTSIDE RECORDS SUMMARY | 2024-11-02 11:29 | XMS_ITS | Encounter Summary ---
Author Organization [employer] Address 75 [facility] 7 [place] [address] Care Team Providers Care Coremaker Bench Name Role Phone Mervat Simental MD Primary Care Provider + Reason for Visit * Reason Onset Date Comments Med Refill 03/26/2024 Encounter Details Date Type Department Care Team (Late st Contact Info) Description 03/26/2024 Refill [facility] MEDICINE [address] [place] [address] Diane Gutierrez FNP [address] [place] [address] Primary hypertension; Benign prostatic hyperplasia, unspecified whether [...] Description 11/05/2024 10:30 AM EDT Office Visit [facility] OPTOMETRY [address] [place] [address] Ever, Jessica, OD [address] [place] [address] 11/05/2024 2:30 PM EDT Office Visit [facility] ADULT DENTAL [address] [place] [address] Saman Rodriguez, DMD [address] [place] [address] 11/12/2024 2:00 PM EDT Office Visit [facility] ADULT DENTAL [address] [place] [address] Hutchison-Aaron, Farnaz, DDS [address] [place] [address] 03/07/2025 10:00 AM EDT Office Visit [facility] ADULT DENTAL [address] [place] [address] Larisa Antunez documented as of this encounter Visit Diagnoses Diagnosis Primary hypertension Unspecified essential hypertension Benign prostatic hyperplasia, unspecified whether lower urinary tract symptoms present documented in this encounter Additional Health Concerns Assessment Noted Time PHQ-9 Depression Total Score: 10 024 11:48 AM EST documented as of this encounter Care Teams Coremaker Bench Relationship Specialty Start Date End Date Mervat Simental MD [address] [place] [address] PCP - General Internal Medicine 03/06/24 documented as of this encounter
[2024-11-02 11:53] LABS: Gamma Glutamyl Transpeptidase 28 U/L (11-51); Lactate Dehydrogenase 185 U/L (118-273)
[2024-11-02 12:07] LABS: Ferritin 519 ng/mL (20-250)
[2024-11-02 12:08] LABS: Vitamin D 25-OH Total 19.9 ng/mL (>30)
[2024-11-05 16:03] LABS: Anti Nuclear Antibody Pattern Nuclear, Speckled; Anti Nuclear Antibody Screen POSITIVE (NEGATIVE); Anti Nuclear Antibody Titer 1:40 titer
[2024-11-09 09:18] LABS: Testosterone, Free 63.8 pg/mL (35.0-155.0); Testosterone, Total 324 ng/dL (250-1100)
== END 2024-11-02 10:25 | disposition home or self-care (01) ==
LOC: HO.HHCL 10:24
PROVIDERS: Family Medicine; Visit Provider Internal Medicine
DX: R79.89 Other specified abnormal findings of blood chemistry (principal); R53.83 Other fatigue; R41.3 Other amnesia
CPT/HCPCS: 36415; 81256; 82306; 82728; 82977; 83615; 84402; 84403; 84443; 86038; 86039

== ENCOUNTER 2024-11-14 14:11 | Outpatient (REF) | payer MEDICAID, SELFPAY ==
--- OUTSIDE RECORDS SUMMARY | 2024-11-14 14:14 | XMS_ITS | Clinical Summary ---
Author Organization 175 [facility] Address [address] [place] [address] Phone Care Team Providers Care Copy Center Specialist Name Role Phone Brent Saul HANH Primary Care Provider [phone] Social History Tobacco Use Types Packs/Day Years Used Date Smoking Tobacco: Never Assessed Sex and Gender Information Value Date Recorded Sex Assigned at Not on file Legal Sex Male 7:16 AM EDT Gender Identity Not on file Sexual Orientation Not on file Plan of Treatment Upcoming Encounters Date Type Department Care Team ([facility] Contact Info) Description 11/22/2024 10:30 AM EDT Consult Orthopedic Surgery - [place] [address] [phone] Jeancarlos Spear, DPM [address] [address] Health Maintenance Due Date Last Done Comments [...] topic Insurance MEDICAID - [place] Care Teams Copy Center Specialist Relationship Specialty Start Date End Date Saul Kennedy NP [address] [place] [address] PCP - General Family Medicine 09/18/24
[2024-11-14 15:23] LABS: Thyroid Stimulating Hormone 1.21 uIU/mL (0.32-4.0)
[2024-11-14 15:29] LABS: Vitamin B12 302 pg/mL (200-900)
== END 2024-11-14 14:12 | disposition home or self-care (01) ==
LOC: HO.LAB 14:11
PROVIDERS: PCP Internal Medicine; Visit Provider Psychiatry & Neurology Neurology
DX: G31.84 Mild cognitive impairment of uncertain or unknown etiology (principal)
CPT/HCPCS: 36415; 82607; 84443

== ENCOUNTER → 2024-12-10 10:20 | Outpatient (BNV) | payer MEDICAID, SELFPAY | PROVIDERS: PCP Internal Medicine; Visit Provider Internal Medicine | DX: R79.89 Other specified abnormal findings of blood chemistry (principal) | CPT/HCPCS: 99204 ==

== ENCOUNTER 2024-12-20 10:04 | Outpatient (REF) | payer MEDICAID, SELFPAY | END 2024-12-20 10:05 | disposition home or self-care (01) | LOC: HO.BBR 10:04 | PROVIDERS: PCP Internal Medicine; Visit Provider Internal Medicine | DX: Z13.89 Encounter for screening for other disorder (principal) ==

== ENCOUNTER 2024-12-29 05:58 | Emergency (ER) | payer MEDICAID, SELFPAY ==
[2024-12-29] VITALS (11 sets, daily range): BP systolic 99–126; BP diastolic 62–82; PULSE 65–101; RESP 12–20; TEMP 36.1–36.8; O2SAT 96–100; BMI 41.0
--- NOTE | 2024-12-29 | ECG_ITS ---
Test Reason : ?AFIB Blood Pressure : */* mmHG Vent. Rate : 69 BPM Atrial Rate : * BPM P-R Int : * ms QRS Dur : 94 ms QT Int : 362 ms P-R-T Axes : * -16 25 degrees QTcB Int : 387 ms Atrial fibrillation Incomplete right bundle branch block Inferior infarct , age undetermined Abnormal ECG No previous ECGs available Referred By: Edith Galeas Electronically Signed By: AMBERLY STEELE MD
--- NOTE | 2024-12-29 07:32 | ECG_ITS ---
Test Reason : AFIB Blood Pressure : */* mmHG Vent. Rate : 77 BPM Atrial Rate : * BPM P-R Int : * ms QRS Dur : 96 ms QT Int : 358 ms P-R-T Axes : * -10 38 degrees QTcB Int : 405 ms Atrial fibrillation Low voltage QRS Incomplete right bundle branch block Inferior infarct (cited on or before 29-Dec-2024) Abnormal ECG When compared with ECG of 29-Dec-2024 06:18, No significant change was found Referred By: Edith Galeas Electronically Signed By: DARCY MATIAS
[2024-12-29 07:33] LABS: MANUAL DIFF FLAG NO
--- NOTE | 2024-12-29 07:33 | ED.ARRPALP ---
HPI - Arrhythmia/Palpitations General Chief Complaint: Arrhythmia/Palpitations Stated Complaint: Afib? Time Seen by Provider: 12/29/24 07:10 Source: patient Mode of arrival: ambulatory Limitations: no limitations History of Present Illness ED Provider: DR. Galeas HPI narrative: 54-year-old male past medical history significant for obesity, hypertension On lisinopril,came to the emergency department after felt palpitation started 3 a.m. feels his heart is beating irregular described as flip-flops, no chest discomfort or chest pain, no shortness of breath, no feeling of passing out, no PND, no subjective lower extremity swelling. Patient had a prior cardiology evaluation with 7 days Holter monitor ( 08/19/2023 ) which did not detect any type of dysrhythmia Related Data Home Medications ?Medication ?Instructions ?Recorded ?Confirmed lisinopril 10 mg tablet 10 mg PO DAILY 04/01/21 12/10/24 tamsulosin 0.4 mg capsule 0.4 mg PO DAILY 04/01/21 12/10/24 fluticasone propionate 50 2 spray intranasal DAILY 04/28/21 12/10/24 mcg/actuation nasal spray,suspension cetirizine 10 mg tablet 10 mg PO BID 09/08/23 12/10/24 hydrocortisone 2.5 % topical cream 2.5 appl SC BID 09/08/23 12/10/24 with perineal applicator (Proctozone-HC) docusate sodium 100 mg capsule 100 mg PO BID PRN constipation 02/20/24 12/10/24 finasteride 1 mg tablet 1 mg PO DAILY 02/20/24 12/10/24 hydrocortisone acetate 25 mg 25 mg SC BID 02/20/24 12/10/24 rectal suppository Previous Rx's ?Medication ?Instructions ?Recorded sennosides 8.6 mg tablet (Natural 8.6 mg PO BEDTIME constipation #90 01/31/23 Senna Laxative) tabs famotidine 40 mg tablet 40 mg PO BEDTIME #90 tabs 07/05/23 docusate sodium 100 mg capsule 100 mg PO BID #60 caps 03/09/24 (Colace) ibuprofen 600 mg tablet 600 mg PO Q6H PRN pain #30 tabs 03/09/24 oxycodone-acetaminophen 5 mg-325 1 tab PO Q4-6H PRN pain #25 tabs 03/09/24 mg tablet (Percocet) Allergies Allergy/AdvReac Type Severity Reaction Status Date / Time No Known Allergies (No Known Allergy Verified 12/29/24 06:02 Allergies*) Review of Systems Review of Systems: all other systems are reviewed and are negative Constitutional: Reports as per HPI and Reports no additional constitutional complaints Eyes: Reports as per HPI and Reports no additional eye complaints Reports system reviewed and no additional complaints, except as documented Cardiovascular: Reports as per HPI and Reports no additional cardiovascular complaints Respiratory: Reports as per HPI and Reports no additional respiratory complaints Gastrointestinal: Reports as per HPI and Reports no additional gastrointestinal complaints Genitourinary: Reports no additional female genitourinary complaints Musculoskeletal: Reports no additional musculoskeletal complaints Skin/Breast: Reports system reviewed and no additional complaints, except as docu Psychiatric: Reports no additional psychiatric complaints Endocrine: Reports no additional endocrine complaints Hematologic/Lymphatic: Reports no additional hematologic/lymphatic complaints Allergic/Immunologic: Reports no additional allergic/immunologic complaints Reports system reviewed and no additional complaints, except as documented and Reports Abnormal speech present [facility] Past Medical History Medical History Bradycardia Sleep apnea Bleeding hemorrhoids Tubular adenoma History of snoring History of alcohol abuse Allergic rhinitis History of MRSA infection Anxiety and depression Urinary (tract) obstruction HTN (hypertension) Surgical History History of hemorrhoidectomy (~03/09/24) Hx of esophagogastroduodenoscopy Hx of colonoscopy History of cystoscopy Hx of cholecystectomy Family History Family History Mother Cancer Social History Social History Household Members: None Housing: House Alcohol intake: current Patient Tobacco Use Status: Never used Tobacco Substance Use Type: Marijuana Advance Directives: No Advance Directives Information Provided: Yes service: No 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 Blood pressure elevated. Heart rate normal. Respiratory rate normal. Temperature normal. Oxygen saturation normal. Appearance: Alert. Oriented X3. No acute distress. Head: Normal external exam. Normocephalic. Atraumatic. No Vale signs noted. No raccoon eyes noted Eyes: PERRLA. EOMI. Conjunctiva and sclera normal. Eyelids normal. ENT: TM's Normal. Pharynx normal. Uvula midline. Moist mucous membranes. No trismus noted. No drooling noted. No muffled voice noted. Neck: Normal inspection. Neck supple. FROM. No adenopathy. Thyroid Normal. No meningeal signs. No neck mass noted. CVS: Normal heart rate and rhythm. Heart sound normal. No murmurs noted. Pulses normal throughout. Respiratory: No respiratory distress. Painless inspiration. Breath sounds normal. No wheezes/rales/rhonchi noted. Chest nontender. No accessory muscle usage noted or decreased air movement noted. Abdomen: Soft and nontender. Bowel sounds normal in all 4 quadrants. No distention noted. No organomegaly noted. No visible injury noted. Back: No CVA tenderness. Full range of motion noted. Skin: Skin warm and dry. Normal skin color. Normal skin turgor. No rashes/lesions/lacerations noted. Extremities: No lower extremity edema. Extremities exhibit normal range of motion. Extremities nontender. Neuro: Oriented X 3. Cranial nerve exam: II-XII are grossly intact No motor deficit. No sensory deficit. Reflexes normal. Course Reevaluation(s) Reevaluation #1: new onset of atrial fibrillation with controlled ventricular rate, patient had a recent echocardiogram showed normal LV EF with no significant valvular finding, patient also had a week of Holter monitoring with PACs. Dr. De Los Santos was consulted in the emergency department recommended to give a dose of flecainide and dose of Eliquis. Patient converted into normal sinus rhythm, patient has no palpitation, no chest pain, no shortness of breath. Dr. De Los Santos recommended to discharge the patient on no medication, Initially Dr. De Los Santos recommended Eliquis for 1 month because patient's symptoms lasted for less than 12 hours he said no Eliquis is indicated at this point. Repeat neuro exam shows no a evidence of strokes. Time: 14:38 Medications Administered Discontinued Medications Generic Name Dose Route Start Last Admin Trade Name Yumiko PRN Reason Stop Dose Admin Apixaban 5 mg 12/29/24 09:35 12/29/24 10:32 Apixaban 5 Mg Tablet PO 12/29/24 09:36 5 mg ONCE ONE Administration Flecainide Acetate 300 mg 12/29/24 09:35 12/29/24 10:32 Flecainide Acetate 50 Mg Tablet PO 12/29/24 09:36 300 mg ONCE ONE Administration Medical Decision Making Differential Diagnosis Differential Diagnoses: The differential diagnosis associated with the presentation includes ( ACS, dysrhythmia, electrolyte derangement, severe anemia, CHF.) Admission/Observation Consideration of admission/observation: Escalation of care including admission/observation considered Consult Healthcare Provider Management of the patient was discussed with: Housetrailer Servicer ( Dr. De Los Santos) Lab Data MDM Lab Attestation statement: I reviewed the patient's lab results. 12/29/24 07:27 12/29/24 07:27 Labs: Lab Results 12/29/24 12/29/24 12/29/24 Range/Units 07:27 08:51 12:04 WBC 8.0 (4.8-10.8) X10*3/uL RBC 4.79 (4.60-5.80) X10*6/uL Hgb 14.3 (14.0-18.0) g/dl Hct 40.1 L (42.0-52.0) % MCV 83.7 (80.0-98.0) fL MCH 29.9 (27.0-33.0) pg MCHC 35.7 (31.0-36.0) g/dl RDW 12.9 (11.0-16.0) % Plt Count 198 (160-400) X10*3/uL MPV 9.2 L (9.4-12.4) fL Immature Gran % (Auto) 0.4 (0.0-0.4) % Neut % (Auto) 67.1 (45-73) % Lymph % (Auto) 23.1 (20-40) % [place] % (Auto) 7.7 (2-11) % Eos % (Auto) 1.3 (0-4) % Baso % (Auto) 0.4 (0-2) % Lymph # (Auto) 1.8 (1.2-4.9) X10*3/uL [place] # (Auto) 0.6 (0.1-1.2) X10*3/uL Eos # (Auto) 0.1 (0.0-0.4) X10*3/uL Baso # (Auto) 0.0 (0.0-0.2) X10*3/uL Abs Immat Gran (auto) 0.03 (0.00-0.03) X10*3/uL Absolute Neuts (auto) 5.4 (2.0-8.3) x10*3/uL Absolute Nucleated RBC 0.000 (0.0-0.012) X10*3/uL Nucleated RBC % (auto) 0.0 (0.0-0.2) /100WBC PT 11.8 (10.9-12.4) SEC INR 1.0 (0.9-1.1) Sodium 142 (135-145) mmol/L Potassium 4.1 (3.3-5.1) mmol/L Chloride 109 H (96-108) mmol/L Carbon Dioxide 24 (22-29) mmol/L Anion Gap 13 (12-20) BUN 13 (9-16) mg/dL Creatinine 0.75 (0.5-1.4) mg/dL Estim Creat Clear Calc 138.8 Estimated GFR > 60 Random Glucose 108 (60-115) mg/dL Calcium 9.1 (8.4-10.2) mg/dL Magnesium 2.1 (1.6-2.6) mg/dL Iron 71 (45-160) mcg/dL TIBC 213 L (228-428) mcg/dL % Saturation 33 (15-50) % Unsat Iron Binding 142 ug/dL Troponin I High Sens 4.4 < 2.7 (<3.5-35.0) ng/L B-Natriuretic Peptide 124 H (<100) pg/mL Independent Interpretation I performed an independent interpretation of an: EKG ( EKG 1. atrial fibrillation at 77 beats per minutes, normal intervals, no ST-T changes. EKG 2. Normal sinus rhythm at 64, normal intervals, no ST-T changes.) Critical Care Time Critical Care Time Critical Care Time: Yes Total Critical Care Time: 60 Attestation: The patient was critically ill with a high probability of imminent or life-threatening deterioration. I spent greater than 30 minutes of discontinuous time evaluating the patient, delivering critical care at the bedside, discussing evaluating data with consultants. Critical care time does not include time spent performing separately billable procedures or teaching. Time spent performing critical care was 60 minutes. Discharge Plan Discharge Clinical Impression: Palpitations, Paroxysmal A-fib Patient Disposition: Home, Self-Care Instructions: A-fib (Atrial Fibrillation) (ED) Additional Instructions: take 1 baby aspirin at day, and follow-up with Dr. De Los Santos as instructed. Prescriptions: No Action sennosides [Natural Senna Laxative] 8.6 mg tablet 8.6 mg PO BEDTIME Qty: 90 3RF famotidine 40 mg tablet 40 mg PO BEDTIME Qty: 90 3RF fluticasone propionate 50 mcg/actuation spray,suspension 2 spray intranasal DAILY oxycodone-acetaminophen [Percocet] 5-325 mg tablet 1 tab PO Q4-6H PRN (Reason: pain) Qty: 25 0RF Rx Instructions: Partial Fill upon patient request. ibuprofen 600 mg tablet 600 mg PO Q6H PRN (Reason: pain) Qty: 30 0RF docusate sodium [Colace] 100 mg capsule 100 mg PO BID Qty: 60 2RF tamsulosin 0.4 mg capsule 0.4 mg PO DAILY lisinopril 10 mg tablet 10 mg PO DAILY cetirizine 10 mg tablet 10 mg PO BID hydrocortisone [Proctozone-HC] 2.5 % cream with perineal applicator 2.5 appl SC BID finasteride 1 mg tablet 1 mg PO DAILY docusate sodium 100 mg capsule 100 mg PO BID PRN (Reason: constipation) hydrocortisone acetate 25 mg suppository 25 mg SC BID Referrals: Cayden De Los Santos MD [Physician, Cardiology] Print Language: Bolivian
--- NOTE | 2024-12-29 07:36 | PC.NURSE ---
Dr. Galeas requesting repeat EKG, vitals obtained. Pt is in Afib 70s-90s, PVCs noted. Pt reporting some palpitations at this time, but just feeling increased tiredness.
[2024-12-29 07:38] LABS: Basophils Percent Auto 0.4 % (0-2); Eosinophils Absolute Auto 0.1 X10*3/uL (0.0-0.4); Eosinophils Percent Auto 1.3 % (0-4); Hematocrit 40.1 % (42.0-52.0); Hemoglobin 14.3 g/dl (14.0-18.0); Imm Gran Abs Auto 0.03 X10*3/uL (0.00-0.03); Imm Gran Pct Auto 0.4 % (0.0-0.4); Lymphocytes Absolute Auto 1.8 X10*3/uL (1.2-4.9); Lymphocytes Percent Auto 23.1 % (20-40); Mean Corpuscular HGB Conc 35.7 g/dl (31.0-36.0); Mean Corpuscular Hemoglobin 29.9 pg (27.0-33.0); Mean Corpuscular Volume 83.7 fL (80.0-98.0); Mean Platelet Volume 9.2 fL (9.4-12.4); Monocytes Absolute Auto 0.6 X10*3/uL (0.1-1.2); Monocytes Percent Auto 7.7 % (2-11); Neutrophils Absolute Auto 5.4 x10*3/uL (2.0-8.3); Neutrophils Percent Auto 67.1 % (45-73); Platelet Count 198 X10*3/uL (160-400); Red Blood Count 4.79 X10*6/uL (4.60-5.80); Red Cell Distribution Width 12.9 % (11.0-16.0)
[2024-12-29 07:47] LABS: Anion Gap 13 (12-20); Blood Urea Nitrogen 13 mg/dL (9-16); Calcium 9.1 mg/dL (8.4-10.2); Carbon Dioxide 24 mmol/L (22-29); Chloride 109 mmol/L (96-108); Creatinine Clr Calc Pharmacy 138.8; Estimated Glomerular Filt Rate > 60; Glucose Random 108 mg/dL (60-115); Potassium 4.1 mmol/L (3.3-5.1); Sodium 142 mmol/L (135-145)
[2024-12-29 07:48] LABS: Iron 71 mcg/dL (45-160); Magnesium 2.1 mg/dL (1.6-2.6); Percent Iron Saturation 33 % (15-50); Total Iron Binding Capacity 213 mcg/dL (228-428); Unsaturated Iron Binding 142 ug/dL
[2024-12-29 07:52] LABS: Troponin-I High Sensitivity 4.4 ng/L (<3.5-35.0)
[2024-12-29 09:04] LABS: Prothrombin Time 11.8 SEC (10.9-12.4)
[2024-12-29 09:20] LABS: B Type Natriuretic Peptide 124 pg/mL (<100)
--- NOTE | 2024-12-29 09:38 | PM.CNCAR ---
History of Present Illness History of Present Illness Date of Service: 12/29/24 Chief complaint: Afib? Narrative: This is a cardiology consultation regarding atrial fibrillation. Patient was seen by Fatou Kim last year in clinic. History of obesity, hypertension. At that time, it seems that he had palpitations. He underwent an echocardiogram and Holter monitor. Per notes, mention of PACs but no other arrhythmias. It seems that he was doing okay after that and did not have any issues. About 02:00 this morning, he started having palpitations and came to the ER. He has been found to be in atrial fibrillation with controlled ventricular rate. He feels the irregularity but no other symptoms. No chest pains or anything else of that is thought. No known coronary disease or myocardial infarction or cardiomyopathy. Morbidly obese. Review of Systems Review of Systems: Yes all other systems are reviewed and are negative Constitutional: Constitutional: Reports as per HPI and Reports no additional constitutional complaints Eyes: Eyes: Reports as per HPI and Denies no additional eye complaints ENT: Denies system reviewed and no additional complaints, except as documented and Reports as per HPI Cardiovascular: Cardiovascular: Reports as per HPI, Reports no additional cardiovascular complaints, Denies acrocyanosis, Denies cool extremities, Denies chest pain, Denies leg edema, Denies lightheadedness, Reports palpitations and Denies dyspnea Respiratory: Respiratory: Reports as per HPI, Denies no additional respiratory complaints and Denies dyspnea Gastrointestinal: Gastrointestinal: Reports as per HPI and Denies no additional gastrointestinal complaints Genitourinary: Genitourinary: Reports no additional male genitourinary complaints and Reports as per HPI Musculoskeletal: Musculoskeletal: Reports no additional musculoskeletal complaints and Reports as per HPI Integumentary/Breasts: Skin/Breast: Reports system reviewed and no additional complaints, except as docu Neurologic: Reports system reviewed and no additional complaints, except as documented and Reports as per HPI Psychiatric: Psychiatric: Reports no additional psychiatric complaints and Reports as per HPI Endocrine: Endocrine: Reports no additional endocrine complaints, Reports as per HPI and Reports palpitations Hematologic/Lymphatic: Hematologic/Lymphatic: Reports no additional hematologic/lymphatic complaints and Reports as per HPI Allergic/Immunologic: Allergic/Immunologic: Reports no additional allergic/immunologic complaints and Reports as per HPI PMFSH Past Medical History Medical History Bradycardia Sleep apnea Bleeding hemorrhoids Tubular adenoma History of snoring History of alcohol abuse Allergic rhinitis History of MRSA infection Anxiety and depression Urinary (tract) obstruction HTN (hypertension) Family History Family History Mother Cancer Surgical History Surgical History History of hemorrhoidectomy (~03/09/24) Hx of esophagogastroduodenoscopy Hx of colonoscopy History of cystoscopy Hx of cholecystectomy Social History Social History Household Members: None Housing: House Alcohol intake: current Patient Tobacco Use Status: Never used Tobacco Substance Use Type: Marijuana Advance Directives: No Advance Directives Information Provided: Yes service: No Current occupational status: employed and student Meds Allergies Allergy/AdvReac Type Severity Reaction Status Date / Time No Known Allergies (No Known Allergy Verified 12/29/24 06:02 Allergies*) Home Medications ?Medication ?Instructions ?Recorded ?Confirmed ?Last Taken ?Type lisinopril 10 mg tablet 10 mg PO DAILY 04/01/21 12/10/24 Unknown History tamsulosin 0.4 mg capsule 0.4 mg PO DAILY 04/01/21 12/10/24 Unknown History fluticasone propionate 50 2 spray intranasal DAILY 04/28/21 12/10/24 Unknown History mcg/actuation nasal spray,suspension cetirizine 10 mg tablet 10 mg PO BID 09/08/23 12/10/24 Unknown History hydrocortisone 2.5 % topical cream 2.5 appl MA BID 09/08/23 12/10/24 Unknown History with perineal applicator (Proctozone-HC) docusate sodium 100 mg capsule 100 mg PO BID PRN constipation 02/20/24 12/10/24 Unknown History finasteride 1 mg tablet 1 mg PO DAILY 02/20/24 12/10/24 Unknown History hydrocortisone acetate 25 mg 25 mg MA BID 02/20/24 12/10/24 Unknown History rectal suppository Physical Exam Vital Signs: Vital Signs: Last Vital Signs Temp 97.8 F 12/29/24 07:46 Pulse 73 12/29/24 07:46 Resp 12 12/29/24 07:46 BP 105/63 12/29/24 07:46 Pulse Ox 97 12/29/24 07:46 O2 Del Method Room Air 12/29/24 07:46 BMI result Body Mass Index 41.0 Const: General: comfortable and no acute distress Orientation/consciousness: patient oriented x3 HEENT: Other: Unremarkable Head: Yes normal to inspection Neck: Neck: Yes normal visual inspection Chest: Chest palpation & inspection: normal inspection of the chest Resp: Auscultation: clear to auscultation bilaterally Cardio: Palpation: normal PMI Heart sounds: S1 normal heart sound present, S2 normal heart sound present, no gallops, no murmurs and no rubs GI: Palpation (GI): Soft to palpation Back/Spine/Pelvis: Other: unremarkable Skin: General skin exam: no rashes or lesions noted Neuro: General: patient oriented x3 Extrem: General: Yes normal to inspection Psych: Mental Status: mental status grossly normal Objective Labs and Meds 12/29/24 07:27 12/29/24 07:27 Lab results: Laboratory Results - last 24 hr 12/29/24 12/29/24 07:27 08:51 WBC 8.0 RBC 4.79 Hgb 14.3 Hct 40.1 L MCV 83.7 MCH 29.9 MCHC 35.7 RDW 12.9 Plt Count 198 MPV 9.2 L Immature Gran % (Auto) 0.4 Neut % (Auto) 67.1 Lymph % (Auto) 23.1 [place] % (Auto) 7.7 Eos % (Auto) 1.3 Baso % (Auto) 0.4 Lymph # (Auto) 1.8 [place] # (Auto) 0.6 Eos # (Auto) 0.1 Baso # (Auto) 0.0 Abs Immat Gran (auto) 0.03 Absolute Neuts (auto) 5.4 Absolute Nucleated RBC 0.000 Nucleated RBC % (auto) 0.0 PT 11.8 INR 1.0 Sodium 142 Potassium 4.1 Chloride 109 H Carbon Dioxide 24 Anion Gap 13 BUN 13 Creatinine 0.75 Estim Creat Clear Calc 138.8 Estimated GFR > 60 Random Glucose 108 Calcium 9.1 Magnesium 2.1 Iron 71 TIBC 213 L % Saturation 33 Unsat Iron Binding 142 Troponin I High Sens 4.4 B-Natriuretic Peptide 124 H ECG Interpretation: EKG with atrial fibrillation at a rate of 77/Min. Incomplete right bundle-branch block pattern. Initial EKG with similar finding at a rate of 69/Min. Assessment and Plan (1) PAF (paroxysmal atrial fibrillation): Status: Acute Plan Cardiac studies reviewed. In the Holter monitor last year, underlying rhythm is sinus with an average rate of 64/Min. PACs but no other arrhythmias documented. In the echocardiogram, LVEF is 55-60%. No significant valvular findings. Unremarkable high sensitivity troponin. Cardiac BNP is slightly increased at 01:24. Overall, atrial fibrillation episode for about 8-9 hours duration but not previously documented. We can try flecainide to see if he will convert back to sinus rhythm. Also give him Eliquis, may not need long-term possibly just short term for 4 weeks or so. Patient agrees with this plan. Plan discussed with Dr. Galeas in the ER. Procedures Date of Service Date of Service: 12/29/24
[2024-12-29] MEDS: Flecainide Acetate 50 MG TABLET 300 MG PO (10:32)
[2024-12-29] MEDS: Apixaban 5 MG TABLET PO (10:32)
--- NOTE | 2024-12-29 11:19 | ECG_ITS ---
Test Reason : AFIB Blood Pressure : */* mmHG Vent. Rate : 64 BPM Atrial Rate : 64 BPM P-R Int : 190 ms QRS Dur : 120 ms QT Int : 418 ms P-R-T Axes : 16 -4 48 degrees QTcB Int : 431 ms Normal sinus rhythm Non-specific intra-ventricular conduction delay Borderline ECG When compared with ECG of 29-Dec-2024 07:39, Sinus rhythm has replaced Atrial fibrillation Referred By: Edith Galeas Electronically Signed By: DARCY MATIAS
--- NOTE | 2024-12-29 12:10 | PC.NURSE ---
Pt ambulating back from bathroom, pt remains in Afib, at this time post medication admin he has not converted at this time. MD wants to wait until he converts to repeat EKG. Pt got back to bed from BR, BP had gone to 70-90s sys, this RN assessed both arms and different positions, pt remains having some BROWN/dizziness but not worse than when he came in. MD aware of soft BPs. Pt aware of when to alert staff, BP checks increased in time frames at this time. HR remains 80-100s at this time. O2 remains 97-100%
[2024-12-29 13:00] LABS: Troponin-I High Sensitivity < 2.7 ng/L (<3.5-35.0)
== END 2024-12-29 14:57 | disposition home or self-care (01) ==
PROVIDERS: Emergency Provider Emergency Medicine
DX: I49.9 Cardiac arrhythmia, unspecified (principal); R07.89 Other chest pain; I48.0 Paroxysmal atrial fibrillation; Z79.01 Long term (current) use of anticoagulants; Z79.899 Other long term (current) drug therapy
CPT/HCPCS: 36415; 80048; 83540; 83735; 83880; 84484; 85025; 85610; 93005; 99283; 99285

== ENCOUNTER → 2024-12-29 06:38 | Outpatient (BNV) | payer MEDICAID, SELFPAY | PROVIDERS: Emergency Provider Emergency Medicine; Visit Provider Internal Medicine | DX: I48.0 Paroxysmal atrial fibrillation (principal) | CPT/HCPCS: 93010; 99283 ==

== ENCOUNTER 2025-01-02 10:49 | Outpatient (REF) | payer MEDICAID, SELFPAY | END 2025-01-02 10:50 | disposition home or self-care (01) | LOC: HO.BBR 10:49 | PROVIDERS: PCP Internal Medicine; Visit Provider Internal Medicine | DX: Z13.89 Encounter for screening for other disorder (principal) ==

== ENCOUNTER 2025-01-14 14:40 | Outpatient (AMB) | payer MEDICAID, SELFPAY ==
--- NOTE | 2025-01-14 14:45 | A.OFFVIS_ITS ---
Intake Visit Reasons: questions Allergies No Known Allergies (No Known Allergies*) Allergy (Verified 12/29/24 06:02) HPI Comments Details: 54 years old man with history of alcohol abuse, depression, anxiety, and cognitive dysfunction likely due to history of alcohol abuse. He said that he had a sleep study that was reported normal. His vitamin B12 level was 3 O2, TSH was 1.21, an MRI of brain revealed mild parietal cortical atrophy. He has stopped drinking but was still having some cognitive issues. He had multiple questions specially regarding cognitive issues. He also complain of a numb feeling in left side of his neck going to the top. [facility] Medical History (Updated 01/14/25 @ 14:55 by Luisito Cespedes MD) Alcoholic dementia MCI (mild cognitive impairment) Bradycardia Sleep apnea Bleeding hemorrhoids Tubular adenoma History of snoring History of alcohol abuse Allergic rhinitis History of MRSA infection Anxiety and depression Urinary (tract) obstruction HTN (hypertension) Surgical History History of hemorrhoidectomy (~03/09/24) Hx of esophagogastroduodenoscopy Hx of colonoscopy History of cystoscopy Hx of cholecystectomy Family History Mother Cancer Social History Household Members: None Housing: House Alcohol intake: current Patient Tobacco Use Status: Never used Tobacco Substance Use Type: Marijuana service: No Current occupational status: employed and student Review of Systems Const Details: Constitutional:?No fever, chills, fatigue, weight loss, or night sweats. HEENT:?No headache, vision changes, hearing loss, nasal congestion, sore throat. Neurological:?c/o numbness in neck area Psychiatric:?No anxiety, depression, mood swings, sleep disturbance, or hallucinations. Endocrine:?No heat/cold intolerance, polydipsia, polyuria, or hair/skin changes. Hematologic/Lymphatic:?No easy bruising, bleeding, or lymphadenopathy. Integumentary (Skin):?No rash, lesions, itching, or color changes. ? Assessment & Plan Assessment & Plan (1) MCI (mild cognitive impairment): Comment: MRI brain [facility] at [facility] in Oct 2024: Mild biparietal atrophy Code(s): G31.84 - Mild cognitive impairment of uncertain or unknown etiology Category: Medical Plan Impression: Mild Cognitive impairment with h/o alcohol drinking Rec: a: No alcohol b: Stay mentall, socially, and physical ative c: Lose weight Orders: Referrals Neuropsychiatry Referral G31.84 - Mild cognitive impairment of uncertain or unknown etiology Coding Level of Care Code Est Pt Level 4 (55277) Diagnoses MCI (mild cognitive impairment) G31.84
--- OUTSIDE RECORDS SUMMARY | 2025-01-14 15:57 | XMS_ITS | Encounter Summary ---
Author Organization [employer] Address [address] [place] [address] Care Team Providers Care Main Line Assembler Name Role Phone Diane Gutierrez Primary Care Provider [phone] Diane Gutierrez Primary Care Provider [phone] Diane Gutierrez Primary Care Provider [phone] Diane Gutierrez Primary Care Provider [phone] Mervat Simental MD Primary Care Provider + Reason for Visit * Reason Onset Date Comments status on sleep apnea 11/04/2022 Encounter Details Date Type Department Care Team (Late st Contact Info) Description 11/04/2022 Telephone [facility] [address] [place] [address] Diane Gutierrez FNP [address] [place] [address], [place] [phone] status on sleep apnea Social History Tobacco [...] Care Team (Late st Contact Info) Description 01/21/2025 11:00 AM EDT Clinical Support [facility] [address] [place] [address] [place] [address] 03/07/2025 10:00 AM EDT Office Visit [facility] [address] [place] [address] Larisa Antunez documented as of this encounter Visit Diagnoses Not on filedocumented in this encounter Care Teams Main Line Assembler Relationship Specialty Start Date End Date Diane Gutierrez FNP [address] [place] [address] PCP - General Family Medicine 05/31/22 01/26/24 Diane Gutierrez FNP [address] [place] [address] PCP - General Family Medicine 01/27/24 01/29/24 Diane Gutierrez FNP [address] [place] [address] PCP - General Family Medicine 01/30/24 02/02/24 Diane Gutierrez FNP [address] [place] [address] PCP - General Family Medicine 02/03/24 03/05/24 Mervat Simental MD [address] [place] [id number] PCP - General Internal Medicine 03/06/24 documented as of this encounter
== END 2025-01-14 15:04 | disposition home or self-care (01) ==
LOC: HO.HSM 14:40
PROVIDERS: PCP Internal Medicine; Visit Provider Psychiatry & Neurology Neurology
DX: G31.84 Mild cognitive impairment of uncertain or unknown etiology (principal)
CPT/HCPCS: 99214

== ENCOUNTER → 2025-01-14 14:40 | Outpatient (BNVA) | payer MEDICAID, SELFPAY | PROVIDERS: PCP Internal Medicine; Visit Provider Psychiatry & Neurology Neurology | DX: F10.10 Alcohol abuse, uncomplicated (principal); G31.84 Mild cognitive impairment of uncertain or unknown etiology | CPT/HCPCS: 99212 ==

== ENCOUNTER 2025-01-21 10:06 | Outpatient (AMB) | payer MEDICAID, SELFPAY ==
[2025-01-21 10:16] VITALS: BP 112/62; PULSE 56; BMI 41.5
--- NOTE | 2025-01-21 10:16 | MHC.OFFVIS ---
Vital Signs 01/21/25 10:16 Height 5 ft 7 in Weight 264 lb 15.93 oz BMI 41.5 BP 112/62 Blood Pressure Location Rt brachial Position Sitting Pulse 56 Pulse Source Monitor Intake Visit Reasons: ED follow up Registered Nurse Bone Marrow Transplant Required: No Allergies No Known Allergies (No Known Allergies*) Allergy (Verified 01/21/25 10:20) Medication List - Last Reconciled 01/21/25 by Fatou Kim, FACILITIES MECHANICAL DESIGN ENGINEER-C albuterol sulfate 90 mcg/actuation 2 puffs inhalation Q6H PRN cetirizine 10 mg PO BID cholecalciferol (vitamin D3) 25 mcg PO DAILY fluticasone propionate 50 mcg/actuation 2 sprays intranasal DAILY hydroxyzine pamoate 50 mg PO Q8H PRN lisinopril 10 mg PO DAILY magnesium oxide 400 mg PO DAILY pantoprazole 40 mg PO QAM tamsulosin 0.4 mg PO DAILY HPI HPI ED follow up: Details: Rickey is a 54-year-old male with past medical history of obesity, hypertension, PACs who recently was seen in the ER 12/29/2024 for heart palpitations and found to have atrial fibrillation. He was given a dose of flecainide and converted to sinus rhythm. He now presents for follow-up. Today he reports that he has not had known recurrent atrial fibrillation since his ER visit. He says this was very different than the palpitations he is reported in the past. He has a smart watch that told him his heart rate was irregular. The symptoms woke him in the night and persisted until morning. He does not recall any associated symptoms at that time. He has been having chronic issues with weakness, fatigue which he states is from an autoimmune disease. He has no chest discomfort at rest or with activity. No shortness of breath, lightheadedness, presyncope, syncope. He tells me he rides his electric bike routinely. Quit drinking alcohol 07/04/2024. Smokes marijuana daily. Drinks 2 16 oz mugs of coffee daily. Taking meds as directed. [facility] Medical History Alcoholic dementia MCI (mild cognitive impairment) Bradycardia Sleep apnea Bleeding hemorrhoids Tubular adenoma History of snoring History of alcohol abuse Allergic rhinitis History of MRSA infection Anxiety and depression Urinary (tract) obstruction HTN (hypertension) Surgical History History of hemorrhoidectomy (~03/09/24) Hx of esophagogastroduodenoscopy Hx of colonoscopy History of cystoscopy Hx of cholecystectomy Family History Mother Cancer Social History Household Members: None Housing: House Alcohol intake: current Patient Tobacco Use Status: Never used Tobacco Substance Use Type: Marijuana service: No Current occupational status: employed and student Review of Systems Const All systems reviewed & are unremarkable except as noted in HPI and below ENT Denies dizziness Card Details: palpitation Denies chest pain, Denies chest pain at rest, Denies chest pain with activity, Denies rapid heart rate, Denies pedal edema, Denies edema, Denies leg edema, Denies lightheadedness, Denies palpitations, Denies dyspnea, Denies dyspnea on exertion and Denies orthopnea Resp Denies cough, Denies dyspnea and Denies dyspnea on exertion GI Denies hematochezia and Denies change in stool character Musc Denies abnormal gait, Reports limited range of motion, Reports muscle cramps, Denies muscle weakness, Denies numbness, Denies radiating pain into limb, Denies stiffness and Denies tingling Neuro Denies abnormal gait, Denies dizziness, Denies numbness and Denies tingling Endo Denies palpitations Physical Exam Vital Signs: Last Vital Signs Pulse 56 01/21/25 10:16 BP 112/62 01/21/25 10:16 BMI result Body Mass Index 41.5 Const General: cooperative, healthy appearing, comfortable and no acute distress Orientation/consciousness: patient oriented x3 Neck Neck: Yes normal visual inspection Resp Effort & Inspection: normal respiratory effort Auscultation: clear to auscultation bilaterally, no rales, no rhonchi and no wheezes Cardio Jugular venous distension: no JVD Rate: regular rate Rhythm: regular rhythm Heart sounds: S1 normal heart sound present, S2 normal heart sound present, no murmurs and no rubs Neuro General: patient oriented x3 Extrem General: Yes normal to inspection and No no pedal edema Psych Appearance: grossly normal Mental Status: mental status grossly normal Speech and movement: Normal speech and movement present Office Procedures EKG Details: Today, read by me, sinus bradycardia, cant exclude prior anterior infarct, rate 56, Qtc 397ms [id number], Complete Assessment & Plan Assessment & Plan (1) PAF (paroxysmal atrial fibrillation): Code(s): I48.0 - Paroxysmal atrial fibrillation Category: Medical Plan: Recent ER visit with confirm paroxysmal atrial fibrillation, treated with a dose of flecainide and converted to sinus rhythm. He has underlying sinus bradycardia and was not put on any rate slowing agents. EKG done today showing sinus bradycardia, rate 56. No recurrent heart palpitations like his PAF. Last echo 08/19/2023 showed EF 55-60%, left atrium normal size. [place] [facility] [place] indicates severe degree of sleep apnea and CPAP recommended. -he tells me he had repeat sleep study at sleep medicine [facility] April 2024 which showed no sleep apnea. He prefers to try to treat his condition naturally and would like to avoid medications at this time. Chads Vasc score of 1. Anticoagulation indicated. We agreed to readdress Yasmin if he has any documented reoccurrence of AFib. Will check Holterr monitor to assess for PAF. Will check exercise stress test to assess for any ischemia. Going forward may benefit from pill in the pocket approach to PAF management. Recommended caffeine reduction, marijuana reduction, weight loss, exercise as tolerated. Cardiology follow-up 3 months, sooner if needed. (2) Palpitations: Code(s): R00.2 - Palpitations Category: Medical Plan: As above (3) HTN (hypertension): Code(s): I10 - Essential (primary) hypertension Category: Medical Plan: Blood pressure goal less than 130/80. Well controlled at present. Continue lisinopril. (4) PAC (premature atrial contraction): Code(s): I49.1 - Atrial premature depolarization Category: Medical Plan: Occasional PACs noted on prior Holter. (5) Hospital discharge follow-up: Code(s): Z09 - Encounter for follow-up examination after completed treatment for conditions other than malignant neoplasm Category: Medical Plan: As above, ED notes reviewed. Plan Time spent on chart review, documentation, interview and assessment Orders: Orders ECG 3 day holter monitor Today I48.0 - Paroxysmal atrial fibrillation CA stress test Today I48.0 - Paroxysmal atrial fibrillation Coding Level of Care Code Est Pt Level 4 (93766) Complex EM visit Add On G2211 Diagnoses PAF (paroxysmal atrial fibrillation) I48.0 Palpitations R00.2 HTN (hypertension) I10 PAC (premature atrial contraction) I49.1 Hospital discharge follow-up Z09 CPT Codes EKG - CPT: 29165-[id number], Complete ([id number]) Time Spent (min) 32
--- OUTSIDE RECORDS SUMMARY | 2025-01-21 10:57 | XMS_ITS | Encounter Summary ---
Author Organization [employer] Address [address] [facility] [address] [place] [address] Care Team Providers Care Screw Machine Operator Name Role Phone Diane Gutierrez Primary Care Provider [phone] Diane Gutierrez Primary Care Provider [phone] Diane Gutierrez Primary Care Provider [phone] Diane Gutierrez Primary Care Provider [phone] Mervat Simental MD Primary Care Provider + Reason for Visit * Reason Onset Date Comments status on sleep apnea 11/04/2022 Encounter Details Date Type Department Care Team (Late st Contact Info) Description 11/04/2022 Telephone [facility] MEDICINE [address] [place] [address] Diane Gutierrez FNP [address], [place] [phone] status on sleep apnea Social History Tobacco [...] Description 01/21/2025 11:00 AM EDT Clinical Support [facility] DIABETES/NUTRITION [address] [place] [address] [place] [address] 03/07/2025 10:00 AM EDT Office Visit [facility] ADULT DENTAL [address] [place] [address] Larisa Antunez documented as of this encounter Visit Diagnoses Not on filedocumented in this encounter Care Teams Screw Machine Operator Relationship Specialty Start Date End Date Diane Gutierrez FNP [address] [place] [address] PCP - General Family Medicine 05/31/22 01/26/24 Diane Gutierrez FNP [address] [place] [address] PCP - General Family Medicine 01/27/24 01/29/24 Diane Gutierrez FNP [address] [place] [address] PCP - General Family Medicine 01/30/24 02/02/24 Diane Gutierrez FNP [address] [place] [address] PCP - General Family Medicine 02/03/24 03/05/24 Mervat Simental MD [address] [place] [id number] PCP - General Internal Medicine 03/06/24 documented as of this encounter
--- OUTSIDE RECORDS SUMMARY | 2025-01-21 10:58 | XMS_ITS | Clinical Summary ---
Author Organization [facility] Address [address] [place], [place] [id number] Phone Care Team Providers Care Radio Station Operator Name Role Phone Candida Jimenez BULLDOZER OPERATOR Primary Care Provider Unavailab le Allergies Active Allergy Reactions Criticality Noted Date Comments Doxycycline Monohydrate Diarrhea Medium 02/24/2023 Medications senna (SENOKOT) 8.6 mg tablet Take 1 tablet by mouth as needed for constipatio n. Active tamsulosin (FLOMAX) 0.4 mg Cap Take 0.4 mg by mouth daily. Active lisinopril (PRINIVIL,ZESTRI L) 10 MG tablet Take 10 mg by mouth daily. Active Social History Tobacco Use Types Packs/Day Years Used Date Smoking Tobacco: Never Passive Smoke Exposure: Never Tobacco Cessation:Counseling Given: Not Answered Alcohol Use Standard Drinks/Week Comments Yes 0 (1 standard drink = 0.6 oz pur e alcohol) social Education Answer Date Recorded Are you interested in more education? Not on john e 02/24/2023 Are you concerned about learning? Not on file 02/24/2023 No 02/24/2023 No 02/24/2023 Digital Access Answer Date Recorded No 02/24/2023 No 02/24/2023 Reliable internet access at home? Not on file 02/24/2023 Device with a working camera? Not on file Intimate Partner Violence Answer Date R ecorded Are you denied basic needs s uch as food, clothing, or medical care? No 02/24/2023 In the past 12 months have y ou been in a relationship with a person who hurts, threatens, or tries to control you? No 02/24/2023 Are you denied basic needs s uch as food, clothing, or medical care? No 02/24/2023 In the past 12 months have y ou been in a relationship with a person who hurts, threatens, or tries to control you? No 02/24/2023 Sex and Gender Information Value Date Recorded Sex Assigned at Male 02/24/2023 10:25 AM EDT Legal Sex Male 10:04 AM EDT Gender Identity Male 02/24/2023 10:25 AM EDT Sexual Orientation Not on file Last Filed Vital Signs Vital Sign Reading Time Taken Comments Blood Pressure 113/75 02/24/2023 1:14 PM EDT Pulse 67 02/24/2023 1:14 PM EDT Temperature 37.1 C (98.8 F) 02/24/2023 10:18 AM EDT Respiratory Rate 24 02/24/2023 1:14 PM EDT Oxygen Saturation 99% 02/24/2023 1:14 PM EDT Inhaled Oxygen Concentration - - Weight 117 kg (258 lb) 02/24/2023 10:18 AM EDT Height 172.7 cm (5' 8 ) 02/24/2023 10:18 AM EDT Body Mass Index 39.23 02/24/2023 10:18 AM EDT Plan of Treatment Not on file Medical Devices Not on file Insurance [employer] Member Subscriber Plan / Payer (Ef fective 2023-Present) Name:Jayjay Cisco Relation to Subscriber:Self Name:Cisco Ro Payer ID:Not on file Group ID:Not on file Type:Medicaid Address: [address] [place] [address] SAFETY NET PARTIAL [facility] C3 [employer] NET PARTIAL Member Subscriber Plan / Payer (Ef fective 2023-Present) Name:Cisco Ro Relation to Subscriber:Self Name:Lesley Roshua Payer ID:Not on file Group ID:Not on file Type:Medicaid Address: [address] C[employer] [facility] SAFETY NET PARTIAL Member Subscriber Plan / Payer (Ef fective 2023-Present) Name:Jayjay Cisco Relation to Subscriber:Self Name:Jagdish Roua Payer ID:Not on file Group ID:Not on file Type:Medicaid Address: [address] [place] [address] SAFETY NET PARTIAL [employer] [place] [phone] Care Teams Radio Station Operator Relationship Specialty Start Date End Date Candida Jimenez NP PCP - General Nurse Practitioner 02/24/23 Additional Source Comments The information contained in this document represents components of the legal health record. It is not the complete legal health record.[facility]
== END 2025-01-21 11:07 | disposition home or self-care (01) ==
LOC: HO.HCS 10:07
PROVIDERS: Visit Provider Nurse Practitioner Family
DX: I48.0 Paroxysmal atrial fibrillation (principal); R00.2 Palpitations; I10 Essential (primary) hypertension; I49.1 Atrial premature depolarization; Z09 Encounter for follow-up examination after completed treatment for conditions other than malignant neoplasm
CPT/HCPCS: 93010; 99214

== ENCOUNTER → 2025-01-21 10:06 | Outpatient (BNVA) | payer MEDICAID, SELFPAY | PROVIDERS: Visit Provider Nurse Practitioner Family | DX: I48.0 Paroxysmal atrial fibrillation (principal); I10 Essential (primary) hypertension; R00.2 Palpitations; I49.1 Atrial premature depolarization | CPT/HCPCS: 93005; 99212 ==

== ENCOUNTER 2025-02-19 15:47 | Outpatient (AMB) | payer MEDICAID, SELFPAY ==
--- NOTE | 2025-02-19 15:48 | MHC.OFFVIS ---
Vital Signs 02/19/25 15:49 Height 5 ft 7 in Weight 267 lb BMI 41.8 BP 110/54 L Blood Pressure Location Rt brachial Position Sitting Pulse 56 Pulse Source Pulse Oximeter Pulse Oximetry (%) 96 Oxygen Delivery Method Room Air Intake Visit Reasons: colo rescreen l/s 12/2021 Intake Note: New/Est pt for recall colo. Last 2020 w/ Polypectomy per Dr. Crenshaw. CC: C.O. dysphagia, GERD, umbilical abd pain, and intermittent constipation and diarrhea. Cement Fittings Maker Required: No Accompanied by: Self / Same As Patient Allergies No Known Allergies (No Known Allergies*) Allergy (Verified 02/19/25 15:49) HPI HPI colo rescreen l/s 12/2021: Details: LAST VISIT Signed - 12/07/21 10:36 Chronic idiopathic constipation Continue Senokot and docusate sodium. Patient was encouraged to increase fluid intake and activity to promote bowel motility. GERD (gastroesophageal reflux disease) Patient continues with occasional acid reflux especially when he eats food that does and agrees with him like fried. Discussed with patient avoiding dietary triggers and late night snacking. Continue pantoprazole try to take it half an hour before breakfast every morning and continue famotidine. Discussed with patient the importance of staying upright for minimal 3 hours after meals. IBS (irritable bowel syndrome) Symptoms postprandial abdominal bloating and occasional cramps. Patient states that it is definitely related to the food that he eats. Patient states that when he eats healthy he does not have any issues. However he has been recently very stressed out and food is his go to. Discussed with patient about going over the FODMAP diet. Patient has list of food to avoid as well as a list of food that is recommended at his house. Patient was encouraged to try limitation diet if that will be helpful. I will see him in 6 months, sooner on as needed basis. Patient is agreeable to this plan and verbalizes understanding of instructions. He was given the opportunity to ask questions and all questions answered. ? Thank you for allowing me to participate in his care Plan Medications New cholecalciferol (vitamin D3) 50 mcg PO DAILY 90 caps 3RF R79.89 Refilled docusate sodium 100 mg PO BEDTIME 90 caps 2RF K59.00 famotidine 40 mg PO BEDTIME 30 tabs 3RF K21.9 pantoprazole take one tablet half an hour before breakfast 40 mg PO DAILY 30 tabs 2RF K21.9 sennosides (Natural Senna Laxative) 8.6 mg PO BEDTIME 90 tabs 3RF constipation K59.00 Discontinued polyethylene glycol 3350 (Miralax) As directed by gastroenterology department at [facility] Discontinued Reason: Patient no longer taking 238 grams PO ONCE 238 grams 0RF Z12.11 TODAY'S VISIT Patient is here today to discuss going for colonoscopy. Last colonoscopy was May of 2021. Patient had upper endoscopy at the same time. Patient denies any issues with anesthesia. Recommendation was made for patient to return in 3-4 years. Patient reports taking pantoprazole and reflux has been suppressed. Occasional reflux depending on what he eats. Patient tries to avoid eating late at night. Patient denies melena, hematochezia, unintentional weight loss or ribbon like stools. No issues with anesthesia in the past. Patient denies history of sleep apnea. Not on any anticoagulation medication. Patient denies any cardiac or respiratory symptoms, although in July patient was seen in the hospital for palpitation shortness of breath. Was found to be in AFib. Seen by Cardiology last visit in January. He is going for stress test that is scheduled on the of this month. [facility] Medical History (Updated 02/19/25 @ 16:26 by Candida Jimenez, [facility]) GERD (gastroesophageal reflux disease) Alcoholic dementia MCI (mild cognitive impairment) Bradycardia Sleep apnea Bleeding hemorrhoids Tubular adenoma History of snoring History of alcohol abuse Allergic rhinitis History of MRSA infection Anxiety and depression Urinary (tract) obstruction HTN (hypertension) Surgical History History of hemorrhoidectomy (~03/09/24) Hx of esophagogastroduodenoscopy Hx of colonoscopy History of cystoscopy Hx of cholecystectomy Family History Mother Cancer Social History Household Members: None Housing: House Alcohol intake: current Patient Tobacco Use Status: Never used Tobacco Substance Use Type: Marijuana service: No Current occupational status: employed and student Review of Systems Const Denies weight gain and Denies weight loss ENT Reports no additional complaints, Denies dysphagia and Denies odynophagia Card Reports no additional complaints Resp Reports no additional complaints GI Denies abdominal pain, Denies belching, Denies melena, Denies bloating, Denies change in bowel habits, Denies dysphagia, Denies excessive flatus, Denies dyspepsia, Reports heartburn (occasional), Denies diarrhea, Denies loose stools, Denies nausea, Denies odynophagia and Denies vomiting Reports no additional complaints Musc Reports no additional complaints Neuro Reports no additional complaints Psych Reports no additional complaints Endo Reports no additional complaints Physical Exam Vital Signs: Last Vital Signs Pulse 56 02/19/25 15:49 BP 110/54 L 02/19/25 15:49 Pulse Ox 96 02/19/25 15:49 Oxygen Delivery Method Room Air 02/19/25 15:49 BMI result Body Mass Index 41.8 Const General: healthy appearing and no acute distress Nutritional Appearance: obese Orientation/consciousness: patient oriented x3 Resp Effort & Inspection: normal respiratory effort, able to speak in complete sentences, no tracheal deviation and symmetric chest movement Auscultation: clear to auscultation bilaterally Cardio Rate: regular rate GI Inspection: Yes normal to inspection, No distended and Yes obesity Palpation (GI): Soft to palpation, not firm, nontender and No hepatosplenomegaly present Auscultation: normal bowel sounds General: Yes no CVA tenderness Back/Spine/Pelvis Back: no CVA tenderness Skin General skin exam: elasticity normal, turgor normal and dry skin Neuro General: patient oriented x3 Psych Appearance: grossly normal Mental Status: mental status grossly normal Assessment & Plan Assessment & Plan (1) GERD (gastroesophageal reflux disease): Code(s): K21.9 - Gastro-esophageal reflux disease without esophagitis Category: Medical Qualifiers: Esophagitis presence: esophagitis presence not specified Qualified Code(s): K21.9 - Gastro-esophageal reflux disease without esophagitis (2) Screen for colon cancer: Code(s): Z12.11 - Encounter for screening for malignant neoplasm of colon (3) Dysphagia: Code(s): R13.10 - Dysphagia, unspecified Qualifiers: Dysphagia type: pharyngoesophageal phase Qualified Code(s): R13.14 - Dysphagia, pharyngoesophageal phase Plan With expect before during and after procedure discussed with patient. Patient is going for stress test this month. Please call Cardiology to make sure that patient is clear. He will start taking Dulcolax 1 week before procedure to make sure that he has a good prep. Patient denies any issues with anesthesia in the past. Not on any anticoagulation medication. Patient will be sent for upper endoscopy as he has occasional acid reflux despite taking pantoprazole. Patient also reports occasional dysphagia. Might need dilation. Message sent to surgical schedulers to book procedures for patient. Patient will follow-up in our office after the procedure. Patient was encouraged to call us if he will have any GI concerning symptoms. He is agreeable to current plan of care and verbalizes understanding of instructions. He was given the opportunity to ask questions and all questions answered. Thank you for allowing me to participate in his care Medications: New bisacodyl (Dulcolax (bisacodyl)) Start taking 2 tablet every night 7 days before the procedure and 1 day before procedure take 4 tablets at noon time followed by MiraLax prep 10 mg (2 x 5 mg) PO BEDTIME 16 tabs 0RF Z12.11 - Encounter for screening for malignant neoplasm of colon polyethylene glycol 3350 (Miralax) As directed by gastroenterology department at [facility] 238 grams PO ONCE 238 grams 0RF Z12.11 - Encounter for screening for malignant neoplasm of colon Coding Level of Care Code New Pt Level 4 (90695) Complex EM visit Add On G2211 Diagnoses Gastroesophageal reflux disease, unspecified whether esophagitis present K21.9 Esophagitis presence: esophagitis presence not specified Screen for colon cancer Z12.11 Pharyngoesophageal dysphagia R13.14 Dysphagia type: pharyngoesophageal phase Time Spent (min) 50 Comment 35 minutes spent with patient and additional 15 minutes spent reviewing his records
[2025-02-19 15:49] VITALS: BP 110/54; PULSE 56; O2SAT 96; BMI 41.8
== END 2025-02-19 17:00 | disposition home or self-care (01) ==
LOC: HO.HGI 15:48
PROVIDERS: PCP Internal Medicine; Visit Provider Nurse Practitioner Family
DX: Z01.818 Encounter for other preprocedural examination (principal); Z12.11 Encounter for screening for malignant neoplasm of colon; K21.9 Gastro-esophageal reflux disease without esophagitis; R13.14 Dysphagia, pharyngoesophageal phase
CPT/HCPCS: 99204

== ENCOUNTER → 2025-02-19 15:47 | Outpatient (BNVA) | payer MEDICAID, SELFPAY | PROVIDERS: PCP Internal Medicine; Visit Provider Nurse Practitioner Family | DX: Z01.818 Encounter for other preprocedural examination (principal); K21.9 Gastro-esophageal reflux disease without esophagitis; R13.14 Dysphagia, pharyngoesophageal phase | CPT/HCPCS: 99212 ==

== ENCOUNTER → 2025-02-28 09:02 | Outpatient (REF) | payer MEDICAID, SELFPAY ==
--- NOTE | 2025-02-28 09:05 | CA_ITS ---
Acquisition Time: 2025-02-28 09:15:11 Total Exercise Time: 00:06:54 Test Indications: ABN EKG Medications: SEE H&P Protocol: MARTINA Max HR: 142 BPM 85% of Pred: 166 BPM Max BP: 160/70 mmHG Max Work Load: 8.3 METS Exercise stress test with exercise 6 mins 54 secs of Martina Protocol, achieving 86% MPHR, with reports of SOB, no chest pain, without any arrythmias, with normotensive response to exercise. Without any EKG changes meeting criteria for ischemia. In recovery, breathing returned to baseline. Test reviewed with Dr. De Los Santos. Referred By: Fatou Kim Electronically Signed By: Francisco Juarez
--- NOTE | 2025-02-28 09:05 | HM_ITS ---
Conclusion: 1. Patient was monitored for total period of 1 day and 23 hours 2. Baseline was normal sinus rhythm with average heart of 61 beats per minute 3. No significant pauses noted but frequent sinus bradycardia noted with 49% of the time heart rate below 60 beats per minute 4. Occasional PACs noted without any sustained arrhythmias or atrial fibrillation 5. No patient reported symptoms MTDD
--- OUTSIDE RECORDS SUMMARY | 2025-02-28 09:54 | XMS_ITS | Clinical Summary ---
Author Organization [facility] Address [address] [place], [place] [id number] Phone Care Team Providers Care L D Rn Name Role Phone Candida Jimenez SENIOR LEAD DEVELOPER Primary Care Provider [phone] Allergies Active Allergy Reactions Criticality Noted Date [...] file Medical Devices Not on file Insurance SAFETY NET PARTIAL [employer] SAF[employer]Y NET PARTIAL Member Subscriber Plan / Payer (Ef fective 2023-) Name:Cisco Ro Relation to Subscriber:Self Name:Jayjay Cisco Payer ID:Not on file Group ID:Not on file Type:Medicaid Address: [address] [place] [address] SAFETY NET PARTIAL [facility] C3 ACO HEALTH SAFETY NET PARTIAL Member Subscriber Plan / Payer (Ef fective 2023-Present) Name:Cisco Ro Relation to Subscriber:Self Name:Cisco Ro Payer ID:Not on file Group ID:Not on file Type:Medicaid Address: [address] C3 ACO [facility] SAFETY NET PARTIAL Member Subscriber Plan / Payer (Ef fective 2023-) Name:Cisco Ro Relation to Subscriber:Self Name:Jayjay Cisco Payer ID:Not on file Group ID:Not on file Type:Medicaid Address: [address] C3 [employer] HE[employer] SAFETY NET PARTIAL Member Subscriber Plan / Payer (Ef fective 2023-Present) Name:Cisco Ro Relation to Subscriber:Self Name:Cisco Ro Payer ID:Not on file Group ID:Not on file Type:Medicaid Address: [address] C3 ACO Care Teams L D Rn Relationship Specialty Start Date End Date Candida Jimenez NP [address] [place] [address] [address] [place] [address] PCP - General Nurse Practitioner 02/24/23 Additional Source Comments The information contained in this document represents components of the legal health record. It is not the complete legal health record.[facility]
== END ==
LOC: HO.CARD 09:02
PROVIDERS: Visit Provider Nurse Practitioner Family
DX: I48.0 Paroxysmal atrial fibrillation (principal)
CPT/HCPCS: 93017; 93242

== ENCOUNTER → 2025-02-28 09:05 | Outpatient (BNV) | payer MEDICAID, SELFPAY | DX: R06.02 Shortness of breath (principal) | CPT/HCPCS: 93016; 93018 ==

== ENCOUNTER 2025-03-07 10:53 | Outpatient (REF) | payer MEDICAID, SELFPAY ==
--- OUTSIDE RECORDS SUMMARY | 2025-03-07 12:30 | XMS_ITS | Encounter Summary ---
Author Organization [employer] Address 75 [facility] 7 [place] [address] Care Team Providers Care Director Social Service Name Role Phone Diane Gutierrez Primary Care Provider [phone] Mervat Simental MD Primary Care Provider + Reason for Visit * Reason Onset Date Comments Appointment Request 02/21/2024 Encounter Details Date Type Department Care Team ([facility] st Contact Info) Description 02/21/2024 Telephone [facility] MEDICINE [address] [place], [place] [phone] Diane Gutierrez FNP [address] [place], [place] [phone] Appointment Request Social History Tobacco Use Types [...] 3:08 PM EDT T/C to [facility] general surgery on [phone] Obdulia for below message, as per Obdulia, pt's procedure date is not decided yet and will give call to [facility] to schedule Pre-op clearance. * Telephone Encounter - Yisel Aiken - 02/21/2024 10:19 AM EDT Tc from [facility] requesting a medical luis alfredo for pt for an upcoming procedure Hemmaroidectomy documented in this encounter Plan of Treatment Upcoming Encounters Date Type Department Care Team (Late st Contact Info) Description 03/11/2025 10:00 AM EDT Clinical Support [facility] DIABETES/NUTRITION [address] [place], [place] [phone] Jocy Ar[address]ola [address] [place], [place] [phone] documented as of this encounter Visit Diagnoses Not on filedocumented in this encounter Additional Health Concerns Assessment Noted Time PHQ-9 Depression Total Score: 10 024 11:48 AM EST documented as of this encounter Care Teams Director Social Service Relationship Specialty Start Date End Date Diane Gutierrez FNP [address] [place] [address] PCP - General Family Medicine 02/03/24 03/05/24 Mervat Simental MD 230 [place] [address] PCP - General Internal Medicine 03/06/24 documented as of this encounter
--- OUTSIDE RECORDS SUMMARY | 2025-03-07 12:30 | XMS_ITS | Encounter Summary ---
Author Organization [employer] Address 75 [facility] [address], [place] [address] Care Team Providers Care Fish Housekeeper Name Role Phone Diane Gutierrez Primary Care Provider [phone] Diane Gutierrez Primary Care Provider [phone] Diane Gutierrez Primary Care Provider [phone] Diane Gutierrez Primary Care Provider [phone] Mervat Simental MD Primary Care Provider + Reason for Visit * Reason Onset Date Comments new pt visit 01/12/2024 Encounter Details Date Type Department Care Team (Late st Contact Info) Description 01/12/2024 Telephone [facility] ADULT DENTAL [address] [place] [address] Saman Rodriguez, DMD [address] [place] [address] new pt visit Social History Tobacco Use [...] PM EDT PCP for patient here in [facility] sent an internal referral under referral tab for internal dentistry appt regular care. Patient inquiring on status of appt. Patient informed that there is a lengthy waiting list for new patients and that message would be sent to [facility] dental for follow up. Pls reach out topatient. He'd like to hear from dental office directly DR documented in this encounter Plan of Treatment Upcoming Encounters Date Type Department Care Team (Late st Contact Info) Description 03/11/2025 10:00 AM EDT Clinical Support [facility] DIABETES/NUTRITION [address] [place] [address] [place] [address] documented as of this encounter Visit Diagnoses Not on filedocumented in this encounter Additional Health Concerns Assessment Noted Time PHQ-9 Depression Total Score: 10 024 11:48 AM EST documented as of this encounter Care Teams Fish Housekeeper Relationship Specialty Start Date End Date Diane Gutierrez FNP [address] [place] [address] PCP - General Family Medicine 05/31/22 01/26/24 Diane Gutierrez FNP [address] [place] [address] PCP - General Family Medicine 01/27/24 01/29/24 Diane Gutierrez FNP [address] [place] [address] PCP - General Family Medicine 01/30/24 02/02/24 Diane Gutierrez FNP [address] [place] [address] PCP - General Family Medicine 02/03/24 03/05/24 Mervat Simental MD 230 [place] [address] PCP - General Internal Medicine 03/06/24 documented as of this encounter
--- OUTSIDE RECORDS SUMMARY | 2025-03-07 12:30 | XMS_ITS | Encounter Summary ---
Author Organization [employer] Address 75 [facility] 7 [place] [address] Care Team Providers Care Glass Worker Name Role Phone Diane Gutierrez Primary Care Provider [phone] Diane Gutierrez Primary Care Provider [phone] Diane Gutierrez Primary Care Provider [phone] Diane Gutierrez Primary Care Provider [phone] Mervat Simental MD Primary Care Provider + Reason for Visit * Reason Onset Date Comments Medication Question 01/12/2024 Referral 01/12/2024 Encounter Details Date Type Department Care Team (Late st Contact Info) Description 01/12/[address] [facility] MEDICINE 230 [place], [place] [phone] Diane Gutierrez FNP 230 [place], [place] [phone] Medication Question; Referral Social History Tobacco Use [...] no answer. LVM to call back on [phone]. * Telephone Encounter - Brian Lau RN [...] Description 03/11/2025 10:00 AM EDT Clinical Support [facility] DIABETES/NUTRITION 230 [place], [place] [phone] Jocy Arreola [address] 230 [place] [address] documented as of this encounter Visit Diagnoses Not on filedocumented in this encounter Additional Health Concerns Assessment Noted Time PHQ-9 Depression Total Score: 10 024 11:48 AM EST documented as of this encounter Care Teams Glass Worker Relationship Specialty Start Date End Date Diane Gutierrez FNP 230 [place] [address] PCP - General Family Medicine 05/31/22 01/26/24 Diane Gutierrez FNP [address] [place] [address] PCP - General Family Medicine 01/27/24 01/29/24 Diane Gutierrez FNP 230 [place] [address] PCP - General Family Medicine 01/30/24 02/02/24 Diane Gutierrez FNP 230 [place] [address] PCP - General Family Medicine 02/03/24 03/05/24 Mervat Simental MD 230 [place] [address] PCP - General Internal Medicine 03/06/24 documented as of this encounter
--- OUTSIDE RECORDS SUMMARY | 2025-03-07 12:30 | XMS_ITS | Clinical Summary ---
Author Organization [facility] Address [address] [place], [place] [phone] Phone Care Team Providers Care Flange Machine Operator Name Role Phone Candida Jimenez GROUP BILLING COORDINATOR Primary Care Provider [phone] Allergies Active Allergy Reactions Criticality Noted Date [...] file Group ID:Not on file Type:Medicaid Address: [address] [place] [address] SAFETY NET PARTIAL [facility] C3 ACO HEALTH SAFETY NET PARTIAL Member Subscriber Plan / Payer (Ef fective 2023-Present) Name:Cisco Ro Relation to Subscriber:Self Name:Cisco Ro Payer ID:Not on file Group ID:Not on file Type:Medicaid Address: [address] C3 ACO [facility] SAFETY NET PARTIAL Member Subscriber Plan / Payer (Ef fective 2023-) Name:Cisco Ro Relation to Subscriber:Self Name:Jayjay Cisco Payer ID:Not on file Group ID:Not on file Type:Medicaid Address: [address] C3 [employer] SAF[employer] NET PARTIAL Member Subscriber Plan / Payer (Ef fective 2023-Present) Name:Cisco Ro Relation to Subscriber:Self Name:Cisco Ro Payer ID:Not on file Group ID:Not on file Type:Medicaid Address: [address] C3 ACO Care Teams Flange Machine Operator Relationship Specialty Start Date End Date Candida Jimenez NP [address] [place] [address] Dr [address] [place] [address] PCP - General Nurse Practitioner 02/24/23 Additional Source Comments The information contained in this document represents components of the legal health record. It is not the complete legal health record.[facility]
--- OUTSIDE RECORDS SUMMARY | 2025-03-07 12:30 | XMS_ITS | Encounter Summary ---
Author Organization [employer] Address 75 [facility] 7t [place] [address] Care Team Providers Care Feller Hand Name Role Phone Diane Gutierrez Primary Care Provider [phone] Mervat Simental MD Primary Care Provider + Reason for Visit * Reason Comments Med Refill Encounter Details Date Type Department Care Team (Late st Contact Info) Description 03/02/2024 Refill [facility] MED & PEDS [address] [place] [address] Diane Gutierrez FNP [address] [place] [address] Hemorrhoids, unspecified hemorrhoid type Social History Tobacco [...] Description 03/11/2025 10:00 AM EDT Clinical Support [facility] DIABETES/NUTRITION [address] [place] [address] [place] [address] documented as of this encounter Visit Diagnoses Diagnosis Hemorrhoids, unspecified hemorrhoid type documented in this encounter Additional Health Concerns Assessment Noted Time PHQ-9 Depression Total Score: 10 024 11:48 AM EST documented as of this encounter Care Teams Feller Hand Relationship Specialty Start Date End Date Diane Gutierrez FNP [address] [place] [address] PCP - General Family Medicine 02/03/24 03/05/24 Mervat Simental MD [address] [place] [address] PCP - General Internal Medicine 03/06/24 documented as of this encounter
--- OUTSIDE RECORDS SUMMARY | 2025-03-07 12:30 | XMS_ITS | Encounter Summary ---
Author Organization [employer] Address 75 [facility] 7 [place] [address] Care Team Providers Care Drupal Web Developer Name Role Phone Diane Gutierrez Primary Care Provider [phone] Diane Gutierrez Primary Care Provider [phone] Diane Gutierrez Primary Care Provider [phone] Diane Gutierrez Primary Care Provider [phone] Mervat Simental MD Primary Care Provider + Reason for Visit * Reason Onset Date Comments triage 11/04/2022 Encounter Details Date Type Department Care Team (Late st Contact Info) Description 11/04/2022 Telephone [facility] MEDICINE [address] [place] [address] Diane Gutierrez FNP [address] [place], [place] [phone] triage Social History Tobacco Use Types Packs/Day [...] Description 03/11/2025 10:00 AM EDT Clinical Support [facility] DIABETES/NUTRITION [address] [place] [address] Jocy Arreola, ELBA [address] [place] [address] documented as of this encounter Visit Diagnoses Not on filedocumented in this encounter Care Teams Drupal Web Developer Relationship Specialty Start Date End Date Diane Gutierrez FNP [address] [place] [address] PCP - General Family Medicine 05/31/22 01/26/24 Diane Gutierrez FNP [address] [place] [address] PCP - General Family Medicine 01/27/24 01/29/24 Diane Gutierrez FNP [address] [place] [address] PCP - General Family Medicine 01/30/24 02/02/24 Diane Gutierrez FNP [address] [place] [address] PCP - General Family Medicine 02/03/24 03/05/24 Mervat Simental MD 230 [place] [address] PCP - General Internal Medicine 03/06/24 documented as of this encounter
--- OUTSIDE RECORDS SUMMARY | 2025-03-07 12:30 | XMS_ITS | Encounter Summary ---
Author Organization [employer] Address 75 [facility] 7 [place] [address] Care Team Providers Care Visual Basic Programmer Name Role Phone Mervat Simental MD Primary Care Provider + Reason for Visit * Reason Onset Date Comments Med Refill 03/26/2024 Encounter Details Date Type Department Care Team (Late st Contact Info) Description 03/26/2024 Refill [facility] MEDICINE 230 [place] [address] Diane Gutierrez FNP 230 [place] [address] Primary hypertension; Benign prostatic hyperplasia, unspecified whether [...] Description 03/11/2025 10:00 AM EDT Clinical Support [facility] DIABETES/NUTRITION 230 [place] [address] 230 [place] [address] documented as of this encounter Visit Diagnoses Diagnosis Primary hypertension Unspecified essential hypertension Benign prostatic hyperplasia, unspecified whether lower urinary tract symptoms present documented in this encounter Additional Health Concerns Assessment Noted Time PHQ-9 Depression Total Score: 10 024 11:48 AM EST documented as of this encounter Care Teams Visual Basic Programmer Relationship Specialty Start Date End Date Mervat Simental MD 230 [place] [address] PCP - General Internal Medicine 03/06/24 documented as of this encounter
--- OUTSIDE RECORDS SUMMARY | 2025-03-07 12:30 | XMS_ITS | Encounter Summary ---
Author Organization [employer] Address 75 [facility] [address], [place] [address] Care Team Providers Care Baccarat Manager Name Role Phone Diane Gutierrez Primary Care Provider [phone] Diane Gutierrez Primary Care Provider [phone] Diane Gutierrez Primary Care Provider [phone] Diane Gutierrez Primary Care Provider [phone] Mervat Simental MD Primary Care Provider + Encounter Details Date Type Department Care Team (Late st Contact Info) Description 12/15/2022 Abstract [facility] MEDICINE [address] [place], [place] [phone] Diane Gutierrez FNP [address] [place], [place] [phone] Social History Tobacco Use Types Packs/Day Years [...] Description 03/11/2025 10:00 AM EDT Clinical Support [facility] DIABETES/NUTRITION [address] [place] [address] [place] [address] documented as of this encounter Procedures Procedure [...] documented as of this encounter Care Teams Baccarat Manager Relationship Specialty Start Date End Date Diane Gutierrez FNP [address] [place] [address] PCP - General Family Medicine 05/31/22 01/26/24 Diane Gutierrez FNP [address] [place] [address] PCP - General Family Medicine 01/27/24 01/29/24 Diane Gutierrez FNP [address] [place] [address] PCP - General Family Medicine 01/30/24 02/02/24 Diane Gutierrez FNP [address] [place] [address] PCP - General Family Medicine 02/03/24 03/05/24 Mervat Simental MD 230 [place] [address] PCP - General Internal Medicine 03/06/24 documented as of this encounter
--- OUTSIDE RECORDS SUMMARY | 2025-03-07 12:30 | XMS_ITS | Encounter Summary ---
Author Organization [employer] Address 75 [facility] 7t [place] [address] Care Team Providers Care Tankroom Worker Name Role Phone Mervat Simental MD Primary Care Provider + Reason for Visit * Reason Onset Date Comments Nurse Triage 10/03/2024 Encounter Details Date Type Department Care Team ([facility] st Contact Info) Description 10/03/2024 Telephone [facility] MEDICINE [address] [place] [address] Mervat Simental MD 230 [place] [address] Nurse Triage Social History Tobacco Use Types [...] EDT Triage call Pt reports was in [facility] and was given 200pm apt in [facility] and was upset and walked out. Pt is calling for triage at this time. Pt reports generalized symptoms of headache which is mainly over evangelical areas across forehead more on right side, [...] with lack of follow through in the [facility]. Pt reports stopped marijuana use last [...] Pt no longer has job which had [employer] insurance. Protocol Used: Weakness (Generalized) and Fatigue [...] Pt reported brain fog Contact pt at [phone] documented in this encounter Plan of Treatment Upcoming Encounters Date Type Department Care Team (Late st Contact Info) Description 03/11/2025 10:00 AM EDT Clinical Support [facility] DIABETES/NUTRITION 230 [place], [place] [phone] Jocy Arreola RD 230 [place], [place] [phone] documented as of this encounter Visit Diagnoses Not on filedocumented in this encounter Additional Health Concerns Assessment Noted Time PHQ-9 Depression Total Score: 10 024 11:48 AM EST documented as of this encounter Care Teams Tankroom Worker Relationship Specialty Start Date End Date Mervat Simental MD 230 [place] [address] PCP - General Internal Medicine 03/06/24 documented as of this encounter
--- OUTSIDE RECORDS SUMMARY | 2025-03-07 12:30 | XMS_ITS | Encounter Summary ---
Author Organization [employer] Address 75 [facility] 7t [place] [address] Care Team Providers Care Engine Room Operator Name Role Phone Mervat Simental MD Primary Care Provider + Reason for Visit * Reason Onset Date Comments Med Refill 02/03/2025 Encounter Details Date Type Department Care Team (Late st Contact Info) Description 02/03/2025 Refill [facility] MEDICINE 230 [place] [address] Angelo Ley MD 230 [place] [address] Vitamin D deficiency Social History Tobacco Use Types Packs/Day Years [...] 03/11/2025 10:00 AM EDT Clinical Support [facility] DIABETES/NUTRITION [address] [place] [address] [place] [address] documented as of this encounter Visit Diagnoses Diagnosis Vitamin D deficiency documented in this encounter Additional Health Concerns Assessment Noted Time PHQ-9 Depression Total Score: 10 024 11:48 AM EST documented as of this encounter Care Teams Engine Room Operator Relationship Specialty Start Date End Date Mervat Simental MD 230 [place] [address] PCP - General Internal Medicine 03/06/24 documented as of this encounter
--- OUTSIDE RECORDS SUMMARY | 2025-03-07 12:30 | XMS_ITS | Encounter Summary ---
Author Organization [employer] Address 75 [facility] [address], [place] [address] Care Team Providers Care Drilling Inspector Name Role Phone Diane Gutierrez Primary Care Provider [phone] Diane Gutierrez Primary Care Provider [phone] Diane Gutierrez Primary Care Provider [phone] Diane Gutierrez Primary Care Provider [phone] Mervat Simental MD Primary Care Provider + Reason for Visit * Reason Onset Date Comments status on sleep apnea 11/04/2022 Encounter Details Date Type Department Care Team (Late st Contact Info) Description 11/04/2022 Telephone [facility] MEDICINE [address] [place] [address] Diane Gutierrez FNP [address] [place], [place] [phone] status on sleep apnea Social History Tobacco [...] Description 03/11/2025 10:00 AM EDT Clinical Support [facility] DIABETES/NUTRITION [address] [place] [address] [place] [address] documented as of this encounter Visit Diagnoses Not on filedocumented in this encounter Care Teams Drilling Inspector Relationship Specialty Start Date End Date Diane Gutierrez FNP [address] [place] [address] PCP - General Family Medicine 05/31/22 01/26/24 Diane Gutierrez FNP [address] [place] [address] PCP - General Family Medicine 01/27/24 01/29/24 Diane Gutierrez FNP [address] [place] [address] PCP - General Family Medicine 01/30/24 02/02/24 Diane Gutierrez FNP [address] [place] [address] PCP - General Family Medicine 02/03/24 03/05/24 Mervat Simental MD [address] [place] [address] PCP - General Internal Medicine 03/06/24 documented as of this encounter
--- OUTSIDE RECORDS SUMMARY | 2025-03-07 12:30 | XMS_ITS | Encounter Summary ---
Author Organization [employer] Address 75 [facility] 7t [place] [address] Care Team Providers Care Sericulturist Name Role Phone Mervat Simental MD Primary Care Provider + Reason for Visit * Reason Onset Date Comments calling back 03/14/2024 Encounter Details Date Type Department Care Team ([facility] st Contact Info) Description 03/14/2024 Telephone [facility] ADULT DENTAL 230 [place] [address] Alicia, Enriqueta [address] [place] [address] calling back Social History Tobacco Use Types [...] is returning a call he had missed. [facility] is on a meeting break till 12;30. Please call him once again to schedule that appt. Thank you CS documented in this encounter Plan of Treatment Upcoming Encounters Date Type Department Care Team (Late st Contact Info) Description 03/11/2025 10:00 AM EDT Clinical Support [facility] DIABETES/NUTRITION [address] [place] [address] [place] [address] documented as of this encounter Visit Diagnoses Not on filedocumented in this encounter Additional Health Concerns Assessment Noted Time PHQ-9 Depression Total Score: 10 024 11:48 AM EST documented as of this encounter Care Teams Sericulturist Relationship Specialty Start Date End Date Mervat Simental MD [address] [place] [address] PCP - General Internal Medicine 03/06/24 documented as of this encounter
--- OUTSIDE RECORDS SUMMARY | 2025-03-07 12:31 | XMS_ITS | Clinical Summary ---
Author Organization [employer] Address [address] [place] [address] Care Team Providers Care Executive Receptionist Name Role Phone Lit Simental MD Primary Care Provider + Allergies Active Allergy Reactions Criticality Noted Date Comments Cat Dander 06/21/2022 Dog Epithelium 06/21/2022 Doxycycline Diarrhea Medium 02/24/2023 Medications Blood Pressure kit Active fluticasone (Flonase) 50 MCG/ACT nasal sprayIndications: Subacute pansinusitis Administer 2 sprays into each nostril 2 times daily. 48 g 2 5 Active lisinopril 10 MG tabletIndications :Primary hypertension TAKE 1 TABLET BY MOUTH EVERY MORNING 90 tablet 1 5 Active tamsulosin (Flomax) 0.4 MG 24 hr capsuleIndication s:Benign prostatic hyperplasia, unspecified whether lower urinary tract symptoms present TAKE 1 CAPSULE BY MOUTH DAILY 30 MINUTES AFTER same MEAL EVERY DAY 90 capsule 1 5 Active Magnesium 400 MG capsule Take 1 tablet by mouth Once per day. 30 capsule 1 5 Active Magnesium Oxide -Mg Supplement 400 MG capsule Take 1 capsule by mouth Once per day. 5 Active hydrOXYzine pamoate (Vistaril) 50 MG capsule TAKE 1 CAPSULE BY MOUTH EVERY 8 HOURS IF NEEDED FOR ANXIETY 90 capsule 5 Active pantoprazole (Protonix) 40 MG EC tablet Take 1 tablet (40 mg) by mouth before breakfast. Do not crush, chew, or split. 90 tablet 5 05/05/20 25 Active cholecalciferol (Vitamin D-3) 25 MCG tabletIndications :Vitamin D deficiency Take 1 tablet (25 mcg) by mouth Once per day. 90 tablet 1 Active Active Problems Problem Noted Date Diagnosed Date Palpitations 02/04/2025 Assessment & Plan (02/04/2025 4:08 PM EDT): No evidence of arrhythmia or new ischemic changes today. I discussed with patient findings of previous Holter monitor on 09/2024 and 400 he probably had a run of PACs?. Await appointment for new Holter monitor and follow-up with cardiology Continue aspirin Advised to cut down THC smoking, increase water intake and red flags to go to ED were discussed with patient today Borderline low oxygen saturation level Assessment & Plan (01/08/2025 2:37 PM EDT): Recorder in his smart watch I will order overnight oximetry to objectively determine O2 levels, I told him that sometimes it is normal to have certain degree of hypoxemia at night then may be consistent with sleep apnea. Advised to avoid smoking or using any other recreational substances that may suppress respiratory drive. 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 11/02/2024 Assessment & Plan (11/02/2024 3:39 PM EDT): MRI of October 2024, follow-up with neurologist High serum ferritin 10/16/2024 Assessment & Plan (10/16/2024 3:27 PM EDT): See fatigue above Repeat labs and follow-up with me as scheduled Memory impairment of gradual onset 10/16/2024 Assessment & Plan (11/02/2024 3:30 PM EDT): Brain MRI with cerebral atrophy, he has been referred to neurologist I congratulated him for quitting THC and alcohol, I told him that the changes may be definitely related to long-term use of this substances Discussed about healthy diet, exercise and remaining hydrated and to follow-up with neurologist Assessment & Plan (10/16/2024 3:32 PM EDT): 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 Other headache syndrome 10/10/2024 Assessment & Plan (11/02/2024 3:27 PM EDT): It is significantly improved with magnesium, he is no longer taking it I will continue taking the as needed I congratulated him for quitting smoking and drinking alcohol I advised to follow-up with neurology due to underlying brain atrophy Assessment & Plan (10/10/2024 4:29 AM EDT): [...] to loosen mucus, + Flonase. Take Acetaminophen (Tylenol )/Ibuprofen as needed to reduce fever, headache, body [...] 72 hours (temperature should be less than 100 F without medication). Out of work until Tuesday [...] more tired in am. Reports he saw electronic gluing machine operator with mx testing per pt last year [...] 02/25/2020 Mixed anxiety and depressive disorder 02/25/2020 Assessment & Plan (11/02/2024 3:29 PM EDT): Currently mostly due to deteriorating health conditions. We discussed in length importance of close follow-up with specialist and importance of staying sober from alcohol and THC. We discussed about CBT, he will continue to do exercise daily, take magnesium as needed and drink plenty of water He wants to hold off on medications at this time, will follow-up in 3 months Hypertension Assessment & Plan (07/27/2024 10:07 AM EST): Controlled. Compliant w/meds Continue lisinopril. Counseled re low salt diet/increase moderate physical activity. Check home BP BIW and prn CP/BROWN/MARIE Non smoking patient. Follow up in 3 months. Resolved Problems Problem Noted Date Diagnosed Date Resolved Date Retention of urine 02/25/2020 5 Encounters Date Type Department Care Team Description 02/11/2025 Telephone [facility] [address] [place] [address] Lit Simental MD TRANSFER REQUEST 02/08/2025 10:30 AM EDT Clinical Support [facility]NUTR[facility] [address] [place] [address] Elevated ferritin (Primary Dx) 02/08/2025 Travel 02/04/2025 3:15 PM EDT Office Visit [facility] [address] [place] [address] Lit Simental MD Palpitations (Primary Dx) 02/04/2025 Travel 02/04/2025 Telephone [facility] [address] [place] [address] Lit Simental MD Nurse Triage 02/03/2025 Refill [facility] [address] [place] [address] Lit Simental MD Vitamin D deficiency 02/03/2025 Refill [facility] [address] [place] [address] Angelo Ley MD Vitamin D deficiency 01/27/2025 Refill [facility] [address] [place] [address] Angelo Ley MD Vitamin D deficiency 01/21/2025 11:00 AM EDT Clinical Support [facility] [address] [place] [id number] Elevated ferritin (Primary Dx); Chronic fatigue 01/21/2025 Travel 01/15/[address] [address] Lit Simental MD NTTS 12/31/[address] [address] Lit Simental MD Medication Question 12/25/2024 11:00 AM EDT Nutrition [facility] [address] [place] [id number] High serum ferritin; Chronic fatigue 12/25/2024 Travel 12/21/2024 2:00 PM EDT Office Visit [facility] [address] [place] [address] Saman Rodriguez, BRISSA 12/12/2024 Telephone [facility] [address] [place] [address] Lit Simental MD Call Back Request 12/10/2024 Outside Procedure [facility] [address] [place] [phone] Jessica Curtis, OD Presbyopia (Primary Dx) 12/10/2024 Telephone [facility] [address] [place] [address] Lit Simental MD Referral; Lab order questions 12/06/2024 11:00 AM EDT Office Visit [facility] [address] [place] [address] Jessica Curtis, OD Myopia of both eyes (Primary Dx) 12/06/2024 9:00 AM EDT Office Visit [facility] [address] [place] [address] Saman Rodriguez DMD from Last 3 Months Immunizations Immunization Administration Dates Next Due Influenza Injectable Quadriv [...] Sign Reading Time Taken Comments Blood Pressure 118/68 02/04/2025 3:05 PM EDT Pulse 68 02/04/2025 3:05 PM EDT Temperature 36.4 C (97.6 F) 02/04/2025 3:05 PM EDT Respiratory Rate 18 02/04/2025 3:05 PM EDT Oxygen Saturation 97% 02/04/2025 3:05 PM EDT Inhaled Oxygen Concentration - - Weight 124 kg (274 lb) 02/11/2025 1:17 PM EDT Height 170.2 cm (5' 7 ) 02/11/2025 1:17 PM EDT Body Mass Index 42.91 02/11/2025 1:17 PM EDT Plan of Treatment Upcoming Encounters Date Type Department Care Team (Late st Contact Info) Description 03/11/2025 10:00 AM EDT Clinical Support [facility] [address] [place] [address] Jocy Arreola, ELBA [address] [place] [address] Health Maintenance Due Date Last Done Comments CT Colonography 1970 FIT DNA/Cologuard 1970 FIT 1970 FOBT 1970 Sigmoidoscopy 1970 Hepatitis B Vaccines (1 of 3 - 19+ 3-dose series) 1989 Pneumococcal Vaccine: 50+ Years (1 of 1 - PCV) 2020 Colonoscopy 05/20/2024 05/20/2021 Colorectal Cancer Screening 05/20/2024 Depression Monitoring 01/24/2025 07/27/2024, 03/08/2 024 Dental X-Ray: Bitewings 02/20/2025 02/20/2024 COVID-19 Vaccine ( season) 2025 07/29/2021, 10/11/2020 Influenza Vaccine (#1) 2025 04/15/2021 Dental Oral Exam 03/07/2025 09/03/2024, 02/20/2024 Dental Prophylaxis 03/07/2025 09/03/2024, 02/20/2024 SDOH Screening 10/26/2025 10/26/2024 Alcohol/Substance Use Screening 11/02/2025 11/02/2024 Disability Screening 11/02/2025 11/02/2024 Tobacco Screening 02/04/2026 02/04/2025 Dental X-Ray: Full Mouth 02/20/2027 02/20/2024 Lipid [...] Date/Time Associated Diagnosis Comments AMB REFERRAL TO RHEUMATOLOGY Routine 02/14/2025 LIT positive L[place] reticularis Other fatigue ECG 12-LEAD Routine 02/04/2025 4:09 PM EDT Palpitations CASE PRESENTATION, DETAILED AND EXTENSIVE TREATMENT PLANNING Routine 12/21/2024 2:00 PM EDT 8 CROWN - PORCELAIN/CERAMIC Routine 12/21/2024 2:00 PM EDT CASE PRESENTATION, DETAILED AND EXTENSIVE TREATMENT PLANNING Routine 12/06/2024 9:00 AM EDT 8 CROWN PREP Routine 12/06/2024 9:00 AM EDT 8 PREFABRICATED POST AND CORE IN ADDITION TO CROWN Routine 12/06/2024 9:00 AM EDT HEPATITIS C AB W/REFL TO HCV RNA, QN, PCR Routine 10/10/2024 9:04 AM EDT Other fatigue HIV 1/2 ANTIGEN/ANTIBODY, FOURTH GENERATION W/RFL Routine 10/10/2024 9:04 AM EDT Other fatigue LIPID PANEL WITH REFLEX TO DIRECT LDL Routine 09/12/2024 8:34 AM EDT Primary hypertension PROPHYLAXIS - ADULT Routine 09/03/2024 2 :00 PM EST Dental calculus Dental plaque PERIODIC ORAL EVALUATION - ESTABLISHED PATIENT Routine 09/03/2024 2:00 PM EST INTRAORAL - COMPLETE SERIES OF RADIOGRAPHIC IMAGES Routine 02/20/2024 10:00 AM EDT Decalcification, teeth Dental calculus Missing teeth, acquired Localized gingival recession Bleeding gums Dental caries HM COLONOSCOPY Routine 05/20/2021 1:52 PM EST from Last 3 Months or Most Recently Relevant to Health Maintenance Results * Referral to Rheumatology (02/14/2025) Harrison Paula MD OUTPATIENT REFERR AL ORDERABLES Final Result * ECG 12 lead (02/04/2025 4:09 PM EDT) Narrative Lit Simental MD - 02/04/2025 4:09 PM EDT NSR at 63 bpm, RSR' in V2 probably related to incomplete RBBB. No new EKG changes Lit Simental MD ECG ORDERABLES Final Re sult * Hepatitis C Antibody with Reflex to HCV, RNA, Quantitative, Real-Time PCR (10/10/2024 9:04 AM EDT) Pathologist [facility] Hepatitis C Antibody Nonreactive Nonreactive [facility] Comment:Antibodies to HCV no t detected; does not exclude early acuteHCV infection. Blood Venous blood specimen / Unknown 10/10/2024 9:04 AM EDT 10/10/2024 11:40 AM EDT Harrison Paula MD LAB BLOOD ORDERAB LES Final Result Performing Organization Address [facility]/ZIP Co de Phone Number [facility] [address] [place] [phone] * HIV-1/2 Antigen and Antibodies, Fourth Generation, with Reflexes (10/10/2024 9:04 AM EDT) Pathologist [facility] HIV AB/AG Nonreactive Nonreactive [facility] Comment:HIV-1 p24 Ag and/or HIV-1/HIV-2 Ab not detected.A test result that is nonreactive does not exclude thepossibility of exposure to or infection with HIV-1 and/orHIV-2. Nonreactive results in this assay for individualswith prior exposure to HIV-1 and/or HIV-2 may be due toantigen and antibody levels that are below the limit ofdetection of this assay.The [employer] HIV Ag/Ab Combo assay result andsupplemental assay results should be interpreted inconjunction with the patient's clinical presentation,history and other laboratory results. If the results areinconsistent with clinical evidence, additional testing issuggested to confirm the result. Blood Venous blood specimen / Unknown 10/10/2024 9:04 AM EDT 10/10/2024 11:40 AM EDT Harrison Paula MD LAB BLOOD ORDERAB LES Final Result Performing Organization Address City/[facility]/ZIP Co de Phone Number [facility] [address] [place] [address] [phone] * (ABNORMAL) Lipid Panel with Reflex to Direct LDL (09/12/2024 8:34 AM EDT) Triglycerides 128 <150 mg/dL [facility] Comment:Desirable Triglyceri de: less than 150 mg/dLBorderline High Triglyceride 150-199 mg/dLHigh Triglyceride: 200-499 mg/dLVery High Triglyceride: greater than or equal to 5OO mg/dL Cholesterol 195 <200 mg/dL [facility] Comment:Desirable Cholestero l: less than 200 mg/dLBorderline High Cholesterol: 200-239 mg/dLHigh Cholesterol: greater than 239 mg/dL LDL Cholesterol Calculated 136(H) <100 mg/dL [facility] Comment:Desirable LDL: less than 100 mg/dLNear Optimal/Above Optimal LDL: 110- 129 mg/dLBorderline High LDL: 130-159 mg/dLHigh LDL: 160-189 mg/dLVery High LDL: greater than or equal to 190 mg/dL HDL Cholesterol 34(L) >40 mg/dL [facility] Comment:Desirable HDL: great er than 40 mg/dL Note: This HDL assay may give artificially low results in patients with liver disease. Blood 09/12/2024 8:34 AM EDT 09/12/2024 11:45 AM EDT Lit Simental MD LAB BLOOD ORDERABLES Fin al Result [facility] [address] [place] [address] [phone] * Hm Colonoscopy (05/20/2021 1:52 PM EST) Colonoscopy Normal Normal Narrative Lindsey Van - 05/20/2021 1:52 PM EST Recommended 3 year follow up Historical Provider HEALTH MAINTENANCE Edited Result - Final from Last 3 Months or Most Recently Relevant to Health Maintenance Insurance [employer] [address] [place] [address] [place] [address] [place] [address] Care Teams Executive Receptionist Relationship Specialty Start Date End Date Lit Simental MD [address] [place] [phone] PCP - General Internal Medicine 03/06/24
== END 2025-03-07 10:54 | disposition home or self-care (01) ==
LOC: HO.BBR 10:53
PROVIDERS: Visit Provider Internal Medicine
DX: Z13.89 Encounter for screening for other disorder (principal)

== ENCOUNTER 2025-03-07 15:46 | Emergency (ER) | payer MEDICAID, SELFPAY ==
[2025-03-07 15:49] VITALS: BP 152/79; PULSE 91; RESP 18; TEMP 37; O2SAT 95; BMI 42.1
--- NOTE | 2025-03-07 15:50 | ED.GENADULT ---
HPI - General Adult General Chief complaint: Allergic Reaction Stated complaint: ? allergic reaction/meds given at [facility] Time Seen by Provider: 03/07/25 19:30 History of Present Illness ED Provider: Nigel Prince MD HPI narrative: 54-year-old male history of GERD, alcohol dimension paroxysmal AFib hypertension presents with suspected allergic reaction after being given epinephrine prior to 15:30 and 50 mg Benadryl. Patient reported taking a coconut milk shake at home started feeling jittery subjective dyspnea subjective throat closing and phlegm facial fullness. Related Data Home Medications ?Medication ?Instructions ?Recorded ?Confirmed lisinopril 10 mg tablet 10 mg PO DAILY 04/01/21 01/21/25 tamsulosin 0.4 mg capsule 0.4 mg PO DAILY 04/01/21 01/21/25 fluticasone propionate 50 2 spray intranasal DAILY 04/28/21 01/21/25 mcg/actuation nasal spray,suspension cetirizine 10 mg tablet 10 mg PO BID 09/08/23 01/21/25 cholecalciferol (vitamin D3) 25 25 mcg PO DAILY 01/11/25 01/21/25 mcg (1,000 unit) tablet pantoprazole 40 mg tablet,delayed 40 mg PO QAM 01/11/25 01/21/25 release albuterol sulfate 90 mcg/actuation 2 puff inhalation Q6H PRN wheezing 01/21/25 01/21/25 aerosol inhaler hydroxyzine pamoate 50 mg capsule 50 mg PO Q8H PRN anxiety 01/21/25 01/21/25 magnesium oxide 400 mg PO DAILY 01/21/25 01/21/25 Previous Rx's ?Medication ?Instructions ?Recorded bisacodyl 5 mg tablet,delayed 10 mg (2 x 5 mg) PO BEDTIME #16 02/19/25 release (Dulcolax (bisacodyl)) tabs polyethylene glycol 3350 17 238 g PO ONCE #238 grams 02/19/25 gram/dose oral powder (Miralax) cetirizine 10 mg tablet 10 mg PO DAILY PRN allergy 03/07/25 symptoms #7 tabs prednisone 20 mg tablet 60 mg (3 x 20 mg) PO DAILY 2 days 03/07/25 #6 tabs Allergies Allergy/AdvReac Type Severity Reaction Status Date / Time No Known Allergies (No Known Allergy Verified 03/07/25 15:50 Allergies*) [facility] Past Medical History Medical History (Updated 03/08/25 @ 00:01 by Pam Funes) GERD (gastroesophageal reflux disease) Alcoholic dementia MCI (mild cognitive impairment) Bradycardia Sleep apnea Bleeding hemorrhoids Tubular adenoma History of snoring History of alcohol abuse Allergic rhinitis History of MRSA infection Anxiety and depression Urinary (tract) obstruction HTN (hypertension) Surgical History History of hemorrhoidectomy (~03/09/24) Hx of esophagogastroduodenoscopy Hx of colonoscopy History of cystoscopy Hx of cholecystectomy Family History Family History Mother Cancer Social History Social History Household Members: None Housing: House Unable to assess alcohol history related to: Unknown Alcohol intake: unknown Patient Tobacco Use Status: Never used Tobacco Smoked in Last 30 Days: No Use of substances other than those prescribed or required for medical reasons: No Substance Use Type: Marijuana Advance Directives: No Advance Directives Information Provided: Yes service: No Current occupational status: employed and student Physical Exam ED Exam Exam: EXAM: Gen: Alert, awake, well appearing, well hydrated. Head: Atraumatic Eyes: Anicteric, Normal conjunctiva. ENT: Moist mucosa, no pallor. ?Midline uvula without edema. Well visualized posterior oropharynx tongue and lips without any edema. Normal voice no stridor or hot potato voice no exudates. Neck: Supple. Skin: ?No observable rash or bruising on exposed or examined skin Respiratory: Breathing comfortably, No distress.Clear to auscultation bilaterally, symmetric chest expansion, No wheeze, rales, ronchi. Cardiovascular: Regular rate and rhythm. No murmurs or rub. Well perfused periphery, warm extremities. No edema. ? Abdominal: No focal tenderness. Soft, no objective distension. No palpable masses or obvious organomegaly. ?No guarding, no rebound tenderness or other peritoneal findings. : No flank tenderness. Neuro: Alert. Gross movement of all extremities intact. ? Psych: Calm. Cooperative. MSK: No grossly visible deformity. Vital signs: See flowsheet Vital Signs: Vital Signs - 24 hr 03/07/25 19:45 Temperature 98.6 F Pulse Rate 91 Respiratory Rate 18 Blood Pressure 152/79 H Pulse Oximetry 95 Oxygen Delivery Method Room Air BMI result Body Mass Index 42.1 Course Course Course Narrative: This is a rapid medical exam performed by Estrada Barajas NP: Additional HPI, ROS, PE not included below will be deferred to primary provider. Patient is a 54-year-old male with history of GERD, mild cognitive impairment, afib, HTN presenting from [facility] for allergic reaction, ? anaphylaxis. Made a milkshake with coconut milk then developed nausea, shortness of breath. Medicated with benadryl and epi at [facility], refused EMS transport. Reports feeling phlegmy, asthma-like. Feels improvement in symptoms after epi. Medications Administered Discontinued Medications Generic Name Dose Route Start Last Admin Trade Name Freq PRN Reason Stop Dose Admin Prednisone 60 mg 03/07/25 19:24 03/07/25 19:37 Prednisone 20 Mg Tablet PO 03/07/25 19:25 60 mg ONCE ONE Administration Medical Decision Making Medical Decision Making MDM Narrative: Medical Decision Makin-year-old male with no prior anaphylaxis, angioedema or other severe allergic reactions in the past with subjective throat closing sensation hours ago prior to arrival was given epinephrine Benadryl more than 3 hours ago. He is on longstanding RUBEN inhibitor he says this is for bladder issue he has never had angioedema in the past but this was considered. He has no objective evidence on my examination nor to the provider at triage who saw the patient of angioedema. I doubt this but I did instruct him to stop the RUBEN inhibitor just in case. Avoid coconut milk or other exposures that may has been new this afternoon. He is protecting his airway there was no dermatologic GI or other system involvement doubt anaphylaxis no indication for discharge with epinephrine. Preliminary Favored Differential Diagnosis: Allergic reaction, choking episode, angioedema among additional considered etiologies Testing Interpreted Independently: ?See below for details Radiology or Lab testing Results Reviewed: ?See below for details Consults: ?See below for details Independent Historians/External Chart Reviews: ?See below for details Social Determinants of Health Impacting MDM/Planning: ?See below for details Discharge Plan Discharge Clinical Impression: Allergic reaction Patient Disposition: Home, Self-Care Instructions: General Allergic Reaction (ED) Additional Instructions: DISCHARGE DIAGNOSES: Allergic reaction EMERGENCY DEPARTMENT COURSE,TESTS, TREATMENTS: While in the ED today you were monitored and received prednisone a steroid to counter possible allergic reaction. DISCHARGE MEDICATIONS: ?We have recommended that you stop taking lisinopril until guided otherwise by your primary doctor all other medications that you take can be continued FOLLOW-UP: ?Call your primary or general physician soon as possible to discuss your symptoms, your ED visit and to discuss follow up plans Call your PCP for follow up INSTRUCTIONS ?& RETURN PRECAUTIONS: If any symptoms change first call your primary physician, if it is after-hours your primary doctors office should have a provider data warehouse consultant you can speak with. If the symptoms are severe or very concerning to you then call 911 or return to the ED. Nigel Prince MD Emergency Physician [facility] Prescriptions: New cetirizine 10 mg tablet 10 mg PO DAILY PRN (Reason: allergy symptoms) Qty: 7 0RF prednisone 20 mg tablet 60 mg PO DAILY 2 Days Qty: 6 0RF No Action fluticasone propionate 50 mcg/actuation spray,suspension 2 spray intranasal DAILY tamsulosin 0.4 mg capsule 0.4 mg PO DAILY lisinopril 10 mg tablet 10 mg PO DAILY bisacodyl [Dulcolax (bisacodyl)] 5 mg tablet,delayed release (DR/EC) 10 mg PO BEDTIME Qty: 16 0RF Rx Instructions: Start taking 2 tablet every night 7 days before the procedure and 1 day before procedure take 4 tablets at noon time followed by MiraLax prep polyethylene glycol 3350 [Miralax] 17 gram/dose powder 238 g PO ONCE Qty: 238 0RF Rx Instructions: As directed by gastroenterology department at [facility] pantoprazole 40 mg tablet,delayed release (DR/EC) 40 mg PO QAM cholecalciferol (vitamin D3) 25 mcg (1,000 unit) tablet 25 mcg PO DAILY hydroxyzine pamoate 50 mg capsule 50 mg PO Q8H PRN (Reason: anxiety) albuterol sulfate 90 mcg/actuation HFA aerosol inhaler 2 puff inhalation Q6H PRN (Reason: wheezing) magnesium oxide 400 mg magnesium capsule 400 mg PO DAILY cetirizine 10 mg tablet 10 mg PO BID Interventions: ED Discharge Assessment Last Done: 03/07/25 19:45 Discharge Date/Time: 03/07/25 19:47 Print Language: Afghan
[2025-03-07 19:45] VITALS: BP 152/79; PULSE 91; RESP 18; TEMP 37; O2SAT 95
== END 2025-03-07 19:47 | disposition home or self-care (01) ==
PROVIDERS: Emergency Provider Emergency Medicine
DX: R06.02 Shortness of breath (principal); T78.1XXA Other adverse food reactions, not elsewhere classified, initial encounter; Z79.899 Other long term (current) drug therapy
CPT/HCPCS: 99283; 99284

== ENCOUNTER 2025-04-04 10:03 | Day surgery (SDC) | payer MEDICAID, SELFPAY ==
--- NOTE | 2025-04-04 10:12 | HO.ANESPROP2 ---
Documented by User: Jackie Oneal NP 04/04/25 10:30 HPI - Anesthesia Eval Consult details Narrative: 54yo M for Upper Endoscopy and Colonoscopy New dx afib 12/2024. F/U with [facility] , w/u complete and optimized to proceed. No anticoag at this time. [facility] Past Medical History Medical History GERD (gastroesophageal reflux disease) Alcoholic dementia MCI (mild cognitive impairment) Bradycardia Sleep apnea Bleeding hemorrhoids Tubular adenoma History of snoring History of alcohol abuse Allergic rhinitis History of MRSA infection Anxiety and depression Urinary (tract) obstruction HTN (hypertension) Family History Family History Mother Cancer Surgical History Surgical History History of hemorrhoidectomy (~03/09/24) Hx of esophagogastroduodenoscopy Hx of colonoscopy History of cystoscopy Hx of cholecystectomy Social History Social History Household Members: None Housing: House Are you a primary career center advisor to a significant other at home: No Do you presently have visiting nurse or other home services: No Alcohol intake: unknown Patient Tobacco Use Status: Never used Tobacco Substance Use Type: Marijuana Substance Use Frequency: Daily Have you been hit, kicked, punched, or otherwise hurt by someone within the past year? If so, by whom?: No Are you DNR?: No Advance Directives: No Advance Directives Information Provided: Yes Poor oral hygiene: No service: No Current occupational status: employed and student [employer] Allergies Allergy/AdvReac Type Severity Reaction Status Date / Time No Known Allergies (No Known Allergy Verified 04/04/25 10:04 Allergies*) Home Medications ?Medication ?Instructions ?Recorded ?Confirmed ?Last Taken ?Type lisinopril 10 mg tablet 10 mg PO DAILY 04/01/21 04/04/25 Unknown History tamsulosin 0.4 mg capsule 0.4 mg PO DAILY 04/01/21 04/04/25 Unknown History fluticasone propionate 50 2 spray intranasal DAILY 04/28/21 04/04/25 Unknown History mcg/actuation nasal spray,suspension cetirizine 10 mg tablet 10 mg PO BID 09/08/23 04/04/25 Unknown History cholecalciferol (vitamin D3) 25 25 mcg PO DAILY 01/11/25 04/04/25 Unknown History mcg (1,000 unit) tablet pantoprazole 40 mg tablet,delayed 40 mg PO QAM 01/11/25 04/04/25 Unknown History release albuterol sulfate 90 mcg/actuation 2 puff inhalation Q6H PRN wheezing 01/21/25 04/04/25 Unknown History aerosol inhaler hydroxyzine pamoate 50 mg capsule 50 mg PO Q8H PRN anxiety 01/21/25 04/04/25 Unknown History magnesium oxide 400 mg PO DAILY 01/21/25 04/04/25 Unknown History Exam Narrative Narrative: EKG sinus bradycardia, cant exclude prior anterior infarct, rate 56, Qtc 397ms 02/28/25 Exercise stress test with exercise 6 mins 54 secs of Chuck Protocol, achieving 86% MPHR, with reports of SOB, no chest pain, without any arrythmias, with normotensive response to exercise. Without any EKG changes meeting criteria for ischemia. In recovery, breathing returned to baseline. 02/28/25 Holter 1. Patient was monitored for total period of 1 day and 23 hours 2. Baseline was normal sinus rhythm with average heart of 61 beats per minute 3. No significant pauses noted but frequent sinus bradycardia noted with 49% of the time heart rate below 60 beats per minute 4. Occasional PACs noted without any sustained arrhythmias or atrial fibrillation 5. No patient reported symptoms ECHO 2023 Conclusions: - Normal left ventricular size and systolic function. There is mildly increased left ventricular wall thickness. The visually estimated ejection fraction is between 55-60%. - Diastolic function is normal for age. - Normal right ventricular cavity size and systolic function. - There is mild dilatation of the ascending aorta measuring 3.40 cm. Documented by User: Arpita Irene MD 04/04/25 10:30 [facility] Active Problems Active Problems: All Active Problems (Updated 03/08/25 @ 00:01 by Background Daemon) GERD (gastroesophageal reflux disease) (Acute) Hospital discharge follow-up (Acute) MCI (mild cognitive impairment) (Acute) Alcoholic dementia (Acute) PAF (paroxysmal atrial fibrillation) (Acute) Elevated ferritin (Chronic) BPH loc w urin obs/LUTS (Acute) PAC (premature atrial contraction) (Acute) Palpitations (Acute) Bleeding hemorrhoids (Acute) HTN (hypertension) (Acute) Tubular adenoma (Acute) Past Medical History Medical History GERD (gastroesophageal reflux disease) Alcoholic dementia MCI (mild cognitive impairment) Bradycardia Sleep apnea Bleeding hemorrhoids Tubular adenoma History of snoring History of alcohol abuse Allergic rhinitis History of MRSA infection Anxiety and depression Urinary (tract) obstruction HTN (hypertension) Family History Family History Mother Cancer Family history of problems with anesthesia: No Surgical History Surgical History History of hemorrhoidectomy (~03/09/24) Hx of esophagogastroduodenoscopy Hx of colonoscopy History of cystoscopy Hx of cholecystectomy History of Problems with Anesthesia: No Social History Social History Household Members: None Housing: House Are you a primary career center advisor to a significant other at home: No Do you presently have visiting nurse or other home services: No Alcohol intake: unknown Patient Tobacco Use Status: Never used Tobacco Substance Use Type: Marijuana Substance Use Frequency: Daily Have you been hit, kicked, punched, or otherwise hurt by someone within the past year? If so, by whom?: No Are you DNR?: No Advance Directives: No Advance Directives Information Provided: Yes Poor oral hygiene: No service: No Current occupational status: employed and student Meds Allergies Allergy/AdvReac Type Severity Reaction Status Date / Time No Known Allergies (No Known Allergy Verified 04/04/25 10:04 Allergies*) Home Medications ?Medication ?Instructions ?Recorded ?Confirmed ?Last Taken ?Type lisinopril 10 mg tablet 10 mg PO DAILY 04/01/21 04/04/25 Unknown History tamsulosin 0.4 mg capsule 0.4 mg PO DAILY 04/01/21 04/04/25 Unknown History fluticasone propionate 50 2 spray intranasal DAILY 04/28/21 04/04/25 Unknown History mcg/actuation nasal spray,suspension cetirizine 10 mg tablet 10 mg PO BID 09/08/23 04/04/25 Unknown History cholecalciferol (vitamin D3) 25 25 mcg PO DAILY 01/11/25 04/04/25 Unknown History mcg (1,000 unit) tablet pantoprazole 40 mg tablet,delayed 40 mg PO QAM 01/11/25 04/04/25 Unknown History release albuterol sulfate 90 mcg/actuation 2 puff inhalation Q6H PRN wheezing 01/21/25 04/04/25 Unknown History aerosol inhaler hydroxyzine pamoate 50 mg capsule 50 mg PO Q8H PRN anxiety 01/21/25 04/04/25 Unknown History magnesium oxide 400 mg PO DAILY 01/21/25 04/04/25 Unknown History Exam Airway Mallampati Class: III TM Dist: >3cm Neck ROM: Full Loose/Missing/Broken Teeth: Yes, Upper and Lower Heart: RRR Lungs: CTA Assessment and Plan Assessment Anesthesia Assessment: Anesthesia Plan Discussed and Chart Reviewed Final Anesthetic Review Family History of Problems with Anesthesia: No History of Problems with Anesthesia: No NPO: Yes ASA Class: III Final Preanesthetic Review: Meds/Allgs Chart Reviewed, Consent Obtained/Reviewed and Anes Risks/Benef Reviewed Patient Risk: Intermediate Procedure Risk: Intermediate Anesthetic Plan Anesthetic Plan: MAC: Disposition: Standard PACU
[2025-04-04 10:14] VITALS: BMI 42.3
--- NOTE | 2025-04-04 10:15 | P.HPSUR_ITS ---
Pre-Procedural Eval Section A - 24 Hr Update-Section A only Date of Service: 04/04/25 Section B - Complete if H&P > 30 days Chief Complaint: screening,gerd Relevant Family History (Specify if Yes): No Relevant Social History: None Present Medications: see Short Stay Collaborative assessment Medical History: Significant History (GERD (gastroesophageal reflux disease) Alcoholic dementia MCI (mild cognitive impairment) Bradycardia Sleep apnea Bleeding hemorrhoids Tubular adenoma History of snoring History of alcohol abuse Allergic rhinitis History of MRSA infection Anxiety and depression Urinary (trac t) obstruction HTN (hyper) History of Previous Operations: Relevant previous surgery/procedure and date(s) ( History of hemorrhoidectomy (~03/09/24) Hx of esophagogastroduodenoscopy Hx of colonoscopy History of cystoscopy Hx of cholecystectomy) Allergies: Allergies Allergy/AdvReac Type Severity Reaction Status Date / Time No Known Allergies (No Known Allergy Verified 04/04/25 10:04 Allergies*) Review of Systems Sugical H&P ROS: Negative: Constitution, Cardiovascular, Respiratory, Neurological, Psychiatric, Hem-Onc, Allergic/Immunologic, Gastrointestinal, Genitourinary, Musculoskeletal, Integumentary, Endocrine and Eyes/Ears/Nose/Throat Exam Surgical H&P Exam: Normal: HEENT, Normal: Heart, Normal: Lungs, Normal: Extremities, Normal: Abdomen, Normal: Skin and Normal: Neurological Plan Diagnosis/Plan: Unchanged I have reviewed the history and physical and performed a pertinent physical examination on my patient. No changes have occurred unless specified. Time Spent With Patient Time: Total time managing care of this patient today ____ minutes.
[2025-04-04] MEDS: Lactated Ringers 1,000 ML 80 ML IVCONT (10:32)
[2025-04-04 10:33] VITALS: BP 133/84; PULSE 58; RESP 18; TEMP 36.6; O2SAT 99
--- NOTE | 2025-04-04 11:55 | P.OPN-COLO_ITS ---
Colonoscopy Operative Note Operative Note Date of Service: 04/04/25 Narrative: Operative Information Procedure Description: EGD, Colonoscopy Indication: dysphagia, screening Anesthesia: MAC FLEXIBLE TRANSORAL UPPER GASTROINTESTINAL ENDOSCOPY AND COLONOSCOPY PROCEDURE NOTE UPPER ENDOSCOPY Consent: Indications for the procedure and potential complications of bleeding, perforation, reaction to medications and missed diagnosis were discussed with the patient and informed consent was obtained. Instrument: Olympus GIF H 190 J mid size upper endoscope Monitoring: Vital signs and clinical assessment, continuous EKG monitoring, Pulse oximetry, Carbon Dioxide monitoring and blood pressure monitoring were done throughout the procedure. Procedure: The patient was placed in the left lateral decubitis position and pre-procedure medications were administered and a bite block was placed. The endoscope was inserted into the mouth and advanced under direct vision to the third part of duodenum. A careful inspection was made as the upper endoscope was withdrawn including a retroflexed examination of the proximal stomach; Findings and interventions are described below. Findings: Larynx:normal Esophagus: GE junction at 40 cm, diaphragm hiatus at 40 cm, mild erythema at GEJ, bx taken also from distal and proximal esophagus, balloon dilation done at LES and UEs to 18 mm, no tears seen Stomach: patchy erythema. Biopsies were obtained. Grade 2 flap valve on retroflexed examination of the cardia. x 3 sessile polyps at antrum 8- 10 mm removed with cold snare Duodenum: Normal bulb and descending duodenum, bx taken Intervention: Biopsies as noted above, balloon dilation COLONOSCOPY Instrument: Olympus variable stiffness pediatric scope 190L Colonoscopy Monitoring: Vital signs and clinical assessment, continuous EKG monitoring, Pulse oximetry, Carbon Dioxide monitoring and blood pressure monitoring were done throughout the procedure. Colon withdrawal time was 24 minutes. Procedure: The patient was placed in the left lateral decubitis position and pre-procedure medications were administered. After a digital rectal examination of the ano-rectum, the video colonoscope was inserted into the rectum and advanced through the colon to the cecum/TI. The colonoscope was slowly withdrawn in a retrograde panoramic fashion and the colon mucosa was carefully examined including a retroflexed view of the rectum. Findings and interventions are described below. Procedure Difficulty:moderate Findings: Terminal Ileum-normal Cecum:normal Ascending Colon: 5-7 mm sessile polyp removed with cold snare Transverse Colon -normal Descending Colon: 14-15 mm semi pedunculated polyp, injected with epinephrine and removed with cold snare x 3 clips applied for hemostasis Sigmoid Colon: moderate diverticulosis, Rectum: Retroflexion with small internal hemorrhoids, grade I, x 1 polyp at anal rectal junction, bx taken Anorectum - normal Colon preparation: [place] Bowel Preparation Scale Right colon; 2 Transverse colon: 2 Left colon; 2 (0 = Unprepared colon segment with mucosa not seen due to solid stool that cannot be cleared. 1 = Portion of mucosa of the colon segment seen, but other areas of the colon segment not well seen due to staining, residual stool and/or opaque liquid. 2 = Minor amount of residual staining, small fragments of stool and/or opaque liquid, but mucosa of colon segment seen well. 3 = Entire mucosa of colon segment seen well with no residual staining, small fragments of stool or opaque liquid) Impression and Post Procedure Diagnosis: Endoscopy Findings: gastritis duodenitis Colonoscopy Findings: diverticulosis colon polyps x 3 internal hemorrhoids Plan: Await Pathology results Repeat Colonoscopy in 2-3 years or earlier if clinically indicated High fiber diet leaflet avoid straining at stool, epsom salts and sitz bath, anusol supps or cream if rectal polyp adenomatous then refer to colorectal due to location if h pylori pos then treat Above findings were reviewed with the patient and relevant handouts were provided if indicated.
[2025-04-04 12:03] VITALS: BP 137/74; PULSE 62; RESP 18; TEMP 36.1; O2SAT 98
[2025-04-04 12:18] VITALS: BP 129/66; PULSE 51; RESP 14; TEMP 36.3; O2SAT 98
== END 2025-04-04 13:00 | disposition home or self-care (01) ==
PROVIDERS: PCP Internal Medicine Hematology; Visit Provider Internal Medicine Gastroenterology
PROC: (CPT 45385; principal; 2025-04-04 11:40)
DX: Z12.11 Encounter for screening for malignant neoplasm of colon (principal); D12.2 Benign neoplasm of ascending colon; D12.4 Benign neoplasm of descending colon; K62.1 Rectal polyp; K64.0 First degree hemorrhoids; K57.30 Diverticulosis of large intestine without perforation or abscess without bleeding; K21.9 Gastro-esophageal reflux disease without esophagitis; R13.14 Dysphagia, pharyngoesophageal phase; K29.70 Gastritis, unspecified, without bleeding; K29.80 Duodenitis without bleeding; I10 Essential (primary) hypertension
CPT/HCPCS: 45385; 45380; 45381; 43249; 43251; 43239; 88305; 88313; 88342; C1726; J0168; J2003; J2250; J2704; J3010

== ENCOUNTER → 2025-04-04 10:03 | Outpatient (BNV) | payer MEDICAID, SELFPAY | PROVIDERS: PCP Internal Medicine Hematology; Visit Provider Internal Medicine Gastroenterology | DX: Z12.11 Encounter for screening for malignant neoplasm of colon (principal); D12.2 Benign neoplasm of ascending colon; D12.4 Benign neoplasm of descending colon; D12.8 Benign neoplasm of rectum; K57.30 Diverticulosis of large intestine without perforation or abscess without bleeding; K64.8 Other hemorrhoids; R13.10 Dysphagia, unspecified; K29.70 Gastritis, unspecified, without bleeding; K31.7 Polyp of stomach and duodenum | CPT/HCPCS: 43249; 43251; 45381; 45385 ==

== ENCOUNTER 2025-04-22 08:56 | Outpatient (AMB) | payer MEDICAID, SELFPAY ==
--- NOTE | 2025-04-22 09:42 | A.OFFVIS_ITS ---
Intake Visit Reasons: 1y/PSA Intake Note: Patient is present for 1yr/PSA * 10/10 PSA:1.17 Urology Medication:TAMSULOSIN, FINASTERIDE Antibiotic Allergy:NONE Blood Thinner:NONE Leaf Sorter Required: No Allergies No Known Allergies (No Known Allergies*) Allergy (Verified 04/22/25 09:49) Medication List - Last Reconciled 04/22/25 by Bong Campuzano MD albuterol sulfate 90 mcg/actuation 2 puffs inhalation Q6H PRN amlodipine 5 mg PO DAILY [aspirin 81 mg] cetirizine 10 mg PO DAILY PRN cholecalciferol (vitamin D3) 25 mcg PO DAILY fluticasone propionate 50 mcg/actuation 2 sprays intranasal DAILY hydroxyzine pamoate 50 mg PO Q8H PRN magnesium oxide 400 mg PO DAILY pantoprazole 40 mg PO QAM sucralfate (Carafate) 10 mL PO BID tamsulosin 0.4 mg PO DAILY HPI Comments Details: 04/22/2025-Cisco is followed for BPH he is on tamsulosin. He states that when he does not take the tamsulosin he has hesitancy. He states that he was on lisinopril which seemed to interact with the tamsulosin. He currently is off of the lisinopril and has noted better flow. He is prescribed hydroxyzine which she sometimes takes at night which also will adversely affect his voiding. Plan continue tamsulosin once today at this time no indication to increase to b.i.d. dosing. Continue PSA screening. 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 He has been followed by urology in the past. He is on tamsulosin and proscar. He wants to follow with [facility]. He states the medication helps. He denies dysuria, denies hematuria. Recent hemrrhoidectomy. Will hold on prostate exam today. [facility] Medical History GERD (gastroesophageal reflux disease) Alcoholic dementia MCI (mild cognitive impairment) Bradycardia Sleep apnea Bleeding hemorrhoids Tubular adenoma History of snoring History of alcohol abuse Allergic rhinitis History of MRSA infection Anxiety and depression Urinary (tract) obstruction HTN (hypertension) Surgical History History of hemorrhoidectomy (~03/09/24) Hx of esophagogastroduodenoscopy Hx of colonoscopy History of cystoscopy Hx of cholecystectomy Family History Mother Cancer Social History Household Members: None Housing: House Are you a primary senior care assistant to a significant other at home: No Do you presently have visiting nurse or other home services: No Alcohol intake: unknown Patient Tobacco Use Status: Never used Tobacco Substance Use Type: Marijuana service: No Current occupational status: employed and student Review of Systems Const All systems reviewed & are unremarkable except as noted in HPI and below Reports no additional complaints Eyes Reports no additional complaints ENT Reports no additional complaints Card Reports no additional complaints Resp Reports no additional complaints GI Reports no additional complaints Reports as per HPI Musc Reports no additional complaints Skin/Breast Reports system reviewed and no additional complaints, except as documented Neuro Reports no additional complaints Psych Reports no additional complaints Endo Reports no additional complaints Fuentes/Lymph Reports no additional complaints Aller/Immun Reports no additional complaints Results AMB Urinalysis, Automated UA Leukoctes 0 Genia/uL Last Edit by Lauren Fields on 04/22/25 16:54 UA Nitrite Negative Last Edit by Lauren Fields on 04/22/25 16:54 UA Urobilinogen 0.2 mg/dL Last Edit by Lauren Fields on 04/22/25 16:54 UA Protein 0 mg/dL Last Edit by Lauren Fields on 04/22/25 16:54 UA pH 6.0 Last Edit by Lauren Fields on 04/22/25 16:54 UA Blood 0 Jewel/uL Last Edit by Lauren Fields on 04/22/25 16:54 UA Specific [place] 1.015 Last Edit by Lauren Fields on 04/22/25 16:54 UA Ketone Negative Last Edit by Lauren Fields on 04/22/25 16:54 UA Bilirubin 0 mg/dL Last Edit by Lauren Fields on 04/22/25 16:54 UA Glucose 0 mg/dL Last Edit by Lauren Fields on 04/22/25 16:54 Results Reviewed Results Reviewed: Laboratory Last Values Urine pH (Auto) 6.0 04/22/25 12:14 Specific [place] (Auto) 1.015 04/22/25 12:14 Urine Protein (Auto) 0 mg/dL 04/22/25 12:14 Glucose (UA)(Auto) 0 mg/dL 04/22/25 12:14 Urine Ketones (Auto) Negative 04/22/25 12:14 Urine Blood (Auto) 0 Jewel/uL 04/22/25 12:14 Urine Nitrite (Auto) Negative 04/22/25 12:14 Urine Bilirubin (Auto) 0 mg/dL 04/22/25 12:14 Urine Urobilinogen (Auto) 0.2 mg/dL 04/22/25 12:14 Leukocyte Esterase (Auto) 0 Genia/uL 04/22/25 12:14 Assessment & Plan Assessment & Plan (1) Screening PSA (prostate specific antigen): Code(s): Z12.5 - Encounter for screening for malignant neoplasm of prostate Category: Medical (2) BPH (benign prostatic hyperplasia): Code(s): N40.0 - Benign prostatic hyperplasia without lower urinary tract symptoms Category: Medical Plan Plan continue tamsulosin once today at this time no indication to increase to b.i.d. dosing. Continue PSA screening. PSA screening-10/10/2024--1.17 ng/mL Orders: Orders PSA,Total (Free>4and<10) 6 Months N40.0 - Benign prostatic hyperplasia without lower urinary tract symptoms, Z12.5 - Encounter for screening for malignant neoplasm of prostate AMB Urinalysis Automated 04/22/25 N40.0 - Benign prostatic hyperplasia without lower urinary tract symptoms Medications: New tamsulosin 0.4 mg PO DAILY 90 caps 3RF Patient Instructions: The patient had an opportunity to ask questions regarding treatment plan. The p atient expressed understanding and agreement with the above treatment plan. The patient is aware they should contact our office by phone for worsening of their current condition or the appearance of new symptoms. Compliance is encouraged with any medications and followup testing that is ordered. It is a privilege to be allowed the opportunity to participate in the urologic care of your patient. If you have any questions or concerns regarding treatment for the above conditions please do not hesitate to contact me. The office telephone contact is [phone]. This note is constructed in part using voice recognition software. While every effort has been made to ensure accuracy reinforcing iron worker helper errors may have been included. Yours sincerely, Bong Campuzano MD Coding Level of Care Code Est Pt Level 3 (30656) Diagnoses Screening PSA (prostate specific antigen) Z12.5 BPH (benign prostatic hyperplasia) N40.0
--- OUTSIDE RECORDS SUMMARY | 2025-04-22 10:02 | XMS_ITS | Encounter Summary ---
Author Organization [employer] Address [address] [facility] [place] [address] Care Team Providers Care Carpet Cutter Name Role Phone Diane Gutierrez Primary Care Provider [phone] Mervat Simental MD Primary Care Provider + Reason for Visit * Reason Comments Med Refill Encounter Details Date Type Department Care Team (Late st Contact Info) Description 03/02/2024 Refill [facility] MED & PEDS [address] [place] [address] Diane Gutierrez FNP [address] [place] [address] Hemorrhoids, unspecified hemorrhoid type Social History Tobacco [...] Care Team (Late st Contact Info) Description 04/26/2025 9:00 AM EDT Office Visit [facility] ADULT DENTAL [address] [place] [phone] Saman Rodriguez, BRISSA [address] [place] [phone] 05/06/2025 2:00 PM EST Clinical Support [facility] DIABETES/NUTRITION [address] [place] [phone] Jocy Arreola, RD [address] [place] [phone] 06/14/2025 9:15 AM EST Office Visit [facility] MEDICINE [address] [place] [phone] Isa Ferrer MD [address] [place] [phone] 09/09/2025 9:30 AM EDT Office Visit [facility] ADULT DENTAL [address] [place] [phone] Larisa Antunez documented as of this encounter Visit Diagnoses Diagnosis Hemorrhoids, unspecified hemorrhoid type documented in this encounter Additional Health Concerns Assessment Noted Time PHQ-9 Depression Total Score: 10 024 11:48 AM EST documented as of this encounter Care Teams Carpet Cutter Relationship Specialty Start Date End Date Diane Gutierrez FNP [address] [place] [address] PCP - General Family Medicine 02/03/24 03/05/24 Mervat Simental MD [address] [place] [address] PCP - General Internal Medicine 03/06/24 documented as of this encounter
--- OUTSIDE RECORDS SUMMARY | 2025-04-22 10:02 | XMS_ITS | Encounter Summary ---
Author Organization [employer] Address [address] [facility] [address] [place] [address] Care Team Providers Care Cuff Turner Name Role Phone Mervat Simental MD Primary Care Provider + Reason for Visit * Reason Onset Date Comments Nurse Triage 10/03/2024 Encounter Details Date Type Department Care Team ([facility] st Contact Info) Description 10/03/2024 Telephone [facility] MEDICINE [address] [place] [address] Mervat Simental MD [address] [place] [address] Nurse Triage Social History Tobacco Use Types [...] EDT Triage call Pt reports was in [facility] and was given 200pm apt in [facility] and was upset and walked out. Pt is calling for triage at this time. Pt reports generalized symptoms of headache which is mainly over jainism areas across forehead more on right side, [...] with lack of follow through in the [facility]. Pt reports stopped marijuana use last 48hours. [...] Pt no longer has job which had [employer] insurance. Protocol Used: Weakness (Generalized) and Fatigue [...] Pt reported brain fog Contact pt at [phone] documented in this encounter Plan of Treatment Upcoming Encounters Date Type Department Care Team (Late st Contact Info) Description 04/26/2025 9:00 AM EDT Office Visit [facility] ADULT DENTAL [address] [place] [phone] Saman Rodriguez, BRISSA [address] [place] [address] 05/06/2025 2:00 PM EST Clinical Support [facility] DIABETES/NUTRITION [address] [place] [phone] Jocy Arreola, ELBA [address] [place] [address] 06/14/2025 9:15 AM EST Office Visit [facility] MEDICINE [address] [place] [address] Isa Ferrer MD [address] [place] [address] 09/09/2025 9:30 AM EDT Office Visit [facility] ADULT DENTAL [address] [place] [address] Larisa Antunez documented as of this encounter Visit Diagnoses Not on filedocumented in this encounter Additional Health Concerns Assessment Noted Time PHQ-9 Depression Total Score: 10 024 11:48 AM EST documented as of this encounter Care Teams Cuff Turner Relationship Specialty Start Date End Date Mervat Simental MD [address] [place] [address] PCP - General Internal Medicine 03/06/24 documented as of this encounter
--- OUTSIDE RECORDS SUMMARY | 2025-04-22 10:02 | XMS_ITS | Encounter Summary ---
Author Organization [employer] Address 75 [facility] 7t [place] [address] Care Team Providers Care Duty Manager Name Role Phone Mervat Simental MD Primary Care Provider + Reason for Visit * Reason Onset Date Comments Med Refill 02/03/2025 Encounter Details Date Type Department Care Team (Late st Contact Info) Description 02/03/2025 Refill [facility] MEDICINE [address] [place] [address] Angelo Ley MD 230 [place] [address] Vitamin D deficiency Social History Tobacco Use [...] Description 04/26/2025 9:00 AM EDT Office Visit [facility] ADULT DENTAL [address] [place] [address] Saman Rodriguez, BRISSA [address] [place] [address]18 05/06/2025 2:00 PM EST Clinical Support [facility] DIABETES/NUTRITION [address] [place] [address] Jocy Arreola, RD [address] [place] [address] 21907 06/14/2025 9:15 AM EST Office Visit [facility] MEDICINE [address] [place] [address]141 Isa Ferrer MD [address] [place] [address] 09/09/2025 9:30 AM EDT Office Visit [facility] ADULT DENTAL [address] [place] [address]17 Larisa Antunez documented as of this encounter Visit Diagnoses Diagnosis Vitamin D deficiency documented in this encounter Additional Health Concerns Assessment Noted Time PHQ-9 Depression Total Score: 10 024 11:48 AM EST documented as of this encounter Care Teams Duty Manager Relationship Specialty Start Date End Date Mervat Simental MD [address] [place] [address] PCP - General Internal Medicine 03/06/24 documented as of this encounter
--- OUTSIDE RECORDS SUMMARY | 2025-04-22 10:02 | XMS_ITS | Encounter Summary ---
Author Organization [employer] Address 75 [facility] 7t [place] [address] Care Team Providers Care Leather Leveler Name Role Phone Mervat Simental MD Primary Care Provider + Reason for Visit * Reason Onset Date Comments calling back 03/14/2024 Encounter Details Date Type Department Care Team ([facility] st Contact Info) Description 03/14/2024 Telephone [facility] ADULT DENTAL 230 [place] [address] Alicia, Enriqueta [address] [place] [address] calling back Social History Tobacco Use Types [...] is returning a call he had missed. [facility] is on a meeting break till 12;30. Please call him once again to schedule that appt. Thank you CS documented in this encounter Plan of Treatment Upcoming Encounters Date Type Department Care Team (Late st Contact Info) Description 04/26/2025 9:00 AM EDT Office Visit [facility] ADULT DENTAL [address] [place] [address] Saman Rodriguez, BRISSA [address] [place] [address] 05/06/2025 2:00 PM EST Clinical Support [facility] DIABETES/NUTRITION [address] [place] [address] Jocy Arreola, RD [address] [place] [address] 06/14/2025 9:15 AM EST Office Visit [facility] MEDICINE [address] [place] [address] 22586 Isa Ferrer MD [address] [place] [address] 09/09/2025 9:30 AM EDT Office Visit [facility] ADULT DENTAL 230 [place] [address] Larisa Antunez documented as of this encounter Visit Diagnoses Not on filedocumented in this encounter Additional Health Concerns Assessment Noted Time PHQ-9 Depression Total Score: 10 024 11:48 AM EST documented as of this encounter Care Teams Leather Leveler Relationship Specialty Start Date End Date Mervat Simental MD 230 [place] [address] PCP - General Internal Medicine 03/06/24 documented as of this encounter
--- OUTSIDE RECORDS SUMMARY | 2025-04-22 10:02 | XMS_ITS | Encounter Summary ---
Author Organization [employer] Address 75 [facility] [address], [place] [address] Care Team Providers Care Heel Cementer Name Role Phone Diane Gutierrez Primary Care Provider +[phone] Diane Gutierrez Primary Care Provider +[phone] Diane Gutierrez Primary Care Provider +[phone] Diane Gutierrez Primary Care Provider +[phone] Mervat Simental MD Primary Care Provider + Reason for Visit * Reason Onset Date Comments status on sleep apnea 11/04/2022 Encounter Details Date Type Department Care Team (Late st Contact Info) Description 11/04/2022 Telephone [facility] MEDICINE 230 [place] [address] Diane Gutierrez FNP 230 [place], [place] [phone] status on sleep apnea Social History Tobacco [...] Thank you. * Telephone Encounter - Lilly Adrianne - 11/04/2022 3:40 PM EDT Tc from pt requesting status on sleep apnea machine that was going to be sent couple months ago ? documented in this encounter Plan of Treatment Upcoming Encounters Date Type Department Care Team (Late st Contact Info) Description 04/26/2025 9:00 AM EDT Office Visit [facility] ADULT DENTAL [address] [place] [address] Saman Rodriguez DMD 230 [place] [address] 05/06/2025 2:00 PM EST Clinical Support [facility] DIABETES/NUTRITION [address] [place] [address] Jocy Arreola, ELBA [address] [place] [address] 06/14/2025 9:15 AM EST Office Visit [facility] MEDICINE [address] [place] [address] 23223 Isa Ferrer MD [address] [place] [address] 09/09/2025 9:30 AM EDT Office Visit [facility] ADULT DENTAL [address] [place] [address] Larisa Antunez documented as of this encounter Visit Diagnoses Not on filedocumented in this encounter Care Teams Heel Cementer Relationship Specialty Start Date End Date Diane Gutierrez FNP [address] [place] [address] PCP - General Family Medicine 05/31/22 01/26/24 Diane Gutierrez FNP 230 [place] [address] PCP - General Family Medicine 01/27/24 01/29/24 Diane Gutierrez FNP 230 [place] [address] PCP - General Family Medicine 01/30/24 02/02/24 Diane Gutierrez FNP 230 [place] [address] PCP - General Family Medicine 02/03/24 03/05/24 Mervat Simental MD 230 [place] [address] PCP - General Internal Medicine 03/06/24 documented as of this encounter
--- OUTSIDE RECORDS SUMMARY | 2025-04-22 10:02 | XMS_ITS | Encounter Summary ---
Author Organization [employer] Address 75 [facility] 7 [place] [address] Care Team Providers Care Associate Professor Of Chemistry Name Role Phone Diane Gutierrez Primary Care Provider [phone] Diane Gutierrez Primary Care Provider [phone] Diane Gutierrez Primary Care Provider [phone] Diane Gutierrez Primary Care Provider [phone] Mervat Simental MD Primary Care Provider + Reason for Visit * Reason Onset Date Comments triage 11/04/2022 Encounter Details Date Type Department Care Team (Late st Contact Info) Description 11/04/2022 Telephone [facility] MEDICINE [address] [place] [address] Diane Gutierrez FNP [address] [place], [place] [phone] triage Social History Tobacco Use Types Packs/Day [...] Description 04/26/2025 9:00 AM EDT Office Visit [facility] ADULT DENTAL [address] [place] [address] Saman Rodriguez, BRISSA [address] [place] [address] 05/06/2025 2:00 PM EST Clinical Support [facility] DIABETES/NUTRITION [address] [place] [address] Jocy Arreola, ELBA [address] [place] [address] 06/14/2025 9:15 AM EST Office Visit [facility] MEDICINE [address] [place], [place] [phone] Isa Ferrer MD 230 [place], [place] [phone] 09/09/2025 9:30 AM EDT Office Visit [facility] ADULT DENTAL [address] [place] [address] AntunezLarisa chawla documented as of this encounter Visit Diagnoses Not on filedocumented in this encounter Care Teams Associate Professor Of Chemistry Relationship Specialty Start Date End Date Diane Gutierrez FNP [address] [place] [address] PCP - General Family Medicine 05/31/22 01/26/24 Diane Gutierrez FNP [address] [place] [address] PCP - General Family Medicine 01/27/24 01/29/24 Diane Gutierrez FNP [address] [place] [address] PCP - General Family Medicine 01/30/24 02/02/24 Diane Gutierrez FNP [address] [place] [address] PCP - General Family Medicine 02/03/24 03/05/24 Mervat Simental MD [address] [place] [address] PCP - General Internal Medicine 03/06/24 documented as of this encounter
--- OUTSIDE RECORDS SUMMARY | 2025-04-22 10:02 | XMS_ITS | Encounter Summary ---
Author Organization [employer] Address 75 [facility] [address] [address] Care Team Providers Care Director Of Analytics Name Role Phone Diane Gutierrez Primary Care Provider [phone] Diane Gutierrez Primary Care Provider +[phone] Diane Gutierrez Primary Care Provider +[phone] Diane Gutierrez Primary Care Provider [phone] Mervat Simental MD Primary Care Provider + Encounter Details Date Type Department Care Team (Late st Contact Info) Description 12/15/2022 Abstract [facility] MEDICINE 230 [place], [place] [phone] Diane Gutierrez FNP [address] [place], [place] [phone] Social History Tobacco Use Types Packs/Day Years [...] Visit [facility] ADULT DENTAL 230 [place] [address] Saman Rodriguez, BRISSA 230 [place] [address] 05/06/2025 2:00 PM EST Clinical Support [facility] DIABETES/NUTRITION [address] [place] [address] Jocy Arreola, ELBA 230 [place] [address] 06/14/2025 9:15 AM EST Office Visit [facility] MEDICINE [address] [place] [address] Isa Ferrer MD 230 [place] [address] 09/09/2025 9:30 AM EDT Office Visit [facility] ADULT DENTAL [address] [place] [phone] Larisa Antunez documented as of this encounter [...] as of this encounter Care Teams Director Of Analytics Relationship Specialty Start Date End Date Diane Gutierrez FNP 230 [place] [address] PCP - General Family Medicine 05/31/22 01/26/24 Diane Gutierrez FNP [address] [place] [address] PCP - General Family Medicine 01/27/24 01/29/24 Diane Gutierrez FNP [address] [place] [address] PCP - General Family Medicine 01/30/24 02/02/24 Diane Gutierrez FNP 230 [place] [address] PCP - General Family Medicine 02/03/24 03/05/24 Mervat Simental MD 230 [place] [address] PCP - General Internal Medicine 03/06/24 documented as of this encounter
--- OUTSIDE RECORDS SUMMARY | 2025-04-22 10:02 | XMS_ITS | Encounter Summary ---
Author Organization [employer] Address 75 [facility] 7 [place] [address] Care Team Providers Care Casino Host Name Role Phone Diane Gutierrez Primary Care Provider [phone] Diane Gutierrez Primary Care Provider +[phone] Diane Gutierrez Primary Care Provider +[phone] Diane Gutierrez Primary Care Provider [phone] Mervat Simental MD Primary Care Provider + Reason for Visit * Reason Onset Date Comments Medication Question 01/12/2024 Referral 01/12/2024 Encounter Details Date Type Department Care Team (Late st Contact Info) Description 01/12/2024 Telephone [facility] MEDICINE 230 [place], [place] [phone] Diane Gutierrez FNP 230 [place], [place] [phone] Medication Question; Referral Social History Tobacco Use [...] no answer. LVM to call back on [phone]. * Telephone Encounter - Brian Lau RN [...] 04/26/2025 9:00 AM EDT Office Visit [facility] ADULT DENTAL [address] [place] [address] Saman Rodriguez, BRISSA 230 [place] [address] 05/06/2025 2:00 PM EST Clinical Support [facility] DIABETES/NUTRITION [address] [place] [address] 288[address] Jocy Arreola, ELBA 230 [place] [address] 06/14/2025 9:15 AM EST Office Visit [facility] MEDICINE [address] [place] [address]20 Isa Ferrer MD 230 [place] [address] 09/09/2025 9:30 AM EDT Office Visit [facility] ADULT DENTAL [address] [place] [phone] Larisa Antunez documented as of this encounter Visit Diagnoses Not on filedocumented in this encounter Additional Health Concerns Assessment Noted Time PHQ-9 Depression Total Score: 10 024 11:48 AM EST documented as of this encounter Care Teams Casino Host Relationship Specialty Start Date End Date Diane Gutierrez FNP 230 [place] [address] PCP - General Family Medicine 05/31/22 01/26/24 Diane Gutierrez FNP [address] [place] [address] PCP - General Family Medicine 01/27/24 01/29/24 Diane Gutierrez FNP 230 [place] [address] PCP - General Family Medicine 01/30/24 02/02/24 Diane Gutierrez FNP 230 [place] [address] PCP - General Family Medicine 02/03/24 03/05/24 Mervat Simental MD 230 [place] [address] PCP - General Internal Medicine 03/06/24 documented as of this encounter
--- OUTSIDE RECORDS SUMMARY | 2025-04-22 10:02 | XMS_ITS | Encounter Summary ---
Author Organization [email or web address] Address 75 [facility] 7 [place] [address] Care Team Providers Care Telecom Field Technician Name Role Phone Diane Gutierrez Primary Care Provider [phone] Mervat Simental MD Primary Care Provider + Reason for Visit * Reason Onset Date Comments Appointment Request 02/21/2024 Encounter Details Date Type Department Care Team ([facility] st Contact Info) Description 02/21/2024 Telephone [facility] MEDICINE 230 [place], [place] [phone] Diane Gutierrez FNP [address] [place], [place] [phone] Appointment Request Social History Tobacco Use Types [...] - 02/21/2024 3:08 PM EDT T/C to [facility] [place] on [phone] Obdulia for below message, as per Obdulia, pt's procedure date is not decided yet and will give call to [facility] to schedule Pre-op clearance. * Telephone Encounter - Yisel Aiken - 02/21/2024 10:19 AM EDT Tc from [facility] requesting a medical luis alfredo for pt for an upcoming procedure Hemmaroidectomy documented in this encounter Plan of Treatment Upcoming Encounters Date Type Department Care Team (Late st Contact Info) Description 04/26/2025 9:00 AM EDT Office Visit [facility] ADULT DENTAL [address] [place] [address] Saman Rodriguez, DMD [address] [place] [address] 05/06/2025 2:00 PM EST Clinical Support [facility] DIABETES/NUTRITION [address] [place] [phone] [place] [address] 06/14/2025 9:15 AM EST Office Visit [facility] MEDICINE [address] [place] [address] Isa Ferrer MD [address] [place] [address] 09/09/2025 9:30 AM EDT Office Visit [facility] ADULT DENTAL [address] [place] [address] Larisa Antunez documented as of this encounter Visit Diagnoses Not on filedocumented in this encounter Additional Health Concerns Assessment Noted Time PHQ-9 Depression Total Score: 10 024 11:48 AM EST documented as of this encounter Care Teams Telecom Field Technician Relationship Specialty Start Date End Date Diane Gutierrez FNP [address] [place] [address] PCP - General Family Medicine 02/03/24 03/05/24 Mervat Simental MD [address] [place] [address] [phone] PCP - General Internal Medicine 03/06/24 documented as of this encounter
--- OUTSIDE RECORDS SUMMARY | 2025-04-22 10:02 | XMS_ITS | Encounter Summary ---
Author Organization [employer] Address 75 [facility] 7 [place] [address] Care Team Providers Care Website Developer Name Role Phone Mervat Simental MD Primary Care Provider + Reason for Visit * Reason Onset Date Comments Med Refill 03/26/2024 Encounter Details Date Type Department Care Team (Late st Contact Info) Description 03/26/2024 Refill [facility] MEDICINE 230 [place] [address] Diane Gutierrez FNP 230 [place] [address] Primary hypertension; Benign prostatic hyperplasia, unspecified whether [...] 9:00 AM EDT Office Visit [facility] ADULT DENTAL [address] [place] [address] Saman Rodriguez, BRISSA [address] [place] [address] 05/06/2025 2:00 PM EST Clinical Support [facility] DIABETES/NUTRITION [address] [place] [address] Jocy Arreola, ELBA [address] [place] [address] 06/14/2025 9:15 AM EST Office Visit [facility] MEDICINE [address] [place] [address] Isa Ferrer MD [address] [place] [address] 09/09/2025 9:30 AM EDT Office Visit [facility] ADULT DENTAL [address] [place] [address] Larisa Antunez documented as of this encounter Visit Diagnoses Diagnosis Primary hypertension Unspecified essential hypertension Benign prostatic hyperplasia, unspecified whether lower urinary tract symptoms present documented in this encounter Additional Health Concerns Assessment Noted Time PHQ-9 Depression Total Score: 10 024 11:48 AM EST documented as of this encounter Care Teams Website Developer Relationship Specialty Start Date End Date Mervat Simental MD [address] [place] [address] PCP - General Internal Medicine 03/06/24 documented as of this encounter
--- OUTSIDE RECORDS SUMMARY | 2025-04-22 10:02 | XMS_ITS | Encounter Summary ---
Author Organization [employer] Address 75 [facility] [address], [place] [address] Care Team Providers Care Coffee Machine Technician Name Role Phone Diane Gutierrez Primary Care Provider [phone] Diane Gutierrez Primary Care Provider +[phone] Diane Gutierrez Primary Care Provider +[phone] Diane Gutierrez Primary Care Provider +[phone] Mervat Simental MD Primary Care Provider + Reason for Visit * Reason Onset Date Comments new pt visit 01/12/2024 Encounter Details Date Type Department Care Team (Late st Contact Info) Description 01/12/2024 Telephone [facility] ADULT DENTAL 230 [place] [address] Saman Rodriguez, DMD 230 [place] [address] new pt visit Social History Tobacco Use [...] EDT Office Visit [facility] ADULT DENTAL [address] [place] [address] Saman Rodriguez, BRISSA 230 [place] [address] 05/06/2025 2:00 PM EST Clinical Support [facility] DIABETES/NUTRITION [address] [place] [address] Jocy Arreola, ELBA 230 [place] [address] 06/14/2025 9:15 AM EST Office Visit [facility] MEDICINE 230 [place] [address] Isa Ferrer MD 230 [place] [address] 09/09/2025 9:30 AM EDT Office Visit [facility] ADULT DENTAL [address] [place] [address] Larisa Antunez documented as of this encounter Visit Diagnoses Not on filedocumented in this encounter Additional Health Concerns Assessment Noted Time PHQ-9 Depression Total Score: 10 024 11:48 AM EST documented as of this encounter Care Teams Coffee Machine Technician Relationship Specialty Start Date End Date Diane Gutierrez FNP [address] [place] [address] PCP - General Family Medicine 05/31/22 01/26/24 Diane Gutierrez FNP [address] [place] [address]12 PCP - General Family Medicine 01/27/24 01/29/24 Diane Gutierrez FNP [address] [place] [address] PCP - General Family Medicine 01/30/24 02/02/24 Diane Gutierrez FNP [address] [place] [address] PCP - General Family Medicine 02/03/24 03/05/24 Mervat Simental MD [address] [place] [address] PCP - General Internal Medicine 03/06/24 documented as of this encounter
--- OUTSIDE RECORDS SUMMARY | 2025-04-22 10:03 | XMS_ITS | Clinical Summary ---
Author Organization [employer] Address [address] [facility] 7t [place] [address] Care Team Providers Care Exploration Manager Name Role Phone Lit Simental MD Primary Care Provider + Allergies Active Allergy Reactions Criticality Noted Date Comments Cat Dander 06/21/2022 Dog Epithelium 06/21/2022 Doxycycline Diarrhea Medium 02/24/2023 Medications Blood Pressure kit Active Magnesium 400 MG capsule Take 1 tablet by mouth Once per day. 30 capsule 1 10/10/19 25 Active Additional Information Patient not taking.Reported on 03/11/2025 Magnesium Oxide -Mg Supplement 400 MG capsule Take 1 capsule by mouth Once per day. 10/10/19 25 Active pantoprazole (Protonix) 40 MG EC tablet Take 1 tablet (40 mg) by mouth before breakfast. Do not crush, chew, or split. 90 tablet 02/05/20 25 2024 Active cholecalciferol (Vitamin D-3) 25 MCG tabletIndicatio ns:Vitamin D deficiency Take 1 tablet (25 mcg) by mouth Once per day. 90 tablet 1 02/05/20 25 Active EPINEPHrine (EpiPen 2-Surendra) 0.3 MG/0.3ML injection syringe Inject 0.3 mL (0.3 mg) as directed 1 (one) time if needed for anaphylaxis. Inject into upper leg. Call 911 after use. 1 each 1 03/07/20 25 2025 Active lisinopril 10 MG tabletIndicatio ns:Primary hypertension TAKE 1 TABLET BY MOUTH EVERY DAY IN THE MORNING 90 tablet 1 03/15/20 25 Active tamsulosin (Flomax) 0.4 MG 24 hr capsuleIndicati ons:Benign prostatic hyperplasia, unspecified whether lower urinary tract symptoms present TAKE 1 CAPSULE BY MOUTH DAILY 30 MINUTES AFTER THE SAME MEAL EVERY DAY 90 capsule 1 03/15/20 25 Active hydrOXYzine pamoate (Vistaril) 50 MG capsule TAKE 1 CAPSULE BY MOUTH EVERY 8 HOURS NEEDED FOR ANXIETY 90 capsule 03/26/20 25 Active Candi-Dryl 25 MG tablet TAKE 1 TO 2 TABLETS BY MOUTH EVERY 6 HOURS NEEDED FOR ALLERGY 30 tablet 1 03/26/20 25 Active amLODIPine (Norvasc) 5 MG tabletIndicatio ns:Primary hypertension Take 1 tablet (5 mg) by mouth Once per day. 30 tablet 11 03/25/20 25 2025 Active fluticasone (Flonase) 50 MCG/ACT nasal sprayIndication s:Seasonal allergic rhinitis due to other allergic trigger Administer 2 sprays into each nostril 2 times daily. 48 g 2 03/25/20 25 2024 Active cetirizine (ZyrTEC) 10 MG tabletIndicatio ns:Seasonal allergic rhinitis due to other allergic trigger Take 1 tablet (10 mg) by mouth Once per day. 30 tablet 03/25/20 25 2025 Active fluticasone (Flonase) 50 MCG/ACT nasal sprayIndication s:Subacute pansinusitis Administer 2 sprays into each nostril 2 times daily. 48 g 2 07/27/19 25 2024 Discontinued(R eorder (will not trigger notification to Pharmacy)) hydrOXYzine pamoate (Vistaril) 50 MG capsule TAKE 1 CAPSULE BY MOUTH EVERY 8 HOURS IF NEEDED FOR ANXIETY 90 capsule 02/05/20 25 2024 Discontinued diphenhydrAMINE (BENADryl) 25 MG tablet Take 1-2 tablets (25-50 mg) by mouth every 6 (six) hours if needed for allergies. 30 tablet 1 03/07/20 25 2024 Discontinued Active Problems Problem Noted Date [...] more tired in am. Reports he saw biofuels engineering manager with mx testing per pt last year [...] Encounters Date Type Department Care Team Description 03/26/2025 Telephone [facility] MEDICINE [address] [place] [phone] Lit Simental MD Med Refill 03/26/2025 Telephone [facility] MEDICINE [address] [place] [phone] Lit Simental MD FYI 03/25/2025 5:40 PM EDT Office Visit [facility] WALK-IN CENTER [address] [place] [phone] Brianna Amador MD Primary hypertension (Primary Dx); Seasonal allergic rhinitis due to other allergic trigger 03/25/2025 Travel 03/25/2025 Telephone [facility] MEDICINE [address] [place] [phone] Lit Simental MD Nurse Triage 03/25/2025 Refill [facility] [address] [place] [phone] Amy Stone DO 03/25/2025 Refill [facility] MEDICINE [address] [place] [address], [place] [address] Lit Simental MD 03/25/[address] [address] Lit Simental MD Medication Question 03/14/2025 Refill [facility] MEDICINE [address] [place] [phone] Lit Simental MD Primary hypertension; Benign prostatic hyperplasia, unspecified whether lower urinary tract symptoms present 03/11/2025 10:00 AM EDT Clinical Support [facility] DIABETES/NUTRITION [address] [place] [phone] High serum ferritin (Primary Dx); Chronic fatigue 03/11/2025 9:00 AM EDT Office Visit [facility] ADULT DENTAL [address] [place] [phone] Larisa Antunez Dental calculus (Primary Dx); Dental plaque 03/11/2025 Travel 03/08/[address] [address] Lit Simental MD ER Follow-up 03/07/2025 3:20 PM EDT Office Visit [facility] [address] [place] [address] Amy Stone DO Anaphylaxis, initial encounter (Primary Dx) 03/07/2025 Travel 02/11/[address] [address] Lit Simental MD TRANSFER REQUEST 02/08/2025 10:30 AM EDT Clinical Support [facility] DIABETES/NUTRITION [address] [place] [address] Elevated ferritin (Primary Dx) 02/08/2025 Travel 02/04/2025 3:15 PM EDT Office Visit [address] [address] Lit Simental MD Palpitations (Primary Dx) 02/04/2025 Travel 02/04/2025 Telephone [facility] MEDICINE [address] [place] [address] Lit Simental MD Nurse Triage 02/03/2025 Refill [facility] MEDICINE [address] [place] [address] Lit Simental MD Vitamin D deficiency 02/03/2025 Refill [facility] MEDICINE [address] [place] [address] Angelo Ley MD Vitamin D deficiency 01/27/2025 Refill [facility] WALK[facility]IN [facility]ENTER [address] [place] [address] Angelo Ley MD Vitamin D deficiency 01/21/2025 11:00 AM EDT Clinical Support [facility] DIABETES/NUTRITION [address] [place] [address] Elevated ferritin (Primary Dx); Chronic fatigue 01/21/2025 Travel from Last 3 Months Immunizations Immunization Administration [...] your housing situation today? I have christen napoleon 10/26/[address] you li [...] Sign Reading Time Taken Comments Blood Pressure 156/90 03/25/2025 5:25 PM EDT Pulse 64 03/25/2025 5:25 PM EDT Temperature 36.6 C (97.9 F) 03/25/2025 5:25 PM EDT Respiratory Rate 20 03/25/2025 5:25 PM EDT Oxygen Saturation 98% 03/07/2025 3:18 PM EDT Inhaled Oxygen Concentration - - Weight 118 kg (260 lb) 03/25/2025 5:25 PM EDT Height 170.2 cm (5' 7 ) 03/12/2025 11:40 AM EDT Body Mass Index 40.72 03/12/2025 11:40 AM EDT Plan of Treatment Upcoming Encounters Date Type Department Care Team (Late st Contact Info) Description 04/26/2025 9:00 AM EDT Office Visit [facility] ADULT DENTAL [address] [place] [address] Saman Rodrigeuz DMD [address] [place] [address] 05/06/2025 2:00 PM EST Clinical Support [facility] DIABETES/NUTRITION [address] [place] [address] [place] [address] 06/14/2025 9:15 AM EST Office Visit [facility] MEDICINE [address] [place] [place], [place] [phone] Harrison Ferrer MD [address] [place] [address] 09/09/2025 9:30 AM EDT Office Visit [facility] ADULT DENTAL [address] [place] [place], [place] [phone] Larisa Antunez Health Maintenance Due Date Last Done Comments CT Colonography 1970 FIT DNA/Cologuard 1970 FIT 1970 FOBT 1970 Sigmoidoscopy 1970 Hepatitis B Vaccines (1 of 3 - 19+ 3-dose series) 1989 Pneumococcal Vaccine: 50+ Years (1 of 1 - PCV) 2020 Colonoscopy 05/20/2024 05/20/2021 Colorectal Cancer Screening 05/20/2024 Depression Monitoring 01/24/2025 07/27/2024, 024 COVID-19 Vaccine (2024- season) 2025 07/29/2021, 10/11/2020 Influenza Vaccine (#1) 2025 04/15/2021 Dental Oral Exam 09/09/2025 03/11/2025, 09/2024, 02/20/2024 Dental Prophylaxis 09/09/2025 03/11/2025, 0 09/03/2024, 02/20/2024 SDOH Screening 10/26/2025 10/26/2024 Alcohol/Substance Use Screening 11/02/2025 11/02/2024 Disability Screening 11/02/2025 11/02/2024 Dental X-Ray: Bitewings 03/12/2026 03/11/2025, 02/19 Tobacco Screening 03/25/2026 03/25/2025 Dental X-Ray: Full Mouth 02/20/2027 02/20/2024 Lipid [...] Procedure Name Priority Date/Time Associated Diagnosis Comments PERIODIC ORAL EVALUATION - ESTABLISHED PATIENT Routine 03/11/2025 9:00 AM EDT BITEWINGS - 4 RADIOGRAPHIC IMAGES Routine 03/11/2025 9:00 AM EDT CASE PRESENTATION, DETAILED AND EXTENSIVE TREATMENT PLANNING Routine 03/11/2025 9:00 AM EDT ORAL HYGIENE INSTRUCTIONS Routine 03/11/2025 9:00 AM EDT Dental calculus Dental plaque PROPHYLAXIS - ADULT Routine 03/11/2025 9 :00 AM EDT Dental calculus Dental plaque AMB REFERRAL TO RHEUMATOLOGY Routine 02/14/2025 LIT positive Livedo reticularis Other fatigue ECG 12-LEAD Routine 02/04/2025 4:09 PM EDT Palpitations HEPATITIS C AB W/REFL TO HCV RNA, QN, PCR Routine 10/10/2024 9:04 AM EDT Other fatigue HIV 1/2 ANTIGEN/ANTIBODY, FOURTH GENERATION W/RFL Routine 10/10/2024 9:04 AM EDT Other fatigue LIPID PANEL WITH REFLEX TO DIRECT LDL Routine 09/12/2024 8:34 AM EDT Primary hypertension INTRAORAL - COMPLETE SERIES OF RADIOGRAPHIC IMAGES [...] to incomplete RBBB. No new EKG changes us Lit Simental MD ECG ORDERABLES Final Re sult * Hepatitis C Antibody with Reflex to HCV, RNA, Quantitative, Real-Time PCR (10/10/2024 9:04 AM EDT) Hepatitis C Antibody Nonreactive Nonreactive [facility] Comment:Antibodies to HCV no t detected; does not exclude early acuteHCV infection. Blood Venous blood specimen / Unknown 10/10/2024 9:04 AM EDT 10/10/2024 11:40 AM EDT Harrison Paula MD LAB BLOOD ORDERAB LES Final Result [facility] [address] [place] [phone] * HIV-1/2 Antigen and Antibodies, Fourth Generation, with Reflexes (10/10/2024 9:04 AM EDT) HIV AB/AG Nonreactive Nonreactive [facility] Comment:HIV-1 p24 Ag and/or HIV-1/HIV-2 Ab not detected.A test result that is nonreactive does not exclude thepossibility of exposure to or infection with HIV-1 and/orHIV-2. Nonreactive results in this assay for individualswith prior exposure to HIV-1 and/or HIV-2 may be due toantigen and antibody levels that are below the limit ofdetection of this assay.The [employer] HIV Ag/Ab Combo assay result andsupplemental assay results should be interpreted inconjunction with the patient's clinical presentation,history and other laboratory results. If the results areinconsistent with clinical evidence, additional testing issuggested to confirm the result. Blood Venous blood specimen / Unknown 10/10/2024 9:04 AM EDT 10/10/2024 11:40 AM EDT us Harrison Paula MD LAB BLOOD ORDERAB LES Final Result [facility] [address] [place] [phone] * (ABNORMAL) Lipid Panel with Reflex to Direct LDL (09/12/2024 8:34 AM EDT) Triglycerides 128 <150 mg/dL [facility] Comment:Desirable Triglyceri de: less than 150 mg/dLBorderline High Triglyceride 150-199 mg/dLHigh Triglyceride: 200-499 mg/dLVery High Triglyceride: greater than or equal to 5OO mg/dL Cholesterol 195 <200 mg/dL [facility] Comment:Desirable Cholestero l: less than 200 mg/dLBorderline High Cholesterol: 200-239 mg/dLHigh Cholesterol: greater than 239 mg/dL LDL Cholesterol Calculated 136(H) <100 mg/dL [facility] Comment:Desirable LDL: less than 100 mg/dLNear Optimal/Above Optimal LDL: 110- 129 mg/dLBorderline High LDL: 130-159 mg/dLHigh LDL: 160-189 mg/dLVery High LDL: greater than or equal to 190 mg/dL HDL Cholesterol 34(L) >40 mg/dL [facility] Comment:Desirable HDL: great er than 40 mg/dL Note: This HDL assay may give artificially low results in patients with liver disease. Blood 09/12/2024 8:34 AM EDT 09/12/2024 11:45 AM EDT Lit Simental MD LAB BLOOD ORDERABLES Fin al Result [facility] [address] [place] [address] [phone] * Hm Colonoscopy (05/20/2021 1:52 PM EST) Colonoscopy Normal Normal Narrative Lindsey Van - 05/20/2021 1:52 PM EST Recommended 3 year follow up Historical Provider HEALTH MAINTENANCE Edited Result - Final from Last 3 Months or Most Recently Relevant to Health Maintenance Insurance [facility] AD[facility] Care Teams Exploration Manager Relationship Specialty Start Date End Date Lit Simental MD [address] [place] [phone] PCP - General Internal Medicine 03/06/24
== END 2025-04-22 10:07 | disposition home or self-care (01) ==
LOC: HO.HUSH 08:57
PROVIDERS: PCP Nurse Practitioner Family; Visit Provider Urology
DX: Z12.5 Encounter for screening for malignant neoplasm of prostate (principal); N40.0 Benign prostatic hyperplasia without lower urinary tract symptoms
CPT/HCPCS: 99213

== ENCOUNTER → 2025-04-22 08:56 | Outpatient (BNVA) | payer MEDICAID, SELFPAY | PROVIDERS: PCP Nurse Practitioner Family; Visit Provider Urology | DX: N40.0 Benign prostatic hyperplasia without lower urinary tract symptoms (principal); Z12.5 Encounter for screening for malignant neoplasm of prostate | CPT/HCPCS: 81003; 99212 ==

== ENCOUNTER 2025-04-23 09:12 | Outpatient (AMB) | payer MEDICAID, SELFPAY ==
[2025-04-23 09:27] VITALS: BP 116/64; PULSE 70; BMI 43.1
--- NOTE | 2025-04-23 09:27 | A.OFFVIS_ITS ---
Vital Signs 04/23/25 09:27 Height 5 ft 6 in Weight 266 lb 12.149 oz BMI 43.1 BP 116/64 Blood Pressure Location Lt brachial Position Sitting Pulse 70 Intake Visit Reasons: 3 mth s/p holter/ ett Intake Note: 3 Month follow-up after holter and ETT feeling ok Systems Project Manager Required: No Allergies No Known Allergies (No Known Allergies*) Allergy (Verified 04/22/25 09:49) Medication List - Last Reconciled 04/23/25 by GUILLAUME Kapadia amlodipine 5 mg PO DAILY [aspirin 81 mg] cetirizine 10 mg PO DAILY PRN cholecalciferol (vitamin D3) 25 mcg PO DAILY fluticasone propionate 50 mcg/actuation 2 sprays intranasal DAILY PRN hydroxyzine pamoate 50 mg PO Q8H PRN magnesium oxide 400 mg PO DAILY sucralfate (Carafate) 10 mL PO BID tamsulosin 0.4 mg PO DAILY HPI HPI 3 mth s/p holter/ ett: Details: Rickey is a 54-year-old male with past medical history of obesity, hypertension, PACs who was seen in the ER 12/29/2024 for heart palpitations and found to have atrial fibrillation. He was given a dose of flecainide and converted to sinus rhythm. On last visit a stress test and Holter monitor were ordered and he now presents for follow-up. Today he reports that he has not had known recurrent atrial fibrillation since his ER visit. He wears a smart watch and he has not had any concerning elevated heart rates. He is still having chronic issues with weakness, fatigue which he states is from an autoimmune disease. He has no chest discomfort at rest or with activity. No shortness of breath, lightheadedness, presyncope, syncope. He tells me he rides his electric bike routinely. Quit drinking alcohol 07/04/2024. Smokes marijuana daily. Drinks 2 16 oz mugs of coffee daily. Taking meds as directed. He would like to avoid the use of anticoagulation unless it is absolutely necessary. [facility] Medical History GERD (gastroesophageal reflux disease) Alcoholic dementia MCI (mild cognitive impairment) Bradycardia Sleep apnea Bleeding hemorrhoids Tubular adenoma History of snoring History of alcohol abuse Allergic rhinitis History of MRSA infection Anxiety and depression Urinary (tract) obstruction HTN (hypertension) Surgical History History of hemorrhoidectomy (~03/09/24) Hx of esophagogastroduodenoscopy Hx of colonoscopy History of cystoscopy Hx of cholecystectomy Family History Mother Cancer Social History Household Members: None Housing: House Are you a primary home care attendant to a significant other at home: No Do you presently have visiting nurse or other home services: No Alcohol intake: unknown Patient Tobacco Use Status: Never used Tobacco Substance Use Type: Marijuana service: No Current occupational status: employed and student Review of Systems Const All systems reviewed & are unremarkable except as noted in HPI and below Denies chills, Denies fatigue, Denies fever(s), Denies frequent falls, Denies weakness, Denies weight gain and Denies weight loss ENT Denies dizziness Card Denies chest pain, Denies leg edema, Denies lightheadedness, Denies palpitations, Denies dyspnea, Denies dyspnea on exertion, Denies orthopnea and Denies other (loss of consciousness) Resp Denies cough, Denies dyspnea and Denies dyspnea on exertion GI Denies hematochezia and Denies change in stool character Musc Denies abnormal gait, Denies muscle weakness, Denies numbness, Denies radiating pain into limb and Denies tingling Neuro Denies abnormal gait, Denies dizziness, Denies frequent falls, Denies numbness, Denies tingling and Denies weakness Endo Denies fatigue and Denies palpitations Physical Exam Vital Signs: Last Vital Signs Pulse 70 04/23/25 09:27 BP 116/64 04/23/25 09:27 BMI result Body Mass Index 43.1 Const General: cooperative, healthy appearing, comfortable and no acute distress Orientation/consciousness: patient oriented x3 Neck Neck: Yes normal visual inspection Resp Effort & Inspection: normal respiratory effort Auscultation: clear to auscultation bilaterally, no rales, no rhonchi and no wheezes Cardio Jugular venous distension: no JVD Rate: regular rate Rhythm: regular rhythm Heart sounds: S1 normal heart sound present, S2 normal heart sound present, no murmurs and no rubs Neuro General: patient oriented x3 Extrem General: Yes normal to inspection and No no pedal edema Psych Appearance: grossly normal Mental Status: mental status grossly normal Speech and movement: Normal speech and movement present Assessment & Plan Assessment & Plan (1) PAF (paroxysmal atrial fibrillation): Code(s): I48.0 - Paroxysmal atrial fibrillation Category: Medical Plan: Episode of atrial fibrillation December 2024 that was treated with a dose of flecainide and converted to sinus rhythm. He has underlying sinus bradycardia and was not put on any rate slowing agents. Chads Vasc score of 1, hypertension. He opted to wait for recurrent episode of AFib prior to start of anticoagulation. Last echo 08/19/2023 showed EF 55-60%, left atrium normal size. Sleep study at [facility] 10/06/2021 indicates severe degree of sleep apnea and CPAP recommended. -he tells me he had repeat sleep study at sleep medicine [facility] April 2024 which showed no sleep apnea. Exercise stress test 02/28/2025 showed exercise nearly 7 minutes with shortness of breath, no arrhythmia and no EKG changes of ischemia. Holter monitor done 02/28/2025 showed sinus rhythm with average heart rate 61 beats per minute, 49% of the time heart rate less than 60, occasional PACs. He prefers to try to treat his condition naturally and would like to avoid medications at this time. Recommended caffeine reduction, marijuana reduction, weight loss, exercise as tolerated. Cardiology follow-up 6 months, sooner if needed. (2) HTN (hypertension): Code(s): I10 - Essential (primary) hypertension Category: Medical Plan: Blood pressure goal less than 130/80. Well controlled at present. Continue amlodipine. (3) PAC (premature atrial contraction): Code(s): I49.1 - Atrial premature depolarization Category: Medical Plan: Occasional PACs noted on Holter. Plan We discussed the patient's history of atrial fibrillation and the importance of monitoring for recurrent episodes due to the increased risk of stroke. The patient is aware of the need for anticoagulation therapy if any episodes recur. Patient Instructions: - Monitor for any signs of atrial fibrillation and report immediately. - Follow up in six months or sooner if symptoms. Patient was informed and verbally consented to the use of an ambient scribe for clinic note documentation during this visit. Visit time spent on chart review, interview, assessment, orders, documentation. Coding Level of Care Code Est Pt Level 3 (74968) Complex EM visit Add On G2211 Diagnoses PAF (paroxysmal atrial fibrillation) I48.0 HTN (hypertension) I10 PAC (premature atrial contraction) I49.1 Time Spent (min) 24
--- OUTSIDE RECORDS SUMMARY | 2025-04-23 10:08 | XMS_ITS | Encounter Summary ---
Author Organization [employer] Address [address] [facility] 7 [place] [address] Care Team Providers Care Clean Rice Grader And Reel Tender Name Role Phone Diane Gutierrez Primary [...] (Late st Contact Info) Description 01/12/2024 Telephone [facility] MEDICINE [address] [place], [place] [phone] Diaen Gutierrez FNP [address] [place], [place] [phone] Medication Question; Referral Social History Tobacco Use [...] no answer. LVM to call back on [phone]. * Telephone Encounter - Brian Lau RN [...] Description 04/26/2025 9:00 AM EDT Office Visit [facility] ADULT DENTAL [address] [place] [phone] Saman Rodriguez, BRISSA [address] [place] [address] 05/06/2025 2:00 PM EST Clinical Support [facility] DIABETES/NUTRITION [address] [place] [phone] Jocy Arreola, ELBA [address] [place] [address] 06/14/2025 9:15 AM EST Office Visit [facility] MEDICINE [address] [place] [phone] Isa Ferrer MD [address] [place] [address] 09/09/2025 9:30 AM EDT Office Visit [facility] ADULT DENTAL [address] [place] [phone] Larisa Antunez documented as of this encounter Visit Diagnoses Not on filedocumented in this encounter Additional Health Concerns Assessment Noted Time PHQ-9 Depression Total Score: 10 024 11:48 AM EST documented as of this encounter Care Teams Clean Rice Grader And Reel Tender Relationship Specialty Start Date End Date Diane Gutierrez FNP [address] [place] [address] PCP - General Family Medicine 05/31/22 01/26/24 Diane Gutierrez FNP [address] [place] [address] PCP - General Family Medicine 01/27/24 01/29/24 Diane Gutierrez FNP [address] [place] [address] PCP - General Family Medicine 01/30/24 02/02/24 Diane Gutierrez FNP [address] [place] [address] PCP - General Family Medicine 02/03/24 03/05/24 Mervat Simental MD [address] [place] [address] PCP - General Internal Medicine 03/06/24 documented as of this encounter
--- OUTSIDE RECORDS SUMMARY | 2025-04-23 10:08 | XMS_ITS | Encounter Summary ---
Author Organization [employer] Address [address] [facility] 7t [place] [address] Care Team Providers Care Carcass Trimmer Name Role Phone Mervat Simental MD Primary Care Provider + Reason for Visit * Reason Onset Date Comments Nurse Triage 10/03/2024 Encounter Details Date Type Department Care Team ([facility] st Contact Info) Description 10/03/2024 Telephone [facility] MEDICINE [address] [place] [address] Mervat Simental MD [address] [place] [address] Nurse Triage Social History Tobacco Use Types [...] EDT Triage call Pt reports was in [facility] and was given 200pm apt in [facility] and was upset and walked out. Pt is calling for triage at this time. Pt reports generalized symptoms of headache which is mainly over yazidi areas across forehead more on right side, [...] with lack of follow through in the [facility]. Pt reports stopped marijuana use [...] Pt no longer has job which had [employer] insurance. Protocol Used: Weakness (Generalized) and Fatigue [...] Pt reported brain fog Contact pt at [phone] documented in this encounter Plan of Treatment Upcoming Encounters Date Type Department Care Team (Late st Contact Info) Description 04/26/2025 9:00 AM EDT Office Visit [facility] ADULT DENTAL [address] [place] [phone] Saman Rodriguez, BRISSA [address] [place] [address] 05/06/2025 2:00 PM EST Clinical Support [facility] DIABETES/NUTRITION [address] [place] [phone] Jocy Arreola, ELBA [address] [place] [address] 06/14/2025 9:15 AM EST Office Visit [facility] MEDICINE [address] [place] [address] Isa Ferrer MD [address] [place] [address] 09/09/2025 9:30 AM EDT Office Visit [facility] ADULT DENTAL [address] [place] [address] Larisa Antunez documented as of this encounter Visit Diagnoses Not on filedocumented in this encounter Additional Health Concerns Assessment Noted Time PHQ-9 Depression Total Score: 10 024 11:48 AM EST documented as of this encounter Care Teams Carcass Trimmer Relationship Specialty Start Date End Date Mervat Simental MD [address] [place] [address] PCP - General Internal Medicine 03/06/24 documented as of this encounter
--- OUTSIDE RECORDS SUMMARY | 2025-04-23 10:08 | XMS_ITS | Encounter Summary ---
Author Organization [employer] Address 75 [facility] 7 [place] [address] Care Team Providers Care Psychological Stress Evaluator Name Role Phone Mervat Simental MD Primary Care Provider + Reason for Visit * Reason Onset Date Comments Med Refill 03/26/2024 Encounter Details Date Type Department Care Team (Late st Contact Info) Description 03/26/2024 Refill [facility] MEDICINE [address] [place] [address] Diane Gutierrez FNP [address] [place] [address] Primary hypertension; Benign prostatic hyperplasia, unspecified whether [...] Description 04/26/2025 9:00 AM EDT Office Visit [facility] ADULT DENTAL [address] [place] [address] Saman Rodriguez, BRISSA [address] [place] [address] 05/06/2025 2:00 PM EST Clinical Support [facility] DIABETES/NUTRITION [address] [place] [phone] Jocy Arreola, ELBA [address] [place] [address] 06/14/2025 9:15 AM EST Office Visit [facility] MEDICINE [address] [place] [address] Isa Ferrer MD [address] [place] [address] 09/09/2025 9:30 AM EDT Office Visit [facility] ADULT DENTAL [address] [place] [address] Larisa Antunez documented as of this encounter Visit Diagnoses Diagnosis Primary hypertension Unspecified essential hypertension Benign prostatic hyperplasia, unspecified whether lower urinary tract symptoms present documented in this encounter Additional Health Concerns Assessment Noted Time PHQ-9 Depression Total Score: 10 024 11:48 AM EST documented as of this encounter Care Teams Psychological Stress Evaluator Relationship Specialty Start Date End Date Mervat Simental MD [address] [place] [address] PCP - General Internal Medicine 03/06/24 documented as of this encounter
--- OUTSIDE RECORDS SUMMARY | 2025-04-23 10:08 | XMS_ITS | Encounter Summary ---
Author Organization [employer] Address 75 [facility] 7t [place] [address] Care Team Providers Care Milieu Coordinator Name Role Phone Diane Gutierrez Primary Care Provider [phone] Mervat Simental MD Primary Care Provider + Reason for Visit * Reason Comments Med Refill Encounter Details Date Type Department Care Team (Late st Contact Info) Description 03/02/2024 Refill [facility] [address] [place] [address] Diane Gutierrez FNP [address] [place] [address] Hemorrhoids, unspecified hemorrhoid type Social History Tobacco [...] Description 04/26/2025 9:00 AM EDT Office Visit [facility] ADULT DENTAL [address] [place] [address] Saman Rodriguez, BRISSA [address] [place] [address] 05/06/2025 2:00 PM EST Clinical Support [facility] DIABETES/NUTRITION [address] [place] [address] Jocy Arreola, RD [address] [place] [address] 06/14/2025 9:15 AM EST Office Visit [facility] MEDICINE [address] [place] [phone] Isa Ferrer MD [address] [place] [address] 09/09/2025 9:30 AM EDT Office Visit [facility] ADULT DENTAL [address] [place] [address] 94[address] Larisa Antunez documented as of this encounter Visit Diagnoses Diagnosis Hemorrhoids, unspecified hemorrhoid type documented in this encounter Additional Health Concerns Assessment Noted Time PHQ-9 Depression Total Score: 10 024 11:48 AM EST documented as of this encounter Care Teams Milieu Coordinator Relationship Specialty Start Date End Date Diane Gutierrez FNP 230 [place] [address] PCP - General Family Medicine 02/03/24 03/05/24 Mervat Simental MD [address] [place] [address] PCP - General Internal Medicine 03/06/24 documented as of this encounter
--- OUTSIDE RECORDS SUMMARY | 2025-04-23 10:08 | XMS_ITS | Encounter Summary ---
Author Organization [employer] Address 75 [facility] 7 [place] [address] Care Team Providers Care Diamond Sizer And Grader Name Role Phone Diane Gutierrez Primary Care Provider [phone] Diane Gutierrez Primary Care Provider [phone] Diane Gutierrez Primary Care Provider [phone] Diane Gutierrez Primary Care Provider [phone] Mervat Simental MD Primary Care Provider + Reason for Visit * Reason Onset Date Comments triage 11/04/2022 Encounter Details Date Type Department Care Team (Late st Contact Info) Description 11/04/2022 Telephone [facility] MEDICINE [address] [place] [address] Diane Gutierrez FNP [address] [place], [place] [phone] triage Social History Tobacco Use Types Packs/Day [...] 04/26/2025 9:00 AM EDT Office Visit [facility] ADULT DENTAL [address] [place] [address] Saman Rodriguez, BRISSA [address] [place] [address] 05/06/2025 2:00 PM EST Clinical Support [facility] DIABETES/NUTRITION [address] [place] [address] Jocy Arreola, ELBA [address] [place] [address] 06/14/2025 9:15 AM EST Office Visit [facility] MEDICINE [address] [place], [place] [phone] Isa Ferrer MD 230 [place], [place] [phone] 09/09/2025 9:30 AM EDT Office Visit [facility] ADULT DENTAL [address] [place] [address] AntunezLarisa chawla documented as of this encounter Visit Diagnoses Not on filedocumented in this encounter Care Teams Diamond Sizer And Grader Relationship Specialty Start Date End Date Diane Gutierrez FNP [address] [place] [address] PCP - General Family Medicine 05/31/22 01/26/24 Diane Gutierrez FNP [address] [place] [address] PCP - General Family Medicine 01/27/24 01/29/24 Diane Gutierrez FNP [address] [place] [address] PCP - General Family Medicine 01/30/24 02/02/24 Diane Gutierrez FNP [address] [place] [address] PCP - General Family Medicine 02/03/24 03/05/24 Mervat Simental MD [address] [place] [address] PCP - General Internal Medicine 03/06/24 documented as of this encounter
--- OUTSIDE RECORDS SUMMARY | 2025-04-23 10:08 | XMS_ITS | Clinical Summary ---
Author Organization [facility] Address [address] [place], [place] [phone] Phone Care Team Providers Care Landing Support Specialist Name Role Phone Candida Jimenez MINE WED[facility] SAWYER Primary Care Provider [phone] Allergies Active Allergy Reactions Criticality Noted Date [...] file Group ID:Not on file Type:Medicaid Address: [address] [place] [address] SAFETY NET PARTIAL [facility] [employer] HEALTH SAFETY NET PARTIAL Member Subscriber Plan / Payer (Ef fective 2023-Present) Name:Cisco Ro Relation to Subscriber:Self Name:Cisco Ro Payer ID:Not on file Group ID:Not on file Type:Medicaid Address: [address] C3 [employer] [facility] SAFETY NET PARTIAL Member Subscriber Plan / Payer (Ef fective 2023-) Name:Cisco Ro Relation to Subscriber:Self Name:Jayjay Cisco Payer ID:Not on file Group ID:Not on file Type:Medicaid Address: [address] [employer] HEALTH SAFETY NET PARTIAL Member Subscriber Plan / Payer (Ef fective 2023-Present) Name:Cisco Ro Relation to Subscriber:Self Name:Cisco Ro Payer ID:Not on file Group ID:Not on file Type:Medicaid Address: [address] [employer] Care Teams Landing Support Specialist Relationship Specialty Start Date End Date Candida Jimenez NP [address] [place] [address] Dr Pena [address] [place] [address] PCP - General Nurse Practitioner 02/24/23 Additional Source Comments The information contained in this document represents components of the legal health record. It is not the complete legal health record.[facility]
--- OUTSIDE RECORDS SUMMARY | 2025-04-23 10:08 | XMS_ITS | Encounter Summary ---
Author Organization [employer] Address [address] [facility] [place] [address] Care Team Providers Care Collections Representative Name Role Phone Diane Gutierrez Primary Care Provider [phone] Diane Gutierrez Primary Care Provider [phone] Diane Gutierrez Primary Care Provider [phone] Diane Gutierrez Primary Care Provider [phone] Mervat Simental MD Primary Care Provider + Encounter Details Date Type Department Care Team (Late st Contact Info) Description 12/15/2022 Abstract [facility] MEDICINE [address] [place], [place] [phone] Diane Gutierrez FNP [address] [place], [place] [phone] Social History Tobacco Use Types Packs/Day Years [...] Description 04/26/2025 9:00 AM EDT Office Visit [facility] ADULT DENTAL [address] [place] [address] Saman Rodriguez, BRISSA [address] [place] [address] 05/06/2025 2:00 PM EST Clinical Support [facility] DIABETES/NUTRITION [address] [place] [address] Jocy Arreola, ELBA [address] [place] [address] 06/14/2025 9:15 AM EST Office Visit [facility] MEDICINE [address] [place] [address] 599[address] Isa Ferrer MD 230 [place] [address] 09/09/2025 9:30 AM EDT Office Visit [facility] ADULT DENTAL [address] [place] [address] Larisa Antunez documented as of this encounter [...] documented as of this encounter Care Teams Collections Representative Relationship Specialty Start Date End Date Diane Gutierrez FNP [address] [place] [address] PCP - General Family Medicine 05/31/22 01/26/24 Diane Gutierrez FNP [address] [place] [address] PCP - General Family Medicine 01/27/24 01/29/24 Diane Gutierrez FNP [address] [place] [address] PCP - General Family Medicine 01/30/24 02/02/24 Diane Gutierrez FNP [address] [place] [address] PCP - General Family Medicine 02/03/24 03/05/24 Mervat Simental MD [address] [place] [address] PCP - General Internal Medicine 03/06/24 documented as of this encounter
--- OUTSIDE RECORDS SUMMARY | 2025-04-23 10:08 | XMS_ITS | Encounter Summary ---
Author Organization [employer] Address 75 [facility] 7t [place] [address] Care Team Providers Care High Pressure Boiler Operator Name Role Phone Mervat Simental MD Primary Care Provider + Reason for Visit * Reason Onset Date Comments Med Refill 02/03/2025 Encounter Details Date Type Department Care Team (Late st Contact Info) Description 02/03/[address] [facility] MEDICINE [address] [place] [address] Angelo Ley MD [address] [place] [address] Vitamin D deficiency Social History Tobacco Use [...] Description 04/26/2025 9:00 AM EDT Office Visit [facility] ADULT DENTAL [address] [place] [address] Saman Rodriguez, BRISSA [address] [place] [address] 05/06/2025 2:00 PM EST Clinical Support [facility] DIABETES/NUTRITION [address] [place] [address] Jocy Arreola, RD [address] [place] [address] 06/14/2025 9:15 AM EST Office Visit [facility] MEDICINE [address] [place] [address] Isa Ferrer MD [address] [place] [address] 09/09/2025 9:30 AM EDT Office Visit [facility] ADULT DENTAL [address] [place] [address] Larisa Antunez documented as of this encounter Visit Diagnoses Diagnosis Vitamin D deficiency documented in this encounter Additional Health Concerns Assessment Noted Time PHQ-9 Depression Total Score: 10 024 11:48 AM EST documented as of this encounter Care Teams High Pressure Boiler Operator Relationship Specialty Start Date End Date Mervat Simental MD [address] [place] [address] PCP - General Internal Medicine 03/06/24 documented as of this encounter
--- OUTSIDE RECORDS SUMMARY | 2025-04-23 10:08 | XMS_ITS | Encounter Summary ---
Author Organization [employer] Address 75 [facility] 7 [place] [address] Care Team Providers Care Belt Buckle Maker Name Role Phone Diane Gutierrez Primary Care Provider [phone] Mervat Simental MD Primary Care Provider + Reason for Visit * Reason Onset Date Comments Appointment Request 02/21/2024 Encounter Details Date Type Department Care Team ([facility] st Contact Info) Description 02/21/2024 Telephone [facility] MEDICINE [address] [place], [place] [phone] Diane Gutierrez FNP [address] [place], [place] [phone] Appointment Request Social History Tobacco Use Types [...] - 02/21/2024 3:08 PM EDT T/C to [facility] general surgery on [phone] Obdulia for below message, as per Obdulia, pt's procedure date is not decided yet and will give call to [facility] to schedule Pre-op clearance. * Telephone Encounter - Yisel Aiken - 02/21/2024 10:19 AM EDT Tc from [facility] requesting a medical luis alfredo for pt for an upcoming procedure Hemmaroidectomy documented in this encounter Plan of Treatment Upcoming Encounters Date Type Department Care Team (Late st Contact Info) Description 04/26/2025 9:00 AM EDT Office Visit [facility] ADULT DENTAL [address] [place] [address] Saman Rodriguez, DMD [address] [place] [address] 05/06/2025 2:00 PM EST Clinical Support [facility] DIABETES/NUTRITION [address] [place] [phone] [place] [address] 06/14/2025 9:15 AM EST Office Visit [facility] MEDICINE [address] [place] [address] Isa Ferrer MD [address] [place] [address] 09/09/2025 9:30 AM EDT Office Visit [facility] ADULT DENTAL [address] [place] [address] Larisa Antunez documented as of this encounter Visit Diagnoses Not on filedocumented in this encounter Additional Health Concerns Assessment Noted Time PHQ-9 Depression Total Score: 10 024 11:48 AM EST documented as of this encounter Care Teams Belt Buckle Maker Relationship Specialty Start Date End Date Diane Gutierrez FNP [address] [place] [address] PCP - General Family Medicine 02/03/24 03/05/24 Mervat Simental MD [address] [place] [address] [phone] PCP - General Internal Medicine 03/06/24 documented as of this encounter
--- OUTSIDE RECORDS SUMMARY | 2025-04-23 10:08 | XMS_ITS | Encounter Summary ---
Author Organization [employer] Address 75 [facility] [address], [place] [address] Care Team Providers Care Cat Hooker Name Role Phone Diane Gutierrez Primary Care Provider [phone] Diane Gutierrez Primary Care Provider [phone] Diane Gutierrez Primary Care Provider [phone] Diane Gutierrez Primary Care Provider [phone] Mervat Simental MD Primary Care Provider + Reason for Visit * Reason Onset Date Comments status on sleep apnea 11/04/2022 Encounter Details Date Type Department Care Team (Late st Contact Info) Description 11/04/2022 Telephone [facility] [address] [place] [address] Diane Gutierrez FNP [address] [place], [place] [phone] status on sleep apnea Social History Tobacco [...] 9:00 AM EDT Office Visit [facility] ADULT DENTAL [address] [place] [address] Saman Rodriguez DMD [address] [place] [address] 05/06/2025 2:00 PM EST Clinical Support [facility] DIABETES/NUTRITION [address] [place] [address] Jocy Arreola, ELBA [address] [place] [address] 06/14/2025 9:15 AM EST Office Visit [facility] [address] [place] [address] Isa Ferrer MD [address] [place] [address] 09/09/2025 9:30 AM EDT Office Visit [facility] ADULT DENTAL [address] [place] [phone] Larisa Antunez documented as of this encounter Visit Diagnoses Not on filedocumented in this encounter Care Teams Cat Hooker Relationship Specialty Start Date End Date Diane Gutierrez FNP [address] [place] [address] PCP - General Family Medicine 05/31/22 01/26/24 Diane Gutierrez FNP [address] [place] [address] PCP - General Family Medicine 01/27/24 01/29/24 Diane Gutierrez FNP [address] [place] [address] PCP - General Family Medicine 01/30/24 02/02/24 Diane Gutierrez FNP [address] [place] [address] PCP - General Family Medicine 02/03/24 03/05/24 Mervat Simental MD 230 [place] [address] PCP - General Internal Medicine 03/06/24 documented as of this encounter
--- OUTSIDE RECORDS SUMMARY | 2025-04-23 10:08 | XMS_ITS | Encounter Summary ---
Author Organization [employer] Address [address] [facility] [address], [place] [address] Care Team Providers Care Termite Exterminator Helper Name Role Phone Diane Gutierrez Primary Care Provider [phone] Diane Gutierrez Primary Care Provider [phone] Diane Gutierrez Primary Care Provider [phone] Diane Gutierrez Primary Care Provider [phone] Mervat Simental MD Primary Care Provider + Reason for Visit * Reason Onset Date Comments new pt visit 01/12/2024 Encounter Details Date Type Department Care Team (Late st Contact Info) Description 01/12/2024 Telephone [facility] ADULT DENTAL [address] [place] [address] Saman Rodriguez, DMD [address] [place] [address] new pt visit Social History Tobacco Use [...] PCP for patient here in [facility] sent an internal referral under referral tab for internal dentistry appt regular care. Patient inquiring on status of appt. Patient informed that there is a lengthy waiting list for new patients and that message would be sent to [facility] dental for follow up. Pls reach out topatient. He'd like to hear from dental office directly DR documented in this encounter Plan of Treatment Upcoming Encounters Date Type Department Care Team (Late st Contact Info) Description 04/26/2025 9:00 AM EDT Office Visit [facility] ADULT DENTAL [address] [place] [address] Saman Rodriguez, BRISSA [address] [place] [address] 05/06/2025 2:00 PM EST Clinical Support [facility] DIABETES/NUTRITION [address] [place] [address] Jocy Arreola, ELBA [address] [place] [address] 06/14/2025 9:15 AM EST Office Visit [facility] MEDICINE [address] [place] [address] Isa Ferrer MD 230 [place] [address] 09/09/2025 9:30 AM EDT Office Visit [facility] ADULT DENTAL [address] [place] [address] Larisa Antunez documented as of this encounter Visit Diagnoses Not on filedocumented in this encounter Additional Health Concerns Assessment Noted Time PHQ-9 Depression Total Score: 10 024 11:48 AM EST documented as of this encounter Care Teams Termite Exterminator Helper Relationship Specialty Start Date End Date Diane Gutierrez FNP [address] [place] [address] PCP - General Family Medicine 05/31/22 01/26/24 Diane Gutierrez FNP [address] [place] [address] PCP - General Family Medicine 01/27/24 01/29/24 Diane Gutierrez FNP [address] [place] [address] PCP - General Family Medicine 01/30/24 02/02/24 Diane Gutierrez FNP [address] [place] [address] PCP - General Family Medicine 02/03/24 03/05/24 Mervat Simental MD [address] [place] [address] PCP - General Internal Medicine 03/06/24 documented as of this encounter
--- OUTSIDE RECORDS SUMMARY | 2025-04-23 10:08 | XMS_ITS | Encounter Summary ---
Author Organization [employer] Address 75 [facility] 7t [place] [address] Care Team Providers Care Squad Boss Name Role Phone Mervat Simental MD Primary Care Provider + Reason for Visit * Reason Onset Date Comments calling back 03/14/2024 Encounter Details Date Type Department Care Team ([facility] st Contact Info) Description 03/14/2024 Telephone [facility] ADULT DENTAL [address] [place] [address] Alicia, Enriqueta [address] [place] [address] calling back Social History Tobacco Use Types [...] is returning a call he had missed. [facility] is on a meeting break till 12;30. Please call him once again to schedule that appt. Thank you CS documented in this encounter Plan of Treatment Upcoming Encounters Date Type Department Care Team (Late st Contact Info) Description 04/26/2025 9:00 AM EDT Office Visit [facility] ADULT DENTAL [address] [place] [phone] Saman Rodriguez, BRISSA [address] [place] [address] 05/06/2025 2:00 PM EST Clinical Support [facility] DIABETES/NUTRITION [address] [place] [phone] Jocy Arreola, RD [address] [place] [phone] 06/14/2025 9:15 AM EST Office Visit [facility] MEDICINE [address] [place] [phone] Isa Ferrer MD [address] [place] [address] 09/09/2025 9:30 AM EDT Office Visit [facility] ADULT DENTAL [address] [place] [address] Larisa Antunez documented as of this encounter Visit Diagnoses Not on filedocumented in this encounter Additional Health Concerns Assessment Noted Time PHQ-9 Depression Total Score: 10 024 11:48 AM EST documented as of this encounter Care Teams Squad Boss Relationship Specialty Start Date End Date Mervat Simental MD 230 [place] [address] PCP - General Internal Medicine 03/06/24 documented as of this encounter
--- OUTSIDE RECORDS SUMMARY | 2025-04-23 10:09 | XMS_ITS | Clinical Summary ---
Author Organization [employer] Address [address] [facility] 7t [place] [address] Care Team Providers Care Service Desk Director Name Role Phone Lit Simental MD Primary [...] more tired in am. 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 [...] Type Department Care Team Description 03/26/2025 Telephone [facility] [address] [place] [address] 25954 Lit Simental MD Med Refill 03/26/2025 Telephone [facility] [address] [place] [address] 15938 Lit Simental MD FYI 03/25/2025 5:40 PM EDT Office Visit [facility] [address] [place] [address] 20125 Brianna Amador MD Primary hypertension (Primary Dx); Seasonal allergic rhinitis due to other allergic trigger 03/25/2025 Travel 03/25/2025 Telephone [facility] [address] [place] [address] 80224 Lit Simental MD Nurse Triage 03/25/2025 Refill [facility] [address] [place] [address] 54829 Amy Stone DO 03/25/2025 Refill [facility] [address] [place] [address], [place] [address] Lit Simental MD 03/25/[address] [address] Lit Simental MD Medication Question 03/14/2025 Refill [facility] [address] [place] [address] 58048 Lit Simental MD Primary hypertension; Benign prostatic hyperplasia, unspecified whether lower urinary tract symptoms present 03/11/2025 10:00 AM EDT Clinical Support [facility] [address] [place] [address] High serum ferritin (Primary Dx); Chronic fatigue 03/11/2025 9:00 AM EDT Office Visit [facility] [address] [place] [address] Larisa Antunez Dental calculus (Primary Dx); Dental plaque 03/11/2025 Travel 03/08/[address] [address] Lit Simental MD ER Follow-up 03/07/2025 3:20 PM EDT Office Visit [facility] [address] [place] [address] 78587 Amy Stone DO Anaphylaxis, initial encounter (Primary Dx) 03/07/2025 Travel 02/11/[address] [address] Lit Simental MD TRANSFER REQUEST 02/08/2025 10:30 AM EDT Clinical Support [facility] [address] [place] [address] Elevated ferritin (Primary Dx) 02/08/2025 Travel 02/04/2025 3:15 PM EDT Office Visit [address] [address] Lit Simental MD Palpitations (Primary Dx) 02/04/2025 Travel 02/04/2025 Telephone [facility] [address] [place] [address] Lit Simental MD Nurse Triage 02/03/2025 Refill [facility] [address] [place] [address] Lit Simental MD Vitamin D deficiency 02/03/2025 Refill [facility] [address] [place] [address] Angelo Ley MD Vitamin D deficiency 01/27/2025 Refill [facility] [address] [place] [address] Angelo Ley MD Vitamin D deficiency 01/21/2025 11:00 AM EDT Clinical Support [facility] [address] [place] [address] Elevated ferritin (Primary Dx); [...] Description 04/26/2025 9:00 AM EDT Office Visit [facility] [address] [place] [address] Saman Rodriguez DMD [address] [place] [address] 05/06/2025 2:00 PM EST Clinical Support [facility] [address] [place] [address] [place] [address] 06/14/2025 9:15 AM EST Office Visit [facility] [address] [place], [place] [phone] Harrison Ferrer MD [address] [place] [address] 09/09/2025 9:30 AM EDT Office Visit [facility] [address] [place], [place] [phone] Larisa Antunez Health Maintenance Due Date Last [...] AM EDT) Hepatitis C Antibody Nonreactive Nonreactive [facility] Comment:Antibodies to HCV no t detected; does not exclude early acuteHCV infection. Blood Venous blood specimen / Unknown 10/10/2024 9:04 AM EDT 10/10/2024 11:40 AM EDT Harrison Paula MD LAB BLOOD ORDERAB LES Final Result [facility] [address] [place] [phone] * HIV-1/2 Antigen and Antibodies, Fourth Generation, with Reflexes (10/10/2024 9:04 AM EDT) HIV AB/AG Nonreactive Nonreactive [facility] Comment:HIV-1 p24 Ag and/or HIV-1/HIV-2 Ab not detected.A test result that is nonreactive does not exclude thepossibility of exposure to or infection with HIV-1 and/orHIV-2. Nonreactive results in this assay for individualswith prior exposure to HIV-1 and/or HIV-2 may be due toantigen and antibody levels that are below the limit ofdetection of this assay.The [employer] HIV Ag/Ab Combo assay result andsupplemental assay results should be interpreted inconjunction with the patient's clinical presentation,history and other laboratory results. If the results areinconsistent with clinical evidence, additional testing issuggested to confirm the result. Blood Venous blood specimen / Unknown 10/10/2024 9:04 AM EDT 10/10/2024 11:40 AM EDT us Harrison Paula MD LAB BLOOD ORDERAB LES Final Result [facility] [address] [place] [address] [phone] * (ABNORMAL) Lipid Panel with Reflex to Direct LDL (09/12/2024 8:34 AM EDT) Triglycerides 128 <150 mg/dL [facility] Comment:Desirable Triglyceri de: less than 150 mg/dLBorderline High Triglyceride 150-199 mg/dLHigh Triglyceride: 200-499 mg/dLVery High Triglyceride: greater than or equal to 5OO mg/dL Cholesterol 195 <200 mg/dL [facility] Comment:Desirable Cholestero l: less than 200 mg/dLBorderline High Cholesterol: 200-239 mg/dLHigh Cholesterol: greater than 239 mg/dL LDL Cholesterol Calculated 136(H) <100 mg/dL [facility] Comment:Desirable LDL: less than 100 mg/dLNear Optimal/Above Optimal LDL: 110- 129 mg/dLBorderline High LDL: 130-159 mg/dLHigh LDL: 160-189 mg/dLVery High LDL: greater than or equal to 190 mg/dL HDL Cholesterol 34(L) >40 mg/dL [facility] Comment:Desirable HDL: great er than 40 mg/dL Note: This HDL assay may give artificially low results in patients with liver disease. Blood 09/12/2024 8:34 AM EDT 09/12/2024 11:45 AM EDT Lit Simental MD LAB BLOOD ORDERABLES Fin al Result [facility] [address] [place] [phone] * Hm Colonoscopy (05/20/2021 1:52 PM EST) Colonoscopy Normal Normal Narrative Lindsey Van - 05/20/2021 1:52 PM EST Recommended 3 year follow up Historical Provider HEALTH MAINTENANCE Edited Result - Final from Last 3 Months or Most Recently Relevant to Health Maintenance Insurance [facility] AD[facility] Care Teams Service Desk Director Relationship Specialty Start Date End Date Lit Simental MD [address] [place] [address] PCP - General Internal Medicine 03/06/24
== END 2025-04-23 09:55 | disposition home or self-care (01) ==
LOC: HO.HCS 09:14
PROVIDERS: Visit Provider Nurse Practitioner Family
DX: I48.0 Paroxysmal atrial fibrillation (principal); I10 Essential (primary) hypertension; I49.1 Atrial premature depolarization
CPT/HCPCS: 99213

== ENCOUNTER → 2025-04-23 09:12 | Outpatient (BNVA) | payer MEDICAID, SELFPAY | PROVIDERS: Visit Provider Nurse Practitioner Family | DX: I48.0 Paroxysmal atrial fibrillation (principal); I10 Essential (primary) hypertension; I49.1 Atrial premature depolarization | CPT/HCPCS: 99212 ==

== ENCOUNTER 2025-04-29 10:02 | Outpatient (REF) | payer MEDICAID, SELFPAY ==
--- OUTSIDE RECORDS SUMMARY | 2025-04-30 20:18 | XMS_ITS | Encounter Summary ---
Author Organization [employer] Address 75 [facility] 7t [place] [address] Care Team Providers Care Ranch Hand Name Role Phone Mervat Simental MD Primary Care Provider + Reason for Visit * Reason Onset Date Comments Med Refill 02/03/2025 Encounter Details Date Type Department Care Team (Late st Contact Info) Description 02/03/2025 Refill [facility] MEDICINE [address] [place] [address] Angelo Ley MD [address] [place] [address] Vitamin D deficiency Social History Tobacco Use [...] Description 05/06/2025 2:00 PM EST Clinical Support [facility] DIABETES/NUTRITION [address] [place] [address] [phone] Jocy Arreola, ELBA [address] [place] [address] [phone] 06/14/2025 9:15 AM EST Office Visit [facility] MEDICINE [address] [place] [address] 39978 Isa Ferrer MD [address] [place] [address] [phone] 09/09/2025 9:30 AM EDT Office Visit [facility] ADULT DENTAL [address] [place] [address] [phone] Larisa Antunez documented as of this encounter Visit Diagnoses Diagnosis Vitamin D deficiency documented in this encounter Additional Health Concerns Assessment Noted Time PHQ-9 Depression Total Score: 10 024 11:48 AM EST documented as of this encounter Care Teams Ranch Hand Relationship Specialty Start Date End Date Mervat Simental MD [address] [place] [address] [phone] PCP - General Internal Medicine 03/06/24 documented as of this encounter
--- OUTSIDE RECORDS SUMMARY | 2025-04-30 20:18 | XMS_ITS | Encounter Summary ---
Author Organization [employer] Address 75 [facility] 7t [place] [address] Care Team Providers Care Director Of Outreach Name Role Phone Mervat Simental MD Primary Care Provider + Reason for Visit * Reason Onset Date Comments Nurse Triage 10/03/2024 Encounter Details Date Type Department Care Team ([facility] st Contact Info) Description 10/03/[address] [facility] MEDICINE [address] [place] [address] Mervat Simental MD [address] [place] [address] Nurse Triage Social History Tobacco Use Types [...] EDT Triage call Pt reports was in [facility] and was given 200pm apt in [facility] and was upset and walked out. Pt is calling for triage at this time. Pt reports generalized symptoms of headache which is mainly over yazidism areas across forehead more on right side, [...] with lack of follow through in the [facility]. Pt reports stopped marijuana use last [...] Pt no longer has job which had [employer] insurance. Protocol Used: Weakness (Generalized) and Fatigue [...] Pt reported brain fog Contact pt at [phone] documented in this encounter Plan of Treatment Upcoming Encounters Date Type Department Care Team (Late st Contact Info) Description 05/06/2025 2:00 PM EST Clinical Support [facility] DIABETES/NUTRITION [address] [place] [phone] [place] [address] 06/14/2025 9:15 AM EST Office Visit [facility] MEDICINE [address] [place] [address] [phone] Isa Ferrer MD 230 [place] [address] 09/09/2025 9:30 AM EDT Office Visit [facility] ADULT DENTAL [address] [place] [phone] Larisa Antunez documented as of this encounter Visit Diagnoses Not on filedocumented in this encounter Additional Health Concerns Assessment Noted Time PHQ-9 Depression Total Score: 10 024 11:48 AM EST documented as of this encounter Care Teams Director Of Outreach Relationship Specialty Start Date End Date Mervat Simental MD [address] [place] [phone] PCP - General Internal Medicine 03/06/24 documented as of this encounter
--- OUTSIDE RECORDS SUMMARY | 2025-04-30 20:18 | XMS_ITS | Clinical Summary ---
Author Organization [facility] Address [address] [place], [place] [phone] Phone Care Team Providers Care Second Baker Name Role Phone Candida Jimenez WORSTED WINDER Primary Care Provider [phone] Allergies Active Allergy Reactions Criticality Noted Date [...] file Group ID:Not on file Type:Medicaid Address: [address] [place] [address] [place] [address] SAFETY NET PARTIAL [facility] C3 [employer] HE[employer] SAFETY NET PARTIAL Member Subscriber Plan / Payer (Ef fective 2023-Present) Name:Cisco Ro Relation to Subscriber:Self Name:Cisco Ro Payer ID:Not on file Group ID:Not on file Type:Medicaid Address: [address] C3 [employer]CO [facility] SAFETY NET PARTIAL Member Subscriber Plan / Payer (Ef fective 2023-) Name:Cisco Ro Relation to Subscriber:Self Name:Jayjay Cisco Payer ID:Not on file Group ID:Not on file Type:Medicaid Address: [address] C3 [employer] S[employer] NET PARTIAL Member Subscriber Plan / Payer (Ef fective 2023-Present) Name:Cisco Ro Relation to Subscriber:Self Name:Cisco Ro Payer ID:Not on file Group ID:Not on file Type:Medicaid Address: [address] C3 ACO Care Teams Second Baker Relationship Specialty Start Date End Date Candida Jimenez NP [address] [place] [address] [address] [place] [address] PCP - General Nurse Practitioner 02/24/23 Additional Source Comments The information contained in this document represents components of the legal health record. It is not the complete legal health record.[facility]
--- OUTSIDE RECORDS SUMMARY | 2025-04-30 20:18 | XMS_ITS | Encounter Summary ---
Author Organization [employer] Address 75 [facility] 7t [place] [address] Care Team Providers Care Chief Nursing Executive Name Role Phone Diane Gutierrez Primary Care Provider [phone] Mervat Simental MD Primary Care Provider + Reason for Visit * Reason Comments Med Refill Encounter Details Date Type Department Care Team (Late st Contact Info) Description 03/02/2024 Refill [facility] MED & PEDS [address] [place] [address] Diane Gutierrez FNP [address] [place] [address] Hemorrhoids, unspecified hemorrhoid type Social History Tobacco [...] Description 05/06/2025 2:00 PM EST Clinical Support [facility] DIABETES/NUTRITION [address] [place] [phone] [place] [address] 06/14/2025 9:15 AM EST Office Visit [facility] MEDICINE [address] [place] [address] 13233 Isa Ferrer MD [address] [place] [address] 09/09/2025 9:30 AM EDT Office Visit [facility] ADULT DENTAL [address] [place] [address]34 Larisa Antunez documented as of this encounter Visit Diagnoses Diagnosis Hemorrhoids, unspecified hemorrhoid type documented in this encounter Additional Health Concerns Assessment Noted Time PHQ-9 Depression Total Score: 10 024 11:48 AM EST documented as of this encounter Care Teams Chief Nursing Executive Relationship Specialty Start Date End Date Diane Gutierrez FNP [address] [place] [address] 14945 PCP - General Family Medicine 02/03/24 03/05/24 Mervat Simental MD [address] [place] [address] PCP - General Internal Medicine 03/06/24 documented as of this encounter
--- OUTSIDE RECORDS SUMMARY | 2025-04-30 20:18 | XMS_ITS | Encounter Summary ---
Author Organization [employer] Address 75 [facility] 7t [place] [address] Care Team Providers Care Buyer Planner Name Role Phone Mervat Simental MD Primary Care Provider + Reason for Visit * Reason Onset Date Comments calling back 03/14/2024 Encounter Details Date Type Department Care Team ([facility] st Contact Info) Description 03/14/2024 Telephone [facility] ADULT DENTAL [address] [place] [address] Alicia, Enriqueta [address] [place] [address] calling back Social History Tobacco Use Types [...] returning a call he had missed. [facility] is on a meeting break till 12;30. Please call him once again to schedule that appt. Thank you CS documented in this encounter Plan of Treatment Upcoming Encounters Date Type Department Care Team (Late st Contact Info) Description 05/06/2025 2:00 PM EST Clinical Support [facility] DIABETES/NUTRITION [address] [place] [address] [place] [address] 06/14/2025 9:15 AM EST Office Visit [facility] MEDICINE [address] [place] [address] Isa Ferrer MD 230 [place] [address] 09/09/2025 9:30 AM EDT Office Visit [facility] ADULT DENTAL [address] [place] [address] Larisa Antunez documented as of this encounter Visit Diagnoses Not on filedocumented in this encounter Additional Health Concerns Assessment Noted Time PHQ-9 Depression Total Score: 10 024 11:48 AM EST documented as of this encounter Care Teams Buyer Planner Relationship Specialty Start Date End Date Mervat Simental MD [address] [place] [address] PCP - General Internal Medicine 03/06/24 documented as of this encounter
--- OUTSIDE RECORDS SUMMARY | 2025-04-30 20:18 | XMS_ITS | Encounter Summary ---
Author Organization [employer] Address 75 [facility] 7 [place] [address] Care Team Providers Care Estimator Lumber Name Role Phone Diane Gutierrez Primary Care Provider [phone] Diane Gutierrez Primary Care Provider [phone] Diane Gutierrez Primary Care Provider [phone] Diane Gutierrez Primary Care Provider [phone] Mervat Simental MD Primary Care Provider + Reason for Visit * Reason Onset Date Comments triage 11/04/2022 Encounter Details Date Type Department Care Team (Late st Contact Info) Description 11/04/2022 Telephone [facility] MEDICINE [address] [place] [address] Diane Gutierrez FNP [address] [place], [place] [phone] triage Social History Tobacco Use Types Packs/Day [...] Description 05/06/2025 2:00 PM EST Clinical Support [facility] DIABETES/NUTRITION [address] [place] [address] 108[address] Jocy Arreola, ELBA [address] [place] [address] 06/14/2025 9:15 AM EST Office Visit [facility] MEDICINE [address] [place] [address] 90[address] Isa Ferrer MD 230 [place] [address] 09/09/2025 9:30 AM EDT Office Visit [facility] ADULT DENTAL [address] [place] [address] 27828 Larisa Antunez documented as of this encounter Visit Diagnoses Not on filedocumented in this encounter Care Teams Estimator Lumber Relationship Specialty Start Date End Date Diane Gutierrez FNP [address] [place] [address] PCP - General Family Medicine 05/31/22 01/26/24 Diane Gutierrez FNP [address] [place] [address] PCP - General Family Medicine 01/27/24 01/29/24 Diane Gutierrez FNP [address] [place] [address] PCP - General Family Medicine 01/30/24 02/02/24 Diane Gutierrez FNP [address] [place] [address] PCP - General Family Medicine 02/03/24 03/05/24 Mervat Simental MD [address] [place] [address]642 PCP - General Internal Medicine 03/06/24 documented as of this encounter
--- OUTSIDE RECORDS SUMMARY | 2025-04-30 20:18 | XMS_ITS | Encounter Summary ---
Author Organization [employer] Address 75 [facility] [place] [address] Care Team Providers Care Seed Cleaning Machine Operator Name Role Phone Diane Gutierrez [...] st Contact Info) Description 11/04/2022 Telephone [facility] MEDICINE [address] [place] [address] Diane Gutierrez FNP [address] [place], [place] [phone] status on sleep apnea Social History Tobacco [...] 05/06/2025 2:00 PM EST Clinical Support [facility] DIABETES/NUTRITION [address] [place] [phone] [place] [address] 06/14/2025 9:15 AM EST Office Visit [facility] [address] [place] [address] 8[address] Isa Ferrer MD [address] [place] [address] 09/09/2025 9:30 AM EDT Office Visit [facility] ADULT DENTAL [address] [place] [address] Larisa Antunez documented as of this encounter Visit Diagnoses Not on filedocumented in this encounter Care Teams Seed Cleaning Machine Operator Relationship Specialty Start Date End Date Diane Gutierrez FNP [address] [place] [address] PCP - General Family Medicine 05/31/22 01/26/24 Diane Gutierrez FNP [address] [place] [address] PCP - General Family Medicine 01/27/24 01/29/24 Diane Gutierrez FNP [address] [place] [address] PCP - General Family Medicine 01/30/24 02/02/24 Diane Gutierrez FNP [address] [place] [address] PCP - General Family Medicine 02/03/24 03/05/24 Mervat Simental MD 230 [place] [address] PCP - General Internal Medicine 03/06/24 documented as of this encounter
--- OUTSIDE RECORDS SUMMARY | 2025-04-30 20:18 | XMS_ITS | Encounter Summary ---
Author Organization [employer] Address 75 [facility] 7 [place] [address] Care Team Providers Care Talent Acquisition Project Manager Name Role Phone Mervat Simental MD Primary Care Provider + Reason for Visit * Reason Onset Date Comments Med Refill 03/26/2024 Encounter Details Date Type Department Care Team (Late st Contact Info) Description 03/26/2024 Refill [facility] MEDICINE 230 [place] [address] Diane Gutierrez FNP [address] [place] [address] Primary hypertension; Benign prostatic hyperplasia, unspecified whether [...] Description 05/06/2025 2:00 PM EST Clinical Support [facility] DIABETES/NUTRITION [address] [place] [address] [place] [address] 06/14/2025 9:15 AM EST Office Visit [facility] MEDICINE [address] [place] [address] Isa Ferrer MD [address] [place] [address] 418[address] 09/09/2025 9:30 AM EDT Office Visit [facility] ADULT DENTAL [address] [place] [address] 22[address] Larisa Antunez documented as of this encounter Visit Diagnoses Diagnosis Primary hypertension Unspecified essential hypertension Benign prostatic hyperplasia, unspecified whether lower urinary tract symptoms present documented in this encounter Additional Health Concerns Assessment Noted Time PHQ-9 Depression Total Score: 10 024 11:48 AM EST documented as of this encounter Care Teams Talent Acquisition Project Manager Relationship Specialty Start Date End Date Mervat Simental MD [address] [place] [address] PCP - General Internal Medicine 03/06/24 documented as of this encounter
--- OUTSIDE RECORDS SUMMARY | 2025-04-30 20:18 | XMS_ITS | Clinical Summary ---
Author Organization [employer] Address 75 [facility] 7t [place] [address] Care Team Providers Care Ladies Locker Room Attendant Name Role Phone Lit Simental MD Primary [...] more tired in am. 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 [...] Type Department Care Team Description 03/26/2025 Telephone [facility] MEDICINE [address] [place] [address] Lit Simental MD Med Refill 03/26/2025 Telephone [facility] MEDICINE [address] [place] [address] 43411 Lit Simental MD FYI 03/25/2025 5:40 PM EDT Office Visit [facility] WALK-IN CENTER [address] [place] [address] 81548 Brianna Amador MD Primary hypertension (Primary Dx); Seasonal allergic rhinitis due to other allergic trigger 03/25/2025 Travel 03/25/2025 Telephone [facility] MEDICINE [address] [place] [address] 26509 Lit Simental MD Nurse Triage 03/25/2025 Refill [facility] [address] [place] [address] 88131 Amy Stone, 03/25/2025 Refill [facility] MEDICINE [address] [place] [address] 13559 Lit Simental MD 03/25/2025 Telephone [facility] MEDICINE [address] [place] [address] 03060 Lit Simental MD Medication Question 03/14/2025 Refill [facility] MEDICINE [address] [place] [address] 25765 Lit Simental MD Primary hypertension; Benign prostatic hyperplasia, unspecified whether lower urinary tract symptoms present 03/11/2025 10:00 AM EDT Clinical Support [facility] DIABETES/NUTRITION [address] [place] [address] Evgeny Arreolae, RD High serum ferritin (Primary Dx); Chronic fatigue 03/11/2025 9:00 AM EDT Office Visit [facility] ADULT DENTAL [address] [place] [address] Larisa Antunez Dental calculus (Primary Dx); Dental plaque 03/11/2025 Travel 03/08/2025 Telephone [facility] MEDICINE [address] [place] [address] 52120 Lit Simental MD ER Follow-up 03/07/2025 3:20 PM EDT Office Visit [facility] [address] [place] [address] Amy Stone DO Anaphylaxis, initial encounter (Primary Dx) 03/07/2025 Travel 02/11/2025 Telephone [facility] MEDICINE [address] [place] [address] 48039 Lit Simental MD TRANSFER REQUEST 02/08/2025 10:30 AM EDT Clinical Support [facility] DIABETES/NUTRITION [address] [place] [address] 30968 Evgeny Arreolae, RD Elevated ferritin (Primary Dx) 02/08/2025 Travel 02/04/2025 3:15 PM EDT Office Visit [address] [address] Lit Simental MD Palpitations (Primary Dx) 02/04/2025 Travel 02/04/2025 Telephone [facility] MEDICINE [address] [place] [address] 33312 Lit Simental MD Nurse Triage 02/03/2025 Refill [facility] MEDICINE [address] [place] [address] 25378 Lit Simental MD Vitamin D deficiency 02/03/[address] [address] Angelo Ley MD Vitamin D deficiency from [...] Description 05/06/2025 2:00 PM EST Clinical Support [facility] DIABETES/NUTRITION [address] [place] [address] 94585 Jocy Arreola, ELBA [address] [place] [address] 06/14/2025 9:15 AM EST Office Visit [facility] MEDICINE [address] [place] [address] [phone] Harrison Ferrer MD [address] [place] [address] [phone] 09/09/2025 9:30 AM EDT Office Visit [facility] ADULT DENTAL [address] [place] [address] Larisa Antunez Health Maintenance Due Date Last [...] Maintenance Results * Referral to Rheumatology (02/14/2025) us Harrison Paula MD OUTPATIENT REFERR AL ORDERABLES [...] AM EDT) Hepatitis C Antibody Nonreactive Nonreactive [facility] Comment:Antibodies to HCV no t detected; does not exclude early acuteHCV infection. Blood Venous blood specimen / Unknown 10/10/2024 9:04 AM EDT 10/10/2024 11:40 AM EDT us Harrison Paula MD LAB BLOOD ORDERAB LES Final Result Performing Organization Address [facility]/ZIP Co de Phone Number [facility] [address] [place] [address] [phone] * HIV-1/2 Antigen and Antibodies, Fourth Generation, with Reflexes (10/10/2024 9:04 AM EDT) HIV AB/AG Nonreactive Nonreactive [facility] Comment:HIV-1 p24 Ag and/or HIV-1/HIV-2 Ab not detected.A test result that is nonreactive does not exclude thepossibility of exposure to or infection with HIV-1 and/orHIV-2. Nonreactive results in this assay for individualswith prior exposure to HIV-1 and/or HIV-2 may be due toantigen and antibody levels that are below the limit ofdetection of this assay.The [facility] HIV Ag/Ab Combo assay result andsupplemental assay [...] Final Result Performing Organization Address [facility]/ZIP Co de Phone Number [facility] [address] [place] [address] [phone] * (ABNORMAL) Lipid Panel with Reflex to Direct LDL (09/12/2024 8:34 AM EDT) Triglycerides 128 <150 mg/dL [facility] Comment:Desirable Triglyceri de: less than 150 mg/dLBorderline High Triglyceride 150-199 mg/dLHigh Triglyceride: 200-499 mg/dLVery High Triglyceride: greater than or equal to 5OO mg/dL Cholesterol 195 <200 mg/dL [facility] Comment:Desirable Cholestero l: less than 200 mg/dLBorderline High Cholesterol: 200-239 mg/dLHigh Cholesterol: greater than 239 mg/dL LDL Cholesterol Calculated 136(H) <100 mg/dL [facility] Comment:Desirable LDL: less than 100 mg/dLNear Optimal/Above Optimal LDL: 110- 129 mg/dLBorderline High LDL: 130-159 mg/dLHigh LDL: 160-189 mg/dLVery High LDL: greater than or equal to 190 mg/dL HDL Cholesterol 34(L) >40 mg/dL [facility] Comment:Desirable HDL: great er than 40 mg/dL Note: This HDL assay may give artificially low results in patients with liver disease. Blood 09/12/2024 8:34 AM EDT 09/12/2024 11:45 AM EDT Lit Simental MD LAB BLOOD ORDERABLES Fin al Result [facility] [address] [place] [address] [phone] * Hm Colonoscopy (05/20/2021 1:52 PM EST) Colonoscopy Normal Normal Narrative Lindsey Van - 05/20/2021 1:52 PM EST Recommended 3 year follow up us Historical Provider HEALTH MAINTENANCE Edited Result - Final from Last 3 Months or Most Recently Relevant to Health Maintenance Insurance [facility] C3 DENTAL-[facility] MEDICAID STAND ADULT Care Teams Ladies Locker Room Attendant Relationship Specialty Start Date End Date Lit Simental MD [address] [place] [address] PCP - General Internal Medicine 03/06/24
--- OUTSIDE RECORDS SUMMARY | 2025-04-30 20:18 | XMS_ITS | Encounter Summary ---
Author Organization [employer] Address [address] [facility] 7 [place] [address] Care Team Providers Care Director Imaging Name Role Phone Diane Gutierrez Primary Care Provider [phone] Mervat Simental MD Primary Care Provider + Reason for Visit * Reason Onset Date Comments Appointment Request 02/21/2024 Encounter Details Date Type Department Care Team ([facility] st Contact Info) Description 02/21/2024 Telephone [facility] MEDICINE [address] [place], [place] [phone] Diane Gutierrez FNP [address] [place], [place] [phone] Appointment Request Social History Tobacco Use Types [...] [facility] [place] on [phone] Obdulia for below message, as per Obdulia, pt's procedure date is not decided yet and will give call to [facility] to schedule Pre-op clearance. * Telephone Encounter - Yisel Aiken - 02/21/2024 10:19 AM EDT Tc from [facility] requesting a medical luis alfredo for pt for an upcoming procedure Hemmaroidectomy documented in this encounter Plan of Treatment Upcoming Encounters Date Type Department Care Team (Late st Contact Info) Description 05/06/2025 2:00 PM EST Clinical Support [facility] DIABETES/NUTRITION [address] [place] [address] 24445 Jocy Arreola, ELBA [address] [place] [address] 06/14/2025 9:15 AM EST Office Visit [facility] [address] [place] [address] [place] [address] Isa Ferrer MD [address] [place] [address] 09/09/2025 9:30 AM EDT Office Visit [facility] ADULT DENTAL [address] [place] [address] Larisa Antunez documented as of this encounter Visit Diagnoses Not on filedocumented in this encounter Additional Health Concerns Assessment Noted Time PHQ-9 Depression Total Score: 10 024 11:48 AM EST documented as of this encounter Care Teams Director Imaging Relationship Specialty Start Date End Date Diane Gutierrez FNP [address] [place] [address] 14320 PCP - General Family Medicine 02/03/24 03/05/24 Mervat Simental MD [address] [place] [address] 38794 PCP - General Internal Medicine 03/06/24 documented as of this encounter
--- OUTSIDE RECORDS SUMMARY | 2025-04-30 20:18 | XMS_ITS | Encounter Summary ---
Author Organization [employer] Address 75 [facility] 7 [place] [address] Care Team Providers Care Tank Car Loader Name Role Phone Diane Gutierrez Primary Care [...] Contact Info) Description 01/12/2024 Telephone [facility] MEDICINE [address] [place], [place] [phone] Diane Gutierrez FNP [address] [place], [place] [phone] Medication Question; Referral Social History Tobacco Use [...] no answer. LVM to call back on [phone]. * Telephone Encounter - Brian Lau RN [...] Description 05/06/2025 2:00 PM EST Clinical Support [facility] DIABETES/NUTRITION [address] [place] [address] [place] [address] 06/14/2025 9:15 AM EST Office Visit [facility] MEDICINE [address] [place] [address] 18973 Isa Ferrer MD [address] [place] [address] 09/09/2025 9:30 AM EDT Office Visit [facility] ADULT DENTAL [address] [place] [address] [phone] Larisa Antunez documented as of this encounter Visit Diagnoses Not on filedocumented in this encounter Additional Health Concerns Assessment Noted Time PHQ-9 Depression Total Score: 10 024 11:48 AM EST documented as of this encounter Care Teams Tank Car Loader Relationship Specialty Start Date End Date Diane Gutierrez FNP [address] [place] [address] PCP - General Family Medicine 05/31/22 01/26/24 Diane Gutierrez FNP [address] [place] [address] 68819 PCP - General Family Medicine 01/27/24 01/29/24 Diane Gutierrez FNP [address] [place] [address] 64434 PCP - General Family Medicine 01/30/24 02/02/24 Diane Gutierrez FNP [address] [place] [address] 07159 PCP - General Family Medicine 02/03/24 03/05/24 Mervat Simental MD [address] [place] [address] 63819 PCP - General Internal Medicine 03/06/24 documented as of this encounter
--- OUTSIDE RECORDS SUMMARY | 2025-04-30 20:18 | XMS_ITS | Encounter Summary ---
Author Organization [employer] Address 75 [facility] [place], [place] [address] Care Team Providers Care Scientific Informatics Analyst Name Role Phone Diane Gutierrez Primary Care Provider [phone] Diane Gutierrez Primary Care Provider [phone] Diane Gutierrez Primary Care Provider [phone] Diane Gutierrez Primary Care Provider [phone] Mervat Simental MD Primary Care Provider + Encounter Details Date Type Department Care Team (Late st Contact Info) Description 12/15/2022 Abstract [facility] MEDICINE [address] [place], [place] [phone] Diane Gutierrez FNP [address] [place], [place] [phone] Social History Tobacco Use Types Packs/Day Years [...] 05/06/2025 2:00 PM EST Clinical Support [facility] DIABETES/NUTRITION [address] [place] [address] [place] [address] 06/14/2025 9:15 AM EST Office Visit [facility] MEDICINE [address] [place] [address] 10606 Isa Ferrer MD [address] [place] [address] 9[address] 09/09/2025 9:30 AM EDT Office Visit [facility] ADULT DENTAL [address] [place] [address] Larisa Antunez documented as of this encounter [...] documented as of this encounter Care Teams Scientific Informatics Analyst Relationship Specialty Start Date End Date Diane Gutierrez FNP [address] [place] [address] 37268 PCP - General Family Medicine 05/31/22 01/26/24 Diane Gutierrez FNP [address] [place] [address] PCP - General Family Medicine 01/27/24 01/29/24 Diane Gutierrez FNP [address] [place] [address] 27307 PCP - General Family Medicine 01/30/24 02/02/24 Diane Gutierrez FNP [address] [place] [address] 89852 PCP - General Family Medicine 02/03/24 03/05/24 Mervat Simental MD [address] [place] [address] 84798 PCP - General Internal Medicine 03/06/24 documented as of this encounter
--- OUTSIDE RECORDS SUMMARY | 2025-04-30 20:18 | XMS_ITS | Encounter Summary ---
Author Organization [employer] Address 75 [facility] [address] [address] Care Team Providers Care Inorganic Chemistry Teacher Name Role Phone Diane Gutierrez Primary Care Provider [phone] Diane Gutierrez Primary Care Provider [phone] Diane Gutierrez Primary Care Provider [phone] Diane Gutierrez Primary Care Provider [phone] Mervat Simental MD Primary Care Provider + Reason for Visit * Reason Onset Date Comments new pt visit 01/12/2024 Encounter Details Date Type Department Care Team (Late st Contact Info) Description 01/12/2024 Telephone [facility] ADULT DENTAL [address] [place] [address] Saman Rodriguez, DMD [address] [place] [address] new pt visit Social History Tobacco Use [...] PM EDT PCP for patient here in [facility] sent an internal referral under referral tab for internal dentistry appt regular care. Patient inquiring on status of appt. Patient informed that there is a lengthy waiting list for new patients and that message would be sent to [facility] dental for follow up. Pls reach out topatient. He'd like to hear from dental office directly DR documented in this encounter Plan of Treatment Upcoming Encounters Date Type Department Care Team (Late st Contact Info) Description 05/06/2025 2:00 PM EST Clinical Support [facility] DIABETES/NUTRITION [address] [place] [address] [place] [address] 06/14/2025 9:15 AM EST Office Visit [facility] MEDICINE [address] [place] [address] Isa Ferrer MD 230 [place] [address] 09/09/2025 9:30 AM EDT Office Visit [facility] ADULT DENTAL 230 [facility] [place] [address] Larisa Antunez documented as of this encounter Visit Diagnoses Not on filedocumented in this encounter Additional Health Concerns Assessment Noted Time PHQ-9 Depression Total Score: 10 024 11:48 AM EST documented as of this encounter Care Teams Inorganic Chemistry Teacher Relationship Specialty Start Date End Date Diane Gutierrez [place] [address] PCP - General Family Medicine 05/31/22 01/26/24 Diane Gutierrez FNP Noé [facility] [place] [address] PCP - General Family Medicine 01/27/24 01/29/24 [place] [address] PCP - General Family Medicine 01/30/24 02/02/24 Diane Gutierrez FNP Noé [facility] [place] [address] PCP - General Family Medicine 02/03/24 03/05/24 Mervat Simental MD Noé [facility] [place] [address] PCP - General Internal Medicine 03/06/24 documented as of this encounter
== END 2025-04-29 10:03 | disposition home or self-care (01) ==
LOC: HO.LNP 10:02
PROVIDERS: Internal Medicine Gastroenterology; PCP Internal Medicine; Visit Provider Nurse Practitioner Family
DX: Z11.0 Encounter for screening for intestinal infectious diseases (principal)
CPT/HCPCS: 83013; 99211

== ENCOUNTER 2025-04-29 10:02 | Outpatient (AMB) | payer MEDICAID, SELFPAY ==
--- NOTE | 2025-04-29 10:13 | AM.OFFVISNUR ---
Intake Visit Reasons: HP Breath Test. HOLD PPI 04/15 Intake Note: Pt presents for H Pylori BT. Protocols reviewed with pt and confirmed to be followed. Pt advised of instructions for the test and began testing at 1020. Testing was concluded at 1035. No questions or additional concerns per pt at the end of testing. Advised pt that we will contact them with results when they are obtained. Accompanied by: Self / Same As Patient Allergies No Known Allergies (No Known Allergies*) Allergy (Verified 04/22/25 09:49) Assessment & Plan Assessment & Plan (1) GERD (gastroesophageal reflux disease): Code(s): K21.9 - Gastro-esophageal reflux disease without esophagitis Category: Medical Qualifiers: Esophagitis presence: esophagitis presence not specified Qualified Code(s): K21.9 - Gastro-esophageal reflux disease without esophagitis Coding Level of Care Code Established Pt Procedure Only Patient Type Established Diagnoses Gastroesophageal reflux disease, unspecified whether esophagitis present K21.9 Esophagitis presence: esophagitis presence not specified
--- OUTSIDE RECORDS SUMMARY | 2025-04-29 11:53 | XMS_ITS | Encounter Summary ---
Author Organization [employer] Address [address] [facility] 7t [place] [address] Care Team Providers Care Silk Folder Name Role Phone Mervat Simental MD Primary Care Provider + Reason for Visit * Reason Onset Date Comments calling back 03/14/2024 Encounter Details Date Type Department Care Team ([facility] st Contact Info) Description 03/14/2024 Telephone [facility] [address] [place] [address] Alicia, Enriqueta [address] [place] [address] calling back Social History Tobacco Use Types [...] is returning a call he had missed. [facility] is on a meeting break till 12;30. Please call him once again to schedule that appt. Thank you CS documented in this encounter Plan of Treatment Upcoming Encounters Date Type Department Care Team (Late st Contact Info) Description 05/06/2025 2:00 PM EST Clinical Support [facility] [address] [place] [address] [place] [address] 06/14/2025 9:15 AM EST Office Visit [facility] [address] [place] [address] Isa Ferrer MD [address] [place] [address] 09/09/2025 9:30 AM EDT Office Visit [facility] [address] [place] [address] Larisa Antunez documented as of this encounter Visit Diagnoses Not on filedocumented in this encounter Additional Health Concerns Assessment Noted Time PHQ-9 Depression Total Score: 10 024 11:48 AM EST documented as of this encounter Care Teams Silk Folder Relationship Specialty Start Date End Date Mervat Simental MD [address] [place] [address] PCP - General Internal Medicine 03/06/24 documented as of this encounter
--- OUTSIDE RECORDS SUMMARY | 2025-04-29 11:53 | XMS_ITS | Encounter Summary ---
Author Organization [employer] Address [address] [facility] [address], [place] [address] Care Team Providers Care Gas Specialist Name Role Phone Diane Gutierrez Primary Care Provider [phone] Diane Gutierrez Primary Care Provider [phone] Diane Gutierrez Primary Care Provider [phone] Diane Gutierrez Primary Care Provider [phone] Mervat Simental MD Primary Care Provider + Reason for Visit * Reason Onset Date Comments new pt visit 01/12/2024 Encounter Details Date Type Department Care Team (Late st Contact Info) Description 01/12/2024 Telephone [facility] [address] [place] [address] Saman Rodriguez, DMD [address] [place] [address] new pt visit Social History Tobacco Use [...] PM EDT PCP for patient here in [facility] sent an internal referral under referral tab for internal dentistry appt regular care. Patient inquiring on status of appt. Patient informed that there is a lengthy waiting list for new patients and that message would be sent to [facility] dental for follow up. Pls reach out topatient. He'd like to hear from dental office directly DR documented in this encounter Plan of Treatment Upcoming Encounters Date Type Department Care Team (Late st Contact Info) Description 05/06/2025 2:00 PM EST Clinical Support [facility] [address] [place] [address] [place] [address] 06/14/2025 9:15 AM EST Office Visit [facility] [address] [place] [address] Isa Ferrer MD [address] [place] [address] 09/09/2025 9:30 AM EDT Office Visit [facility] [address] [facility] [place] [address] Larisa Antunez documented as of this encounter Visit Diagnoses Not on filedocumented in this encounter Additional Health Concerns Assessment Noted Time PHQ-9 Depression Total Score: 10 024 11:48 AM EST documented as of this encounter Care Teams Gas Specialist Relationship Specialty Start Date End Date Diane Gutierrez [place] [address] PCP - General Family Medicine 05/31/22 01/26/24 Diane Gutierrez FNP [facility] [place] [address] PCP - General Family Medicine 01/27/24 01/29/24 [place]ier[place] [address] PCP - General Family Medicine 01/30/24 02/02/24 Diane Gutierrez FNP [facility] [place] [address] PCP - General Family Medicine 02/03/24 03/05/24 Mervat Simental MD [facility] [place] [place] [address] PCP - General Internal Medicine 03/06/24 documented as of this encounter
--- OUTSIDE RECORDS SUMMARY | 2025-04-29 11:53 | XMS_ITS | Encounter Summary ---
Author Organization [employer] Address 75 [facility] 7 [place] [address] Care Team Providers Care General Car Yard Supervisor Name Role Phone Diane Gutierrez Primary Care Provider [phone] Mervat Simental MD Primary Care Provider + Reason for Visit * Reason Onset Date Comments Appointment Request 02/21/2024 Encounter Details Date Type Department Care Team ([facility] st Contact Info) Description 02/21/2024 Telephone [facility] [address] [place], [place] [phone] Diane Gutierrez FNP [address] [place], [place] [phone] Appointment Request Social History Tobacco Use Types [...] - 02/21/2024 3:08 PM EDT T/C to [facility] general surgery on [phone] Obdulia for below message, as per Obdulia, pt's procedure date is not decided yet and will give call to [facility] to schedule Pre-op clearance. * Telephone Encounter - Yisel Aiken - 02/21/2024 10:19 AM EDT Tc from [facility] requesting a medical luis alfredo for pt for an upcoming procedure Hemmaroidectomy documented in this encounter Plan of Treatment Upcoming Encounters Date Type Department Care Team (Late st Contact Info) Description 05/06/2025 2:00 PM EST Clinical Support [facility] [address] [place] [address] Jocy Arreola, ELBA [address] [place] [address] 06/14/2025 9:15 AM EST Office Visit [facility] [address] [place] [address] [place] [address] Isa Ferrer MD 230 [place] [address] 09/09/2025 9:30 AM EDT Office Visit [facility] [address] [place] [address] Larisa Antunez documented as of this encounter Visit Diagnoses Not on filedocumented in this encounter Additional Health Concerns Assessment Noted Time PHQ-9 Depression Total Score: 10 024 11:48 AM EST documented as of this encounter Care Teams General Car Yard Supervisor Relationship Specialty Start Date End Date Diane Gutierrez FNP [address] [place] [address] PCP - General Family Medicine 02/03/24 03/05/24 Mervat Simental MD [address] [place] [address] PCP - General Internal Medicine 03/06/24 documented as of this encounter
--- OUTSIDE RECORDS SUMMARY | 2025-04-29 11:53 | XMS_ITS | Encounter Summary ---
Author Organization [employer] Address 75 [facility] 7[place], [place] [address] Care Team Providers Care Coremaking Supervisor Name Role Phone Diane Gutierrez Primary [...] (Late st Contact Info) Description 11/04/2022 Telephone [facility] [address] [place] [address] Diane Gutierrez FNP [address] [place], [place] [phone] status on sleep apnea Social History Tobacco [...] Description 05/06/2025 2:00 PM EST Clinical Support [facility] [address] [place] [address] [place] [address] 06/14/2025 9:15 AM EST Office Visit [facility] [address] [place] [address] Isa Ferrer MD [address] [place] [address] 09/09/2025 9:30 AM EDT Office Visit [facility] [address] [place] [address] Larisa Antunez documented as of this encounter Visit Diagnoses Not on filedocumented in this encounter Care Teams Coremaking Supervisor Relationship Specialty Start Date End Date Diane Gutierrez FNP [address] [place] [address] PCP - General Family Medicine 05/31/22 01/26/24 Diane Gutierrez FNP [address] [place] [address] PCP - General Family Medicine 01/27/24 01/29/24 Diane Gutierrez FNP [address] [place] [address] PCP - General Family Medicine 01/30/24 02/02/24 Diane Gutierrez FNP [address] [place] [address] PCP - General Family Medicine 02/03/24 03/05/24 Mervat Simental MD 230 [place] [address] PCP - General Internal Medicine 03/06/24 documented as of this encounter
--- OUTSIDE RECORDS SUMMARY | 2025-04-29 11:53 | XMS_ITS | Clinical Summary ---
Author Organization [facility] Address [address] [place], [place] [phone] Phone Care Team Providers Care Rn Sane Name Role Phone Candida Jimenez HOSE SEAMER Primary Care Provider [phone] Allergies Active Allergy Reactions Criticality Noted Date [...] file Group ID:Not on file Type:Medicaid Address: [address] [place] [address] [facility] C3 A[employer] HEALTH SAFETY NET PARTIAL Member Subscriber Plan / Payer (Ef fective 2023-Present) Name:Cisco Ro Relation to Subscriber:Self Name:Cisco Ro Payer ID:Not on file Group ID:Not on file Type:Medicaid Address: [address] C3 [employer] [facility] SAFETY NET PARTIAL Member Subscriber Plan / Payer (Ef fective 2023-) Name:Cisco Ro Relation to Subscriber:Self Name:Jayjay Cisco Payer ID:Not on file Group ID:Not on file Type:Medicaid Address: [address] C3 [employer] SAF[employer] NET PARTIAL Member Subscriber Plan / Payer (Ef fective 2023-Present) Name:Cisco Ro Relation to Subscriber:Self Name:Cisco Ro Payer ID:Not on file Group ID:Not on file Type:Medicaid Address: [address] C3 A[employer] Care Teams Rn Sane Relationship Specialty Start Date End Date Candida Jimenez NP [address] [place] [address] Dr Pena [address] [place] [address] PCP - General Nurse Practitioner 02/24/23 Additional Source Comments The information contained in this document represents components of the legal health record. It is not the complete legal health record.[facility]
--- OUTSIDE RECORDS SUMMARY | 2025-04-29 11:53 | XMS_ITS | Encounter Summary ---
Author Organization [employer] Address 75 [facility] 7t [place] [address] Care Team Providers Care Municipal Bond Trader Name Role Phone Mervat Simental MD Primary Care Provider + Reason for Visit * Reason Onset Date Comments Nurse Triage 10/03/2024 Encounter Details Date Type Department Care Team ([facility] st Contact Info) Description 10/03/2024 Telephone [facility] MEDICINE 230 [place] [address] Mervat Simental MD 230 [place] [address] Nurse Triage Social History Tobacco Use Types [...] EDT Triage call Pt reports was in [facility] and was given 200pm apt in [facility] and was upset and walked out. Pt is calling for triage at this time. Pt reports generalized symptoms of headache which is mainly over hinduism areas across forehead more on right side, [...] with lack of follow through in the [facility]. Pt reports stopped marijuana use last 48hours. [...] Pt no longer has job which had [employer] insurance. Protocol Used: Weakness (Generalized) and Fatigue [...] Pt reported brain fog Contact pt at [phone] documented in this encounter Plan of Treatment Upcoming Encounters Date Type Department Care Team (Late st Contact Info) Description 05/06/2025 2:00 PM EST Clinical Support [facility] DIABETES/NUTRITION [address] [place] [address] [place] [address] 06/14/2025 9:15 AM EST Office Visit [facility] MEDICINE [address] [place] [address] Isa Ferrer MD 230 [place] [address] 09/09/2025 9:30 AM EDT Office Visit [facility] ADULT DENTAL [address] [place] [address] Larisa Antunez documented as of this encounter Visit Diagnoses Not on filedocumented in this encounter Additional Health Concerns Assessment Noted Time PHQ-9 Depression Total Score: 10 024 11:48 AM EST documented as of this encounter Care Teams Municipal Bond Trader Relationship Specialty Start Date End Date Mervat Simental MD [address] [place] [address] PCP - General Internal Medicine 03/06/24 documented as of this encounter
--- OUTSIDE RECORDS SUMMARY | 2025-04-29 11:53 | XMS_ITS | Encounter Summary ---
Author Organization [employer] Address 75 [facility] 7t [place] [address] Care Team Providers Care Fish And Wildlife Technician Name Role Phone Diane Gutierrez Primary Care Provider [phone] Mervat Simental MD Primary Care Provider + Reason for Visit * Reason Comments Med Refill Encounter Details Date Type Department Care Team (Late st Contact Info) Description 03/02/2024 Refill [facility] [address] [place] [address] Diane Gutierrez FNP [address] [place] [address] Hemorrhoids, unspecified hemorrhoid type Social History Tobacco [...] EST Clinical Support [facility] [address] [place] [address] [place] [address] 06/14/2025 9:15 AM EST Office Visit [facility] [address] [place] [address] Isa Ferrer MD [address] [place] [address] 09/09/2025 9:30 AM EDT Office Visit [facility] [address] [place] [address] Larisa Antunez documented as of this encounter Visit Diagnoses Diagnosis Hemorrhoids, unspecified hemorrhoid type documented in this encounter Additional Health Concerns Assessment Noted Time PHQ-9 Depression Total Score: 10 024 11:48 AM EST documented as of this encounter Care Teams Fish And Wildlife Technician Relationship Specialty Start Date End Date Diane Gutierrez FNP [address] [place] [address] PCP - General Family Medicine 02/03/24 03/05/24 Mervat Simental MD 230 [place] [address] PCP - General Internal Medicine 03/06/24 documented as of this encounter
--- OUTSIDE RECORDS SUMMARY | 2025-04-29 11:53 | XMS_ITS | Encounter Summary ---
Author Organization [employer] Address 75 [facility] 7t [place] [address] Care Team Providers Care Careers Adviser Name Role Phone Mervat Simental MD Primary Care Provider + Reason for Visit * Reason Onset Date Comments Med Refill 02/03/2025 Encounter Details Date Type Department Care Team (Late st Contact Info) Description 02/03/2025 Refill [facility] 230 [place] [address] Angelo Ley MD 230 [place] [address] Vitamin D deficiency Social History Tobacco Use [...] Description 05/06/2025 2:00 PM EST Clinical Support [facility] DIABETES/NUTRITION [address] [place] [address] Jocy Arreola, ELBA [address] [place] [address] 06/14/2025 9:15 AM EST Office Visit [facility] [address] [place] [address] Isa Ferrer MD [address] [place] [address] 09/09/2025 9:30 AM EDT Office Visit [facility] D[facility] [address] [place] [address] Larisa Antunez documented as of this encounter Visit Diagnoses Diagnosis Vitamin D deficiency documented in this encounter Additional Health Concerns Assessment Noted Time PHQ-9 Depression Total Score: 10 024 11:48 AM EST documented as of this encounter Care Teams Careers Adviser Relationship Specialty Start Date End Date Mervat Simental MD [address] [place] [address] PCP - General Internal Medicine 03/06/24 documented as of this encounter
--- OUTSIDE RECORDS SUMMARY | 2025-04-29 11:53 | XMS_ITS | Encounter Summary ---
Author Organization [employer] Address 75 [facility] [address] [address] Care Team Providers Care Health Policy Nurse Name Role Phone Diane Gutierrez Primary Care Provider [phone] Diane Gutierrez Primary Care Provider [phone] Diane Gutierrez Primary Care Provider [phone] Diane Gutierrez Primary Care Provider [phone] Mervat Simental MD Primary Care Provider + Encounter Details Date Type Department Care Team (Late st Contact Info) Description 12/15/2022 Abstract [facility] MEDICINE [address] [place], [place] [phone] Diane Gutierrez FNP [address] [place], [place] [phone] Social History Tobacco Use Types Packs/Day Years [...] Description 05/06/2025 2:00 PM EST Clinical Support [facility] DIABETES/NUTRITION [address] [place] [phone] [place] [address] 06/14/2025 9:15 AM EST Office Visit [facility] MEDICINE [address] [place] [address] Isa Ferrer MD [address] [place] [phone] 09/09/2025 9:30 AM EDT Office Visit [facility] ADULT DENTAL [address] [place] [address] [phone] Larisa Antunez documented as of this encounter [...] documented as of this encounter Care Teams Health Policy Nurse Relationship Specialty Start Date End Date Diane Gutierrez FNP [address] [place] [address] 57747 PCP - General Family Medicine 05/31/22 01/26/24 Diane Gutierrez FNP [address] [place] [address] PCP - General Family Medicine 01/27/24 01/29/24 Diane Gutierrez FNP [address] [place] [address] 17059 PCP - General Family Medicine 01/30/24 02/02/24 Diane Gutierrez FNP [address] [place] [address] 40033 PCP - General Family Medicine 02/03/24 03/05/24 Mervat Simental MD [address] [place] [address] 9[address]38 PCP - General Internal Medicine 03/06/24 documented as of this encounter
--- OUTSIDE RECORDS SUMMARY | 2025-04-29 11:53 | XMS_ITS | Encounter Summary ---
Author Organization [employer] Address 75 [facility] 7 [place] [address] Care Team Providers Care Five Roll Refiner Batch Mixer Name Role Phone Diane Gutierrez Primary Care [...] [facility] MEDICINE [address] [place] [address] Diane Gutierrez FNP [address] [place], [place] [phone] triage Social History Tobacco Use Types Packs/Day [...] Description 05/06/2025 2:00 PM EST Clinical Support [facility] DIABETES/NUTRITION [address] [place] [address] 12594 Jocy Arreola, ELBA [address] [place] [phone] 06/14/2025 9:15 AM EST Office Visit [facility] MEDICINE [address] [place] [address] [phone] Isa Ferrer MD 230 [place] [address] 09/09/2025 9:30 AM EDT Office Visit [facility] ADULT DENTAL [address] [place] [address] 13989 Larisa Antunez documented as of this encounter Visit Diagnoses Not on filedocumented in this encounter Care Teams Five Roll Refiner Batch Mixer Relationship Specialty Start Date End Date Diane Gutierrez FNP [address] [place] [address] PCP - General Family Medicine 05/31/22 01/26/24 Diane Gutierrez FNP [address] [place] [address] PCP - General Family Medicine 01/27/24 01/29/24 Diane Gutierrez FNP [address] [place] [address] PCP - General Family Medicine 01/30/24 02/02/24 Diane Gutierrez FNP [address] [place] [address] PCP - General Family Medicine 02/03/24 03/05/24 Mervat Simental MD [address] [place] [address] [phone] PCP - General Internal Medicine 03/06/24 documented as of this encounter
--- OUTSIDE RECORDS SUMMARY | 2025-04-29 11:53 | XMS_ITS | Encounter Summary ---
Author Organization [employer] Address 75 [facility] 7 [place] [address] Care Team Providers Care Mat Tester Name Role Phone Diane Gutierrez Primary Care [...] Contact Info) Description 01/12/[address] [facility] MEDICINE 230 [place], [place] [phone] Diane Gutierrez FNP [address] [place], [place] [phone] Medication Question; Referral Social History Tobacco Use [...] no answer. LVM to call back on [phone]. * Telephone Encounter - Brian Lau RN [...] 2:00 PM EST Clinical Support [facility] DIABETES/NUTRITION [address] [place] [address] [place] [address] 06/14/2025 9:15 AM EST Office Visit [facility] MEDICINE [address] [place] [address] 16[address] Isa Ferrer MD 230 [place] [address] 09/09/2025 9:30 AM EDT Office Visit [facility] ADULT DENTAL [address] [place] [address] [phone] Larisa Antunez documented as of this encounter Visit Diagnoses Not on filedocumented in this encounter Additional Health Concerns Assessment Noted Time PHQ-9 Depression Total Score: 10 024 11:48 AM EST documented as of this encounter Care Teams Mat Tester Relationship Specialty Start Date End Date Diane Gutierrez FNP 230 [place] [address] PCP - General Family Medicine 05/31/22 01/26/24 Diane Gutierrez FNP [address] [place] [address] 9[address]30 PCP - General Family Medicine 01/27/24 01/29/24 Diane Gutierrez FNP [address] [place] [address] 47312 PCP - General Family Medicine 01/30/24 02/02/24 Diane Gutierrez FNP [address] [place] [address] 26928 PCP - General Family Medicine 02/03/24 03/05/24 Mervat Simental MD [address] [place] [address] 10478 PCP - General Internal Medicine 03/06/24 documented as of this encounter
--- OUTSIDE RECORDS SUMMARY | 2025-04-29 11:53 | XMS_ITS | Encounter Summary ---
Author Organization [employer] Address 75 [facility] 7 [place] [address] Care Team Providers Care Cable Technician Name Role Phone Mervat Simental MD Primary Care Provider + Reason for Visit * Reason Onset Date Comments Med Refill 03/26/2024 Encounter Details Date Type Department Care Team (Late st Contact Info) Description 03/26/2024 Refill [facility] MEDICINE [address] [place] [address] Diane Gutierrez FNP [address] [place] [address] Primary hypertension; Benign prostatic hyperplasia, unspecified whether [...] Description 05/06/2025 2:00 PM EST Clinical Support [facility] DIABETES/NUTRITION [address] [place] [phone] [place] [phone] 06/14/2025 9:15 AM EST Office Visit [facility] MEDICINE [address] [place] [address] Isa Ferrer MD [address] [place] [address] 09/09/2025 9:30 AM EDT Office Visit [facility] ADULT DENTAL [address] [place] [address] Larisa Antunez documented as of this encounter Visit Diagnoses Diagnosis Primary hypertension Unspecified essential hypertension Benign prostatic hyperplasia, unspecified whether lower urinary tract symptoms present documented in this encounter Additional Health Concerns Assessment Noted Time PHQ-9 Depression Total Score: 10 024 11:48 AM EST documented as of this encounter Care Teams Cable Technician Relationship Specialty Start Date End Date Mervat Simental MD [address] [place] [address] [phone] PCP - General Internal Medicine 03/06/24 documented as of this encounter
--- OUTSIDE RECORDS SUMMARY | 2025-04-29 11:54 | XMS_ITS | Clinical Summary ---
Author Organization [employer] Address 75 [facility] 7t [place] [address] Care Team Providers Care Container Finisher Name Role Phone Lit Simental MD Primary Care Provider + Allergies Active Allergy Reactions Criticality Noted Date Comments Cat Dander 06/21/2022 Dog Epithelium 06/21/2022 Doxycycline Diarrhea Medium 02/24/2023 Medications Blood Pressure kit Active Magnesium 400 MG capsule Take 1 tablet by mouth Once per day. 30 capsule 1 5 Active Additional Information Patient not taking.Reported on 03/11/2025 Magnesium Oxide -Mg Supplement 400 MG capsule Take 1 capsule by mouth Once per day. 5 Active pantoprazole (Protonix) 40 MG EC tablet Take 1 tablet (40 mg) by mouth before breakfast. Do not crush, chew, or split. 90 tablet 5 05/05/20 25 Active cholecalciferol (Vitamin D-3) 25 MCG tabletIndication s:Vitamin D deficiency Take 1 tablet (25 mcg) by mouth Once per day. 90 tablet 1 5 Active EPINEPHrine (EpiPen 2-Surendra) 0.3 MG/0.3ML injection syringe Inject 0.3 mL (0.3 mg) as directed 1 (one) time if needed for anaphylaxis. Inject into upper leg. Call 911 after use. 1 each 1 5 03/07/20 26 Active lisinopril 10 MG tabletIndication s:Primary hypertension TAKE 1 TABLET BY MOUTH EVERY DAY IN THE MORNING 90 tablet 1 5 Active tamsulosin (Flomax) 0.4 MG 24 hr capsuleIndicatio ns:Benign prostatic hyperplasia, unspecified whether lower urinary tract symptoms present TAKE 1 CAPSULE BY MOUTH DAILY 30 MINUTES AFTER THE SAME MEAL EVERY DAY 90 capsule 1 5 Active hydrOXYzine pamoate (Vistaril) 50 MG capsule TAKE 1 CAPSULE BY MOUTH EVERY 8 HOURS NEEDED FOR ANXIETY 90 capsule 5 Active Candi-Dryl 25 MG tablet TAKE 1 TO 2 TABLETS BY MOUTH EVERY 6 HOURS NEEDED FOR ALLERGY 30 tablet 1 5 Active amLODIPine (Norvasc) 5 MG tabletIndication s:Primary hypertension Take 1 tablet (5 mg) by mouth Once per day. 30 tablet 11 5 03/25/20 26 Active fluticasone (Flonase) 50 MCG/ACT nasal sprayIndications :Seasonal allergic rhinitis due to other allergic trigger Administer 2 sprays into each nostril 2 times daily. 48 g 2 5 06/23/20 25 Active cetirizine (ZyrTEC) 10 MG tabletIndication s:Seasonal allergic rhinitis due to other allergic trigger Take 1 tablet (10 mg) by mouth Once per day. 30 tablet 11 5 03/25/20 26 Active Active Problems Problem Noted Date Diagnosed [...] more tired in am. 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 machine operator with mx testing per pt [...] Type Department Care Team Description 03/26/2025 Telephone [facility] MEDICINE [address] [place] [address] [phone] Lit Simental MD Med Refill 03/26/2025 Telephone [facility] [address] [place] [address] 23345 Lit Simental MD FYI 03/25/2025 5:40 PM EDT Office Visit [facility] [address] [place] [address] 95511 Brianna Amador MD Primary hypertension (Primary Dx); Seasonal allergic rhinitis due to other allergic trigger 03/25/2025 Travel 03/25/2025 Telephone [facility] [address] [place] [address] [phone] Lit Simental MD Nurse Triage 03/25/2025 Refill [facility] [address] [place] [address] 54160 Amy Stone, 03/25/2025 Refill [facility] [address] [place] [address] 47168 Lit Simental MD 03/25/2025 Telephone [facility] [address] [place] [address] 78249 Lit Simental MD Medication Question 03/14/2025 Refill [facility] [address] [place] [address] 84076 Lit Simental MD Primary hypertension; Benign prostatic hyperplasia, unspecified whether lower urinary tract symptoms present 03/11/2025 10:00 AM EDT Clinical Support [facility] DIABETES/NUTRITION [address] [place] [address] [phone] Demarcus Arreolalie, RD High serum ferritin (Primary Dx); Chronic fatigue 03/11/2025 9:00 AM EDT Office Visit [facility] ADULT DENTAL [address] [place] [address] 66764 Larisa Antunez Dental calculus (Primary Dx); Dental plaque 03/11/2025 Travel 03/08/2025 Telephone [facility] [address] [place] [address] 33519 Lit Simental MD ER Follow-up 03/07/2025 3:20 PM EDT Office Visit [facility] [address] [place] [address] 21152 Amy Stone DO Anaphylaxis, initial encounter (Primary Dx) 03/07/2025 Travel 02/11/[address] [address] Lit Simental MD TRANSFER REQUEST 02/08/2025 10:30 AM EDT Clinical Support [facility] DIABETES/NUTRITION [address] [place] [address] 48022 Evgeny Arreolae, RD Elevated ferritin (Primary Dx) 02/08/2025 Travel 02/04/2025 3:15 PM EDT Office Visit [address] [address] Lit Simental MD Palpitations (Primary Dx) 02/04/2025 Travel 02/04/2025 Telephone [facility] [address] [place] [address] 87988 Lit Simental MD Nurse Triage 02/03/[address] [address] Lit Simental MD Vitamin D deficiency 02/03/[address] [address] Angelo Ley MD Vitamin D deficiency 01/27/2025 Refill [facility] [address] [address] Angelo Ley MD Vitamin D deficiency from Last 3 Months Immunizations Immunization Administration [...] Description 05/06/2025 2:00 PM EST Clinical Support [facility] DIABETES/NUTRITION [address] [place] [address] 19316 Jocy Arreola, ELBA [address] [place] [address] 06/14/2025 9:15 AM EST Office Visit [facility] [address] [place] [address] 17270 Harrison Ferrer MD 230 [place] [address] 09/09/2025 9:30 AM EDT Office Visit [facility] [address] [place] [address] 07034 Larisa Antunez Health Maintenance Due Date Last Done Comments CT Colonography 1970 FIT DNA/Cologuard 1970 FIT 1970 FOBT 1970 Sigmoidoscopy 1970 Hepatitis B Vaccines (1 of 3 - 19+ 3-dose series) 1989 Pneumococcal Vaccine: 50+ Years (1 of 1 - PCV) 2020 Colonoscopy 05/20/2024 05/20/2021 Colorectal Cancer Screening 05/20/2024 Depression Monitoring 01/24/2025 07/27/2024, 024 COVID-19 Vaccine ( - 2024- season) 2025 07/29/2021, 10/11/2020 Influenza Vaccine (#1) [...] Quantitative, Real-Time PCR (10/10/2024 9:04 AM EDT) [facility] Hepatitis C Antibody Nonreactive Nonreactive [facility] Comment:Antibodies to HCV no t detected; does not exclude early acuteHCV infection. Blood Venous blood specimen / Unknown 10/10/2024 9:04 AM EDT 10/10/2024 11:40 AM EDT Harrison Paula MD LAB BLOOD ORDERAB LES Final Result Performing Organization Address [facility]/ZIP Co de Phone Number [facility] [address] [place] [phone] * HIV-1/2 Antigen and Antibodies, Fourth Generation, with Reflexes (10/10/2024 9:04 AM EDT) [facility] HIV AB/AG Nonreactive Nonreactive [facility] Comment:HIV-1 p24 Ag and/or HIV-1/HIV-2 Ab not detected.A test result that is nonreactive does not exclude thepossibility of exposure to or infection with HIV-1 and/orHIV-2. Nonreactive results in this assay for individualswith prior exposure to HIV-1 and/or HIV-2 may be due toantigen and antibody levels that are below the limit ofdetection of this assay.The [employer] HIV Ag/Ab Combo assay result andsupplemental assay results should be interpreted inconjunction with the patient's clinical presentation,history and other laboratory results. If the results areinconsistent with clinical evidence, additional testing issuggested to confirm the result. Blood Venous blood specimen / Unknown 10/10/2024 9:04 AM EDT 10/10/2024 11:40 AM EDT Harrison Paula MD LAB BLOOD ORDERAB LES Final Result Performing Organization Address [facility] Co de Phone Number [facility] [address] [place] [address] [phone] * (ABNORMAL) Lipid Panel with Reflex to Direct LDL (09/12/2024 8:34 AM EDT) Triglycerides 128 <150 mg/dL [facility] Comment:Desirable Triglyceri de: less than 150 mg/dLBorderline High Triglyceride 150-199 mg/dLHigh Triglyceride: 200-499 mg/dLVery High Triglyceride: greater than or equal to 5OO mg/dL Cholesterol 195 <200 mg/dL [facility] Comment:Desirable Cholestero l: less than 200 mg/dLBorderline High Cholesterol: 200-239 mg/dLHigh Cholesterol: greater than 239 mg/dL LDL Cholesterol Calculated 136(H) <100 mg/dL [facility] Comment:Desirable LDL: less than 100 mg/dLNear Optimal/Above Optimal LDL: 110- 129 mg/dLBorderline High LDL: 130-159 mg/dLHigh LDL: 160-189 mg/dLVery High LDL: greater than or equal to 190 mg/dL HDL Cholesterol 34(L) >40 mg/dL [facility] Comment:Desirable HDL: great er than 40 mg/dL Note: This HDL assay may give artificially low results in patients with liver disease. Blood 09/12/2024 8:34 AM EDT 09/12/2024 11:45 AM EDT us Lit Simental MD LAB BLOOD ORDERABLES Fin al Result [facility] [address] [place] [address] [phone] * Hm Colonoscopy (05/20/2021 1:52 PM EST) Colonoscopy Normal Normal Narrative Lindsey Van - 05/20/2021 1:52 PM EST Recommended 3 year follow up us Historical Provider HEALTH MAINTENANCE Edited Result - Final from Last 3 Months or Most Recently Relevant to Health Maintenance Insurance [facility] [address] [place] [address] Care Teams Container Finisher Relationship Specialty Start Date End Date Lit Simental MD [address] [place] [address] PCP - General Internal Medicine 03/06/24
== END 2025-04-29 10:41 | disposition home or self-care (01) ==
LOC: HO.HGI 10:02
PROVIDERS: PCP Internal Medicine; Visit Provider Nurse Practitioner Family
DX: K21.9 Gastro-esophageal reflux disease without esophagitis (principal)

== ENCOUNTER 2025-05-07 10:05 | Outpatient (REF) | payer MEDICAID, SELFPAY ==
--- OUTSIDE RECORDS SUMMARY | 2025-05-07 11:46 | XMS_ITS | Encounter Summary ---
Author Organization [employer] Address 75 [facility] 7 [place] [address] Care Team Providers Care Crewman Main Battle Tank Name Role Phone Diane Gutierrez Primary Care Provider [phone] Diane Gutierrez Primary Care Provider [phone] Diane Gutierrze Primary Care Provider [phone] Diane Gutierrez Primary Care Provider [phone] Mervat Simental MD Primary Care Provider + Reason for Visit * Reason Onset Date Comments triage 11/04/2022 Encounter Details Date Type Department Care Team (Late st Contact Info) Description 11/04/2022 Telephone [facility] MEDICINE 230 [place] [address] Diane Gutierrez FNP 230 [place], [place] [phone] triage Social History Tobacco Use Types Packs/Day [...] Care Team (Late st Contact Info) Description 06/14/2025 9:15 AM EST Office Visit [facility] MEDICINE [address] [place] [address] Isa Ferrer MD 230 [place] [address] 06/17/2025 11:00 AM EST Clinical Support [facility] DIABETES/NUTRITION [address] [place] [address] 230 [place] [address] 09/09/2025 9:30 AM EDT Office Visit [facility] ADULT DENTAL [address] [place] [address] Larisa Antunez documented as of this encounter Visit Diagnoses Not on filedocumented in this encounter Care Teams Crewman Main Battle Tank Relationship Specialty Start Date End Date Diane Gutierrez FNP 230 [place] [address] PCP - General Family Medicine 05/31/22 01/26/24 Diane Gutierrez FNP 230 [place] [address] PCP - General Family Medicine 01/27/24 01/29/24 Diane Gutierrez FNP 230 [place] [address] PCP - General Family Medicine 01/30/24 02/02/24 Diane Gutierrez FNP 230 [place] [address] PCP - General Family Medicine 02/03/24 03/05/24 Mervat Simental MD [address] [place] [address] PCP - General Internal Medicine 03/06/24 documented as of this encounter
--- OUTSIDE RECORDS SUMMARY | 2025-05-07 11:46 | XMS_ITS | Encounter Summary ---
Author Organization [employer] Address 75 [facility] 7t [place] [address] Care Team Providers Care Contamination Consultant Name Role Phone Mervat Simental MD Primary Care Provider + Reason for Visit * Reason Onset Date Comments calling back 03/14/2024 Encounter Details Date Type Department Care Team ([facility] st Contact Info) Description 03/14/2024 Telephone [facility] ADULT DENTAL 230 [place] [address] Alicia, Enriqueta 230 [place] [address] calling back Social History Tobacco Use Types [...] is returning a call he had missed. [facility] is on a meeting break till 12;30. Please call him once again to schedule that appt. Thank you CS documented in this encounter Plan of Treatment Upcoming Encounters Date Type Department Care Team (Late st Contact Info) Description 06/14/2025 9:15 AM EST Office Visit [facility] MEDICINE [address] [place] [address] Isa Ferrer MD 230 [place] [address] 06/17/2025 11:00 AM EST Clinical Support [facility] DIABETES/NUTRITION [address] [place] [address] Jocy Arreola, RD 230 [place] [address] 09/09/2025 9:30 AM EDT Office Visit [facility] ADULT DENTAL [address] [place] [address] Larisa Antunez documented as of this encounter Visit Diagnoses Not on filedocumented in this encounter Additional Health Concerns Assessment Noted Time PHQ-9 Depression Total Score: 10 024 11:48 AM EST documented as of this encounter Care Teams Contamination Consultant Relationship Specialty Start Date End Date Mervat Simental MD [address] [place] [address] PCP - General Internal Medicine 03/06/24 documented as of this encounter
--- OUTSIDE RECORDS SUMMARY | 2025-05-07 11:46 | XMS_ITS | Encounter Summary ---
Author Organization [employer] Address 75 [facility] 7t [place] [address] Care Team Providers Care Golf Ball Inspector Name Role Phone Mervat Simental MD Primary Care Provider + Encounter Details Date Type Department Care Team (Late st Contact Info) Description 04/29/2025 Orders Only GENERIC EXTERNAL DATA DEPARTMENT Provider, Generic External Data Social History Tobacco Use Types Packs/Day Years [...] Description 06/14/2025 9:15 AM EST Office Visit [facility] MEDICINE [address] [place] [address] Isa Ferrer MD 230 [place] [address] 06/17/2025 11:00 AM EST Clinical Support [facility] DIABETES/NUTRITION [address] [place] [address] Jocy Arreola, RD 230 [place] [address] 09/09/2025 9:30 AM EDT Office Visit [facility] ADULT DENTAL [address] [place] [address] Larisa Antunez documented as of this encounter Procedures Procedure Name Priority Date/Time Associated Diagnosis Comments HELICOBACTER PYLORI, UREA BREATH TEST Routine 04/29/2025 10:34 AM EDT documented in this encounter Results * Helicobacter pylori, Urea Breath Test (04/29/2025 10:34 AM EDT) H. pylori Breath Test Negative Negative [facility] Comment:Antimicrobials, prot on pump inhibitors and bismuthpreparations are known to suppress H. pylori. Ingestingthese medications within two weeks prior to performing thebreath test may produce negative test results. A positiveresult is still clinically valid. 04/29/2025 10:3 4 AM EDT 04/30/2025 5:30 PM EDT us Generic External Data Provider LAB BODY FLUIDS A ND STOOLS ORDERABLES Final Result [facility] [address] [place] [address] [phone] documented in this encounter Visit Diagnoses Not on filedocumented in this encounter Additional Health Concerns Assessment Noted Time PHQ-9 Depression Total Score: 10 024 11:48 AM EST documented as of this encounter Care Teams Golf Ball Inspector Relationship Specialty Start Date End Date Mervat Simental MD [address] [place] [address] PCP - General Internal Medicine 03/06/24 documented as of this encounter
--- OUTSIDE RECORDS SUMMARY | 2025-05-07 11:46 | XMS_ITS | Clinical Summary ---
Author Organization [employer] Address 75 [facility] 7t [place] [address] Care Team Providers Care Geochemist Name Role Phone Lit Simental MD Primary [...] crush, chew, or split. 90 tablet 5 Active cholecalciferol (Vitamin D-3) 25 MCG tabletIndication [...] more tired in am. 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 per pt last [...] Encounters Date Type Department Care Team Description 05/06/2025 Travel 04/29/2025 Orders Only GENERIC EXTERNAL DATA DEPARTMENT Provider, Generic External Data 03/26/2025 Telephone [facility] MEDICINE [address] [place] [address] Lit Simental MD Med Refill 03/26/2025 Telephone [facility] MEDICINE [address] [place] [address] Lit Simental MD FYI 03/25/2025 5:40 PM EDT Office Visit [facility] WALK-IN CENTER [address] [place] [address] Brianna Amador MD Primary hypertension (Primary Dx); Seasonal allergic rhinitis due to other allergic trigger 03/25/2025 Travel 03/25/2025 Telephone [facility] MEDICINE [address] [place] [address] Lit Simental MD Nurse Triage 03/25/2025 Refill [facility] WALK-IN CENTER [address] [place] [phone] Amy Stone DO 03/25/2025 Refill [facility] MEDICINE [address] [place] [address] Lit Simental MD 03/25/2025 Telephone [facility] MEDICINE [address] [place] [address] Lit Simental MD Medication Question 03/14/2025 Refill [facility] MEDICINE [address] [place] [address] [phone] Lit Simental MD Primary hypertension; Benign prostatic hyperplasia, unspecified whether lower urinary tract symptoms present 03/11/2025 10:00 AM EDT Clinical Support [facility] DIABETES/NUTRITION [address] [place] [address] High serum ferritin (Primary Dx); Chronic fatigue 03/11/2025 9:00 AM EDT Office Visit [facility] ADULT DENTAL [address] [place] [address] Larisa Antunez Dental calculus (Primary Dx); Dental plaque 03/11/2025 Travel 03/08/2025 Telephone [facility] MEDICINE [address] [place] [address] Lit Simental MD ER Follow-up 03/07/2025 3:20 PM EDT Office Visit [facility] WALK-IN CENTER [address] [place] [address] Amy Stone DO Anaphylaxis, initial encounter (Primary Dx) 03/07/2025 Travel 02/11/[address] [address] Lit Simental MD TRANSFER REQUEST 02/08/2025 10:30 AM EDT Clinical Support [facility] DIABETES/NUTRITION [address] [place] [address] Elevated ferritin (Primary Dx) 02/08/2025 Travel 02/04/2025 3:15 PM EDT Office Visit [address] [address] Lit Simental MD Palpitations (Primary Dx) 02/04/2025 Travel 02/04/[address] [address] Lit Simental MD Nurse Triage from Last 3 Months Immunizations Immunization Administration [...] Description 06/14/2025 9:15 AM EST Office Visit [facility] MEDICINE 230 [place], [place] [phone] Harrison Ferrer MD 230 [place] [address] 06/17/2025 11:00 AM EST Clinical Support [facility] DIABETES/NUTRITION [address] [place] [phone] 230 [place] [address] 09/09/2025 9:30 AM EDT Office Visit [facility] ADULT DENTAL 230 [place], [place] [phone] Larisa Antunez Health Maintenance Due Date Last [...] Mouth 02/20/2027 02/20/2024 Lipid Panel 09/12/2029 09/12/2024, 0503/2023, 09/07/2021, Additional history exists DTaP/Tdap/Td Vaccines (2 [...] BREATH TEST Routine 04/29/2025 10:34 AM EDT PERIODIC ORAL EVALUATION - ESTABLISHED PATIENT Routine [...] Recently Relevant to Health Maintenance Results * Helicobacter pylori, Urea Breath Test (04/29/2025 10:34 AM EDT) H. pylori Breath Test Negative Negative [facility] Comment:Antimicrobials, prot on pump inhibitors and bismuthpreparations are known to suppress H. pylori. Ingestingthese medications within two weeks prior to performing thebreath test may produce negative test results. A positiveresult is still clinically valid. 04/29/2025 10:3 4 AM EDT 04/30/2025 5:30 PM EDT us Generic External Data Provider LAB BODY FLUIDS A ND STOOLS ORDERABLES Final Result [facility] [address] [place] [phone] * Referral to Rheumatology (02/14/2025) us Harrison [...] AM EDT) Hepatitis C Antibody Nonreactive Nonreactive [facility] Comment:Antibodies to HCV no t detected; does not exclude early acuteHCV infection. Blood Venous blood specimen / Unknown 10/10/2024 9:04 AM EDT 10/10/2024 11:40 AM EDT Harrison Paula MD LAB BLOOD ORDERAB LES Final Result [facility] [address] [place] [phone] * HIV-1/2 Antigen and Antibodies, Fourth Generation, with Reflexes (10/10/2024 9:04 AM EDT) HIV AB/AG Nonreactive Nonreactive [facility] Comment:HIV-1 p24 Ag and/or HIV-1/HIV-2 Ab not detected.A test result that is nonreactive does not exclude thepossibility of exposure to or infection with HIV-1 and/orHIV-2. Nonreactive results in this assay for individualswith prior exposure to HIV-1 and/or HIV-2 may be due toantigen and antibody levels that are below the limit ofdetection of this assay.The My [employer] HIV Ag/Ab Combo assay result andsupplemental assay results should be interpreted inconjunction with the patient's clinical presentation,history and other laboratory results. If the results areinconsistent with clinical evidence, additional testing issuggested to confirm the result. Blood Venous blood specimen / Unknown 10/10/2024 9:04 AM EDT 10/10/2024 11:40 AM EDT us Harrison Paula MD LAB BLOOD ORDERAB LES Final Result Performing Organization Address [facility] Co de Phone Number [facility] [address] [place] [address] [phone] * (ABNORMAL) Lipid Panel with Reflex to Direct LDL (09/12/2024 8:34 AM EDT) Triglycerides 128 <150 mg/dL [facility] Comment:Desirable Triglyceri de: less than 150 mg/dLBorderline High Triglyceride 150-199 mg/dLHigh Triglyceride: 200-499 mg/dLVery High Triglyceride: greater than or equal to 5OO mg/dL Cholesterol 195 <200 mg/dL [facility] Comment:Desirable Cholestero l: less than 200 mg/dLBorderline High Cholesterol: 200-239 mg/dLHigh Cholesterol: greater than 239 mg/dL LDL Cholesterol Calculated 136(H) <100 mg/dL [facility] Comment:Desirable LDL: less than 100 mg/dLNear Optimal/Above Optimal LDL: 110- 129 mg/dLBorderline High LDL: 130-159 mg/dLHigh LDL: 160-189 mg/dLVery High LDL: greater than or equal to 190 mg/dL HDL Cholesterol 34(L) >40 mg/dL [facility] Comment:Desirable HDL: great er than 40 mg/dL Note: This HDL assay may give artificially low results in patients with liver disease. Blood 09/12/2024 8:34 AM EDT 09/12/2024 11:45 AM EDT us Lit Simental MD LAB BLOOD ORDERABLES Fin al Result Performing Organization Address [facility]/ZIP Co de Phone Number [facility] [address] [place] [phone] [phone] * Hm Colonoscopy (05/20/2021 1:52 PM EST) Colonoscopy Normal Normal Narrative Carlota, Lindsey - 05/20/2021 1:52 PM EST Recommended 3 year follow up us Historical Provider HEALTH MAINTENANCE Edited Result - Final from Last 3 Months or Most Recently Relevant to Health Maintenance Insurance [facility] C3 DENTAL-[facility] MEDICAID STAND ADULT Care Teams Geochemist Relationship Specialty Start Date End Date Lit Simental MD [address] [place] [address] PCP - General Internal Medicine 03/06/24
--- OUTSIDE RECORDS SUMMARY | 2025-05-07 11:46 | XMS_ITS | Encounter Summary ---
Author Organization [employer] Address [address] [facility] 7[place] [address] Care Team Providers Care Wood Boatbuilder Name Role Phone Diane Gutierrez Primary Care Provider [phone] Diane Gutierrez Primary Care Provider [phone] Diane Gutierrez Primary Care Provider [phone] Diane Gutierrez Primary Care Provider [phone] Mervat Simental MD Primary Care Provider + Encounter Details Date Type Department Care Team (Late st Contact Info) Description 12/15/2022 Abstract [facility] MEDICINE [address] [place], [place] [phone] Diane Gutierrez FNP [address] [place], [place] [phone] Social History Tobacco Use Types Packs/Day Years [...] Description 06/14/2025 9:15 AM EST Office Visit [facility] MEDICINE [address] [place] [address] Isa Ferrer MD 230 [place] [address] 06/17/2025 11:00 AM EST Clinical Support [facility] DIABETES/NUTRITION [address] [place] [phone] [place] [address] 09/09/2025 9:30 AM EDT Office Visit [facility] ADULT DENTAL [address] [place] [address] Larisa Antunez documented as of this encounter [...] documented as of this encounter Care Teams Wood Boatbuilder Relationship Specialty Start Date End Date Diane Gutierrez FNP [address] [place] [address] [phone] PCP - General Family Medicine 05/31/22 01/26/24 Diane Gutierrez FNP [address] [place] [address] PCP - General Family Medicine 01/27/24 01/29/24 Diane Gutierrez FNP [address] [place] [address] PCP - General Family Medicine 01/30/24 02/02/24 Diane Gutierrez FNP [address] [place] [address] PCP - General Family Medicine 02/03/24 03/05/24 Mervat Simental MD [address] [place] [address] PCP - General Internal Medicine 03/06/24 documented as of this encounter
--- OUTSIDE RECORDS SUMMARY | 2025-05-07 11:46 | XMS_ITS | Clinical Summary ---
Author Organization [facility] Address [address] [place], [place] [phone] Phone Care Team Providers Care Back Feeder Plywood Layup Line Name Role Phone Candida Jimenez COMPUTER NUMERICAL CONTROL PROGRAMMER Primary Care Provider [phone] Allergies Active Allergy Reactions Criticality Noted Date [...] file Group ID:Not on file Type:Medicaid Address: [address] [place] [address] SAFETY NET PARTIAL [facility] C3 ACO HEALTH SAFETY NET PARTIAL Member Subscriber Plan / Payer (Ef fective 2023-Present) Name:[place] Ro Relation to Subscriber:Self Name:[place] Ro Payer ID:Not on file Group ID:Not on file Type:Medicaid Address: [address] C3 [employer]CO [facility] SAFETY NET PARTIAL Member Subscriber Plan / Payer (Ef fective 2023-) Name:[place] Ro Relation to Subscriber:Self Name:Jayjay Cisco Payer ID:Not on file Group ID:Not on file Type:Medicaid Address: [address] C3 [employer] HEALTH SAFETY NET PARTIAL Member Subscriber Plan / Payer (Ef fective 2023-Present) Name:[place]isco Ro Relation to Subscriber:Self Name:Cisco Ro Payer ID:Not on file Group ID:Not on file Type:Medicaid Address: [address] C3 ACO Care Teams Back Feeder Plywood Layup Line Relationship Specialty Start Date End Date Candida Jimenez NP [address] [place] [address] [address] [place] [address] PCP - General Nurse Practitioner 02/24/23 Additional Source Comments The information contained in this document represents components of the legal health record. It is not the complete legal health record.[facility]
--- OUTSIDE RECORDS SUMMARY | 2025-05-07 11:46 | XMS_ITS | Encounter Summary ---
Author Organization [employer] Address 75 [facility] 7[place] [address] Care Team Providers Care Instrument Repair Technician Name Role Phone Diane Gutierrez Primary [...] (Late st Contact Info) Description 11/04/2022 Telephone [facility] MEDICINE [address] [place] [address] Diane Gutierrez FNP [address] [place], [place] [phone] status on sleep apnea Social History Tobacco [...] Description 06/14/2025 9:15 AM EST Office Visit [facility] MEDICINE [address] [place] [phone] Isa Ferrer MD 230 [place] [address] 06/17/2025 11:00 AM EST Clinical Support [facility] DIABETES/NUTRITION [address] [place] [address] Jocy Arreola, ELBA [address] [place] [address] 09/09/2025 9:30 AM EDT Office Visit [facility] ADULT DENTAL [address] [place] [address] Larisa Antunez documented as of this encounter Visit Diagnoses Not on filedocumented in this encounter Care Teams Instrument Repair Technician Relationship Specialty Start Date End Date Diane Gutierrez FNP [address] [place] [address] PCP - General Family Medicine 05/31/22 01/26/24 Diane Gutierrez FNP [address] [place] [address] PCP - General Family Medicine 01/27/24 01/29/24 Diane Gutierrez FNP [address] [place] [address] PCP - General Family Medicine 01/30/24 02/02/24 Diane Gutierrez FNP [address] [place] [address] PCP - General Family Medicine 02/03/24 03/05/24 Mervat Simental MD 230 [place] [address] PCP - General Internal Medicine 03/06/24 documented as of this encounter
--- OUTSIDE RECORDS SUMMARY | 2025-05-07 11:46 | XMS_ITS | Encounter Summary ---
Author Organization [employer] Address 75 [facility] 7 [place] [address] Care Team Providers Care Poultice Machine Operator Name Role Phone Diane Gutierrez [...] (Late st Contact Info) Description 01/12/2024 Telephone [facility] MEDICINE [address] [place], [place] [phone] Diane Gutierrez FNP [address] [place], [place] [phone] Medication Question; Referral Social History Tobacco Use [...] no answer. LVM to call back on [phone]. * Telephone Encounter - Brian Lau RN [...] Description 06/14/2025 9:15 AM EST Office Visit [facility] MEDICINE [address] [place] [address] Isa Ferrer MD [address] [place] [address] 06/17/2025 11:00 AM EST Clinical Support [facility] DIABETES/NUTRITION [address] [place] [address] [place] [address] 09/09/2025 9:30 AM EDT Office Visit [facility] ADULT DENTAL [address] [place] [phone] Larisa Antunez documented as of this encounter Visit Diagnoses Not on filedocumented in this encounter Additional Health Concerns Assessment Noted Time PHQ-9 Depression Total Score: 10 09/08/2 024 11:48 AM EST documented as of this encounter Care Teams Poultice Machine Operator Relationship Specialty Start Date End Date Diane Gutierrez FNP [address] [place] [address] PCP - General Family Medicine 05/31/22 01/26/24 Diane Gutierrez FNP [address] [place] [address] PCP - General Family Medicine 01/27/24 01/29/24 Diane Gtuierrez FNP [address] [place] [address] PCP - General Family Medicine 01/30/24 02/02/24 Diane Gutierrez FNP [address] [place] [address] PCP - General Family Medicine 02/03/24 03/05/24 Mervat Simental MD [address] [place] [address] PCP - General Internal Medicine 03/06/24 documented as of this encounter
--- OUTSIDE RECORDS SUMMARY | 2025-05-07 11:46 | XMS_ITS | Encounter Summary ---
Author Organization [employer] Address 75 [facility] 7t [place] [address] Care Team Providers Care Motel Manager Name Role Phone Mervat Simental MD Primary Care Provider + Reason for Visit * Reason Onset Date Comments Nurse Triage 10/03/2024 Encounter Details Date Type Department Care Team ([facility] st Contact Info) Description 10/03/[address] [facility] MEDICINE [address] [place] [address] Mervat Simental MD 230 [place] [address] Nurse Triage Social History Tobacco Use Types [...] Triage call Pt reports was in [facility] and was given 200pm apt in [facility] and was upset and walked out. Pt is calling for triage at this time. Pt reports generalized symptoms of headache which is mainly over religion areas across forehead more on right side, [...] lack of follow through in the [facility]. Pt reports stopped marijuana use last [...] Pt no longer has job which had [employer] insurance. Protocol Used: Weakness (Generalized) and Fatigue [...] Pt reported brain fog Contact pt at [phone] documented in this encounter Plan of Treatment Upcoming Encounters Date Type Department Care Team (Late st Contact Info) Description 06/14/2025 9:15 AM EST Office Visit [facility] MEDICINE [address] [place] [address] Isa Ferrer MD 230 [place] [address] 06/17/2025 11:00 AM EST Clinical Support [facility] DIABETES/NUTRITION [address] [place] [address] [place] [address] 09/09/2025 9:30 AM EDT Office Visit [facility] ADULT DENTAL [address] [place] [address] Larisa Antunez documented as of this encounter Visit Diagnoses Not on filedocumented in this encounter Additional Health Concerns Assessment Noted Time PHQ-9 Depression Total Score: 10 024 11:48 AM EST documented as of this encounter Care Teams Motel Manager Relationship Specialty Start Date End Date Mervat Simental MD [address] [place] [phone] PCP - General Internal Medicine 03/06/24 documented as of this encounter
--- OUTSIDE RECORDS SUMMARY | 2025-05-07 11:46 | XMS_ITS | Encounter Summary ---
Author Organization [employer] Address 75 [facility] [address] [address] Care Team Providers Care Assistant Professor Of Archaeology Name Role Phone Diane Gutierrez Primary Care Provider [phone] Diane Gutierrez Primary Care Provider [phone] Diane Gutierrez Primary Care Provider [phone] Diane Gutierrez Primary Care Provider [phone] Mervat Simental MD Primary Care Provider + Reason for Visit * Reason Onset Date Comments new pt visit 01/12/2024 Encounter Details Date Type Department Care Team (Late st Contact Info) Description 01/12/2024 Telephone [facility] ADULT DENTAL [address] [place] [address] Saman Rodriguez, DMD [address] [place] [address] new pt visit Social History Tobacco Use [...] PM EDT PCP for patient here in [facility] sent an internal referral under referral tab for internal dentistry appt regular care. Patient inquiring on status of appt. Patient informed that there is a lengthy waiting list for new patients and that message would be sent to [facility] dental for follow up. Pls reach out topatient. He'd like to hear from dental office directly DR documented in this encounter Plan of Treatment Upcoming Encounters Date Type Department Care Team (Late st Contact Info) Description 06/14/2025 9:15 AM EST Office Visit [facility] [address] [place] [address] Isa Ferrer MD [address] [place] [address] 06/17/2025 11:00 AM EST Clinical Support [facility] [address] [facility] [address] Jocy Arreola, RD [address] [place] [address] 09/09/2025 9:30 AM EDT Office Visit [facility] [address] [facility] [address] Larisa Antunez documented as of this encounter Visit Diagnoses Not on filedocumented in this encounter Additional Health Concerns Assessment Noted Time PHQ-9 Depression Total Score: 10 024 11:48 AM EST documented as of this encounter Care Teams Assistant Professor Of Archaeology Relationship Specialty Start Date End Date Diane Gutierrez FNP [address] [place] [address] PCP - General Family Medicine 05/31/22 01/26/24 Diane Gutierrez [place] [address] PCP - General Family Medicine 01/27/24 01/29/24 Diane [place] [address] PCP - General Family Medicine 01/30/24 02/02/24 [place] [address] PCP - General Family Medicine 02/03/24 03/05/24 Mervat Simental MD [address] [place] [address] PCP - General Internal Medicine 03/06/24 documented as of this encounter
--- OUTSIDE RECORDS SUMMARY | 2025-05-07 11:46 | XMS_ITS | Encounter Summary ---
Author Organization [employer] Address 75 [facility] 7 [place] [address] Care Team Providers Care Supervisor Assembling Name Role Phone Mervat Simental MD Primary Care Provider + Reason for Visit * Reason Onset Date Comments Med Refill 03/26/2024 Encounter Details Date Type Department Care Team (Late st Contact Info) Description 03/26/2024 Refill [facility] MEDICINE [address] [place] [address] Diane Gutierrez FNP [address] [place] [address] Primary hypertension; Benign prostatic hyperplasia, unspecified whether [...] Description 06/14/2025 9:15 AM EST Office Visit [facility] MEDICINE [address] [place] [address] Isa Ferrer MD [address] [place] [address] 06/17/2025 11:00 AM EST Clinical Support [facility] DIABETES/NUTRITION [address] [place] [address] Jocy Arreola, ELBA [address] [place] [address] 09/09/2025 9:30 AM EDT Office Visit [facility] ADULT DENTAL [address] [place] [address] Larisa Antunez documented as of this encounter Visit Diagnoses Diagnosis Primary hypertension Unspecified essential hypertension Benign prostatic hyperplasia, unspecified whether lower urinary tract symptoms present documented in this encounter Additional Health Concerns Assessment Noted Time PHQ-9 Depression Total Score: 10 024 11:48 AM EST documented as of this encounter Care Teams Supervisor Assembling Relationship Specialty Start Date End Date Mervat Simental MD [address] [place] [address] PCP - General Internal Medicine 03/06/24 documented as of this encounter
--- OUTSIDE RECORDS SUMMARY | 2025-05-07 11:46 | XMS_ITS | Encounter Summary ---
Author Organization [employer] Address 75 [facility] 7t [place] [address] Care Team Providers Care Repair Department Supervisor Name Role Phone Mervat Simental MD Primary Care Provider + Encounter Details Date Type Department Care Team (Latest Contact Info) Description 05/06/2025 Travel Social History Tobacco Use Types Packs/Day [...] Description 06/14/2025 9:15 AM EST Office Visit [facility] MEDICINE [address] [place] [address] Isa Ferrer MD [address] [place] [address] 06/17/2025 11:00 AM EST Clinical Support [facility] DIABETES/NUTRITION 230 [place] [address] Jocy Arreola, ELBA [address] [place] [address] 09/09/2025 9:30 AM EDT Office Visit [facility] ADULT DENTAL [address] [place] [address] Larisa Antunez documented as of this encounter Visit Diagnoses Not on filedocumented in this encounter Additional Health Concerns Assessment Noted Time PHQ-9 Depression Total Score: 10 024 11:48 AM EST documented as of this encounter Care Teams Repair Department Supervisor Relationship Specialty Start Date End Date Mervat Simental MD [address] [place] [address] PCP - General Internal Medicine 03/06/24 documented as of this encounter
--- OUTSIDE RECORDS SUMMARY | 2025-05-07 11:46 | XMS_ITS | Encounter Summary ---
Author Organization [employer] Address 75 [facility] 7t [place] [address] Care Team Providers Care Aircraft Shipping Checker Name Role Phone Mervat Simental MD Primary Care Provider + Reason for Visit * Reason Onset Date Comments Med Refill 02/03/2025 Encounter Details Date Type Department Care Team (Late st Contact Info) Description 02/03/2025 Refill [facility] MEDICINE 230 [place] [address] Angelo Ley MD 230 [place] [address] Vitamin D deficiency Social History Tobacco Use [...] Description 06/14/2025 9:15 AM EST Office Visit [facility] MEDICINE [address] [place] [address] Isa Ferrer MD [address] [place] [address] 06/17/2025 11:00 AM EST Clinical Support [facility] DIABETES/NUTRITION [address] [place] [address] Jocy Arreola, ELBA [address] [place] [address] 09/09/2025 9:30 AM EDT Office Visit [facility] ADULT DENTAL [address] [place] [address] Larisa Antunez documented as of this encounter Visit Diagnoses Diagnosis Vitamin D deficiency documented in this encounter Additional Health Concerns Assessment Noted Time PHQ-9 Depression Total Score: 10 024 11:48 AM EST documented as of this encounter Care Teams Aircraft Shipping Checker Relationship Specialty Start Date End Date Mervat Simental MD [address] [place] [address] PCP - General Internal Medicine 03/06/24 documented as of this encounter
--- OUTSIDE RECORDS SUMMARY | 2025-05-07 11:46 | XMS_ITS | Encounter Summary ---
Author Organization [employer] Address 75 [facility] 7t [place] [address] Care Team Providers Care Fowl Blood Tester Name Role Phone Diane Gutierrez Primary Care Provider [phone] Mervat Simental MD Primary Care Provider + Reason for Visit * Reason Comments Med Refill Encounter Details Date Type Department Care Team (Late st Contact Info) Description 03/02/[address] [facility] [address] [place] [address] Diane Gutierrez FNP [address] [place] [address] Hemorrhoids, unspecified hemorrhoid type Social History Tobacco [...] Description 06/14/2025 9:15 AM EST Office Visit [facility] MEDICINE [address] [place] [address] Isa Ferrer MD [address] [place] [address] 06/17/2025 11:00 AM EST Clinical Support [facility] DIABETES/NUTRITION [address] [place] [address] Jocy Arreola, ELBA [address] [place] [address] 09/09/2025 9:30 AM EDT Office Visit [facility] ADULT DENTAL [address] [place] [address] Larisa Antunez documented as of this encounter Visit Diagnoses Diagnosis Hemorrhoids, unspecified hemorrhoid type documented in this encounter Additional Health Concerns Assessment Noted Time PHQ-9 Depression Total Score: 10 024 11:48 AM EST documented as of this encounter Care Teams Fowl Blood Tester Relationship Specialty Start Date End Date Diane Gutierrez FNP [address] [place] [phone] PCP - General Family Medicine 02/03/24 03/05/24 Mervat Simental MD [address] [place] [address] PCP - General Internal Medicine 03/06/24 documented as of this encounter
--- OUTSIDE RECORDS SUMMARY | 2025-05-07 11:46 | XMS_ITS | Encounter Summary ---
Author Organization [employer] Address 75 [facility] 7 [place] [address] Care Team Providers Care Electromechanical Assembler Name Role Phone iDane Gutierrez Primary Care Provider [phone] Mervat Simental MD Primary Care Provider + Reason for Visit * Reason Onset Date Comments Appointment Request 02/21/2024 Encounter Details Date Type Department Care Team ([facility] st Contact Info) Description 02/21/2024 Telephone [facility] MEDICINE [address] [place] [address] Diane Gutierrez FNP [address] [place], [place] [phone] Appointment Request Social History Tobacco Use Types [...] - 02/21/2024 3:08 PM EDT T/C to [facility] general surgery on [phone] Obdulia for below message, as per Obdulia, pt's procedure date is not decided yet and will give call to [facility] to schedule Pre-op clearance. * Telephone Encounter - Yisel Aiken - 02/21/2024 10:19 AM EDT Tc from [facility] requesting a medical luis alfredo for pt for an upcoming procedure Hemmaroidectomy documented in this encounter Plan of Treatment Upcoming Encounters Date Type Department Care Team (Late st Contact Info) Description 06/14/2025 9:15 AM EST Office Visit [facility] MEDICINE [address] [place] [address] Isa Ferrer MD 230 [place] [address] 06/17/2025 11:00 AM EST Clinical Support [facility] DIABETES/NUTRITION [address] [place] [address] [place] [address] 09/09/2025 9:30 AM EDT Office Visit [facility] ADULT DENTAL [address] [place] [address] aLrisa Antunez documented as of this encounter Visit Diagnoses Not on filedocumented in this encounter Additional Health Concerns Assessment Noted Time PHQ-9 Depression Total Score: 10 024 11:48 AM EST documented as of this encounter Care Teams Electromechanical Assembler Relationship Specialty Start Date End Date Diane Gutierrez FNP [address] [place] [address] PCP - General Family Medicine 02/03/24 03/05/24 Mervat Simental MD 230 [place] [address] PCP - General Internal Medicine 03/06/24 documented as of this encounter
== END 2025-05-07 10:06 | disposition home or self-care (01) ==
LOC: HO.BBR 10:05
PROVIDERS: Visit Provider Internal Medicine
DX: Z13.89 Encounter for screening for other disorder (principal)

== ENCOUNTER 2025-06-17 12:53 | Outpatient (AMB) | payer MEDICAID, SELFPAY ==
--- OUTSIDE RECORDS SUMMARY | 2025-06-14 09:15 | XMS_ITS | Encounter Summary ---
Author Organization [employer] Address [address] [place] [id number] Care Team Providers Care Ornamental Painter Name Role Phone Isa Ferrer MD Primary Care Pro vider Reason for Referral * Imaging (Routine) - Authorized Specialty Diagnoses / Procedures Referred By Contac t Referred To Contact Cardiology Diagnoses Leg swelling Procedures Vascular US lower extremity venous insufficiency bilateral Isa Ferrer MD [address] [place] [address] Phone: tel: fax: [address] [phone] Phone: tel: fax: Referral ID Status Reason Start Date Expiration Date Visits Requested Visits Authorized [id number] Authorized Perform Procedure 5 06/14/2026 1 1 * Consultation (Routine) - Closed Specialty Diagnoses / Procedures Referred By Contac t Referred To Contact Otolaryngology Diagnoses Lesion of nasal mucosa Isa Ferrer MD [address] [place] [address] Phone: tel: fax: [facility] [address] Phone: tel: fax: Referral ID Status Reason Start Date Expiration Date V isits Requested Visits Authorized [id number] Closed Specialty Services Required 06/17/2025 06/17/2026 6 6 Encounter Details Date Type Department Care Team (Late st Contact Info) Description 06/14/2025 9:15 AM EST Office Visit [facility] [address] [place] [id number] Isa Ferrer MD [address] [place], [place] [phone] PAF (paroxysmal atrial fibrillation) (HCC) (Primary Dx); Dementia associated with alcoholism, unspecified dementia severity, unspecified whether behavioral, psychotic, or mood disturbance or anxiety (CMS/HCC) (HCC); Leg swelling; Lesion of nasal mucosa; BRENTON (obstructive sleep apnea); Lesion of nostril; Localized swelling of both lower legs; Memory impairment of gradual onset; Mixed anxiety and depressive disorder; Alcohol abuse; Primary hypertension; Class 3 severe obesity due to excess calories with serious comorbidity and body mass index (BMI) of 40.0 to 44.9 in adult (HCC); Health care maintenance Social History Tobacco Use Types Packs/Day Years Used Date Smoking Tobacco: Never Passive Smoke Exposure: Never Smokeless Tobacco: Never Tobacco Cessation:Counseling Given: Not Answered Alcohol Use Standard Drinks/Week Comments Yes 15 (1 standard drink = 0.6 oz pu re alcohol) drinking beer Alcohol Answer Date Recorded How often do you have a drink containing alcohol ? 4 06/14/2025 How many drinks containing a lcohol do you have on a typical day when you are drinking? 3 06/14/2025 How often do you have six or more drinks on one occasion? 4 06/14/2025 Depression Answer Date Recorded Patient Health Questionnaire-9 Score 14 06/14/2025 Patient Health Questionnaire-9 Score 14 06/14/2025 Last PHQ-9: Questionnaire Data Not on file 1 08/15/2024 Housing Stability Answer Date Recorded What is [...] Date Recorded Patient Health Questionnaire-2 Score 1 06/14/2025 Internet Access Answer Date Recorded Internet Access Q1 Yes 10/26/2024 Internet Access Q2 Not on file 10/26/2024 Sex and Gender Information Value Date Recorded Sex Assigned at Male 05/03/2022 10:37 AM EDT Legal Sex Male 10:37 AM EDT Gender Identity Male 05/03/2022 10:37 AM EDT Sexual Orientation Bisexual 06/15/2025 8: 53 PM EST documented as of this encounter Last Filed Vital Signs Vital Sign Reading Time Taken Comments Blood Pressure 132/88 06/14/2025 9:18 AM EST Pulse 66 06/14/2025 9:18 AM EST Temperature 36.3 C (97.3 F) 06/14/2025 9:18 AM EST Respiratory Rate 20 06/14/2025 9:18 AM EST Oxygen Saturation 99% 06/14/2025 9:18 AM EST Inhaled Oxygen Concentration - - Weight 123 kg (270 lb 12.8 oz) 06/14/2025 9:18 A M EST Height 170.2 cm (5' 7 ) 06/14/2025 9:18 AM EST Body Mass Index 42.41 06/14/2025 9:18 AM EST documented in this encounter Functional Status * Over the past 2 weeks, how often have you been bothered by any of the following problems? Question Answer Date of Assessment Author Patient Health Questionnaire -2 Score 1 06/14/2025 9:01 AM EST Joya Leon MA * Little interest or pleasure in doing things Answer Date of Assessment Author Not at all 06/14/2025 9:01 AM Alex Omer MA * Feeling down, depressed, or hopeless Answer Date of Assessment Author Several days 06/14/2025 9:01 AM Alex Omer MA * Trouble falling or staying asleep, or sleeping too much Answer Date of Assessment Author More than half the days 06/14/2025 9:01 AM Joya Gould MA * Feeling tired or having little energy Answer Date of Assessment Author Nearly every day 06/14/2025 9:01 AM Joya Omer MA * Poor appetite or overeating Answer Date of Assessment Author Nearly every day 06/14/2025 9:01 AM Joya Omer MA * Feeling bad about yourself - or that you are a failure or have let yourself or your family down Answer Date of Assessment Author Several days 06/14/2025 9:01 AM Alex Omer MA * Trouble concentrating on things, such as reading the newspaper or watching television Answer Date of Assessment Author Nearly every day 06/14/2025 9:01 AM Joya Omer MA * Moving or speaking so slowly that other people could have noticed? Or the opposite - being so fidgety or restless that you have been moving around a lot more than usual. Answer Date of Assessment Author Several days 06/14/2025 9:01 AM Alex Omer MA * Thoughts that you would be better off or hurting yourself in some way Answer Date of Assessment Author Not at all 06/14/2025 9:01 AM Alex Omer MA * Patient Health Questionnaire-9 Score Answer Date of Assessment Author 14 06/14/2025 9:01 AM Alex Omer MA * How difficult have these problems made it for you to do your work, take care of things at home, or get along with other people? Answer Date of Assessment Author Very difficult 06/14/2025 9:01 AM Alex Omer MA documented as of this encounter Progress Notes * Isa Paula MD - 06/14/2025 9:15 AM EST Subjective Patient ID: Cisco Ro is a 54 y.o. male Comes for TC and annual exam HPI 54 y o M w PMX of Obesity,hypertension, BRENTON,depression/anxiety, AUD c/w Mild Cognitive impairment, GERD, BPH,hemorrhoidectomy x3 ,History of AF -paroxysmal /History of PACs Comes for TC and annual exam Reports history of chronic alcohol abuse for years since 7 y of age when started drinking alcohol ,reports heavy drinking in his 30s ,was able to be off alcohol before but for the past 3 months again drinking aprox 7 to 9 shoots of whiskey from before full glasses ,states drinking lately for stress at work and for last 3 nights due to insomnia . Pt reinforce to me insomnia is not a chronic issue abdominal only for last 3 days , Denies feeling particularly depressed or anxious at this time ,denies SI. Denies history of withdrawal symptoms as tremors,seizures,hospitalization nor intubation . Last alcohol was 8 h ago ,Denies currently any withdrawal symptoms. -Also pt was seen in ED 03/2025 for allergic reaction possible to food ( coconut milk) vs lisinoprilthat has been taking for years . Given uncertainty Previous PCP referred pt to pmo analyst to clarifyand lisinopril was stopped and instead was started on amlodipine 5 mg daily. Pt reports taking med consistently w no SE. Also pt perceived interaction between lisinopril and tamsulosin and noted improved in urinary flow since discontinuing lisinopril so not interested in resuming med. ------ Assessment and Plan: Health care maintenance -transfer of care done 06/2025 -10/2024 T-spot Neg -10/2024 PSA wnl -Colonoscopy 04/2025 : 5-7 mm sessile polyp in ascending colon and 14-15 mm semipedunculated polyp in descending colon , and another polyp in anal rectal junction ,moderate diverticulosis small internal hemorrhoids .Repeat colonoscopy in 2-3 y -vaccines : COVID 19 x2, Tdap 2020 ,Shingrix x2 . Flu and COVID 19 offered today -refuse today but states will come to pharmacy next week ,Will Offer P20 at next visit for AUD ----- Will do annual exam when due for annual labs aprox 10/2024 -will hold on doing labs for now Obesity BMI 42 -Life style changes advised -has apt w ophthalmologist retina specialist 06/17/2025 -advised to consider GLP1 inj that will help w morbid obesity as well likely will impact positivelyw his AUD -pt wants to hold for now Hypertension -well controlled -continue Amlodipine 5 mg daily -advised pt to bring home BP readongs bring home BP readings continue amlo for now -will check w pt when saw legal cashier last and will refer if needed at next apt BRENTON Pt told me not to have diagnosis ,from chart review sleep med apt in 04/2025 reported BRENTON and advised to use CPAP but pt reported not tolerate device before ,plan was to f in 6 to 12 months -will encourage pt at next apt to reconsider CPAP use , pt has obesity ,alcohol use ,history of chronic fatigue that maybe associated w it. Depression/Anxiety PHQ9 14, no SI, JORY 11/2024 0 -F w therapist ,no psychiatrist -advised pt to talk with his therapist to evaluation for psychiatrist referral -Takes hydroxyzine PRN -in regards Insomnia advised to consider Quetiapine as may help w mood diagnosis and insomnia but pt refuse and denies symptoms to be chronic so for now pt agreed to try melatonin 5 mg HS -advised against chronic benadryl use for mcc SE including in his memory - to take for allergic reaction mainly -sleep hygiene discussed in length w pt AUD c/w Mild Cognitive impairment Marijuana couple times a day -couple hits 7-9 a day Today Alcohol CAGE 23 Pt not drinking for the past 12 hours ,denies any withdrawal symptoms States interested in stop drinking -Offered today Gabapentin in case experience symptoms but refuse -offered OBAT program referral and refusing for now -pt reports to have naproxen at home and if needed will start med -encourage to stop ETOH -alarm signs and symptoms for withdrawal discussed -encourage to consider GLP1 for obesity that may have a positive impact in AUD -at next apt will discuss about thiamine and folic acid prescription Mild Cognitive impairment -saw Neurologist -Dr Cespedes 02/2025 dxed w Mild Cognitive impairment with h/o alcohol drinking and pt was referred to Neuropsychiatry -Brain MRI w/o contrast 10/2024 Moderate generalized volume loss GERD/dysphagia -04/2025 H pylori UBT Neg -EGD 04/2025 gastritis duodenitis x3 sessile polyps 8-10 mm in stomach -pt on sucralfate PRN -continue care w GI --Saw GI 02/2025 BPH -Saw urologist 04/2025 for BPH continue tamsulosin daily -continue tamsulosin Bl leg swelling Noted today on exam bl leg swelling 1+ w no alarming features Seems possible venous insuff w Obesity vs SE amlodipine ? -referred today for Bl leg venous insuf US -advised pt for weigh loss , raise legs -will advise at next apt for compressions stockings w US result Fatigue Reported as on and off -02/2025 Full rheumatologic panel done by sp neg -11/2024 LIT 1:40<-- 1:80,testosterone total and free normal,vit D 19.9,TSH wnl -10/2024 Chem wnl, hb1AC wnl,T-spot Neg,UA neg,Coag time , LDH wnl,PSA wnl,STI neg,ESR,CRP are wnl, Cortisol random wnl -09/2024 Total ch 195, LDL 136, HDL 34, Tick born screen neg,CBC wnl -11/2022 ANCA Neg -chest x-ray 04/2023 Unremarkable examination -saw skin installer 05/2025 for LIT 1:80 , livedo reticularis and fatigue/arthralgias w no connective tissue disorder diagnosed advised to f PRN -possible from untreated BRENTON -as in BRENTON problem Right nare lesion -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 Pt was rec for dietary modifications that he needs to make in order to reduce absorption of dietary iron. He continues to cook in cast iron pots, he was discouraged to do so. He was advised to abstain from alcohol consumption or taking dietary supplements or multivitamins that can contain iron. He is going for therapeutic phlebotomy once every 2-3 months.to follow in 6 months History of AF -paroxysmal ,reports 2 episodes in his life History of PACs -Saw cards 09/2023 EKG done last visit showing normal sinus rhythm with incomplete right bundle branch block, rate 63. Echocardiogram done 08/19/2023 showing EF 55-60%, ascending aorta 3.4 cm. Holter monitor done 08/19/2023 for 7 days shows sinus rhythm with average heart rate 64, frequent sinus bradycardia, 36% of the time heart rate less than 60, occasional PACs. -pt takes ASA 81 mg-OTC ,states was told to take by cards ,denies told to be on AC -rec for Cardiology PRN f up Review of Systems Constitutional: Negative. HENT: Chronic right nare lesion Respiratory: Negative. Cardiovascular: Negative. Psychiatric/Behavioral: Positive for behavioral problems and sleep disturbance. Negative for suicidal ideas. Objective BP 132/88 (BP Location: Left arm, Patient Position: Sitting, BP Cuff Size: Large adult) Pulse 66 Temp 97.3 ??F (36.3 ??C) (Temporal) Resp 20 Ht 5' 7 (1.702 m) Wt 270 lb 12.8 oz (123 kg) SpO2 99% BMI 42.41 kg/m?? Physical Exam Constitutional: General: He is not in acute distress. Appearance: Normal appearance. He is obese. He is not ill-appearing. HENT: Right Ear: Tympanic membrane normal. Left Ear: Tympanic membrane normal. Nose: Congestion present. Comments: Bl nasal congestion , not able to see well mucosa Mouth/Throat: Mouth: Mucous membranes are moist. Pharynx: No oropharyngeal exudate or posterior oropharyngeal erythema. Eyes: General: No scleral icterus. Extraocular Movements: Extraocular movements intact. Pupils: Pupils are equal, round, and reactive to light. Cardiovascular: Rate and Rhythm: Normal rate and regular rhythm. Pulmonary: Effort: Pulmonary effort is normal. Breath sounds: Normal breath sounds. Abdominal: Palpations: Abdomen is soft. Musculoskeletal: Cervical back: Neck supple. Right lower leg: Edema present. Left lower leg: Edema present. Comments: 1+ pitting bl edema , no calf tenderness, no erythema , no increase skin temp Lymphadenopathy: Cervical: No cervical adenopathy. Skin: General: Skin is warm. Neurological: General: No focal deficit present. Mental Status: He is alert. Psychiatric: Mood and Affect: Mood normal. Assessment/Plan Problem List Items Addressed This Visit PAF (paroxysmal atrial fibrillation) (HCC) - Primary Relevant Medications aspirin 20.25 MG chewable split tablet Dementia associated with alcoholism, unspecified dementia severity, unspecified whether behavioral,psychotic, or mood disturbance or anxiety ([facility]) ([facility]) Relevant Medications melatonin 5 MG tablet BRENTON (obstructive sleep apnea) Relevant Medications melatonin 5 MG tablet Lesion of nostril Localized swelling of both lower legs Other Visit Diagnoses Leg swelling Relevant Orders Vascular US lower extremity venous insufficiency bilateral Lesion of nasal mucosa Relevant Orders Referral to ENT documented in this encounter Plan of Treatment Upcoming Encounters Date Type Department Care Team (Late st Contact Info) Description 08/27/2025 9:00 AM EST Clinical Support [facility] [address] [place] [phone] [place], [place] [phone] 09/05/2025 10:30 AM EST Office Visit [facility] [address] [place] [address] [phone] Isa Ferrer MD [address] [place], [place] [phone] 09/09/2025 9:30 AM EDT Office Visit [facility] [address] [place] [address] [phone] Larisa Antunez Scheduled Referrals Name Type Priority Associated Diagnoses Orde r Schedule Referral to ENT Outpatient Referral Routine Lesion of nasal mucosa Expected: 06/14/2025 (Approximate), Expires: 06/14/2026 documented as of this encounter Visit Diagnoses Diagnosis PAF (paroxysmal atrial fibrillation) ([facility])- Primary Atrial fibrillation Dementia associated with alcoholism, unspecified dementia severity, unspecified whether behavioral, psychotic, or mood disturbance or anxiety ([facility]) ([facility]) Leg swelling Swelling of limb Lesion of nasal mucosa BRENTON (obstructive sleep apnea) Obstructive sleep apnea (adult) (pediatric) Lesion of nostril Localized swelling of both lower legs Memory impairment of gradual onset Mixed anxiety and depressive disorder Dysthymic disorder Alcohol abuse Nondependent alcohol abuse, unspecified drinking behavior Primary hypertension Unspecified essential hypertension Class 3 severe obesity due to excess calories with serious comorbidity and body mass index (BMI) of 40.0 to 44.9 in adult (HCC) Health care maintenance documented in this encounter Additional Health Concerns Assessment Noted Time PHQ-9 Depression Total Score: 14 025 9:01 AM EST documented as of this encounter Care Teams Ornamental Painter Relationship Specialty Start Date End Date Isa Ferrer MD [address] [place] [phone] PCP - General Internal Medicine 06/05/25 documented as of this encounter
--- NOTE | 2025-06-17 12:54 | MHC.OFFVIS ---
Vital Signs 06/17/25 13:01 Height 5 ft 7 in Weight 262 lb BMI 41.0 BP 136/76 Blood Pressure Location Rt brachial Position Sitting Pulse 64 Pulse Source Pulse Oximeter Pulse Oximetry (%) 97 Oxygen Delivery Method Room Air Intake Visit Reasons: S/P Double; Dr. Crenshaw Intake Note: Est pt for mgmt of dysphagia + CIC. Negative HP test. CC: C/O intermittent gas + GERD exacerbation. Pt has been taking sucralfate which he states, has been better than the pantoprazole as it does not result in greasy stools; however, he has been dealing with excessive gas. Occasional GERD still persists. Frame Table Operator Required: No Accompanied by: Self / Same As Patient Allergies No Known Allergies (No Known Allergies*) Allergy (Verified 04/22/25 09:49) HPI HPI S/P Double; Dr. Crenshaw: Details: LAST VISIT: GERD (gastroesophageal reflux disease) Screen for colon cancer Dysphagia Plan With expect before during and after procedure discussed with patient. Patient is going for stress test this month. Please call Cardiology to make sure that patient is clear. He will start taking Dulcolax 1 week before procedure to make sure that he has a good prep. Patient denies any issues with anesthesia in the past. Not on any anticoagulation medication. Patient will be sent for upper endoscopy as he has occasional acid reflux despite taking pantoprazole. Patient also reports occasional dysphagia. Might need dilation. Message sent to surgical schedulers to book procedures for patient. Patient will follow-up in our office after the procedure. Patient was encouraged to call us if he will have any GI concerning symptoms. He is agreeable to current plan of care and verbalizes understanding of instructions. He was given the opportunity to ask questions and all questions answered. ? Thank you for allowing me to participate in his care New bisacodyl (Dulcolax (bisacodyl)) Start taking 2 tablet every night 7 days before the procedure and 1 day before procedure take 4 tablets at noon time followed by MiraLax prep 10 mg (2 x 5 mg) PO BEDTIME 16 tabs 0RF Z12.11 polyethylene glycol 3350 (Miralax) As directed by gastroenterology department at [facility] 238 grams PO ONCE 238 grams 0RF Z12.11 UPPER ENDOSCOPY AND COLONOSCOPY: Findings: Larynx:normal Esophagus: GE junction at 40 cm, diaphragm hiatus at 40 cm, mild erythema at GEJ, bx taken also from distal and proximal esophagus, balloon dilation done at LES and UEs to 18 mm, no tears seen Stomach: patchy erythema. Biopsies were obtained. Grade 2 flap valve on retroflexed examination of the cardia. x 3 sessile polyps at antrum 8-10 mm removed with cold snare Duodenum: Normal bulb and descending duodenum, bx taken Intervention: Biopsies as noted above, balloon dilation COLONOSCOPY Instrument: Olympus variable stiffness pediatric scope 190L Colonoscopy Monitoring: Vital signs and clinical assessment, continuous EKG monitoring, Pulse oximetry, Carbon Dioxide monitoring and blood pressure monitoring were done throughout the procedure. Colon withdrawal time was 24 minutes. Procedure: The patient was placed in the left lateral decubitis position and pre-procedure medications were administered. After a digital rectal examination of the ano-rectum, the video colonoscope was inserted into the rectum and advanced through the colon to the cecum/TI. The colonoscope was slowly withdrawn in a retrograde panoramic fashion and the colon mucosa was carefully examined including a retroflexed view of the rectum. Findings and interventions are described below. Procedure Difficulty:moderate Findings: Terminal Ileum-normal Cecum:normal Ascending Colon: 5-7 mm sessile polyp removed with cold snare Transverse Colon -normal Descending Colon: 14-15 mm semi pedunculated polyp, injected with epinephrine and removed with cold snare x 3 clips applied for hemostasis Sigmoid Colon: moderate diverticulosis, Rectum: Retroflexion with small internal hemorrhoids, grade I, x 1 polyp at anal rectal junction, bx taken Anorectum - normal Colon preparation: [place] Bowel Preparation Scale Right colon; 2 Transverse colon: 2 Left colon; 2 (0 = Unprepared colon segment with mucosa not seen due to solid stool that cannot be cleared. 1 = Portion of mucosa of the colon segment seen, but other areas of the colon segment not well seen due to staining, residual stool and/or opaque liquid. 2 = Minor amount of residual staining, small fragments of stool and/or opaque liquid, but mucosa of colon segment seen well. 3 = Entire mucosa of colon segment seen well with no residual staining, small fragments of stool or opaque liquid) Impression and Post Procedure Diagnosis: Endoscopy Findings: gastritis duodenitis Colonoscopy Findings: diverticulosis colon polyps x 3 internal hemorrhoids Plan: Await Pathology results Repeat Colonoscopy in 2-3 years or earlier if clinically indicated High fiber diet leaflet avoid straining at stool, epsom salts and sitz bath, anusol supps or cream if rectal polyp adenomatous then refer to colorectal due to location if h pylori pos then treat PATHOLOGY: Diagnosis A. Duodenum, biopsy: Chronic inactive duodenitis. B. Stomach, biopsy: Antral-type and oxyntic mucosa within normal limits; no Helicobacter organisms seen. C. Stomach, polypectomies: Hyperplastic mucosal polyps with background mild chronic inactive inflammation; no Helicobacter organisms seen. D. GE junction, biopsy: - Cardiac-type mucosa with mild chronic inactive inflammation; no intestinal metaplasia seen. - Squamous epithelium within normal limits. E. Esophagus, distal, biopsy: Squamous epithelium within normal limits; no inflammation seen. F. Esophagus, proximal, biopsy: Squamous epithelium within normal limits; no inflammation seen. G. Colon, ascending, polypectomy: Fragments of tubular adenoma; negative for high-grade dysplasia or carcinoma. H. Colon, descending, polypectomy: Fragments of tubulovillous adenoma; negative for high-grade dysplasia or carcinoma. I. Rectum, polypectomy: Minute fragments of colonic mucosa with hyperplastic changes; no dysplasia identified TODAY'S VISIT Patient is here today for follow-up and to discuss upper endoscopy and colonoscopy results. Patient denies any ill effects from the prep, anesthesia or procedure itself. Patient reports to be breathing fairly well. Patient states that when he was taking pantoprazole he had epigastric burning, however he was taking that pantoprazole together with all his morning medications before breakfast. Patient reports that sucralfate helps with epigastric pain and burning the best. He stopped taking the pantoprazole several weeks ago. Patient denies dyspepsia, dysphagia or odynophagia. Denies any melena, hematochezia, unintentional weight loss or ribbon like stools. Patient reports that he is moving his bowels well for the most part. Not taking any supplements. Patient reports that he is seeing a handbell choir director at hold because center will told him that he supposed to eat only me. Patient is not having enough fiber as occasionally he will have a postprandial loose stools. [facility] Medical History GERD (gastroesophageal reflux disease) Alcoholic dementia MCI (mild cognitive impairment) Bradycardia Sleep apnea Bleeding hemorrhoids Tubular adenoma History of snoring History of alcohol abuse Allergic rhinitis History of MRSA infection Anxiety and depression Urinary (tract) obstruction HTN (hypertension) Surgical History History of hemorrhoidectomy (~03/09/24) Hx of esophagogastroduodenoscopy Hx of colonoscopy History of cystoscopy Hx of cholecystectomy Family History Mother Cancer Social History Household Members: None Housing: House Are you a primary director day care center to a significant other at home: No Do you presently have visiting nurse or other home services: No Alcohol intake: unknown Patient Tobacco Use Status: Never used Tobacco Substance Use Type: Marijuana service: No Current occupational status: employed and student Review of Systems Const Denies weight gain and Denies weight loss ENT Reports no additional complaints, Denies dysphagia and Denies odynophagia Card Reports no additional complaints Resp Reports no additional complaints GI Denies abdominal pain, Denies belching, Denies melena, Denies bloating, Denies change in bowel habits, Denies dysphagia, Denies excessive flatus, Denies dyspepsia, Denies heartburn, Denies diarrhea, Denies loose stools, Denies nausea, Denies odynophagia and Denies vomiting Reports no additional complaints Musc Reports no additional complaints Neuro Reports no additional complaints Psych Reports no additional complaints Endo Reports no additional complaints Physical Exam Vital Signs: Last Vital Signs Pulse 64 06/17/25 13:01 BP 136/76 06/17/25 13:01 Pulse Ox 97 06/17/25 13:01 Oxygen Delivery Method Room Air 06/17/25 13:01 BMI result Body Mass Index 41.0 Const General: healthy appearing and no acute distress Nutritional Appearance: obese Orientation/consciousness: patient oriented x3 Resp Effort & Inspection: normal respiratory effort, able to speak in complete sentences, no tracheal deviation and symmetric chest movement Auscultation: clear to auscultation bilaterally Cardio Rate: regular rate GI Inspection: Yes normal to inspection, No distended and Yes obesity Palpation (GI): Soft to palpation, not firm, nontender and No hepatosplenomegaly present Auscultation: normal bowel sounds General: Yes no CVA tenderness Back/Spine/Pelvis Back: no CVA tenderness Skin General skin exam: elasticity normal, turgor normal and dry skin Neuro General: patient oriented x3 Psych Appearance: grossly normal Mental Status: mental status grossly normal Assessment & Plan Assessment & Plan (1) GERD (gastroesophageal reflux disease): Code(s): K21.9 - Gastro-esophageal reflux disease without esophagitis Category: Medical Qualifiers: Esophagitis presence: esophagitis presence not specified Qualified Code(s): K21.9 - Gastro-esophageal reflux disease without esophagitis (2) Dysphagia: Code(s): R13.10 - Dysphagia, unspecified Qualifiers: Dysphagia type: unspecified Qualified Code(s): R13.10 - Dysphagia, unspecified (3) Postprandial abdominal bloating: Code(s): R14.0 - Abdominal distension (gaseous) (4) Postprandial diarrhea: Code(s): K52.9 - Noninfective gastroenteritis and colitis, unspecified Plan Patient will start omeprazole. Patient was encouraged to take it half an hour before breakfast. Continue taking sucralfate as ordered. Increase fluid intake and activity to promote bowel motility. Patient will try low FODMAP diet to avoid postprandial loose stools and bloating. Increased fiber in his diet. Patient will try Metamucil powder as he has it at home. Recommended fiber with pre and probiotic. Patient will follow-up in our office in 6 months. Patient was encouraged to call here if he will have any GI concerning symptoms. Patient is agreeable to current plan of care and verbalizes understanding of instructions. He was given the opportunity to ask questions and all questions answered. Thank you for allowing me to participate in his care Medications: New omeprazole 40 mg PO DAILY 90 caps 3RF K21.9 - Gastro-esophageal reflux disease without esophagitis Coding Level of Care Code Est Pt Level 4 (36671) Add On Problem Visit Only Diagnoses Gastroesophageal reflux disease, unspecified whether esophagitis present K21.9 Esophagitis presence: esophagitis presence not specified Dysphagia, unspecified type R13.10 Dysphagia type: unspecified Postprandial abdominal bloating R14.0 Postprandial diarrhea K52.9 Time Spent (min) 35 Comment 25 minutes spent with patient and additional 10 minutes spent reviewing his records
[2025-06-17 13:01] VITALS: BP 136/76; PULSE 64; O2SAT 97; BMI 41.0
--- OUTSIDE RECORDS SUMMARY | 2025-06-17 18:41 | XMS_ITS | Encounter Summary ---
Author Organization [employer] Address [address] [facility] 7t [place] [address] Care Team Providers Care Brazing Machine Feeder Name Role Phone Isa Ferrer MD Primary Care Pro vider Encounter Details Date Type Department Care Team (Latest Contact Info) Description 06/17/2025 Travel Social History Tobacco Use Types Packs/Day [...] PM EST documented as of this encounter Plan of Treatment Upcoming Encounters Date Type Department Care Team (Late st Contact Info) Description 08/27/2025 9:00 AM EST Clinical Support [facility] DIABETES/NUTRITION [address] [place] [phone] [place] [address] 09/05/2025 10:30 AM EST Office Visit [facility] MEDICINE [address] [place] [phone] Isa Ferrer MD [address] [place] [address] 09/09/2025 9:30 AM EDT Office Visit [facility] ADULT DENTAL [address] [place] [phone] Larisa Antunez documented as of this encounter Visit Diagnoses Not on filedocumented in this encounter Additional Health Concerns Assessment Noted Time PHQ-9 Depression Total Score: 14 025 9:01 AM EST documented as of this encounter Care Teams Brazing Machine Feeder Relationship Specialty Start Date End Date Isa Ferrer MD [address] [place] [phone] PCP - General Internal Medicine 06/05/25 documented as of this encounter
--- OUTSIDE RECORDS SUMMARY | 2025-06-17 18:41 | XMS_ITS | Encounter Summary ---
Author Organization [employer] Address [address] [facility] 7t [place] [address] Care Team Providers Care Singer And Unloader Name Role Phone Mervat Simental MD Primary Care Provider + Isa Ferrer MD Primary Care Pro vider Encounter Details Date Type Department Care Team (Latest Contact Info) Description 05/21/2025 Results Follow-Up [facility] MEDICINE 230 [place] [address] Mervat Simental MD [address] [place] [address] Referral to Rheumatology Social History Tobacco Use Types Packs/Day Years [...] Description 08/27/2025 9:00 AM EST Clinical Support [facility] DIABETES/NUTRITION [address] [place] [phone] [address] Arreola, ELBA [address] [place] [address] 09/05/2025 10:30 AM EST Office Visit [facility] MEDICINE [address] [place] [address] Isa Ferrer MD [address] [place] [address] [phone] 09/09/2025 9:30 AM EDT Office Visit [facility] ADULT DENTAL [address] [place] [phone] Larisa Antunez documented as of this encounter Visit Diagnoses Not on filedocumented in this encounter Additional Health Concerns Assessment Noted Time PHQ-9 Depression Total Score: 10 024 11:48 AM EST documented as of this encounter Care Teams Singer And Unloader Relationship Specialty Start Date End Date Mervat Simental MD [address] [place] [phone] PCP - General Internal Medicine 03/06/24 06/04/25 Isa Ferrer MD [address] [place] [phone] PCP - General Internal Medicine 06/05/25 documented as of this encounter
--- OUTSIDE RECORDS SUMMARY | 2025-06-17 18:41 | XMS_ITS | Encounter Summary ---
Author Organization [employer] Address [address] [place] [address] [place], [place] [address] Care Team Providers Care Stain Applicator Name Role Phone Diane Gutierrez Primary Care Provider [phone] Diane Gutierrez Primary Care Provider [phone] Diane Gutierrez Primary Care Provider [phone] Diane Gutierrez Primary Care Provider [phone] Mervat Simental MD Primary Care Provider + Isa Ferrer MD Primary Care Pro vider Reason for Visit * Reason Onset Date Comments status on sleep apnea 11/04/2022 Encounter Details Date Type Department Care Team ([facility] st Contact Info) Description 11/04/2022 Telephone [facility] MEDICINE [address] [place], [place] [phone] Diane Gutierrez FNP [address] [place], [place] [phone] status on sleep apnea Social History Tobacco Use Types Packs/Day Years Used Date Smoking Tobacco: Never Smokeless Tobacco: Never Sex and Gender Information Value Date Recorded Sex Assigned at Male 05/03/2022 10:37 AM EDT Legal Sex Male 10:37 AM EDT Gender Identity Male 05/03/2022 10:37 AM EDT Sexual Orientation Bisexual 06/15/2025 8: 53 PM EST documented as of this encounter Miscellaneous Notes [...] Description 08/27/2025 9:00 AM EST Clinical Support [facility] DIABETES/NUTRITION [address] [place] [phone] [place] [address] 09/05/2025 10:30 AM EST Office Visit [facility] MEDICINE [address] [place] [phone] Isa Ferrer MD [address] [place] [address] 09/09/2025 9:30 AM EDT Office Visit [facility] ADULT DENTAL [address] [place] [phone] Larisa Antunez documented as of this encounter Visit Diagnoses Not on filedocumented in this encounter Care Teams Stain Applicator Relationship Specialty Start Date End Date Diane Gutierrez FNP [address] [place] [phone] PCP - General Family Medicine 05/31/22 01/26/24 Diane Gutierrez FNP [address] [place] [phone] PCP - General Family Medicine 01/27/24 01/29/24 Diane Gutierrez FNP [address] [place] [address] PCP - General Family Medicine 01/30/24 02/02/24 Diane Gutierrez FNP [address] [place] [address] PCP - General Family Medicine 02/03/24 03/05/24 Mervat Simental MD [address] [place] [phone] PCP - General Internal Medicine 03/06/24 06/04/25 Isa Ferrer MD [address] [place] [address] PCP - General Internal Medicine 06/05/25 documented as of this encounter
--- OUTSIDE RECORDS SUMMARY | 2025-06-17 18:41 | XMS_ITS | Encounter Summary ---
Author Organization [employer] Address [address] [facility] 7t [place] [address] Care Team Providers Care Driller Multiple Spindle Name Role Phone Mervat Simental MD Primary Care Provider + Isa Ferrer MD Primary Care Pro vider Reason for Visit * Reason Onset Date Comments Med Refill 02/03/2025 Encounter Details Date Type Department Care Team (Late st Contact Info) Description 02/03/2025 Refill [facility] MEDICINE [address] [place], [place] [phone] Angelo Ley MD [address] [place] [address] Vitamin D deficiency Social History Tobacco Use [...] Description 08/27/2025 9:00 AM EST Clinical Support [facility] DIABETES/NUTRITION [address] [place] [phone] [place] [phone] 09/05/2025 10:30 AM EST Office Visit [facility] MEDICINE [address] [place] [address] [phone] Isa Ferrer MD [address] [place] [phone] 09/09/2025 9:30 AM EDT Office Visit [facility] ADULT DENTAL [address] [place] [address] [phone] Larisa Antunez documented as of this encounter Visit Diagnoses Diagnosis Vitamin D deficiency documented in this encounter Additional Health Concerns Assessment Noted Time PHQ-9 Depression Total Score: 10 024 11:48 AM EST documented as of this encounter Care Teams Driller Multiple Spindle Relationship Specialty Start Date End Date Mervat Simental MD [address] [place] [phone] PCP - General Internal Medicine 03/06/24 06/04/25 Isa Ferrer MD [address] [place] [phone] PCP - General Internal Medicine 06/05/25 documented as of this encounter
--- OUTSIDE RECORDS SUMMARY | 2025-06-17 18:41 | XMS_ITS | Encounter Summary ---
Author Organization [employer] Address [address] [address] Care Team Providers Care Field Crop Farmworker Name Role Phone Isa Ferrer MD Primary Care Pro vider Reason for Visit * Reason Onset Date Comments Notes found 06/14/2025 Encounter Details Date Type Department Care Team ([facility] Contact Info) Description 06/14/[address] [facility] MEDICINE [address] [place] [address] Isa Ferrer MD [address] [place] [address] Notes found Social History Tobacco Use Types Packs/Day Years [...] PM EST documented as of this encounter Functional Status * Over the past 2 weeks, how often have you been bothered by any of the following problems? Question Answer Date of Assessment Author Patient Health Questionnaire -2 Score 1 06/14/2025 9:01 AM Joya Omer MA * Little interest or pleasure in [...] Omer MA documented as of this encounter Miscellaneous Notes * Telephone Encounter - Joya Leon MA - 06/14/2025 11:26 AM EST Marketing Recruiter found the Following notes: Sleep Medicine scanned in encounters on date 04/30/25 Colonoscopy endoscopy from [facility] Notes left on providers desk documented in this encounter Plan of Treatment Upcoming Encounters Date Type Department Care Team (Late st Contact Info) Description 08/27/2025 9:00 AM EST Clinical Support [facility] DIABETES/NUTRITION [address] [place] [address] [place] [address] 09/05/2025 10:30 AM EST Office Visit [facility] MEDICINE [address] [place] [address] Isa Ferrer MD [address] [place] [address] 09/09/2025 9:30 AM EDT Office Visit [facility] ADULT DENTAL 230 [place], [place] [phone] Larisa Antunez documented as of this encounter Visit Diagnoses Not on filedocumented in this encounter Additional Health Concerns Assessment Noted Time PHQ-9 Depression Total Score: 14 025 9:01 AM EST documented as of this encounter Care Teams Field Crop Farmworker Relationship Specialty Start Date End Date Isa Ferrer MD [address] [place] [address] PCP - General Internal Medicine 06/05/25 documented as of this encounter
--- OUTSIDE RECORDS SUMMARY | 2025-06-17 18:41 | XMS_ITS | Encounter Summary ---
Author Organization [employer] Address [address] [place] [address] [place], [place] [address] Care Team Providers Care Percussion Welding Machine Operator Name Role Phone Diane Gutierrez [...] (Late st Contact Info) Description 11/04/2022 Telephone [facility] MEDICINE [address] [place], [place] [phone] Diane Gutierrez FNP [address] [place], [place] [phone] triage Social History Tobacco Use Types Packs/Day [...] Description 08/27/2025 9:00 AM EST Clinical Support [facility] DIABETES/NUTRITION [address] [place] [phone] [place], [place] [phone] 09/05/2025 10:30 AM EST Office Visit [facility] MEDICINE [address] [place] [phone] Isa Ferrer MD [address] [place] [address] 09/09/2025 9:30 AM EDT Office Visit [facility] ADULT DENTAL [address] [place] [address] Larisa Antunez documented as of this encounter Visit Diagnoses Not on filedocumented in this encounter Care Teams Percussion Welding Machine Operator Relationship Specialty Start Date End Date Diane Gutierrez FNP [address] [place] [address] PCP - General Family Medicine 05/31/22 01/26/24 Diane Gutierrez FNP [address] [place] [address] PCP - General Family Medicine 01/27/24 01/29/24 Diane Gutierrez FNP [address] [place] [address] PCP - General Family Medicine 01/30/24 02/02/24 Diane Gutierrez FNP [address] [place] [address] PCP - General Family Medicine 02/03/24 03/05/24 Mervat Simental MD [address] [place] [address] PCP - General Internal Medicine 03/06/24 06/04/25 Isa Ferrer MD [address] [place] [address] PCP - General Internal Medicine 06/05/25 documented as of this encounter
--- OUTSIDE RECORDS SUMMARY | 2025-06-17 18:42 | XMS_ITS | Encounter Summary ---
Author Organization [employer] Address [address] [place] [address] Care Team Providers Care Winery Worker Name Role Phone Diane Gutierrez Primary Care Provider [phone] Mervat Simental MD Primary Care Provider + Isa Ferrer MD Primary Care Pro vider Reason for Visit * Reason Comments Med Refill Encounter Details Date Type Department Care Team (Late st Contact Info) Description 03/02/2024 Refill [facility] CHC MED & PEDS [address] [place] [address] Diane Gutierrez FNP [address] [facility] [place] [address] Hemorrhoids, unspecified hemorrhoid type Social History Tobacco [...] Description 08/27/2025 9:00 AM EST Clinical Support [facility] DIABETES/NUTRITION [address] [place] [address] [place] [address] 09/05/2025 10:30 AM EST Office Visit [facility] MEDICINE [address] [place] [address] [phone] Isa Ferrer MD [address] [place] [address] 09/09/2025 9:30 AM EDT Office Visit [facility] ADULT DENTAL [address] [place] [phone] Larisa Antunez documented as of this encounter Visit Diagnoses Diagnosis Hemorrhoids, unspecified hemorrhoid type documented in this encounter Additional Health Concerns Assessment Noted Time PHQ-9 Depression Total Score: 10 024 11:48 AM EST documented as of this encounter Care Teams Winery Worker Relationship Specialty Start Date End Date Diane Gutierrez FNP [address] [place] [address] PCP - General Family Medicine 02/03/24 03/05/24 Mervat Simental MD [address] [place] [address] PCP - General Internal Medicine 03/06/24 06/04/25 Isa Ferrer MD [address] [place] [address] PCP - General Internal Medicine 06/05/25 documented as of this encounter
--- OUTSIDE RECORDS SUMMARY | 2025-06-17 18:42 | XMS_ITS | Encounter Summary ---
Author Organization [employer] Address [address] [address] Care Team Providers Care Jewelry Sales Name Role Phone Isa Ferrer MD Primary Care Pro vider Reason for Visit * Reason Onset Date Comments chart prep 06/13/2025 Encounter Details Date Type Department Care Team ([facility] st Contact Info) Description 06/13/2025 Telephone [facility] MEDICINE [address] [place] [address] Isa Ferrer MD [address] [place] [address] chart prep Social History Tobacco Use Types Packs/Day Years [...] encounter Miscellaneous Notes * Telephone Encounter - Evette Gan MA - 06/13/2025 11:28 AM EST .Chart Prep Labs: not applicable Images: not applicable Vaccines due: Covid Due, Hep B Due, PCV20 Due, and Flu Due Referrals: Not Applicable Screenings: Colonoscopy Overdue care gaps: PHQ9 documented in this encounter Plan of Treatment Upcoming Encounters Date Type Department Care Team (Late st Contact Info) Description 08/27/2025 9:00 AM EST Clinical Support [facility] DIABETES/NUTRITION [address] [place] [phone] [place] [address] 09/05/2025 10:30 AM EST Office Visit [facility] MEDICINE [address] [place] [address] [phone] Isa Ferrer MD [address] [place] [address] 09/09/2025 9:30 AM EDT Office Visit [facility] ADULT DENTAL [address] [place] [address] Larisa Antunez documented as of this encounter Visit Diagnoses Not on filedocumented in this encounter Additional Health Concerns Assessment Noted Time PHQ-9 Depression Total Score: 10 024 11:48 AM EST documented as of this encounter Care Teams Jewelry Sales Relationship Specialty Start Date End Date Isa Ferrer MD [address] [place] [address] PCP - General Internal Medicine 06/05/25 documented as of this encounter
--- OUTSIDE RECORDS SUMMARY | 2025-06-17 18:42 | XMS_ITS | Encounter Summary ---
Author Organization [employer] Address 75 [facility] 7[address] [place] [address] Care Team Providers Care Paint Trimmer Pipe Bowls Name Role Phone Diane Gutierrez Primary Care Provider [phone] Mervat Simental MD Primary Care Provider + Isa Ferrer MD Primary Care Pro vider Reason for Visit * Reason Onset Date Comments Appointment Request 02/21/2024 Encounter Details Date Type Department Care Team (Late st Contact Info) Description 02/21/2024 Telephone [facility] MEDICINE 230 [place], [place] [phone] Diane Gutierrez FNP [address] [place], [place] [phone] Appointment Request Social History Tobacco Use Types [...] - 02/21/2024 3:08 PM EDT T/C to [facility] general surgery on [phone] Obdulia for below message, as per Obdulia, pt's procedure date is not decided yet and will give call to [facility] to schedule Pre-op clearance. * Telephone Encounter - Yisel Aiken - 02/21/2024 10:19 AM EDT Tc from [facility] requesting a medical luis alfredo for pt for an upcoming procedure Hemmaroidectomy documented in this encounter Plan of Treatment Upcoming Encounters Date Type Department Care Team (Late st Contact Info) Description 08/27/2025 9:00 AM EST Clinical Support [facility] DIABETES/NUTRITION [address] [place] [address] [place], [place] [phone] 09/05/2025 10:30 AM EST Office Visit [facility] MEDICINE 230 [place] [address] Isa Ferrer MD [address] [place] [address] 09/09/2025 9:30 AM EDT Office Visit [facility] ADULT DENTAL [address] [place] [address] Larisa Antunez documented as of this encounter Visit Diagnoses Not on filedocumented in this encounter Additional Health Concerns Assessment Noted Time PHQ-9 Depression Total Score: 10 024 11:48 AM EST documented as of this encounter Care Teams Paint Trimmer Pipe Bowls Relationship Specialty Start Date End Date Diane Gutierrez FNP [address] [place] [phone] PCP - General Family Medicine 02/03/24 03/05/24 Mervat Simental MD [address] [place] [phone] PCP - General Internal Medicine 03/06/24 06/04/25 Isa Ferrer MD [address] [place] [address] PCP - General Internal Medicine 06/05/25 documented as of this encounter
--- OUTSIDE RECORDS SUMMARY | 2025-06-17 18:42 | XMS_ITS | Encounter Summary ---
Author Organization [employer] Address [address] [facility] 7t [place] [address] Care Team Providers Care Data Warehouse Consultant Name Role Phone Isa Ferrer MD Primary Care Pro vider Encounter Details Date Type Department Care Team (Latest Contact Info) Description 06/14/2025 Travel Social History Tobacco Use Types Packs/Day [...] than half the days 06/14/2025 9:01 AM EST Joya Bedoya MA * Feeling tired or having little [...] Omer [place] documented as of this encounter Plan of Treatment Upcoming Encounters Date Type Department Care Team (Late st Contact Info) Description 08/27/2025 9:00 AM EST Clinical Support [facility] DIABETES/NUTRITION [address] [place] [address] [place] [address] 09/05/2025 10:30 AM EST Office Visit [facility] MEDICINE [address] [place] [address] Isa Ferrer MD 230 [place] [address] 09/09/2025 9:30 AM EDT Office Visit [facility] ADULT DENTAL [address] [place] [phone] Larisa Antunez documented as of this encounter Visit Diagnoses Not on filedocumented in this encounter Additional Health Concerns Assessment Noted Time PHQ-9 Depression Total Score: 14 025 9:01 AM EST documented as of this encounter Care Teams Data Warehouse Consultant Relationship Specialty Start Date End Date Isa Ferrer MD [address] [place] [address] PCP - General Internal Medicine 06/05/25 documented as of this encounter
--- OUTSIDE RECORDS SUMMARY | 2025-06-17 18:42 | XMS_ITS | Clinical Summary ---
Author Organization [facility] Address [address] [place], [place] [phone] Phone Care Team Providers Care Sports Book Board Attendant Name Role Phone Candida Jimenez LACE AND TEXTILES RESTORER Primary Care Provider [phone] Allergies Active Allergy Reactions Criticality Noted Date [...] file Insurance [employer]AF[employer] * Guarantor: Jagdish Roua Account Type Relation to Patient Date of Phone Billing Address Personal/Family Self 1970 [address] [place] [address] HEALTH SAF[employer]Y NET PARTIAL Member Subscriber Plan / Payer (Ef fective 2023-) Name:Cisco Ro Relation to Subscriber:Self Name:Jayjay Cisco Payer ID:Not on file Group ID:Not on file Type:Medicaid Address: [address] [employer] * Guarantor: Cisco Ro Account Type Relation to Patient Date of Phone Billing Address Personal/Family Self 1970 [address] [place], [place] [phone] [place] [address] SAFETY NET PARTIAL [facility] C3 ACO * Guarantor: Jayjay Cisco Account Type Relation to Patient Date of Phone Billing Address Personal/Family Self 1970 [address] [place] [address] HEALTH SAFETY NET PARTIAL Member Subscriber Plan / Payer (Ef fective 2023-Present) Name:Cisco Ro Relation to Subscriber:Self Name:Cisco Ro Payer ID:Not on file Group ID:Not on file Type:Medicaid Address: [address] [employer] * Guarantor: JayjayJagdish russellua Account Type Relation to Patient Date of Phone Billing Address Personal/Family Self 1970 [address] [place] [address] [facility] SAFETY NET PARTIAL Member Subscriber Plan / Payer (Ef fective 2023-) Name:Cisco Ro Relation to Subscriber:Self Name:Jayjay Cisco Payer ID:Not on file Group ID:Not on file Type:Medicaid Address: [address] [employer] HEALTH SAFETY NET PARTIAL Member Subscriber Plan / Payer (Ef fective 2023-Present) Name:Cisco Ro Relation to Subscriber:Self Name:Cisco Ro Payer ID:Not on file Group ID:Not on file Type:Medicaid Address: [address] [employer] Care Teams Sports Book Board Attendant Relationship Specialty Start Date End Date Candida Jimenez NP [address] [place] [address] [address] [place] [address] PCP - General Nurse Practitioner 02/24/23 Additional Source Comments The information contained in this document represents components of the legal health record. It is not the complete legal health record.[facility]
--- OUTSIDE RECORDS SUMMARY | 2025-06-17 18:42 | XMS_ITS | Encounter Summary ---
Author Organization [employer] Address 75 [facility] 7t [place] [address] Care Team Providers Care Hvac Service Manager Name Role Phone Mervat Simental MD Primary Care Provider + Isa Ferrer MD Primary Care Pro vider Reason for Visit * Reason Onset Date Comments Nurse Triage 10/03/2024 Encounter Details Date Type Department Care Team (Late st Contact Info) Description 10/03/2024 Telephone [facility] MEDICINE 230 [place], [place] [phone] Mervat Simental MD 230 [place], [place] [phone] Nurse Triage Social History Tobacco Use Types [...] call Pt reports was in [facility] and was given 200pm apt in [facility] and was upset and walked out. Pt is calling for triage at this time. Pt reports generalized symptoms of headache which is mainly over adventism areas across forehead more on right side, [...] of follow through in the [facility]. Pt reports stopped marijuana use [...] Pt no longer has job which had [employer] insurance. Protocol Used: Weakness (Generalized) and Fatigue [...] Pt reported brain fog Contact pt at [phone] documented in this encounter Plan of Treatment Upcoming Encounters Date Type Department Care Team (Late st Contact Info) Description 08/27/2025 9:00 AM EST Clinical Support [facility] DIABETES/NUTRITION [address] [place] [address] [place] [address] 09/05/2025 10:30 AM EST Office Visit [facility] MEDICINE [address] [place] [address] Isa Ferrer MD 230 [place] [address] 09/09/2025 9:30 AM EDT Office Visit [facility] ADULT DENTAL [address] [place] [address] Larisa Antunez documented as of this encounter Visit Diagnoses Not on filedocumented in this encounter Additional Health Concerns Assessment Noted Time PHQ-9 Depression Total Score: 10 024 11:48 AM EST documented as of this encounter Care Teams Hvac Service Manager Relationship Specialty Start Date End Date Mervat Simental MD 230 [place] [address] PCP - General Internal Medicine 03/06/24 06/04/25 Isa Ferrer MD [address] [place] [address] PCP - General Internal Medicine 06/05/25 documented as of this encounter
--- OUTSIDE RECORDS SUMMARY | 2025-06-17 18:42 | XMS_ITS | Encounter Summary ---
Author Organization [employer] Address 75 [facility] 7 [place] [address] Care Team Providers Care Elementary Assistant Principal Name Role Phone Mervat Simental MD Primary Care Provider + Isa Ferrer MD Primary Care Pro vider Reason for Visit * Reason Onset Date Comments Med Refill 03/26/2024 Encounter Details Date Type Department Care Team (Late st Contact Info) Description 03/26/2024 Refill [facility] MEDICINE 230 [place], [place] [phone] Diane Gutierrez FNP [address] [place], [place] [phone] Primary hypertension; Benign prostatic hyperplasia, unspecified whether [...] Description 08/27/2025 9:00 AM EST Clinical Support [facility] DIABETES/NUTRITION [address] [place] [address] Jocy Arreola, ELBA [address] [place] [address] 09/05/2025 10:30 AM EST Office Visit [facility] MEDICINE [address] [place] [address] Isa Ferrer MD [address] [place] [address] [phone] 09/09/2025 9:30 AM EDT Office Visit [facility] ADULT DENTAL [address] [place] [address] Larisa Antunez documented as of this encounter Visit Diagnoses Diagnosis Primary hypertension Unspecified essential hypertension Benign prostatic hyperplasia, unspecified whether lower urinary tract symptoms present documented in this encounter Additional Health Concerns Assessment Noted Time PHQ-9 Depression Total Score: 10 024 11:48 AM EST documented as of this encounter Care Teams Elementary Assistant Principal Relationship Specialty Start Date End Date Mervat Simental MD [address] [place] [address] PCP - General Internal Medicine 03/06/24 06/04/25 Isa Ferrer MD [address] [place] [address] [place] [address] PCP - General Internal Medicine 06/05/25 documented as of this encounter
--- OUTSIDE RECORDS SUMMARY | 2025-06-17 18:42 | XMS_ITS | Encounter Summary ---
Author Organization [employer] Address [address] [place] [address] [address], [place] [address] Care Team Providers Care Glue Wheel Operator Name Role Phone Diane Gutierrez Primary Care Provider [phone] Diane Gutierrez Primary Care Provider [phone] Diane Gutierrez Primary Care Provider [phone] Diane Gutierrez Primary Care Provider [phone] Mervat Simental MD Primary Care Provider + Isa Ferrer MD Primary Care Pro vider Reason for Visit * Reason Onset Date Comments Medication Question 01/12/2024 Referral 01/12/2024 Encounter Details Date Type Department Care Team ([facility] Contact Info) Description 01/12/2024 Telephone [facility] MEDICINE [address] [place], [place] [phone] Diane Gutierrez FNP [address] [place], [place] [phone] Medication Question; Referral Social History Tobacco Use [...] no answer. LVM to call back on [phone]. * Telephone Encounter - Brian Lau RN [...] Description 08/27/2025 9:00 AM EST Clinical Support [facility] DIABETES/NUTRITION [address] [place] [phone] Jocy Arreola, ELBA [address] [place] [address] 09/05/2025 10:30 AM EST Office Visit [facility] MEDICINE [address] [place] [address] Isa Ferrer MD 230 [place] [address] 09/09/2025 9:30 AM EDT Office Visit [facility] ADULT DENTAL [address] [place] [address] Larisa Antunez documented as of this encounter Visit Diagnoses Not on filedocumented in this encounter Additional Health Concerns Assessment Noted Time PHQ-9 Depression Total Score: 10 024 11:48 AM EST documented as of this encounter Care Teams Glue Wheel Operator Relationship Specialty Start Date End Date Diane Gutierrez FNP 230 [place] [address] PCP - General Family Medicine 05/31/22 01/26/24 Diane Gutierrez FNP [address] [place] [address] PCP - General Family Medicine 01/27/24 01/29/24 Diane Gutierrez FNP [address] [place] [address] PCP - General Family Medicine 01/30/24 02/02/24 Diane Gutierrez FNP 230 [place] [address] PCP - General Family Medicine 02/03/24 03/05/24 Mervat Simental MD 230 [place] [address] PCP - General Internal Medicine 03/06/24 06/04/25 Isa Ferrer MD 230 [place] [address] PCP - General Internal Medicine 06/05/25 documented as of this encounter
--- OUTSIDE RECORDS SUMMARY | 2025-06-17 18:42 | XMS_ITS | Clinical Summary ---
Author Organization [employer] Address [address] [facility] 7 [place] [address] Care Team Providers Care Internet Marketing Strategist Name Role Phone Harrison Ferrer MD Primary Care Pro vider Allergies Active Allergy Reactions Criticality Noted Date Comments Cat Dander 06/21/2022 Coconut (Cocos Nucifera) 06/15/2025 Dog Epithelium 06/21/2022 Doxycycline Diarrhea Medium 02/24/2023 Lisinopril 06/14/2025 Unclear if actual allergy to Saud inh vs food allergy Pt to see Vessel Scrapper Medications Blood Pressure kit Active cholecalciferol (Vitamin D-3) 25 MCG tabletIndicatio ns:Vitamin D deficiency Take 1 tablet (25 mcg) by mouth Once per day. 90 tablet 1 02/05/20 25 Active EPINEPHrine (EpiPen 2-Surnedra) 0.3 MG/0.3ML injection syringe Inject 0.3 mL (0.3 mg) as directed 1 (one) time if needed for anaphylaxis. Inject into upper leg. Call 911 after use. 1 each 1 03/07/20 25 026 Active tamsulosin (Flomax) 0.4 MG 24 hr [...] per day. 30 tablet 11 03/25/20 25 026 Active fluticasone (Flonase) 50 MCG/ACT nasal sprayIndication s:Seasonal allergic rhinitis due to other allergic trigger Administer 2 sprays into each nostril 2 times daily. 48 g 2 03/25/20 25 025 Active cetirizine (ZyrTEC) 10 MG tabletIndicatio ns:Seasonal allergic rhinitis due to other allergic trigger Take 1 tablet (10 mg) by mouth Once per day. 30 tablet 11 03/25/20 25 Active sucralfate (Carafate) 1 GM/10ML suspension Take 10 mL by mouth 2 times daily. 04/17/20 Active aspirin 20.25 MG chewable split tablet Chew 81 mg Once per day. 04/04/20 Active sodium chloride ([place]) 0.65 % nasal spray Administer 1 spray into each nostril if needed for rhinitis or congestion. 15 mL 11 5 11:06 AM EST 06/14/20 25 026 Active melatonin 5 MG tablet Take 1 tablet (5 mg) by mouth at bedtime. 30 tablet 2 5 11:06 AM EST 06/14/20 25 Active Magnesium 400 MG capsule Take 1 tablet by mouth Once per day. 30 capsule 1 10/10/19 25 025 Discontinued(M ed list cleanup (will not trigger notification to Pharmacy)) Magnesium Oxide -Mg Supplement 400 MG capsule Take 1 capsule by mouth Once per day. 10/10/19 25 025 Discontinued(M ed list cleanup (will not trigger notification to Pharmacy)) pantoprazole (Protonix) 40 MG EC tablet Take 1 tablet (40 mg) by mouth before breakfast. Do not crush, chew, or split. 90 tablet 02/05/20 25 025 Discontinued(O ther) lisinopril 10 MG tabletIndicatio ns:Primary hypertension TAKE 1 TABLET BY MOUTH EVERY DAY IN THE MORNING 90 tablet 1 03/15/20 25 025 Discontinued(M ed list cleanup (will not trigger notification to Pharmacy)) Active Problems Problem Noted Date Diagnosed Date GERD (gastroesophageal reflux disease) PAC (premature atrial contraction) 06/15/2025 Paroxysmal atrial fibrillation (CMS/HCC) 025 [place] (obstructive sleep apnea) 06/15/2025 Lesion of nostril 06/15/2025 Localized swelling of both lower legs 06/15/2025 Class 3 severe obesity due t o excess calories with serious comorbidity in adult 06/15/2025 Health care maintenance 06/15/2025 PAF (paroxysmal atrial fibrillation) 06/14/2025 Dementia associated with alc oholism, unspecified dementia severity, unspecified whether behavioral, psychotic, or mood disturbance or anxiety (CMS/HCC) 06/14/2025 Carrier of hemochromatosis HFE gene mutation Diffuse [...] next month, may need referral to neurology. Tubular adenoma of colon 07/27/2024 Assessment & Plan (10/16/2024 3:31 PM EDT): Information regarding GI referral was provided to patient so that he can reschedule appointment Assessment & Plan (07/27/2024 10:10 AM EST): In 2020, will refer to GI for follow up colonoscopy. Decalcification, teeth 02/20/2024 Dental calculus 02/20/2024 Missing teeth, acquired 02/20/2024 Localized gingival recession 02/20/2024 Bleeding gums 02/20/2024 Dental caries 02/20/2024 Retained dental root 02/20/2024 BPH (benign prostatic hyperplasia) 01/26/2024 Assessment & Plan (07/27/2024 10:10 AM EST): Doing well on Flomax. Assessment & Plan (01/26/2024 8:14 PM EDT): -Continue tamsulosin -start finasteride Fatigue 04/05/2023 Assessment & Plan (10/16/2024 3:27 [...] more tired in am. Reports he saw slip cover maker with mx testing per pt last [...] -referred today to GI for worsening hematochezia Alcohol abuse 02/25/2020 Allergic rhinitis 02/25/2020 Mixed [...] Problem Noted Date Diagnosed Date Resolved Date Borderline low oxygen saturation level 01/08/2025 06/15/2025 Assessment & Plan (01/08/2025 2:37 PM EDT): Recorder in his smart watch I will order overnight oximetry to objectively determine O2 levels, I told him that sometimes it is normal to have certain degree of hypoxemia at night then may be consistent with sleep apnea. Advised to avoid smoking or using any other recreational substances that may suppress respiratory drive. Other headache syndrome 10/10/202406/03 Assessment & Plan (11/02/2024 3:27 PM EDT): [...] alarming symptoms ,tylenol prn -start PO Magnesium Subacute pansinusitis 07/27/20242024 Assessment & Plan (07/27/2024 10:11 AM EST): [...] week, back on Tuesday. Bronchial spasm 07/27/2024 06/15/2025 Assessment & Plan (07/27/2024 10:06 AM EST): Most likely secondary to flu, start albuterol TID x 7 days, then prn. Retention of urine 02/25/2020 01/24/202 5 Encounters Date Type Department Care Team Description 06/17/2025 Travel 06/14/2025 9:15 AM EST Office Visit [facility] [place] [address] Harrison Ferrer MD PAF (paroxysmal atrial fibrillation) ([facility]) (Primary Dx); Dementia associated with alcoholism, unspecified [...] (BMI) of 40.0 to 44.9 in adult ([facility]); Health care maintenance 06/14/2025 Telephone [facility] [place] [address] Harrison Ferrer MD Notes found 06/14/2025 Travel 06/13/2025 Telephone [facility] [place] [address] Harrison Ferrer MD chart prep 06/04/2025 Patient Outreach [facility] [place] [address] Lit Simental MD Pre-visit Planning (Pre-visit planning - LVM ) 05/21/2025 Results Follow-Up [facility] [place] [address] Lit Simental MD Referral to Rheumatology 05/06/2025 2:00 PM EST Clinical Support [facility] [address] High serum ferritin (Primary Dx); Chronic fatigue 05/06/2025 Travel 04/29/2025 Orders Only GENERIC EXTERNAL DATA DEPARTMENT Provider, Generic External Data 03/26/2025 Telephone [facility] [place] [address] Lit Simental MD Med Refill 03/26/2025 Telephone [facility] [place] [address] Lit Simental MD FYI 03/25/2025 5:40 PM EDT Office Visit [facility] [address] [place] [address] Brianna Amador MD Primary hypertension (Primary Dx); Seasonal allergic rhinitis due to other allergic trigger 03/25/2025 Travel 03/25/2025 Telephone [facility] [address] [place] [address] Lit Simental MD Nurse Triage 03/25/2025 Refill [facility] [address] [place] [address] Amy Stoen, 03/25/2025 Refill [facility] [address] [place] [address] Lit Simental MD 03/25/2025 Telephone [facility] [address] [place] [address] Lit Simental MD Medication Question from Last 3 Months Immunizations Immunization Administration Dates Next Due Influenza Injectable Quadriv alant Preservative Free IIV4 MDCK 04/15/2021 Influenza, Injectable, MDCK, preservative free 1 08/18/2024 Pneumococcal Conjugate PCV 20 06/17/2025 Tdap 02/14/2020 Zoster, Recombinant 06/15/2021,04/15/2021 Social History [...] Orientation Bisexual 06/15/2025 8: 53 PM EST Last Filed Vital Signs Vital Sign Reading [...] Mass Index 42.41 06/14/2025 9:18 AM EST Plan of Treatment Upcoming Encounters Date Type Department Care Team (Late st Contact Info) Description 08/27/2025 9:00 AM EST Clinical Support [facility] [address] [place] [address] [phone] Jocy Arreola, RD [address] [place], [place] [phone] 09/05/2025 10:30 AM EST Office Visit [facility] [address] [place] [phone] Harrison Ferrer MD [address] [place], [place] [phone] 09/09/2025 9:30 AM EDT Office Visit [facility] [address] [place] [address] [phone] Larisa Antunez Health Maintenance Due Date Last Done Comments Anal Pap 1970 CT Colonography 1970 FIT DNA/Cologuard 1970 FIT 1970 FOBT 1970 Sigmoidoscopy 1970 Hepatitis A Vaccines (1 of 2 - Risk 2-dose series) 1989 Hepatitis B Vaccines (1 of 3 - 19+ 3-dose series) 1989 RSV Patients and Patients Aged 60 years or older (1 - Risk 50-74 years 1-dose series) 2020 COVID-19 Vaccine (2024- season) 2025 07/29/2021, 10/11/2020 Dental Oral Exam 09/09/2025 03/11/2025, 09/2024, 02/20/2024 Dental Prophylaxis 09/09/2025 03/11/2025, 0 09/03/2024, 02/20/2024 SDOH Screening 10/26/2025 10/26/2024 Alcohol/Substance Use Screening 11/02/2025 11/02/2024 Disability Screening 11/02/2025 11/02/2024 Depression Monitoring 12/13/2025 06/14/2025, 025 Dental X-Ray: Bitewings 03/12/2026 03/11/2025, 02/19 Tobacco Screening 06/14/2026 06/14/2025 Dental X-Ray: Full Mouth 02/20/2027 02/20/2024 Colonoscopy 04/04/2028 04/04/2025, 05/04, 05/04/2021 Colorectal Cancer Screening 04/04/2028 Lipid Panel 09/12/2029 09/12/2024, 11/01, 09/07/2021, Additional history exists DTaP/Tdap/Td Vaccines (2 - Td or Tdap) 02/13/2030 02/14/2020 Zoster Vaccines Completed 06/15/2021, 04/15/2021 HIV Screening Completed 10/10/2024, 02/22/2020 Hepatitis C Screening Completed 10/10/2024 , 05/06/2023, 02/22/2020 Influenza Vaccine Completed 06/17/2025, 04/15/2021 Pneumococcal Vaccine: 50+ Years Completed 06/17/2025 HIB Vaccines Aged Out No longer eligi [...] BREATH TEST Routine 04/29/2025 10:34 AM EDT PROPHYLAXIS - ADULT Routine 03/11/2025 9 :00 AM EDT Dental calculus Dental plaque BITEWINGS - 4 RADIOGRAPHIC IMAGES Routine 03/11/2025 9:00 AM EDT PERIODIC ORAL EVALUATION - ESTABLISHED PATIENT Routine 03/11/2025 9:00 AM EDT HEPATITIS C AB W/REFL [...] EDT) H. pylori Breath Test Negative Negative [facility] Comment:Antimicrobials, prot on pump inhibitors and bismuthpreparations are known to suppress H. pylori. Ingestingthese medications within two weeks prior to performing thebreath test may produce negative test results. A positiveresult is still clinically valid. 04/29/2025 10:3 4 AM EDT 04/30/2025 5:30 PM EDT us Generic External Data Provider LAB BODY FLUIDS A ND STOOLS ORDERABLES Final Result Performing Organization Address [facility]/ZIP Co de Phone Number [facility] [address] [place] [phone] * Hepatitis C Antibody with Reflex to HCV, RNA, Quantitative, Real-Time PCR (10/10/2024 9:04 AM EDT) Hepatitis C Antibody Nonreactive Nonreactive [facility] Comment:Antibodies to HCV no t detected; does not exclude early acuteHCV infection. Blood Venous blood specimen / Unknown 10/10/2024 9:04 AM EDT 10/10/2024 11:40 AM EDT us Harrison Paula MD LAB BLOOD ORDERAB LES Final Result Performing Organization Address [facility]/ZIP Co de Phone Number [facility] [address] [place] [phone] * HIV-1/2 Antigen and Antibodies, Fourth Generation, with Reflexes (10/10/2024 9:04 AM EDT) HIV AB/AG Nonreactive Nonreactive [facility] Comment:HIV-1 p24 Ag and/or HIV-1/HIV-2 Ab not detected.A test result that is nonreactive does not exclude thepossibility of exposure to or infection with HIV-1 and/orHIV-2. Nonreactive results in this assay for individualswith prior exposure to HIV-1 and/or HIV-2 may be due toantigen and antibody levels that are below the limit ofdetection of this assay.The Precyse HIV Ag/Ab Combo assay result andsupplemental assay results should be interpreted inconjunction with the patient's clinical presentation,history and other laboratory results. If the results areinconsistent with clinical evidence, additional testing issuggested to confirm the result. Blood Venous blood specimen / Unknown 10/10/2024 9:04 AM EDT 10/10/2024 11:40 AM EDT us Harrison Paula MD LAB BLOOD ORDERAB LES Final Result [facility] [address] [place] [address] [phone] * (ABNORMAL) Lipid Panel with Reflex to Direct LDL (09/12/2024 8:34 AM EDT) Triglycerides 128 <150 mg/dL [facility] Comment:Desirable Triglyceri de: less than 150 mg/dLBorderline High Triglyceride 150-199 mg/dLHigh Triglyceride: 200-499 mg/dLVery High Triglyceride: greater than or equal to 5OO mg/dL Cholesterol 195 <200 mg/dL [facility] Comment:Desirable Cholestero l: less than 200 mg/dLBorderline High Cholesterol: 200-239 mg/dLHigh Cholesterol: greater than 239 mg/dL LDL Cholesterol Calculated 136(H) <100 mg/dL [facility] Comment:Desirable LDL: less than 100 mg/dLNear Optimal/Above Optimal LDL: 110- 129 mg/dLBorderline High LDL: 130-159 mg/dLHigh LDL: 160-189 mg/dLVery High LDL: greater than or equal to 190 mg/dL HDL Cholesterol 34(L) >40 mg/dL [facility] Comment:Desirable HDL: great er than 40 mg/dL Note: This HDL assay may give artificially low results in patients with liver disease. Blood 09/12/2024 8:34 AM EDT 09/12/2024 11:45 AM EDT us Lit Simental MD LAB BLOOD ORDERABLES Fin al Result [facility] [address] [place] [phone] * Hm Colonoscopy (05/20/2021 1:52 PM EST) Colonoscopy Normal Normal Narrative Lindsey Van - 05/20/2021 1:52 PM EST Recommended 3 year follow up us Historical Provider HEALTH MAINTENANCE Edited Result - Final from Last 3 Months or Most Recently Relevant to Health Maintenance Insurance [facility] C3 DENTAL-[facility] MEDICAID STAND ADULT Care Teams Internet Marketing Strategist Relationship Specialty Start Date End Date Harrison Ferrer MD [address] [place] [phone] PCP - General Internal Medicine 06/05/25
--- OUTSIDE RECORDS SUMMARY | 2025-06-17 18:42 | XMS_ITS | Encounter Summary ---
Author Organization [employer] Address [address] [place] [address] [address], [place] [address] Care Team Providers Care Residential Recycle Driver Name Role Phone Diane Gutierrez Primary Care Provider [phone] Diane Gutierrez Primary Care Provider [phone] Diane Gutierrez Primary Care Provider [phone] Diane Gutierrez Primary Care Provider [phone] Mervat Simental MD Primary Care Provider + Isa Ferrer MD Primary Care Pro vider Encounter Details Date Type Department Care Team (Late st Contact Info) Description 12/15/2022 Abstract [facility] [address] [place], [place] [phone] Diane Gutierrez FNP [address] [place], [place] [phone] Social History Tobacco Use Types Packs/Day Years [...] Orientation Bisexual 06/15/2025 8: 53 PM EST COVID-19 Exposure Response Date Recorded In the last 10 days, have yo u been in contact with someone who was confirmed or suspected to have Coronavirus/COVID-19? No / Unsure 12/08/2022 2:52 PM EDT documented as of this encounter Plan of Treatment Upcoming Encounters Date Type Department Care Team (Late st Contact Info) Description 08/27/2025 9:00 AM EST Clinical Support [facility] [address] [place] [phone] Jocy Arreola, ELBA [address] [place] [address] 09/05/2025 10:30 AM EST Office Visit [facility] [address] [place] [phone] Isa Ferrer MD [address] [place] [address] 09/09/2025 9:30 AM EDT Office Visit [facility] [address] [place] [phone] Larisa Antunez documented as of this encounter [...] documented as of this encounter Care Teams Residential Recycle Driver Relationship Specialty Start Date End Date Diane Gutierrez FNP [address] [place] [phone] PCP - General Family Medicine 05/31/22 01/26/24 Diane Gutierrez FNP [address] [place] [address] PCP - General Family Medicine 01/27/24 01/29/24 Diane Gutierrez FNP [address] [place] [phone] PCP - General Family Medicine 01/30/24 02/02/24 Diane Gutierrez FNP [address] [place] [phone] PCP - General Family Medicine 02/03/24 03/05/24 Mervat Simental MD [address] [place] [phone] PCP - General Internal Medicine 03/06/24 06/04/25 Isa Ferrer MD [address] [place] [phone] PCP - General Internal Medicine 06/05/25 documented as of this encounter
--- OUTSIDE RECORDS SUMMARY | 2025-06-17 18:42 | XMS_ITS | Encounter Summary ---
Author Organization [employer] Address [address] [facility] [address], [place] [address] Care Team Providers Care Learning Support Resource Room Teacher Name Role Phone Diane Gutierrez Primary Care Provider [phone] Diane Gutierrez Primary Care Provider [phone] Diane Gutierrez Primary Care Provider [phone] Diane Gutierrez Primary Care Provider [phone] Mervat Simental MD Primary Care Provider + Isa Ferrer MD Primary Care Pro vider Reason for Visit * Reason Onset Date Comments new pt visit 01/12/2024 Encounter Details Date Type Department Care Team (Late st Contact Info) Description 01/12/2024 Telephone [facility] [address] [place], [place] [phone] Saman Rodriguez, DMD [address] [place], [place] [phone] new pt visit Social History Tobacco Use [...] PCP for patient here in [facility] sent an internal referral under referral tab for internal dentistry appt regular care. Patient inquiring on status of appt. Patient informed that there is a lengthy waiting list for new patients and that message would be sent to [facility] dental for follow up. Pls reach out topatient. He'd like to hear from dental office directly DR documented in this encounter Plan of Treatment Upcoming Encounters Date Type Department Care Team (Late st Contact Info) Description 08/27/2025 9:00 AM EST Clinical Support [facility] [address] [place], [place] [phone] Jocy Ar[address] [place], [place] [phone] 09/05/2025 10:30 AM EST Office Visit [facility] [address] [place] [address] [place] [address] 09/09/2025 9:30 AM EDT Office Visit [facility] [address] [place] [address] Larisa Antunez documented as of this encounter Visit Diagnoses Not on filedocumented in this encounter Additional Health Concerns Assessment Noted Time PHQ-9 Depression Total Score: 10 024 11:48 AM EST documented as of this encounter Care Teams Learning Support Resource Room Teacher Relationship Specialty Start Date End Date Diane Gutierrez FNP [address] [place] [phone] PCP - General Family Medicine 05/31/22 01/26/24 Diane Gutierrez FNP [address] [place] [phone] PCP - General Family Medicine 01/27/24 01/29/24 Diane Gutierrez FNP [address] [place] [phone] PCP - General Family Medicine 01/30/24 02/02/24 Diane Gutierrez FNP [address] [place] [phone] PCP - General Family Medicine 02/03/24 03/05/24 Mervat Simental MD [address] [place] [phone] PCP - General Internal Medicine 03/06/24 06/04/25 Isa Ferrer MD [address] [place] [phone] PCP - General Internal Medicine 06/05/25 documented as of this encounter
--- OUTSIDE RECORDS SUMMARY | 2025-06-17 18:42 | XMS_ITS | Encounter Summary ---
Author Organization [employer] Address [address] [facility] [address] [place] [address] Care Team Providers Care Futures Trader Name Role Phone Mervat Simental MD Primary Care Provider + Isa Ferrer MD Primary Care Pro vider Reason for Visit * Reason Onset Date Comments calling back 03/14/2024 Encounter Details Date Type Department Care Team (Late st Contact Info) Description 03/14/2024 Telephone [facility] [address] [place], [place] [phone] Alicia, Enriqueta [address] [place] [phone] calling back Social History Tobacco Use Types [...] housing situation today? I have christen napoleon 05/05/[address] you li [...] is returning a call he had missed. [facility] is on a meeting break till 12;30. Please call him once again to schedule that appt. Thank you CS documented in this encounter Plan of Treatment Upcoming Encounters Date Type Department Care Team (Late st Contact Info) Description 08/27/2025 9:00 AM EST Clinical Support [facility] [address] [place] [phone] [place] [address] 09/05/2025 10:30 AM EST Office Visit [facility] [address] [place], [place] [phone] Isa Ferrer MD [address] [place], [place] [phone] 09/09/2025 9:30 AM EDT Office Visit [facility] [address] [place] [phone] Larisa Antunez documented as of this encounter Visit Diagnoses Not on filedocumented in this encounter Additional Health Concerns Assessment Noted Time PHQ-9 Depression Total Score: 10 024 11:48 AM EST documented as of this encounter Care Teams Futures Trader Relationship Specialty Start Date End Date Mervat Simental MD [address] [place] [phone] PCP - General Internal Medicine 03/06/24 06/04/25 Isa Ferrer MD [address] [place] [phone] PCP - General Internal Medicine 06/05/25 documented as of this encounter
== END 2025-06-17 13:33 | disposition home or self-care (01) ==
LOC: HO.HGI 12:53
PROVIDERS: Visit Provider Nurse Practitioner Family
DX: K21.9 Gastro-esophageal reflux disease without esophagitis (principal); R13.10 Dysphagia, unspecified; R14.0 Abdominal distension (gaseous); K52.9 Noninfective gastroenteritis and colitis, unspecified
CPT/HCPCS: 99214

== ENCOUNTER → 2025-06-17 12:53 | Outpatient (BNVA) | payer MEDICAID, SELFPAY | PROVIDERS: Visit Provider Nurse Practitioner Family | DX: K21.9 Gastro-esophageal reflux disease without esophagitis (principal); K52.9 Noninfective gastroenteritis and colitis, unspecified; R14.0 Abdominal distension (gaseous); R13.10 Dysphagia, unspecified; Z79.899 Other long term (current) drug therapy | CPT/HCPCS: 99212 ==